=== PATIENT | female | born 1990 | race Caucasian/White ===

== ENCOUNTER 2017-10-06 19:55 | Outpatient (CLI) | payer MEDICAID, SELFPAY ==
[2017-10-06 21:01] VITALS: BMI 40.1
--- NOTE | 2017-10-06 23:31 | OB.TRI.NOTE ---
History of Present Illness Date of Service: 10/06/17 Was patient seen by the physician?: Yes Reason For Visit: R/O LABOR Date of Service: 10/06/17 Gestational age: 34 weeks History of Present Illness: Patient presents coming from work. She reports worsening cramping/contractions over the last few hours. Yesterday she reported 1 ctx/hour and now she is having 2 contractions/hr. Patient reports that contractions sometimes were lasting 10 minutes long. Patient denies vaginal bleeding or vaginal discharge. Patient reports +FM. Home Medications Medication Instructions Recorded Sertraline HCl [Zoloft] 1 tab PO DAILY 03/10/17 Pnv No.122/Iron/Folic Acid 1 each PO DAILY 03/22/17 [ Multi Tablet] Ondansetron [Zofran Odt] 4 mg PO Q8H PRN PRN #10 tablet 06/17/17 Allergies LIDOCAINE PATCHES Allergy (Uncoded 06/17/17 16:24) Other Physical Exam Vitals: See nursing note for vital signs - VSS, afebrile NST - FHR Rate Baby A Baseline: 120 Variability:: Moderate Accelerations:: 15 x 15 Decelerations:: None NST Reactive:: Yes, Appropriate for gestational age FHR Category:: Category I Uterine Activity:: Uterine irritability noted on tocometer
== END 2017-10-06 23:25 | disposition home or self-care (01) ==
LOC: WPOUT 20:33 → WP 20:34
PROVIDERS: Family Provider Family Medicine; PCP Family Medicine; Visit Provider Obstetrics & Gynecology
DX: O60.03 Preterm labor without delivery, third trimester (principal); Z3A.34 34 weeks gestation of pregnancy
CPT/HCPCS: 59025; 59050; 99218; G0378

== ENCOUNTER 2017-10-29 13:10 | Outpatient (CLI) | payer MEDICAID, SELFPAY ==
[2017-10-29 13:32] VITALS: BMI 39.7
[2017-10-29 14:13] LABS: ROM Internal Control Test YES-OK TO RESULT pt. (Internal QC); ROM Patient Test Negative (Negative)
--- NOTE | 2017-10-29 19:10 | OB.TRI.NOTE ---
History of Present Illness Date of Service: 10/29/17 Was patient seen by the physician?: Yes Reason For Visit: R/O LABOR Date of Service: 10/29/17 Final POP: 11/17/17 Final POP Source: US <20 weeks Gestational age: 37 Weeks and 2 Days History of Present Illness: 27 YOF G1 presents c/o some vaginal fluid leaking. No regular ctxs/VB. Good FM. Home Medications Medication Instructions Recorded Prenatabs FA 1 tab PO DAILY 10/07/17 Allergies LIDOCAINE PATCHES Allergy (Uncoded 10/07/17 01:59) Other Physical Exam General: Alert, Cooperative, No apparent distress Abdomen: Soft, Non-Distended, Gravid, Tender, Appropriate for Gestational Age Extremities:: Other - edema 1+ Estimated gestational size: Appropriate for gestational size Presentation: Cephalic NST - FHR Rate Baby A Baseline: 125 bpm Variability:: Moderate Accelerations:: 15 x 15 Decelerations:: None NST Reactive:: Yes FHR Category:: Category I Uterine Activity:: irregular ctxs
== END 2017-10-29 15:00 | disposition home or self-care (01) ==
LOC: WP 13:31 → WPOUT 13:31
PROVIDERS: Family Provider Family Medicine; PCP Family Medicine; Visit Provider Advanced Practice Midwife
DX: O42.92 Full-term premature rupture of membranes, unspecified as to length of time between rupture and onset of labor (principal); Z3A.37 37 weeks gestation of pregnancy
CPT/HCPCS: 59025; 59050; 76815; 84112; 99218; G0378

== ENCOUNTER 2017-11-12 03:24 | Inpatient (IN) | payer MEDICAID, SELFPAY ==
[2017-11-12] VITALS (26 sets, daily range): BP systolic 92–132; BP diastolic 47–87; PULSE 67–113; RESP 16–18; TEMP 36.2–36.8; O2SAT 96–100; BMI 39.6
[2017-11-12] MEDS: Lactated Ringers 1,000 ML 999 ML IV (03:30)
[2017-11-12] MEDS: Cefazolin 2 GM in 0.9% Normal Saline 100 ML IV (04:00)
[2017-11-12 04:05] LABS: Hematocrit 39.4 % (37-47); Hemoglobin 13.2 g/dl (12.0-15.0); Mean Corp Hgb Conc 33.5 g/gl (32-36); Mean Corpuscular Hgb 27.3 pg (27.0-32.0); Mean Corpuscular Volume 81.6 fL (81-99); Mean Platelet Vol. 11.3 fl (6.2-12.0); Platelet Count 229 K/mm3 (150-450); RBC Distribution Width CV 14.1 % (11.6-14.6); RBC Distribution Width SD 41.5 fl (35.1-43.9); Red Blood Count 4.83 M/mm3 (4.2-5.4); White Blood Count 13.5 K/mm3 (4.4-11.0)
[2017-11-12 04:06] LABS: Scan Indicated on CBC? Y/N NO
[2017-11-12 04:12] LABS: International Normalized Ratio 0.9; Partial Thromboplast Time 26.9 Seconds (24.1-36.2); Prothrombin Time (Protime)PT. 12.1 SECONDS (11.7-14.9)
[2017-11-12 04:21] LABS: Fibrinogen 584 mg/dl (203-444)
[2017-11-12] MEDS: Oxytocin 30 units/NS 500 ml 30 UNITS/500 ML IV.SOLN 167 UNITS IV (04:30)
--- NOTE | 2017-11-12 05:02 | OP.PCM_ITS ---
Delivery Classification: CABRERA Final POP: 11/17/17 Final POP Source: US <20 weeks Gestational age: 39 Weeks and 2 Days Indications for : Suspected Abruptio Placenta, - - prolonged deceleration Description of Procedure: I was called when the patient arrived to labor and delivery due to her having a large amount of vaginal bleeding. I was called again when I was in transit to be notified that the heart tones were approximately 70 bpm and they were transporting the patient to the operating room. Arrived the patient was in the operating room in knee-chest position and there was a large amount of bright red blood on her legs and pooling on the pad underneath her. Her shaker from anesthesia was present. IV was and and labs have been sent. Place the patient on her side and I checked her and she was found to be 2 cm 80% effaced -2 station. I felt a bag of chavez and the vertex. A moderate amount of bloody fluid returned when I examined her. I was uncertain of her membranes were ruptured. The scalp electrode and at that point the heart tones were 130s-140s range. Discussed with the patient and the team that we would attempt to wait a few more minutes as long as her bleeding did not increase, she was stable and the heart tracing allowed. We are attempting to allow time for [place] if regional anesthetic would be reasonable versus general anesthetic. I discussed with the patient and her partner that I would recommend a section as soon as clinically minimal and possible. Very quickly after my initial assessment, the platelets and CBC returned and the decision was made to proceed with spinal instead of general anesthetic. Her spinal anesthetic was placed. She was prepped and draped in the dorsal supine position with a leftward tilt. A Pfannenstiel skin incision was made approximately 2 cm above the symphysis pubis and carried through to underlying layer fascia with the scalpel. The fascia was incised incised in the midline and extended laterally with the Quezada scissors. The fascia was dissected off the rectus muscles with blunt and sharp dissection. The rectus muscles were in the midline and the peritoneum was entered bluntly. The peritoneal incision was stretched and the bladder blade was placed. The uterine incision was made in a low transverse fashion with the scalpel and extended superiorly and inferiorly with blunt dissection. The amniotic membranes were ruptured bluntly and a moderate amount of fluid that was port wine stain meconium returned.. The infant's head was brought to the incision in the flexed position and delivered without difficulty. The remainder of the infant was delivered with gentle traction and fundal pressure in the standard fashion. The mouth and nares were bulb suctioned. The cord was clamped and cut as the infant was stimulated. The cord clamping was not delayed as the infant was not immediately vigorous. I did milk the cord towards the infant before clamping the cord.. The infant was handed off to the waiting nursing staff. The placenta was delivered with fundal massage and gentle traction in the standard fashion. The uterus was exteriorized and cleared of all clots and debris. . The uterine incision was closed with #1 Vicryl in a running locked fashion. A second layer of the same suture was used in an imbricating fashion and the incision was examined for hemostasis. The uterus was placed back into the peritoneal cavity and hemostasis was assured. The rectus muscles were examined and any bleeding was Bovie cauterized. The parietal peritoneum and rectus muscles were closed en bloc with an 0 Vicryl suture in a running standard fashion.. The rectus fascia was examined and the bleeding was Bovie cauterized and the rectus fascia was closed with 1 PDS suture in a running standard fashion. The subcutaneous tissue was examining and any bleeding was Bovie cauterized. The subcutaneous tissue was reapproximated with 3-0 Vicryl suture in 2 layers. The skin was closed in a subcuticular fashion by the BRAND ANALYST with me present in the labor and delivery suite. All sponge, lap, and needle counts were correct. The patient was taken to her room for recovery in a stable condition. Amniotic Membrane Rupture Type: Artificial Amniotic Fluid Description: Bloody Placenta Disposition: Sent to Pathology Drain: Padilla to straight drain Fluids Replaced: 1000ccLR Cord Entanglement: Around neck x 1, loose Nuchal Cord Compression: Without compression Cord Vessel Description: 3 Vessels Esitmated Blood Loss (ml): 800cc (1 minute): 8 (5 minute): 9 Delayed cord clamping: No Pre-op Antibiotic Given: Ancef 2 grams IV x1 Complications: None - Admit VTE Documentation VTE Present on Admission: No VTE Mechan Device Prophylaxis: SCD's VTE Pharm Prophylaxis ordered?: Yes
--- NOTE | 2017-11-12 05:02 | PCM.HP.OB ---
History Date of Admission: 11/12/17 Final POP: 11/17/17 Final POP Source: US <20 weeks Gestational age: 39 Weeks and 2 Days History of this : 27-year-old 1 para 0 female with EDC of 11/17/2017 by first trimester ultrasound alone presents complaining of bright red vaginal bleeding. She states she was sleeping and when she woke up approximately 45 minutes before she arrived to labor and delivery she noted she had some vaginal bleeding. Denies any trauma vaginal exams. She has not had any vaginal bleeding earlier in the . She had no regular contractions. She had no obvious leaking of fluid prior to this. Good movement yesterday. She states her has been uncomplicated to date. She denies history of drug use other than marijuana. Pertinent Past Medical History: Past medical history: [place] with BMI of 39. History of depression and PTSD. Family medical history: She had a brother that at 1 day of age due to a heart abnormality otherwise noncontributory Past surgical history: None Allergies LIDOCAINE PATCHES Allergy (Uncoded 10/07/17 01:59) Other Current Medications Acetaminophen (Tylenol) 325 - 650 mg PO Q4H PRN PRN PRN Reason: PAIN OR FEVER >100.4F Al Hydroxide/Mg Hydroxide (Mylanta Ii) 15 - 30 ml PO Q4H PRN PRN PRN Reason: INDIGESTION Citric Acid/Sodium Citrate (Bicitra) 30 ml PO UD PRN Citric Acid/Sodium Citrate (Bicitra) 30 ml PO UD MYRNA Lactated Ringer's () 1,000 mls @ 150 mls/hr IV .Q6H40M MYRNA Lactated Ringer's () 1,000 mls @ 999 mls/hr IV .Q1H1M MYRNA PRN Reason: Wide Open Stop: 11/12/17 05:05 Nalbuphine HCl (Nubain) 5 - 10 mg IV Q3H PRN PRN PRN Reason: PAIN (4-10/10) Ondansetron HCl (Zofran) 4 mg IV Q8H PRN PRN PRN Reason: NAUSEA Promethazine HCl (Phenergan) 6.25 - 12.5 mg IV Q4H PRN PRN; Protocol PRN Reason: IF NAUSEA PERSISTS Sodium Chloride () 0 ml IV UD [facility] Smoking Status: Current every day smoker Alcohol: None Drug Use: marijuana Number of Fetus(es): 1 Review of Systems Constitutional: Denies: Chills Eyes: Denies: Blurred vision Cardiovascular: Reports: Edema. Denies: Chest Pain Respiratory: Denies: Cough Gastrointestinal: Denies: Abdominal Pain Physical Exam General: Alert, Cooperative, No apparent distress Cardiovascular: Regular Rhythm Lungs: Normal air movement Abdomen: Soft, Non Tender, Non-Distended, Gravid, Appropriate for Gestational Age Extremities:: Other - edema- trace Estimated gestational size: Appropriate for gestational size Presentation: Cephalic Cervix Dilation (cm): 2 Station: -2 Effacement (%): 80 Assessment/Plan 27-year-old 1 para 0 at 39-2/7 weeks gestation with placental abruption, both from delivery and prolonged deceleration. When I arrived I quickly discussed with the patient and her partner that I suspected placental abruption and recommended proceeding with urgent section. Patient and partner agreed. Shortly after I arrived to assess the patient in the operating room her platelets and hemoglobin returned decision was made to proceed with regional anesthetic. We did was section in an urgent fashion. Area Attendant called for delivery. Pressure is stable. Will send tox screen.
[2017-11-12] MEDS: Lactated Ringers 1,000 ML 100 ML IV ×3 (05:03→17:55)
--- NOTE | 2017-11-12 05:10 | HP.PCM_ITS ---
History Date of Admission: 11/12/17 Final POP: 11/17/17 Final POP Source: US <20 weeks Gestational age: 39 Weeks and 2 Days History of this : 27-year-old 1 para 0 female with EDC of 11/17/2017 by first trimester ultrasound alone presents complaining of bright red vaginal bleeding. She states she was sleeping and when she woke up approximately 45 minutes before she arrived to labor and delivery she noted she had some vaginal bleeding. Denies any trauma vaginal exams. She has not had any vaginal bleeding earlier in the . She had no regular contractions. She had no obvious leaking of fluid prior to this. Good movement yesterday. She states her has been uncomplicated to date. She denies history of drug use other than marijuana. Pertinent Past Medical History: Past medical history: [place] with BMI of 39. History of depression and PTSD. Family medical history: She had a brother that at 1 day of age due to a heart abnormality otherwise noncontributory Past surgical history: None Allergies LIDOCAINE PATCHES Allergy (Uncoded 10/07/17 01:59) Other Current Medications Acetaminophen (Tylenol) 325 - 650 mg PO Q4H PRN PRN PRN Reason: PAIN OR FEVER >100.4F Al Hydroxide/Mg Hydroxide (Mylanta Ii) 15 - 30 ml PO Q4H PRN PRN PRN Reason: INDIGESTION Citric Acid/Sodium Citrate (Bicitra) 30 ml PO UD PRN Citric Acid/Sodium Citrate (Bicitra) 30 ml PO UD MYRNA Lactated Ringer's () 1,000 mls @ 150 mls/hr IV .Q6H40M MYRNA Lactated Ringer's () 1,000 mls @ 999 mls/hr IV .Q1H1M MYRNA PRN Reason: Wide Open Stop: 11/12/17 05:05 Nalbuphine HCl (Nubain) 5 - 10 mg IV Q3H PRN PRN PRN Reason: PAIN (4-10/10) Ondansetron HCl (Zofran) 4 mg IV Q8H PRN PRN PRN Reason: NAUSEA Promethazine HCl (Phenergan) 6.25 - 12.5 mg IV Q4H PRN PRN; Protocol PRN Reason: IF NAUSEA PERSISTS Sodium Chloride () 0 ml IV UD [facility] Smoking Status: Current every day smoker Alcohol: None Drug Use: marijuana Number of Fetus(es): 1 Review of Systems Constitutional: Denies: Chills Eyes: Denies: Blurred vision Cardiovascular: Reports: Edema. Denies: Chest Pain Respiratory: Denies: Cough Gastrointestinal: Denies: Abdominal Pain Physical Exam General: Alert, Cooperative, No apparent distress Cardiovascular: Regular Rhythm Lungs: Normal air movement Abdomen: Soft, Non Tender, Non-Distended, Gravid, Appropriate for Gestational Age Extremities:: Other - edema- trace Estimated gestational size: Appropriate for gestational size Presentation: Cephalic Cervix Dilation (cm): 2 Station: -2 Effacement (%): 80 Assessment/Plan 27-year-old 1 para 0 at 39-2/7 weeks gestation with placental abruption , both from delivery and prolonged deceleration. When I arrived I quickly discussed with the patient and her partner that I suspected placental abruption and recommended proceeding with urgent section. Patient and partner agreed. Shortly after I arrived to assess the patient in the operating room her platelets and hemoglobin returned decision was made to proceed with regional anesthetic. We did was section in an urgent fashion. Library Services Dean called for delivery. Pressure is stable. Will send tox screen.
--- NOTE | 2017-11-12 05:27 | PLAC_PTH ---
PATIENT: STARR KHAN LOC: WP U#:[id number] AGE/SX: 27/F ROOM: WP002 RE11/12/[address]: Dr. Nabila Whitt MD : 1990 BED: 1 DIS: 11/15/2017 SPEC #: [id number] RECD: 11/12/17 05:58 STATUS: FELICIA THOMAS #: [id number] ROMEO: 11/12/17 05:[address]: Nabila Whitt DEPT: SURGICAL PATHOLOGY RECD BY: Adelina Marquez ENTERED: 11/12/17 09:30 SP TYPE: PLACENTA OTHR DR: Dr. Alexx Khan MD Tissues: Placenta, NOS Procedures: Surgery Specimen Level V HEADER OPERATION: Primary section PRE-OP DIAGNOSIS: Bleeding, suspected abruption TISSUE SUBMITTED: Placenta MICROSCOPIC DIAGNOSIS Duenas placenta (616 gm): Umbilical cord ? four vessels with no inflammation. Placental membranes ? no pathologic change. Placental disc ? intervillous congestion, Brant-Christofer change and mildly increased intraparenchymal microcalcifications and mild chronic deciduitis. AM:marianne 11/14/17 MICROSCOPIC DESCRIPTION Slides are reviewed. GROSS DESCRIPTION SPECIMEN: PLACENTA / CLINICAL INFORMATION: A. Weight: 3.01 gm B. Gestational Age: 39 weeks C. Sex: Female PLACENTAL WEIGHT (POST FIXATION): 616 gm PLACENTAL DIMENSIONS: 17 x 17 x 3 cm PLACENTAL SHAPE: Usual ovoid PLACENTAL WEIGHT FOR GESTATIONAL AGE: Over 99th percentile MEMBRANES - Present A. Insertion: Marginal B. Site of rupture from edge: At edge of placental disc C. Color of membrane: Dupont-copeland D. Abnormalities: None UMBILICAL CORD - Present A. Color: Dupont-copeland B. Insertion: Eccentric C. Length: 19 cm D. Diameter: 1.5 cm E. Number of vessels: Four F. Abnormalities: None PLACENTAL DISC - Present A. Color of surface: Dupont-copeland B. surface abnormalities: None C. Maternal cotyledons: Intact with minimal tears D. Attached retro placental clot: No clot E. Cut surface: Dark red and spongy F. Lesions: None G. Separate clot: Separate blood clot in container measures 13 x 5 x 3 cm. SECTIONS SUBMITTED: 1. Membrane roll and umbilical cord ( end notched) 2. Placental disc, and maternal surfaces 3. Placental disc, and maternal surfaces 4. Placental disc, and maternal surfaces AM:marianne 11/13/17 TC:3 CPT: 09649
[2017-11-12 06:12] LABS: Amphetamine Urine VISTA NEGATIVE (<1000 ng/mL); Barbiturate Urine VISTA NEGATIVE (< 200 ng/mL); Benzodiazepine Urine VISTA NEGATIVE (< 200 ng/mL); Cocaine Urine VISTA NEGATIVE (< 300 ng/mL); Ecstacy Urine VISTA NEGATIVE (< 500 ng/mL); Methadone Urine VISTA NEGATIVE (< 300 ng/mL); PCP Urine VISTA NEGATIVE (< 25 ng/mL); THC Urine VISTA POSITIVE (< 50 ng/mL); Vista UDS pH Range 6
[2017-11-12] MEDS: Ketorolac 30 MG/ML Syringe IV ×3 (09:52→21:59)
[2017-11-12] MEDS: Ondansetron 4 MG/2 ML Vial IV (09:52)
[2017-11-12] MEDS: 0.9% Saline Lock 10 ML Syringe IV ×3 (09:52→21:59)
[2017-11-12] MEDS: Acetaminophen 500 MG Tablet 1000 MG PO (19:13)
[2017-11-12] MEDS: Senna/Docusate Sodium 1 Tablet PO (21:59)
[2017-11-13 00:01] VITALS: BP 115/58; PULSE 69; RESP 16; TEMP 36.6; O2SAT 97
[2017-11-13 02:22] VITALS: RESP 18; O2SAT 97
[2017-11-13] MEDS: Ketorolac 30 MG/ML Syringe IV (04:10)
[2017-11-13] MEDS: 0.9% Saline Lock 10 ML Syringe IV ×2 (04:10→10:17)
[2017-11-13 04:14] VITALS: BP 110/69; PULSE 100; RESP 18; TEMP 36.4; O2SAT 99
[2017-11-13 05:33] LABS: Hematocrit 31.2 % (37-47); Hemoglobin 10.3 g/dl (12.0-15.0); Mean Corpuscular Hgb 27.5 pg (27.0-32.0); Mean Corpuscular Volume 83.2 fL (81-99); Mean Platelet Vol. 11.5 fl (6.2-12.0); Platelet Count 176 K/mm3 (150-450); RBC Distribution Width CV 14.3 % (11.6-14.6); RBC Distribution Width SD 41.9 fl (35.1-43.9); Red Blood Count 3.75 M/mm3 (4.2-5.4); White Blood Count 10.9 K/mm3 (4.4-11.0)
[2017-11-13 05:53] LABS: Scan Indicated on CBC? Y/N NO
[2017-11-13] MEDS: oxyCODONE 5 MG Tablet PO ×5 (07:26→23:57)
[2017-11-13 09:00] VITALS: BP 104/69; PULSE 82; RESP 20; TEMP 36.4; O2SAT 97
[2017-11-13] MEDS: Prenatal Vits Tablet 1 TABLET PO (10:16)
[2017-11-13] MEDS: Senna/Docusate Sodium 1 Tablet PO ×2 (10:16→22:21)
--- NOTE | 2017-11-13 10:33 | CASEMGMT ---
See assessment for further details. SW spoke w/MOB in room, FOB asleep on the couch. MOB agreeable to speak w/SW w/FOB present. MOB reports to have all needed supplies for baby, including crib and bassinet. Baby has her own room. MOB states not enrolled in WIC, may be over income. MOB is , does have bottles. MOB reports supportive family on both MOB and FOB's side, and supportive siblings as well. 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 SW spoke w/ED about history of anxiety, depression and PTSD. MOB states is not in counseling at present. MOB also not on any medication at present. MOB states had counseling at [facility] two and a half years ago and did not find it helpful. SW explained that there are other places that offer counseling in [place] should she need it. MOB denies symptoms at present, denies being suicidal. MOB denies and issues of DV at present. SW asked MOB about substance abuse. MOB denies use of any other drugs or alcohol, admits to marijuana use. MOB admits smoked during to help w/nausea and anxiety. MOB also did admit she smoked the day prior to delivery. SW explained that both she and baby did have a positive tox screen for marijuana and this means that [facility] will be [facility]. MOB immediately became tearful and asked if the baby will be taken away. SW reassured MOB that most likely no, they will not take the baby away but will offer support to MOB, explained the goal will be to keep the family together. SW explained will call and let her know what [facility] says. SW did also give MOB and reviewed w/MOB resources for shaken baby, safe sleeping, support groups for Moms and Dads, counseling resources in [place] including [facility], [facility], other resources in [facility] including 24 hour hotline for [facility], and information on Post depression. SW called [facility], spoke w/Yuliet, she states they will open a case but she is not certain they will see mom here or may see her at home, BRAD asked Yuliet to have the worker call this SW to let this SW know. The worker assigned to the case will call MOB directly. Yuliet also confirmed the goal will be to keep the family together and the baby will not be removed. SW spoke w/MOB again, checked her phone number which was wrong in the system, and explained that someone from [facility] will call her directly. SW explained again that the goal is to keep her family together and they will not be removing the baby. SW explained the worker may see her here or wait until she gets home. SW again explained they will be offering her support and speaking w/her about alternatives to smoking pot--will likely encourage her to get back into counseling. MOB states understanding. SW explained to MOB if she has any questions or wants to speak w/SW to let the RN know, SW can come back. MOB states understanding. SW did call Yuliet back at [facility] with the corrected phone number. BRAD updated MOB's RN. SW will check back w/MOB tomorrow. THIEN Yung, RUBBER TUBING SPLICER
[2017-11-13 14:00] VITALS: BP 114/69; PULSE 89; TEMP 36.6; O2SAT 94
--- NOTE | 2017-11-13 14:57 | CASEMGMT ---
Soheila from [facility] called this SW, she states she does not need to see MOB and baby here in the hospital, will call her to set up a time to meet her at her home. She is going to call MOB shortly. THIEN Yugn, CLOUD ENGAGEMENT PARTNER
[2017-11-13] MEDS: Naproxen 250 MG Tablet PO (17:53)
[2017-11-13 19:50] VITALS: BP 117/79; PULSE 88; RESP 16; TEMP 36.7
[2017-11-14 02:20] VITALS: BP 110/72; PULSE 90; RESP 18; TEMP 36.7
[2017-11-14] MEDS: Naproxen 250 MG Tablet PO ×2 (02:34→19:45)
--- NOTE | 2017-11-14 08:38 | PCM.PN.OB ---
Subjective: pain well controlled, average lochia, + flatus, no BM - Physical Exam General: Alert, Cooperative, No apparent distress Abdomen: Soft, Non-Distended, Tender - appropriately Extremities: Edema - trace Skin: Incision - bandage clean, dry and intact Vital Signs Temp Pulse Resp BP Pulse Ox 98.0 F 90 18 110/72 94 11/14/17 02:20 11/14/17 02:20 11/14/17 02:20 11/14/17 02:20 11/13/17 14:00 Oxygen Delivery Method Room Air Weight: 108.012 kg Body Mass Index (BMI) 39.6 Intake and Output for Last 24 Hours 11/12/17 11/13/17 11/14/17 23:59 23:59 23:59 Intake Total 5907 / 5907 500 / 500 Output Total 2550 / 2550 2600 / 2600 Balance 3357 / 3357 -2100 / -2100 Medical Necessity - Tobacco Use Smoking Status: Never smoker Assessment/Plan POD#2 doing well infant b reastfeeding probably home tomorrow
--- NOTE | 2017-11-14 08:43 | CASEMGMT ---
SW spoke w/pt this morning in room, pt's on couch with eyes closed, but awake. BRAD inquired if she received a call from Soheila at [facility]. MOB states she missed the call and when she called back, nobody knew what she was talking about. SW explained will call Soehila today to let her know, and ask her to call MOB again to set up a time to see her. MOB asked if they would just show up at her home. BRAD explained to MOB that Soheila will set up a time to see MOB and family at home, and she can be discharged from the hospital when she is ready. MOB became tearful, SW again reassured her that the goal is to keep the family together and offer her and the family support. SW explained that they will likely speak w/her about getting back into counseling and not smoking marijuana. MOB states understanding. MOB and FOB have no further questions at this time. BRAD called [facility], message left for Soheila to call MOB back to set up time to meet at home, and if she cannot reach MOB to call this BRAD and this BRAD can put Soheila on phone w/her to set up a time. BRAD just learned from HEALTH CARE SANITARY TECHNICIAN MOB has been getting a script filled fo Ambien, 30/month, and Tramadol, 90/month during . MOB had not mentioned this to the HEALTH CARE SANITARY TECHNICIAN or any staff here. BRAD did call Soheila back from [facility], let her know about MOB getting the Ambien and Tramadol prescribed throughout her but had not let the HEALTH CARE SANITARY TECHNICIAN or staff here know this. Soheila did speak w/MOB and scheduled a home visit for next week. No further needs are anticipated. MOB home at discharge with baby. THIEN Yung, ELECTRICIAN SHOP
--- NOTE | 2017-11-14 08:49 | DCINST_ITS ---
Discharge Diet: No Restrictions Discharge Activity: Return to Normal Activity, May Not Drive - for 2 weeks, May not drive while taking narcotic pain medications., May Shower, May Take a Tub Bath - in 7 days. May resume sexual activity in: 4-6 weeks Lifting Restrictions: 20 pounds Additional Activity Instructions:: Nothing in the vagina for 4-6 weeks. You may return to work/school in 6 weeks. Call your doctor if your incision/area has: Continuous Slow Oozing, Sudden Increased Bleeding, Increased Pain/ Swelling, Increased Redness, Foul Smelling Discharge Call your doctor if you observe: Fever of 101 or Higher, Using more than one pad per hour - for 2 hours Suture Line Care: Avoid Pulling/Pushing, Avoid Pinching/Bending Cleanse incision/area with: Keep Dressing Clean & Dry Additional Instructions: If you experience any of the following, contact your healthcare provider. * Bleeding that soaks a pad every hour for 2 hours * Fever 100.4 or higher * Unrelieved incision or abdominal pain * Swelling, redness, discharge or bleeding from your incision or episiotomy site * Your incision begins to separate * Problems urinating (including inability to urinate or burning while urinating) . * Visual changes * Severe headache * Flu-like symptoms * Pain or redness in one of both of your breasts * Pain, warmth, tenderness or swelling in your legs, especially the calf area * Frequent nausea and vomiting * Symptoms of depression or anxiety If you experience any of the following, call 911 or go to the nearest Emergency Room. * Chest pain * Problems breathing * Seizure activity * Partial or complete paralysis of a body part, slurred speech, weakness or drooping of the face, or a sudden inability to walk or hold your balance Allergies/Adverse Reactions: Allergies LIDOCAINE PATCHES Allergy (Uncoded 10/07/17 01:59) Other Medications to take at Discharge Prenatabs FA 1 tab PO DAILY 10/07/17 Ibuprofen [Motrin] 800 mg PO TID PRN PRN #60 tab 11/14/17 Oxycodone HCl/Acetaminophen [Percocet 5/325] 1 - 2 tablet PO Q8 PRN 7 Days #28 tablet 11/14/17 The following prescriptions were given: Ibuprofen [Motrin] 800 mg PO TID PRN PRN #60 tab PRN Reason: Pain Oxycodone HCl/Acetaminophen [Percocet 5/325] 1 - 2 tablet PO Q8 PRN 7 Days #28 tablet PRN Reason: Pain Orders to be completed after discharge: Electric breast pump Location: None Selected Follow-Up: Call to make an appointment with your doctor for an incision check in 1-2 weeks. You will also need a 6 week post- follow up appointment. Please Follow Up With: Nabila Whitt MD - Call to make an appointment for an incision check in 1-2 [phone] When: You will need a post check in 6 weeks. Primary Care Physician: Alexx Khan MD [Primary Care Provider] -
[2017-11-14] MEDS: oxyCODONE 5 MG Tablet PO ×3 (09:05→21:20)
[2017-11-14 09:08] VITALS: BP 113/71; PULSE 72; RESP 18; TEMP 36.6; O2SAT 97
[2017-11-14] MEDS: Prenatal Vits Tablet 1 TABLET PO (12:39)
[2017-11-14] MEDS: Senna/Docusate Sodium 1 Tablet PO ×2 (12:39→23:51)
[2017-11-14 13:00] VITALS: BP 114/80; PULSE 77; RESP 18; TEMP 36.5; O2SAT 98
[2017-11-14 20:00] VITALS: BP 128/80; PULSE 77; RESP 18; TEMP 36.6
[2017-11-15 02:35] VITALS: BP 114/70; PULSE 78; RESP 16; TEMP 36.3
[2017-11-15] MEDS: oxyCODONE 5 MG Tablet PO ×2 (05:48→10:47)
[2017-11-15 07:32] VITALS: BP 102/63; PULSE 78; RESP 16; TEMP 36.2; O2SAT 99
--- NOTE | 2017-11-15 08:59 | PCM.PN.OB ---
Subjective: Pain well controlled. Positive flatus. No bowel movement yet. Tolerating regular diet. Ambulating and urinating without difficulty. - Physical Exam General: Alert, Cooperative, No apparent distress Abdomen: Soft, Non-Distended, Tender - Appropriately Extremities: Edema - 1+ Skin: Incision - Bandages clean dry and intact. Under the bandage the incision is intact without erythema or drainage. Vital Signs Temp Pulse Resp BP Pulse Ox 97.2 F L 78 16 102/63 99 11/15/17 07:32 11/15/17 07:32 11/15/17 07:32 11/15/17 07:32 11/15/17 07:32 Oxygen Delivery Method Room Air Weight: 108.012 kg Body Mass Index (BMI) 39.6 Intake and Output for Last 24 Hours 11/13/17 11/14/17 11/15/17 23:59 23:59 23:59 Intake Total 500 / 500 Output Total 2600 / 2600 Balance -2100 / -2100 Medical Necessity - Tobacco Use Smoking Status: Never smoker Assessment/Plan Postoperative day #3 status post urgent section for placental abruption. Patient and are doing well. She is working on breast-feeding. She will be discharged home today.
--- NOTE | 2017-11-15 09:01 | PCM.DC.SUM ---
Discharge Date and Diagnosis Date of Admission: 11/12/17 Date of Discharge: 11/15/17 Hospital Course and Treatment Consultations 11/12/17 05:39 Consult: Mental Health/Crisis Routine Reason for consult?: Hx THC use in and prior. Traumatic delivery Date Notified:: 11/12/17 Time notified:: 05:39 Operations: - - Primary low transverse section Via Pfannenstiel skin incision with double layer closure of the uterus. Procedures: None Summary of Care Provided: 27-year-old primigravida female was admitted for vaginal bleeding in early labor. She had prolonged decelerations. She was consented for urgent section. Spinal was placed in the section was performed without difficulty. She had a partial placental abruption. She had a low transverse section Via Pfannenstiel skin incision with a double layer closure of the uterus. By postoperative day #3 she was ambulating, urinating, and tolerating regular diet without difficulty. She was discharged home with routine instructions and prescriptions and she is to follow-up in my office in 1 in 6 weeks or as needed. [] Discharge Diet: No Restrictions Discharge Activity: Return to Normal Activity, May Not Drive - for 2 weeks, May not drive while taking narcotic pain medications., May Shower, May Take a Tub Bath - in 7 days. May resume sexual activity in: 4-6 weeks Additional Activity Instructions:: Nothing in the vagina for 4-6 weeks. You may return to work/school in 6 weeks. Call your doctor if your incision/area has: Continuous Slow Oozing, Sudden Increased Bleeding, Increased Pain/ Swelling, Increased Redness, Foul Smelling Discharge Call your doctor if you observe: Fever of 101 or Higher, Using more than one pad per hour - for 2 hours Suture Line Care: Avoid Pulling/Pushing, Avoid Pinching/Bending Cleanse incision/area with: Keep Dressing Clean & Dry Home Medications: Medications to take at Discharge Prenatabs FA 1 tab PO DAILY 10/07/17 Ibuprofen [Motrin] 800 mg PO TID PRN PRN #60 tab 11/14/17 Oxycodone HCl/Acetaminophen [Percocet 5/325] 1 - 2 tablet PO Q8 PRN 7 Days #28 tablet 11/14/17 Following Prescrptions Were Given to Patient: Ibuprofen [Motrin] 800 mg PO TID PRN PRN #60 tab PRN Reason: Pain Oxycodone HCl/Acetaminophen [Percocet 5/325] 1 - 2 tablet PO Q8 PRN 7 Days #28 tablet PRN Reason: Pain Other Amb Orders: Electric breast pump Location: None Selected Primary Care Physician: Alexx Khan MD [Primary Care Provider] - Please Follow Up With: Nabila Whitt MD - Call to make an appointment for an incision check in 1-2 [phone] When: You will need a post check in 6 weeks. Medical Necessity - Tobacco Use Smoking Status: Never smoker Meaningful Use Info Meaningful Use Diagnoses (Choose all that apply): None applicable
[2017-11-15] MEDS: Senna/Docusate Sodium 1 Tablet PO (10:47)
[2017-11-15] MEDS: Prenatal Vits Tablet 1 TABLET PO (10:47)
[2017-11-15] MEDS: Acetaminophen 500 MG Tablet 1000 MG PO (12:38)
[2017-11-15 13:34] VITALS: BP 110/65; PULSE 84; RESP 16; TEMP 36.6; O2SAT 99
--- NOTE | 2017-11-15 14:04 | NURSING ---
RIGHT PT GETTING IN WHEEL CHAIR FOR DISCHARGE PT STARTED C/O SEVERE HEADACHE THAT IS ONLY GONE WHEN LAYING DOWN. THIS RN INFORMED PT IT IS PROBABLY SPINAL HEADACHE AND THIS RN WILL CALL ANESTHESIA. CALLED GREGORY AND SHE INFORMED THIS RN TO TELL PT THAT SHE NEEDS TO GO HOME AND TRY DRINKING LOTS OF FLUIDS AND CAFFEINE AND IF NOT IMPROVED CAN CALL OB OR GO TO ER FOR EVALUATION. PT INFORMED OF THIS INFORMATION AND OK WITH PLAN OF NOW.
[2017-11-17 05:29] LABS: Pathology Specimen OB SEE PATHOLOGY REPORT
== END 2017-11-15 13:58 | disposition home or self-care (01) | DRG 370 ==
PROVIDERS: Admitting Provider Obstetrics & Gynecology; Family Provider Family Medicine; PCP Family Medicine; Visit Provider Obstetrics & Gynecology
DX: O45.93 Premature separation of placenta, unspecified, third trimester (principal); O99.324 Drug use complicating childbirth; O76 Abnormality in fetal heart rate and rhythm complicating labor and delivery; O69.82X0 Labor and delivery complicated by other cord entanglement, without compression, not applicable or unspecified; F17.200 Nicotine dependence, unspecified, uncomplicated; O99.334 Smoking (tobacco) complicating childbirth; F12.90 Cannabis use, unspecified, uncomplicated; Z3A.39 39 weeks gestation of pregnancy; Z37.0 Single live birth
CPT/HCPCS: 59025; 59050; 80307; 85027; 85384; 85610; 85730; 86850; 86900; 88307; 94762; 99218; J7120; A4216; G0378; J2405

== ENCOUNTER 2017-11-19 14:34 | Outpatient (CLI) | payer MEDICAID, SELFPAY | END 2017-11-19 15:35 | disposition home or self-care (01) | LOC: WPOUT 14:35 → WP 14:36 | PROVIDERS: Family Provider Family Medicine; PCP Family Medicine; Visit Provider Obstetrics & Gynecology | DX: Z39.1 Encounter for care and examination of lactating mother (principal) | CPT/HCPCS: 96152 ==

== ENCOUNTER 2019-11-24 00:14 | Emergency (ER) | payer BC, OTHER, SELFPAY ==
[2019-11-24 00:16] VITALS: BP 113/70; PULSE 57; RESP 16; TEMP 36.3; O2SAT 99; BMI 45.0
--- NOTE | 2019-11-24 00:30 | EKG12_ITS ---
Test Reason : DIZZNESS Blood Pressure : / mmHG Vent. Rate : 056 BPM Atrial Rate : 056 BPM P-R Int : 126 ms QRS Dur : 100 ms QT Int : 408 ms P-R-T Axes : 033 060 044 degrees QTc Int : 393 ms Sinus bradycardia with marked sinus arrhythmia Otherwise normal ECG Confirmed by REMI BLANCO ([id number]), managing editor CUCA EL ([id number]) on 11/25/2019 3:01:36 PM Referred By: JAZMÍN Confirmed By:REMI BLANCO
[2019-11-24 01:07] LABS: Absolute Lymphocyte Count 2.85 X10^3/uL (0.83-4.51); Absolute Neutrophil Count 4.4 X10^3/uL (2.0-7.7); Basophil# 0.07 X10^3/uL; Basophil% 0.8 % (0-1); Eosinophil# 0.71 X10^3/uL; Eosinophils% 8.1 % (0-5); Hematocrit 46.6 % (37-47); Hemoglobin 15.9 g/dL (12.0-15.0); Lymphocyte # 2.85 X10^3/ul (4.0); Lymphocyte % 32.6 % (19-41); Mean Corp Hgb Conc 34.1 g/dL (32-36); Mean Corpuscular Hgb 29.2 pg (27.0-32.0); Mean Corpuscular Volume 85.5 fL (81-99); Monocyte# 0.68 X10^3/uL; Monocyte% 7.8 % (0-10); NRBC Flagged by Analyzer 0 % (0-5); Neutrophil % 50.4 % (47-70); Platelet Count 251 K/mm3 (150-450); RBC Distribution Width CV 13.2 % (11.6-14.6); RBC Distribution Width SD 40.1 fl (35.1-43.9); Red Blood Count 5.45 M/mm3 (4.2-5.4); White Blood Count 8.7 K/mm3 (4.4-11.0)
--- NOTE | 2019-11-24 01:19 | ED.VIS.GEN ---
History of Present Illness Chief Complaint: Dizziness Informant: Patient Onset: Today Current Severity: Mild Maximum Severity: Moderate Narrative: Patient presents secondary to dizziness. She states that she works third shift and lay down to take a nap around 5 PM. She felt fine at that time. Upon waking she felt lightheaded and dizzy. She describes both lightheaded and spinning sensation. She denies palpitations. She states she felt she was in a pass out and could hardly walk 5 feet. She denies any recent medication changes. She states she has never experienced this previously. Past Medical History - Allergies and Home Meds Allergies/Adverse Reactions: Allergies LIDOCAINE PATCHES Allergy (Uncoded 10/07/17 01:59) Other Primary Care Physician: Care Physician,No Primary [Primary Care Provider] - Prior records reviewed: Yes Surgical History: no surgical history Lives: With Family Smoking Status: Never smoker - Family History Maternal Family History: Reports: No pertinent history Paternal Family History: Reports: No pertinent history Review of Systems General: Denies: Chills, Fever Eyes: Denies: Visual changes - bilaterally ENT: Denies: Bilateral ear pain Cardiovascular: Denies: Chest pain Respiratory: Denies: Dyspnea, Cough Gastrointestinal: Denies: Abdominal pain, Nausea, Vomiting, Diarrhea Genitourinary: Denies: Dysuria Musculoskeletal: Denies: Swelling, Extremity Pain Skin: Denies: Rash Neurological: Denies: Headache Hematologic: Denies: Easy bruising, Easy bleeding Allergy: Denies: Uticaria Physical Exam Vital Signs/Narrative: Vital Signs Temp Pulse Resp BP Pulse Ox 11/24/19 00:16 97.4 F L 57 L 16 113/70 99 Inital Vital Signs reviewed: Yes General: Well nourished, Well developed Head: Normocephalic ENT: Moist mucous membranes Neck: Supple Cardiovascular: Bradycardia Respiratory: No distress, CTA bilaterally Abdomen: Soft, Nontender Extremities: Nontender Skin: Normal color, No rash Neurological: Alert, Oriented x3 Psychological: Normal affect Diagnostic/Tx/Re-eval Laboratory Results 11/24/19 11/24/19 11/24/19 00:30 00:30 01:30 WBC 8.7 RBC 5.45 H Hgb 15.9 H Hct 46.6 MCV 85.5 MCH 29.2 MCHC 34.1 RDW Std Deviation 40.1 RDW Coeff of [place] 13.2 Plt Count 251 MPV 11.0 Immature Gran % (Auto) 0.300 Neut % (Auto) 50.4 Lymph % (Auto) 32.6 [place] % (Auto) 7.8 Eos % (Auto) 8.1 H Baso % (Auto) 0.8 Absolute Neuts (auto) 4.4 Absolute Lymphs (auto) 2.85 Nucleated RBC % 0 Sodium 139 Potassium 3.7 Chloride 110 H Carbon Dioxide 26.0 Anion Gap 3 L BUN 4 L Creatinine 0.63 Estim Creat Clear Calc 120.70 Est GFR (MDRD) Af Amer 144 Est GFR (MDRD) Non-Af 119 BUN/Creatinine Ratio 6.3 L Glucose 102 Calcium 9.1 TSH 0.55 Urine Color Yellow Urine Clarity Sl. Cloudy Urine pH 7.0 Ur Specific [place] 1.010 Urine Protein Negative Urine Glucose (UA) Normal Urine Ketones Negative Urine Occult Blood Negative Urine Nitrite Negative Urine Bilirubin Negative Urine Urobilinogen Normal Ur Leukocyte Esterase 25 H Urine RBC 0 SEEN Urine WBC 0-5 SEEN Ur Squamous Epith Cells 0-5 SEEN Urine Bacteria 0 SEEN Urine Mucus 0 SEEN - EKG Initial EKG Interpretation: Sinus Bradycardia - Sinus bradycardia 56 bpm with sinus arrhythmia. No acute ischemia. - Medical Decision Making Patient was given IV fluid bolus here. On repeat evaluation she is resting comfortably. She is able to ambulate to the restroom and back with only mild symptoms. She was then given a dose of p.o. Antivert. Patient has been somewhat bradycardic, however her blood pressure has been normal. She felt perfectly normal when she laid down and then woke up feeling as if something was wrong before she even tried to stand. My suspicion is that she has a component of vertigo. She be given a prescription for p.o. Antivert to use as needed. If symptoms worsen or she has any other concerns she is to return. ED Disposition - Plan for ED Patient: Disposition: Home or Assisted Living Diagnosis: Vertigo Instructions: ED Vertigo Unspecified Prescriptions: Meclizine HCl [Antivert] 25 mg PO 4X/DAY PRN PRN #20 tablet PRN Reason: Dizziness Referrals: Jadiel Alvarenga, [NON CLINICAL AFFILIATE] - As Needed
[2019-11-24 01:27] LABS: Anion Gap 3 (5-15); BUN 4 mg/dL (7-18); BUN/Creat Ratio 6.3 RATIO (10-20); Calcium,Total 9.1 mg/dL (8.5-10.1); Chloride 110 mmol/L (98-107); Creatinine, Serum 0.63 mg/dL (0.55-1.02); EST Glomerular Filtration Rate 119 mL/min (>60); Est Glom Filt Rate - Afr Amer 144 mL/min (>60); Glucose 102 mg/dL (74-106); Potassium 3.7 mmol/L (3.5-5.1); Sodium Level 139 mmol/L (136-145); Thyroid Stim Hormone (TSH) 0.55 uIU/mL (0.358-3.74)
[2019-11-24 01:30] VITALS: BP 104/67; PULSE 62; RESP 17; O2SAT 100
[2019-11-24 01:38] LABS: Bacteria 0 SEEN /hpf (None Seen); Mucous, Urine 0 SEEN /hpf (<or=2+); Red Blood Cells-Urine 0 SEEN /hpf (0-5)
[2019-11-24 01:40] LABS: Color, Urine Yellow (Yellow); Glucose, Dipstick Normal (Normal); Ketone-Dipstick Negative (Negative); Leukocyte Esterase-Dipstick 25 /ul (Negative); Nitrite-Dipstick Negative (Negative); Occult Blood-Urine Negative /ul (Negative); Protein-Dipstick Negative (Negative); Urine Bilirubin Dipstick Negative (Negative); Urine Clarity Sl. Cloudy (Clear); Urine Urobilinogen Normal (Normal)
[2019-11-24] MEDS: Meclizine HCl 25 MG Tablet PO (02:03)
[2019-11-24 02:14] LABS: Squamous Epithelial Cells - UA 0-5 SEEN /hpf (5-10); White Blood Cells 0-5 SEEN /hpf (0-5)
[2019-11-24 02:25] VITALS: BP 115/67; PULSE 64; RESP 22; O2SAT 99
[2019-11-24 03:11] VITALS: BP 108/86; PULSE 74; RESP 14; O2SAT 100
== END 2019-11-24 03:12 | disposition home or self-care (01) ==
PROVIDERS: Emergency Provider Emergency Medicine
DX: R42 Dizziness and giddiness (principal); R00.1 Bradycardia, unspecified
CPT/HCPCS: 80048; 81001; 84443; 85025; 93005; 96360; 99284; J7030; A4216

== ENCOUNTER 2020-03-19 18:54 | Emergency (ER) | payer SELFPAY ==
[2020-03-19 18:55] VITALS: BP 138/99; PULSE 98; RESP 16; TEMP 36.6; O2SAT 97; BMI 34.3
--- NOTE | 2020-03-19 19:57 | RAD_ITS ---
STUDY: X-RAY - RIGHT FOOT CLINICAL: Female, 30 years old. Lateral foot pain started today. No known injury. TECHNIQUE: 3 view(s) of the foot. COMPARISON: 01/06/2015. FINDINGS: Normal talus, calcaneus, and tarsal bones. Normal visualized subtalar, talonavicular, calcaneocuboid, tarsal and tarsometatarsal articulations. Normal metatarsi. Normal metatarsophalangeal joint of the great toe. Normal tibial and fibular sesamoid bones. Normal interphalangeal joint of the great toe. Normal phalanges of the great toe. Normal second through fifth metatarsophalangeal joints. Normal interphalangeal joints and phalanges of the lesser toes. The soft tissue structures are unremarkable. There is no demonstrated fracture. RAD/Foot min 3 Views IMPRESSION: Normal x-ray examination of the foot. Electronically Signed: Toño Acuna MD at 20:29 EDT , Service support ,
--- NOTE | 2020-03-19 20:12 | ED.DCSUM_ITS ---
History of Present Illness Chief Complaint: Lower Extremity Injury Informant: Patient Narrative: Patient states that she woke today with pain over the lateral right foot. She denies any trauma or repetitive motions that are out of the ordinary for her. She denies any swelling redness or increased warmth. No breaks in the skin or recent bites. No history of gout or pseudogout. Patient points to the fifth and fourth metatarsal as the area that hurts and then reports that the pain seems to travel posterior to the lateral malleolus and up to the distal leg. Past Medical History - Allergies and Home Meds Allergies/Adverse Reactions: Allergies LIDOCAINE PATCHES Allergy (Uncoded 03/19/20 18:55) Other Primary Care Physician: Soham Chiu MD [Primary Care Provider] - Surgical History: no surgical history Smoking Status: Never smoker - Family History Maternal Family History: Reports: No pertinent history Paternal Family History: Reports: No pertinent history Review of Systems General: Denies: Chills, Fever, Sweats Eyes: Denies: Visual changes - bilaterally, Diplopia ENT: Denies: Rhinorrhea, Sore throat Cardiovascular: Denies: Chest pain, Palpitations Respiratory: Denies: Dyspnea, Cough, Dyspnea on exertion Gastrointestinal: Denies: Abdominal pain, Nausea, Vomiting, Diarrhea, Melena, Hematochezia Genitourinary: Denies: Dysuria, Hematuria, Frequency Musculoskeletal: Reports: Extremity Pain. Denies: Back pain Skin: Denies: Rash, Wounds Neurological: Denies: Headache, Weakness, Numbness Physical Exam Vital Signs/Narrative: Vital Signs Temp Pulse Resp BP Pulse Ox 03/19/20 18:55 98 F 98 16 138/99 H 97 General: Well nourished, Well developed, No Acute Distress Head: Normocephalic, Atraumatic Eyes: Perrl, EOMI ENT: Moist mucous membranes, No rhinorrhea Neck: Supple, Nontender Cardiovascular: Regular rate, Regular rhythm, No murmurs Respiratory: No distress, CTA bilaterally, Chest nontender Abdomen: Soft, Nontender, Nondistended, Normal bowel sounds Back: Nontender, Normal Inspection Extremities: No edema, - - There is no swelling or erythema or increased warmth. There is no evidence of infection. Patient has tenderness at the base of the fifth metatarsal and tenderness along the soft tissue extending posterior to the lateral malleolus. Skin: Normal color, No rash Neurological: Alert, Oriented x3, Cranial nerves II-XII grossly intact, Normal Strength, Normal Sensation Psychological: Normal affect, Normal Mood Diagnostic/Tx/Re-eval - Medical Decision Making Foot films do not show anything obvious to me. I wonder if this is a tendinitis. We are going to wrap the ankle and place her on scheduled anti- inflammatories. If she is not improving I would recommend podiatry follow-up ED Disposition - Plan for ED Patient: Disposition: Home or Assisted Living Diagnosis: Tendinitis of right foot Instructions: Treating Tendonitis of the Foot Prescriptions: Naproxen [Naprosyn] 500 mg PO BID #20 tab Prescription Printed Referrals: Soham Harden DPM [STAFF PHYSICIAN] - 1 Week if not improving
[2020-03-19 20:38] VITALS: RESP 14
[2020-03-19] MEDS: Naproxen 500 MG Tablet PO (20:38)
== END 2020-03-19 20:39 | disposition home or self-care (01) ==
PROVIDERS: Emergency Provider Emergency Medicine; PCP Family Medicine
DX: M77.51 Other enthesopathy of right foot and ankle (principal)
CPT/HCPCS: 73630; 99283

== ENCOUNTER 2020-06-08 15:42 | Emergency (ER) | payer OTHER, SELFPAY ==
[2020-06-08 15:43] VITALS: BP 127/86; PULSE 92; RESP 16; TEMP 36.4; O2SAT 99; BMI 42.8
[2020-06-08 15:46] VITALS: BP 127/86; PULSE 103; RESP 16; TEMP 36.4; O2SAT 97
[2020-06-08 16:03] VITALS: BP 107/66; PULSE 88; RESP 16; TEMP 36.4; O2SAT 99
--- NOTE | 2020-06-08 16:03 | EKG12_ITS ---
Test Reason : CP Blood Pressure : / mmHG Vent. Rate : 084 BPM Atrial Rate : 084 BPM P-R Int : 122 ms QRS Dur : 086 ms QT Int : 354 ms P-R-T Axes : 040 056 021 degrees QTc Int : 418 ms Normal sinus rhythm Normal ECG Confirmed by AKILAH ZEPEDA, LESLYE ([id number]), magazine editor MARIA ELENA SCOTT ([id number]) on 06/12/2020 9:42:58 AM Referred By: Confirmed By:LESLYE ISBELL MD
--- NOTE | 2020-06-08 16:04 | ED.VIS.GEN ---
History of Present Illness Chief Complaint: Chest Pain Detail of Chief Complaint: Chest pain, neck pain and sore throat Informant: Patient Onset: Days - Onset Friday Context: Sudden Onset Timing: Intermittent Quality: Sharp Location: Anterior central chest Current Severity: - - None Maximum Severity: Moderate Worsened by: When patient gets out of the van Relieved by: Nothing Associated Symptoms: Nothing Narrative: Patient is a 30-year-old woman who drives [employer]. 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 She has not been in contact with anyone at the facility that he has tested positive for Covid. She has been had no contact with any family members or friends that has tested positive for Covid. Her last Covid test was 9 days ago and negative. She is tested every 2 weeks. She does report subjective fever. She is had no documented fever. Today she complained of neck pain. She denies photophobia. She denies myalgias or arthralgias. She denies headache. She denies double vision, blurred vision or loss of vision. She denies ringing or ears, decreased hearing or drainage from her ears. She denies rhinorrhea or congestion. She states she has a mild sore throat. She denies cough or shortness of breath. She denies history of VTE. She denies leg pain, swelling or discoloration. The duration of the chest pain is less than 30 seconds. She does report nausea without vomiting or diarrhea. She denies dysuria, frequency, urgency or hematuria. She has not noted a rash. Prior similar symptoms: No Recent Illness/Hospitalization: No - Past Medical History (1) Pyelonephritis Status: Resolved Past Medical History - Allergies and Home Meds Allergies/Adverse Reactions: Allergies LIDOCAINE PATCHES Allergy (Uncoded 03/19/20 18:55) Other Primary Care Physician: Soham Chiu MD [Primary Care Provider] - Prior records reviewed: Yes Surgical History: no surgical history Lives: With Family Smoking Status: Never smoker Alcohol: None Drugs: None - Family History Maternal Family History: Reports: No pertinent history Paternal Family History: Reports: No pertinent history Review of Systems General: Reports: Fever, Subjective. Denies: Chills, Malaise, Sweats Eyes: Denies: Visual changes - bilaterally, Blurred Vision - bilaterally ENT: Reports: Sore throat. Denies: Bilateral ear pain, Rhinorrhea Cardiovascular: Reports: Chest pain. Denies: Palpitations, Heart racing Respiratory: Reports: - - Triage notes document shortness of breath. Patient denies shortness of breath.. Denies: Dyspnea, Cough, Sputum, Dyspnea on exertion, Orthopnea Gastrointestinal: Reports: Nausea. Denies: Abdominal pain, Vomiting, Diarrhea, Constipation, Melena, Hematochezia Genitourinary: Denies: Dysuria, Hematuria, Frequency Musculoskeletal: Reports: Neck pain - States it hurts to turn her neck to the right or left.. Denies: Myalgias, Arthralgias, Back pain, Swelling, Extremity Pain, -, - Skin: Denies: Rash, Wounds Neurological: Denies: Headache, Weakness, Parasthesia, Numbness Hematologic: Denies: Easy bruising, Easy bleeding Allergy: Denies: Uticaria Physical Exam Vital Signs/Narrative: Vital Signs Temp Pulse Resp BP Pulse Ox 06/08/20 15:46 97.6 F L 103 H 16 127/86 H 97 06/08/20 15:43 97.6 F L 92 16 127/86 H 99 Inital Vital Signs reviewed: Yes General: Well nourished, Well developed, Obese, No Acute Distress Head: Normocephalic, Atraumatic Eyes: Perrl, EOMI. Negative for: Pale conjunctiva, Scleral icterus ENT: Moist mucous membranes, No rhinorrhea Neck: Supple, Nontender, No lymphadenopathy, No JVD Cardiovascular: Regular rate, Regular rhythm, No murmurs, Normal S1, Normal S2 Respiratory: No distress, CTA bilaterally, Chest nontender Abdomen: Soft, Nontender, Nondistended, Normal bowel sounds Back: Nontender, Normal Inspection Extremities: Nontender, No edema, - - There is no asymmetry, swelling, discoloration, leg vein distention, palpable cords or tenderness along the distribution of the deep venous system. Skin: Normal color, No rash Neurological: Alert, Oriented x3, Cranial nerves II-XII grossly intact, Normal Strength, Normal Sensation Psychological: Normal affect, Normal Mood Diagnostic/Tx/Re-eval Chest X-Ray - ED: 1 View, Read by ED Physician, Normal, Heart, Lungs, Mediastinum, Bony Structures, No Acute Disease - EKG Initial EKG Interpretation: Sinus Rhythm - Normal sinus rhythm with a ventricular rate 84. MO interval 222 ms. QRS duration 86 ms. QT duration 3 and 54 ms. [place] is normal. The EKG is normal. - Medical Decision Making With very atypical symptoms. This may represent a viral infection and specifically COVID-19. The cause of her intermittent chest pain is uncertain at this time. EKG was ordered per nursing staff. Will obtain chest x-ray to determine if there is any abnormality of the heart, mediastinum or lung parenchyma. A Covid test was obtained and the event this is an atypical or early presentation for the novel coronavirus infection. I was informed that 162 the patient is requesting something for headache. 600 mg of Tylenol was ordered. EKG was normal. Chest x-ray was normal. Covid test is pending. ED Disposition - Plan for ED Patient: Disposition: Home or Assisted Living Diagnosis: Intermittent chest pain, Neck pain, Sore throat Instructions: ED Chest Pain Atypical Unkn Cause, ED Chest Pain NonCardiac, ED Neck Pain Referrals: Soham Chiu MD [Primary Care Provider] - As Needed Additional Instructions: Ms. Khan was tested for Covid. Her symptoms are very atypical. Results should be available within 24 to 72 hours.
--- NOTE | 2020-06-08 16:10 | RAD_ITS ---
STUDY: X-RAY CHEST REASON FOR EXAM: Female, 30 years old. C/O CHEST PAIN, TROUBLE BREATHING, NAUSEA, HEAD AND NECK PAIN SINCE FRIDAY TECHNIQUE: Single AP portable view of the chest. COMPARISON: 05/23/2015 FINDINGS: The lungs are clear and expanded. There is no demonstrated pleural abnormality. Normal size heart. Normal mediastinum and sarabjit. Normal visualized pulmonary arteries. Normal visualized aortic arch and descending thoracic aorta. Normal visualized thoracic spine. Normal visualized ribs, clavicles, and shoulders. There is no demonstrated abnormality of the visualized soft tissue structures of the upper abdomen. RAD/Chest 1 View (Portable) IMPRESSION: Normal x-ray examination of the chest. Electronically Signed: Polo Katz MD at 16:27 EST Tel , Service support ,
[2020-06-08] MEDS: Acetaminophen 325 MG Tablet 650 MG PO (16:52)
[2020-06-08 17:51] VITALS: BP 111/68; PULSE 76; RESP 15; TEMP 36.4; O2SAT 99
[2020-06-08 18:17] VITALS: BP 111/69; RESP 16; RESP 17
== END 2020-06-08 18:17 | disposition home or self-care (01) ==
PROVIDERS: Emergency Provider Emergency Medicine; PCP Family Medicine
DX: R07.89 Other chest pain (principal); M54.2 Cervicalgia; J02.9 Acute pharyngitis, unspecified; R51.9 Headache, unspecified; R11.0 Nausea; E66.9 Obesity, unspecified
CPT/HCPCS: 71045; 87635; 93005; 99283; U0003

== ENCOUNTER 2020-12-19 16:27 | Emergency (ER) | payer OTHER, SELFPAY ==
[2020-12-19 16:28] VITALS: BP 158/87; PULSE 92; RESP 16; TEMP 36.3; O2SAT 97; BMI 47.0
[2020-12-19 16:30] VITALS: BP 158/87; PULSE 98; RESP 16; TEMP 36.3; O2SAT 97
--- NOTE | 2020-12-19 16:50 | EX.ED.DYSGE1 ---
HPI History of Present Illness Chief Complaint: Abd Pain Informant: patient Onset/Context/Timing Onset: Days Context: Gradual Onset Current Severity: Moderate Maximum Severity: Moderate Narrative Narrative: Patient presents with right lower quadrant pain for the past couple of days. She states she has subjective fever that comes and goes. She denies urinary symptoms. She denies vaginal bleeding or discharge. No diarrhea. She states she had ovarian cysts at age 16. She had a recent miscarriage in August. She states she did have a normal menstrual cycle following that, but is now late for her next menstrual cycle. She did take a home test a couple weeks ago that was negative but has not repeated it. [facility] Medical History (Updated 12/19/20 @ 21:[address] Elke Lrason MD) delivery delivered Home Medications NK 06/08/20 [History Last Taken Unknown] hydrocodone-acetaminophen 1 tab PO Q6H PRN 3 Days #10 tab 12/19/20 [Rx Last Taken Unknown] Allergy/AdvReac Type Severity Reaction Status Date / Time lidocaine Allergy Other Verified 12/19/20 18:09 [From Salonpas (lidocaine)] Social History Smoking Status: Never smoker ROS ROS ED Constitutional Constitutional ED: Reports chills, fever(s) and subjective ENT ENT ED: Denies rhinorrhea or sore throat Cardiovascular Cardiovascular: Denies chest pain or palpitations Respiratory/Chest Respiratory/Chest: Denies cough or dyspnea Gastrointestinal Gastrointestinal: Reports abdominal pain; Denies diarrhea, nausea or vomiting Genitourinary Genitourinary ED: Denies dysuria or hematuria Musculoskeletal Musculoskeletal: Denies myalgias Integumentary Denies abscess or rash Neurologic Neurologic: Denies headache(s) Endocrine Endocrinology: Denies polydipsia or polyuria Allergic/Immunologic Allergic/Immunologic ED: Denies urticaria EXAM Physical Exam Const Vital Signs: 12/19/20 16:28 12/19/20 16:30 12/19/20 18:32 Temperature 97.3 F L 97.3 F L Temperature Source Temporal Temporal Pulse Rate 92 98 79 Respiratory Rate 16 16 14 Blood Pressure 158/87 H 158/87 H 117/88 H Blood Pressure Mean 110 110 97 Pulse Ox 97 97 100 Oxygen Delivery Method Room Air Room Air Room Air 12/19/20 19:11 12/19/20 21:06 Temperature Temperature Source Pulse Rate 70 79 Respiratory Rate 20 H 19 H Blood Pressure 126/76 H 137/86 H Blood Pressure Mean 92 103 Pulse Ox 100 97 Oxygen Delivery Method Room Air Room Air Positive well nourished and well developed General Appearance ED: well developed HEENT Reports moist mucous membranes Eyes PERRL and EOMs intact bilaterally Neck supple Chest Wall inspection of chest normal and palpation of chest normal Resp normal respiratory effort and clear to auscultation bilaterally Cardio regular rate and regular rhythm GI Palpation: tender RLQ; Negative for guarding or rebound tenderness present Extremity normal to inspection Neuro oriented x3 Sensorium / Orientation: alert Psych mental status grossly normal Skin no rashes or lesions noted MDM MDM MDM Narrative Medical decision making narrative: Patient was given morphine and Zofran for pain. Lab work including test are obtained. Lab Data Attestation: I reviewed the patient's lab results. Labs: Laboratory Results - last 24 hr 12/19/20 12/19/20 12/19/20 16:57 17:00 17:00 WBC 12.7 H RBC 5.70 H Hgb 16.7 H Hct 48.2 H MCV 84.6 MCH 29.3 MCHC 34.6 RDW Std Deviation 38.5 RDW Coeff of Mary Grace 12.8 Plt Count 327 MPV 10.4 Immature Gran % (Auto) 0.200 Neut % (Auto) 59.5 Lymph % (Auto) 29.4 Schleicher % (Auto) 6.2 Eos % (Auto) 4.1 Baso % (Auto) 0.6 Absolute Neuts (auto) 7.6 Absolute Lymphs (auto) 3.73 Nucleated RBC % 0 Sodium 138 Potassium 3.4 L Chloride 103 Carbon Dioxide 30.0 Anion Gap 5 BUN 9 Creatinine 0.65 Estim Creat Clear Calc 115.95 Est GFR (MDRD) Af Amer 140 Est GFR (MDRD) Non-Af 116 BUN/Creatinine Ratio 13.9 Glucose 79 Calcium 9.0 Total Bilirubin 0.30 Direct Bilirubin 0.11 AST 10 L ALT 23 Alkaline Phosphatase 131 H Total Protein 8.0 Albumin 3.8 Globulin 4.2 Serum , Qual Urine Color Yellow Urine Clarity Sl. Cloudy Urine pH 6.0 Ur Specific [place] 1.020 Urine Protein 15 H Urine Glucose (UA) Normal Urine Ketones Negative Urine Occult Blood Negative Urine Nitrite Negative Urine Bilirubin Negative Urine Urobilinogen Normal Ur Leukocyte Esterase 25 H Urine RBC 0 SEEN Urine WBC 0-5 SEEN Ur Squamous Epith Cells 0-5 SEEN Urine Bacteria 0 SEEN Urine Mucus 0 SEEN 12/19/20 17:00 WBC RBC Hgb Hct MCV MCH MCHC RDW Std Deviation RDW Coeff of Mary Grace Plt Count MPV Immature Gran % (Auto) Neut % (Auto) Lymph % (Auto) Schleicher % (Auto) Eos % (Auto) Baso % (Auto) Absolute Neuts (auto) Absolute Lymphs (auto) Nucleated RBC % Sodium Potassium Chloride Carbon Dioxide Anion Gap BUN Creatinine Estim Creat Clear Calc Est GFR (MDRD) Af Amer Est GFR (MDRD) Non-Af BUN/Creatinine Ratio Glucose Calcium Total Bilirubin Direct Bilirubin AST ALT Alkaline Phosphatase Total Protein Albumin Globulin Serum , Qual NEGATIVE Urine Color Urine Clarity Urine pH Ur Specific [place] Urine Protein Urine Glucose (UA) Urine Ketones Urine Occult Blood Urine Nitrite Urine Bilirubin Urine Urobilinogen Ur Leukocyte Esterase Urine RBC Urine WBC Ur Squamous Epith Cells Urine Bacteria Urine Mucus Radiography Diagnostic Testing: Radiology Impression Abdomen/Pelvis CT 12/19/20 17:55 IMPRESSION: 1. No acute findings. 2. Right adnexal 7.3 cm cystic structure. Recommend pelvic ultrasonography after 2 menstrual cycles for evaluation to allow for possible involution of a follicular cyst. Electronically Signed: Katiuska Huang MD at 18:44 EDT Tel , Service support , Transvaginal US 12/19/20 19:38 IMPRESSION: Large complex right ovarian cyst with mild free fluid in the cul-de-sac. Recommend clinical correlation and follow-up studies to exclude possibility of ovarian neoplasm MRI with contrast may be helpful for more definitive evaluation Electronically Signed: Soham Ernandez MD at 20:48 EDT , Service support , Treatment and Re-Evaluation Comments:: Patient's white count was slightly elevated. test negative. She underwent a CT abdomen and pelvis with IV contrast. This revealed evidence of a large adnexal cystic structure. Pelvic ultrasound was obtained that reveals a large complex right ovarian cyst with mild free fluid. I spoke with Dr. Mitchell. She would like to see the patient in the office this week and advised patient will likely need surgery for the cyst. Test results were explained to the patient and warning symptoms of torsion were provided to her. She was encouraged to return immediately for worsened pain or concerns. Discharge Plan Triage Chief Complaint: Abd Pain ED Provider: Elke Larson Dx/Rx/DC Orders Clinical Impression: Ovarian cyst Instructions: ED Ovarian Cyst Prescriptions: New hydrocodone-acetaminophen 5-325 mg tablet 1 tab PO Q6H PRN (Reason: pain) 3 Days Qty: 10 RF: 0 No Action NK RF: 0 Primary Care Provider: Soham Chiu Referrals: Cheyenne Mejia MD [STAFF PHYSICIAN] - 2 Days Soham Chiu MD [Primary Care Provider] - Disposition Disposition: Home, self care
[2020-12-19] MEDS: Morphine 4 MG/ML Syringe IV (17:02)
[2020-12-19] MEDS: Ondansetron 4 MG/2 ML Vial IV (17:02)
[2020-12-19 17:08] LABS: Bacteria 0 SEEN /hpf (None Seen); Mucous, Urine 0 SEEN /hpf (<or=2+); Red Blood Cells-Urine 0 SEEN /hpf (0-5)
[2020-12-19 17:09] LABS: Color, Urine Yellow (Yellow); Glucose, Dipstick Normal (Normal); Ketone-Dipstick Negative (Negative); Leukocyte Esterase-Dipstick 25 /ul (Negative); Nitrite-Dipstick Negative (Negative); Occult Blood-Urine Negative /ul (Negative); Protein-Dipstick 15 mg/dl (Negative); Urine Bilirubin Dipstick Negative (Negative); Urine Clarity Sl. Cloudy (Clear); Urine Urobilinogen Normal (Normal)
[2020-12-19 17:18] LABS: Squamous Epithelial Cells - UA 0-5 SEEN /hpf (5-10); White Blood Cells 0-5 SEEN /hpf (0-5)
[2020-12-19 17:19] LABS: Absolute Lymphocyte Count 3.73 X10^3/uL (0.83-4.51); Absolute Neutrophil Count 7.6 X10^3/uL (2.0-7.7); Basophil# 0.07 X10^3/uL; Basophil% 0.6 % (0-1); Eosinophil# 0.52 X10^3/uL; Eosinophils% 4.1 % (0-5); Hematocrit 48.2 % (37-47); Hemoglobin 16.7 g/dL (12.0-15.0); Lymphocyte # 3.73 X10^3/ul (0.83-4.51); Lymphocyte % 29.4 % (19-41); Mean Corp Hgb Conc 34.6 g/dL (32-36); Mean Corpuscular Hgb 29.3 pg (27.0-32.0); Mean Corpuscular Volume 84.6 fL (81-99); Mean Platelet Vol. 10.4 fl (6.2-12.0); Monocyte# 0.78 X10^3/uL; Monocyte% 6.2 % (0-10); NRBC Flagged by Analyzer 0 % (0-5); Neutrophil # 7.55 X10^3/uL (2.7-7.7); Neutrophil % 59.5 % (47-70); Platelet Count 327 K/mm3 (150-450); RBC Distribution Width CV 12.8 % (11.6-14.6); RBC Distribution Width SD 38.5 fl (35.1-43.9); White Blood Count 12.7 K/mm3 (4.4-11.0)
[2020-12-19 17:37] LABS: AST(SGOT) 10 U/L (15-37); Alanine Aminotransfer ALT/SGPT 23 U/L (13-56); Albumin, Serum 3.8 g/dL (3.2-5.0); Alkaline Phosphatase 131 U/L (45-117); Anion Gap 5 (5-15); BUN 9 mg/dL (7-18); BUN/Creat Ratio 13.9 RATIO (10-20); Bilirubin, Direct 0.11 mg/dL (0.00-0.30); Chloride 103 mmol/L (98-107); Creatinine, Serum 0.65 mg/dL (0.55-1.02); EST Glomerular Filtration Rate 116 mL/min (>60); Est Glom Filt Rate - Afr Amer 140 mL/min (>60); Estimated Creatinine Clearance 115.95 ml/min; Globulin 4.2 g/dL (2.2-4.2); Glucose 79 mg/dL (74-106); Internal QC Validated? YES +Cl - CLEAR BKGD; Potassium 3.4 mmol/L (3.5-5.1); Pregnancy, Serum, hCG Quali. NEGATIVE Negative; Sodium Level 138 mmol/L (136-145)
--- NOTE | 2020-12-19 17:55 | CT_ITS ---
STUDY: CT ABDOMEN AND PELVIS WITH CONTRAST REASON FOR EXAM: Female, 30 years old. Right lower quadrant pain RADIATION DOSAGE (If Supplied By Facility): CTDIvol = ( 16.89 ) mGy, DLP = ( 1341.26 ) mGycm TECHNIQUE: CT images were obtained from the dome of the diaphragm to the symphysis pubis without oral contrast. IV 100mL Isovue-370 was administered. Sagittal and coronal images were reconstructed. Individualized dose optimization techniques were used for this CT. COMPARISON: None. FINDINGS: The visualized lung bases are unremarkable. The visualized portions of the heart are within normal limits. Normal liver. Normal gallbladder and extrahepatic biliary system. Normal spleen. Normal pancreas. Normal bilateral adrenal glands. Normal right kidney. Normal left kidney. Normal visualized stomach. Normal small intestine. Normal colon. The appendix is visualized and appears normal. Normal abdominal aorta. Normal inferior vena cava. Normal retroperitoneum. Normal urinary bladder. Right adnexa contains a 7.3 cm cystic structure. Left ovary is normal. Normal abdominal wall. Normal osseous structures. CT/Abdomen/Pelvis W IV Cont ONLY IMPRESSION: 1. No acute findings. 2. Right adnexal 7.3 cm cystic structure. Recommend pelvic ultrasonography after 2 menstrual cycles for evaluation to allow for possible involution of a follicular cyst. Electronically Signed: Katiuska Huang MD at 18:44 EDT Tel , Service support ,
[2020-12-19 18:32] VITALS: BP 117/88; PULSE 79; RESP 14; O2SAT 100
[2020-12-19 19:11] VITALS: BP 126/76; PULSE 70; RESP 20; O2SAT 100
--- NOTE | 2020-12-19 19:38 | US_ITS ---
STUDY: ULTRASOUND TRANSVAGINAL CLINICAL: Female, 30 years old. RLQ pain, cyst on CT TECHNIQUE: Transvaginal COMPARISON: CT of the abdomen and pelvis from 08/09/2020 FINDINGS: Normal uterine size measuring 8.6 x 4.3 x 3.9 cm in maximal craniocaudal dimension. There are no myometrial masses. Normal endometrial thickness measuring 9 mm. There are no endometrial masses, and there is no fluid in the endometrial cavity. Normal uterine cervix. Large right ovary, measuring 8 x 8 x 6.9 cm. Complex septated cyst measuring 7.1 x 7.3 x 6.1 cm Normal left ovary, measuring 3.5 x 2 x 2.3 cm. There are multiple follicles with a small cyst measuring 1.1 x 0.9 x 0.8 cm. There is mild free fluid in the pelvis. US/Transvaginal Non- IMPRESSION: Large complex right ovarian cyst with mild free fluid in the cul-de-sac. Recommend clinical correlation and follow-up studies to exclude possibility of ovarian neoplasm MRI with contrast may be helpful for more definitive evaluation Electronically Signed: Soham Ernandez MD at 20:48 EDT , Service support ,
[2020-12-19 21:06] VITALS: BP 137/86; PULSE 79; RESP 19; O2SAT 97
[2020-12-19 21:49] VITALS: BP 126/93; PULSE 91; RESP 24; O2SAT 100
== END 2020-12-19 21:50 | disposition home or self-care (01) ==
PROVIDERS: Emergency Provider Emergency Medicine; PCP Family Medicine
DX: N83.209 Unspecified ovarian cyst, unspecified side (principal)
CPT/HCPCS: 74177; 76830; 80048; 80076; 81001; 84703; 85025; 93976; 96374; 96375; 99284; Q9967; A4216; J2405

== ENCOUNTER 2021-01-02 17:25 | Emergency (ER) | payer OTHER, SELFPAY ==
[2021-01-02 17:26] VITALS: BP 119/77; PULSE 75; RESP 16; TEMP 36.6; O2SAT 98; BMI 47.7
--- NOTE | 2021-01-02 17:55 | US_ITS ---
STUDY: ULTRASOUND TRANSVAGINAL CLINICAL: Female, 30 years old. pelvic pain-RLQ TECHNIQUE: Transvaginal COMPARISON: 12/19/2020 FINDINGS: Normal uterine size measuring 6.1 x 4.6 x 3.2 cm in maximal craniocaudal dimension. There are no myometrial masses. Normal endometrial thickness measuring 7 mm. There are no endometrial masses, and there is no fluid in the endometrial cavity. Normal uterine cervix. Normal right ovary, measuring 7.6 x 7 x 4.8 cm. Large cyst noted measuring 6.5 x 6 x 3.3 cm Normal left ovary, measuring 3.3 x 3.5 x 2.3 cm cm. There are multiple follicles with a small cyst measuring 1 x 1 x 0.9 cm There is mild free fluid in the pelvis. US/Transvaginal Non- IMPRESSION: Persistent large cyst in the right ovary which has decreased slightly in size since previous study Persistent small cyst in left ovary unchanged.. Mild fluid in the cul-de-sac possibly due to recent ovulation Electronically Signed: Soham Ernandez MD at 19:31 EDT , Service support ,
--- NOTE | 2021-01-02 17:56 | EDS_ITS ---
HPI History of Present Illness Chief Complaint: Abd Pain Narrative Narrative: 30-year-old female presenting for right lower quadrant pain. She states that she was seen 2 weeks ago in the ER and was diagnosed with ovarian cyst. She states that the pain has been persistent since then and is now getting worse. She states that she did follow-up with her [employer] [employer] [facility] who plan to do another ultrasound however since she is having acute pain I recommended her coming to the ER. Patient does not believe she is . She has not had fever or chills. No change in bowel or urinary habits. Patient expresses concern for ovarian torsion. [facility] Medical History delivery delivered Home Medications NK 06/08/20 [History Last Taken Unknown] hydrocodone-acetaminophen 1 tab PO Q6H PRN 3 Days #10 tab 12/19/20 [Rx Last Taken Unknown] Allergy/AdvReac Type Severity Reaction Status Date / Time lidocaine Allergy Other Verified 01/02/21 17:26 [From Salonpas (lidocaine)] Social History Smoking Status: Never smoker ROS ROS ED Constitutional Constitutional ED: Denies chills, fever(s) or sweats Eyes Eyes: Denies blurry vision or change in vision ENT ENT ED: Denies ear pain, rhinorrhea or sore throat Cardiovascular Cardiovascular: Denies chest pain, palpitations or racing heartbeat Respiratory/Chest Respiratory/Chest: Denies cough, dyspnea or sputum Gastrointestinal Gastrointestinal: Reports abdominal pain and nausea; Denies constipation, diarrhea or vomiting Genitourinary Genitourinary ED: Denies dysuria, hematuria or urinary frequency Musculoskeletal Musculoskeletal: Denies arthralgias, myalgias or neck pain Integumentary Denies abscess, Abrasions or rash Neurologic Neurologic: Denies headache(s), paresthesias or weakness Psychiatric Psychiatric: Denies anxiety, depression, suicidal ideation or suicidal thoughts Endocrine Endocrinology: Denies polydipsia or polyuria EXAM Physical Exam Const Vital Signs: 01/02/21 17:26 Temperature 97.9 F Temperature Source Temporal Pulse Rate 75 Respiratory Rate 16 Blood Pressure 119/77 Blood Pressure Mean 91 Pulse Ox 98 Oxygen Delivery Method Room Air Positive well nourished General Appearance ED: NAD HEENT Reports moist mucous membranes Negative for trauma Eyes PERRL and EOMs intact bilaterally Resp normal respiratory effort and clear to auscultation bilaterally Cardio regular rate and regular rhythm GI GI Narrative: Tenderness to palpation in the right lower quadrant. Abdomen is nonperitoneal. Back/Spine no CVA tenderness Extremity normal to inspection General Extremety ED: Negative for edema General Extremity: Negative for edema Neuro oriented x3 and CN's II-XII intact bilaterally Sensorium / Orientation: alert Psych mental status grossly normal Skin no rashes or lesions noted and no wounds MDM MDM MDM Narrative Medical decision making narrative: Patient presenting with right pelvic pain secondary to history of cyst. She has specific concern for ovarian torsion. Blood work drawn today shows her white blood cell count is similar to what it was before. Her electrolytes and renal function are normal. Urinalysis is negative. Ultrasound shows persistent ovarian cyst however it is smaller now. There is a new ovarian cyst on the left which is smaller still. Patient does not have any evidence of ovarian torsion. I do not believe the patient needs a CT of the abdomen and pelvis. Patient counseled on NSAIDs and heating pad. She will follow-up with her [employer]. Impression: 1. Ovarian cyst Lab Data Labs: Laboratory Results - last 24 hr 01/02/21 01/02/21 01/02/21 18:21 18:21 19:25 WBC 13.2 H RBC 5.22 Hgb 15.2 H Hct 44.7 MCV 85.6 MCH 29.1 MCHC 34.0 RDW Std Deviation 39.0 RDW Coeff of Mary Grace 12.5 Plt Count 296 MPV 10.2 Immature Gran % (Auto) 0.400 Neut % (Auto) 55.2 Lymph % (Auto) 32.8 [place] % (Auto) 7.2 Eos % (Auto) 3.7 Baso % (Auto) 0.7 Absolute Neuts (auto) 7.3 Absolute Lymphs (auto) 4.34 Nucleated RBC % 0 Sodium Cancelled Potassium Cancelled Chloride Cancelled Carbon Dioxide Cancelled Anion Gap Cancelled BUN Cancelled Creatinine Cancelled Estim Creat Clear Calc Cancelled Est GFR (MDRD) Af Amer Cancelled Est GFR (MDRD) Non-Af Cancelled BUN/Creatinine Ratio Cancelled Glucose Cancelled Calcium Cancelled Total Bilirubin Cancelled AST Cancelled ALT Cancelled Alkaline Phosphatase Cancelled Total Protein Cancelled Albumin Cancelled Globulin Cancelled Albumin/Globulin Ratio Cancelled Urine Color Yellow Urine Clarity Clear Urine pH 6.5 Ur Specific [place] 1.015 Urine Protein Negative Urine Glucose (UA) Normal Urine Ketones Negative Urine Occult Blood Negative Urine Nitrite Negative Urine Bilirubin Negative Urine Urobilinogen Normal Ur Leukocyte Esterase 25 H Urine RBC 0 SEEN Urine WBC 0-5 SEEN Ur Squamous Epith Cells 0-5 SEEN Urine Bacteria 0 SEEN Urine Mucus 0 SEEN Urine Test Negative 01/02/21 19:50 WBC RBC Hgb Hct MCV MCH MCHC RDW Std Deviation RDW Coeff of Mary Grace Plt Count MPV Immature Gran % (Auto) Neut % (Auto) Lymph % (Auto) Sullivan % (Auto) Eos % (Auto) Baso % (Auto) Absolute Neuts (auto) Absolute Lymphs (auto) Nucleated RBC % Sodium 140 Potassium 4.0 Chloride 104 Carbon Dioxide 28.0 Anion Gap 8 BUN 6 L Creatinine 0.63 Estim Creat Clear Calc 114.80 Est GFR (MDRD) Af Amer 143 Est GFR (MDRD) Non-Af 118 BUN/Creatinine Ratio 9.5 L Glucose 85 Calcium 8.8 Total Bilirubin 0.50 AST 21 ALT 22 Alkaline Phosphatase 101 Total Protein 7.3 Albumin 3.5 Globulin 3.8 Albumin/Globulin Ratio 0.9 Urine Color Urine Clarity Urine pH Ur Specific [place] Urine Protein Urine Glucose (UA) Urine Ketones Urine Occult Blood Urine Nitrite Urine Bilirubin Urine Urobilinogen Ur Leukocyte Esterase Urine RBC Urine WBC Ur Squamous Epith Cells Urine Bacteria Urine Mucus Urine Test Radiography Diagnostic Testing: Radiology Impression Transvaginal US 01/02/21 17:55 IMPRESSION: Persistent large cyst in the right ovary which has decreased slightly in size since previous study Persistent small cyst in left ovary unchanged.. Mild fluid in the cul-de-sac possibly due to recent ovulation Electronically Signed: Soham Ernandez MD at 19:31 EDT , Service support , Discharge Plan Triage Chief Complaint: Abd Pain ED Provider: Karthikeyan Clarke Dx/Rx/DC Orders Instructions: ED Ovarian Cyst Prescriptions: No Action NK RF: 0 hydrocodone-acetaminophen 5-325 mg tablet 1 tab PO Q6H PRN (Reason: pain) 3 Days Qty: 10 RF: 0 Stand Alone Forms: ED Work / School Excuse Primary Care Provider: Soham Chiu Referrals: Soham Chiu MD [Primary Care Provider] - Disposition Disposition: Home, self care Discharge Date/Time: 01/02/21 20:51
[2021-01-02] MEDS: Ondansetron 4 MG/2 ML Vial IV (18:18)
[2021-01-02] MEDS: Morphine 4 MG/ML Syringe IV (18:19)
[2021-01-02 18:31] LABS: Absolute Lymphocyte Count 4.34 X10^3/uL (0.83-4.51); Absolute Neutrophil Count 7.3 X10^3/uL (2.0-7.7); Basophil# 0.09 X10^3/uL; Basophil% 0.7 % (0-1); Eosinophil# 0.49 X10^3/uL; Eosinophils% 3.7 % (0-5); Hematocrit 44.7 % (37-47); Hemoglobin 15.2 g/dL (12.0-15.0); Lymphocyte # 4.34 X10^3/ul (0.83-4.51); Lymphocyte % 32.8 % (19-41); Mean Corpuscular Hgb 29.1 pg (27.0-32.0); Mean Corpuscular Volume 85.6 fL (81-99); Mean Platelet Vol. 10.2 fl (6.2-12.0); Monocyte# 0.95 X10^3/uL; Monocyte% 7.2 % (0-10); NRBC Flagged by Analyzer 0 % (0-5); Neutrophil % 55.2 % (47-70); Platelet Count 296 K/mm3 (150-450); RBC Distribution Width CV 12.5 % (11.6-14.6); Red Blood Count 5.22 M/mm3 (4.2-5.4); White Blood Count 13.2 K/mm3 (4.4-11.0)
[2021-01-02 19:32] LABS: Bacteria 0 SEEN /hpf (None Seen); Mucous, Urine 0 SEEN /hpf (<or=2+); Red Blood Cells-Urine 0 SEEN /hpf (0-5)
[2021-01-02 19:38] LABS: Color, Urine Yellow (Yellow); Glucose, Dipstick Normal (Normal); Ketone-Dipstick Negative (Negative); Leukocyte Esterase-Dipstick 25 /ul (Negative); Nitrite-Dipstick Negative (Negative); Occult Blood-Urine Negative /ul (Negative); Protein-Dipstick Negative (Negative); Specific Gravity, Urine 1.015 (1.002-1.030); Urine Bilirubin Dipstick Negative (Negative); Urine Urobilinogen Normal (Normal); Urine pH 6.5 (5.0 - 8.0)
[2021-01-02 19:40] LABS: Urine Clarity Clear (Clear)
[2021-01-02 19:44] LABS: Internal QC Validated? YES +Cl - CLEAR BKGD; Pregnancy, Urine Negative Negative; Squamous Epithelial Cells - UA 0-5 SEEN /hpf (5-10); White Blood Cells 0-5 SEEN /hpf (0-5)
[2021-01-02 20:24] LABS: ALB/GLOB Ratio 0.9 RATIO (0.9-2.4); AST(SGOT) 21 U/L (15-37); Alanine Aminotransfer ALT/SGPT 22 U/L (13-56); Albumin, Serum 3.5 g/dL (3.2-5.0); Alkaline Phosphatase 101 U/L (45-117); Anion Gap 8 (5-15); BUN 6 mg/dL (7-18); BUN/Creat Ratio 9.5 RATIO (10-20); Calcium,Total 8.8 mg/dL (8.5-10.1); Chloride 104 mmol/L (98-107); Creatinine, Serum 0.63 mg/dL (0.55-1.02); EST Glomerular Filtration Rate 118 mL/min (>60); Est Glom Filt Rate - Afr Amer 143 mL/min (>60); Globulin 3.8 g/dL (2.2-4.2); Glucose 85 mg/dL (74-106); Protein, Total 7.3 g/dL (6.4-8.2); Sodium Level 140 mmol/L (136-145)
== END 2021-01-02 20:51 | disposition home or self-care (01) ==
PROVIDERS: Emergency Provider Student in an Organized Health Care Education/Training Program; PCP Family Medicine
DX: R10.31 Right lower quadrant pain (principal); R10.2 Pelvic and perineal pain; N83.202 Unspecified ovarian cyst, left side
CPT/HCPCS: 76830; 80053; 81001; 81025; 85025; 93976; 96374; 96375; 99285; A4216; J2405

== ENCOUNTER 2021-06-04 16:40 | Emergency (ER) | payer BC, SELFPAY ==
[2021-06-04 16:41] VITALS: BP 139/102; PULSE 102; RESP 18; TEMP 36.2; O2SAT 97; BMI 47.2
--- NOTE | 2021-06-04 17:35 | EDS_ITS ---
HPI History of Present Illness Chief Complaint: General Illness Narrative Narrative: Patient presenting with nausea. She is currently day 12 COVID-19 symptoms. She does not have any respiratory symptoms except for a mild cough. She is experiencing intermittent fevers. She denies chest pain and she is not dyspneic. Patient does not wish to be referred for monoclonal antibodies and she was not vaccinated. She states she feels like she might be a little bit dehydrated because she is not eating or very much and not drinking plenty of fluids. She does not have any abdominal pain. She is not vomiting. [facility] Medical History delivery delivered Home Medications hydrocodone-acetaminophen 1 tab PO Q6H PRN 3 Days #10 tab 12/19/20 [Rx Last Taken Unknown] ondansetron HCl [Zofran] 4 mg PO Q8H PRN #20 tab 06/04/21 [Rx Last Taken Unknown] Allergy/AdvReac Type Severity Reaction Status Date / Time lidocaine Allergy Other Verified 06/04/21 16:43 [From Salonpas (lidocaine)] Social History Smoking Status: Never smoker ROS [facility] ED Constitutional Constitutional ED: Reports chills and fever(s) Eyes Eyes: Denies blurry vision or change in vision ENT ENT ED: Denies rhinorrhea or sore throat Cardiovascular Cardiovascular: Denies chest pain or palpitations Respiratory/Chest Respiratory/Chest: Reports cough; Denies dyspnea, dyspnea on exertion or sputum Gastrointestinal Gastrointestinal: Reports nausea; Denies abdominal pain, diarrhea or vomiting Genitourinary Genitourinary ED: Denies dysuria or hematuria Musculoskeletal Musculoskeletal: Reports myalgias; Denies arthralgias Integumentary Denies Abrasions or rash Neurologic Neurologic: Denies headache(s) or paresthesias EXAM Physical Exam Const Vital Signs: 06/04/21 16:41 06/04/21 16:59 Temperature 97.2 F L Temperature Source Temporal Pulse Rate 102 H Respiratory Rate 18 Respiratory Effort Normal Respiratory Pattern Normal Blood Pressure 139/102 H Blood Pressure Mean 114 Pulse Ox 97 Oxygen Delivery Method Room Air Positive well nourished General Appearance ED: NAD HEENT Reports moist mucous membranes Negative for trauma Eyes PERRL and EOMs intact bilaterally Resp normal respiratory effort and clear to auscultation bilaterally Cardio regular rate and regular rhythm GI normal to inspection, nondistended, normoactive bowel sounds Neuro oriented x3 and CN's II-XII intact bilaterally Sensorium / Orientation: alert Psych mental status grossly normal Skin no rashes or lesions noted MDM MDM MDM Narrative Medical decision making narrative: Patient is on day 12 of COVID-19 symptoms. She does not have any respiratory complaints except for a mild cough. Her O2 sat is 97% on room air and her respiratory rate is 18. Heart rate is slightly tachycardic at 102. She does have the sensation that she might be mildly dehydrated. I think from a respiratory standpoint the patient does not need any work-up. If she is mildly dehydrated she could take Zofran and drink water slowly throughout the day. She is amenable to this plan and requests a work note so she does not have to go back to work in 2 days. This was provided. Patient will be given return precautions. Impression: 1 COVID-19 2. Nausea Discharge Plan Triage Chief Complaint: General Illness ED Provider: Karthikeyan Clarke Dx/Rx/DC Orders Instructions: Coronavirus Disease 2019 (COVID-19): Caring for Yourself or Others Prescriptions: New ondansetron HCl [Zofran] 4 mg tablet 4 mg PO Q8H PRN (Reason: nausea and vomiting) Qty: 20 RF: 0 No Action hydrocodone-acetaminophen 5-325 mg tablet 1 tab PO Q6H PRN (Reason: pain) 3 Days Qty: 10 RF: 0 Primary Care Provider: Ankit Holliday Referrals: Soham Chiu MD [NON-STAFF] - Disposition Disposition: Home, Self Care
[2021-06-04] MEDS: Ondansetron ODT 4 MG Tablet PO (17:50)
== END 2021-06-04 17:51 | disposition home or self-care (01) ==
LOC: ED 17:26
PROVIDERS: Emergency Provider Student in an Organized Health Care Education/Training Program; PCP Family Medicine
DX: U07.1 COVID-19 (principal); R11.0 Nausea; Z79.899 Other long term (current) drug therapy
CPT/HCPCS: 99283

== ENCOUNTER 2023-09-04 09:44 | Inpatient (IN) | payer BC, SELFPAY ==
[2023-09-04] VITALS (12 sets, daily range): BP systolic 109–137; BP diastolic 61–93; PULSE 75–118; RESP 16–26; TEMP 36.6–37.7; O2SAT 88–100; BMI 46.8; BMI 46.7
[2023-09-04] MEDS: Albuterol 2.5 MG/3 ML VIAL.NEB. INHALATION ×3 (10:07→10:11)
[2023-09-04] MEDS: Ipratropium/Albuterol Sulfate 3 ML AMPUL.NEB INHALATION ×3 (10:07→22:53)
--- NOTE | 2023-09-04 10:38 | EX.ED.VIS.UR ---
HPI HPI - URI History of Present Illness Chief Complaint: Shortness of Breath Detail of Chief Complaint: Shortness of breath with URI symptoms Informant: patient and spouse/S.O. Onset/Context/Timing Onset: Days Context: Sudden Onset Timing: Continuous Quality: Rhinorrhea, congestion, sore throat, cough and shortness of breath Location: Respiratory Current Severity: Moderate Maximum Severity: Severe Worsened by: Not Worsened By Swallowing, Eating Solids or Drinking Liquids Relieved by: Not Relieved By Tylenol or NSAIDs Associated Symptoms Associated Symptoms: Positive for Nasal Congestion, Headache, Myalgias, Nausea, Shortness of Breath and Nonproductive cough; Negative for Sinus Pressure, Vomiting, Diarrhea, Chest Pain or Hemoptysis Narrative Narrative: Patient is a 33-year-old woman who smokes 1 pack approximately per week who presents from urgent care because of upper respiratory symptoms with cough and congestion. This started several days ago. She has no history of ill contacts. She does report chills. She was unaware that her temperature was elevated. She complains of global headache. She denies ringing or ears or decreased hearing. She has endorsed rhinorrhea, congestion postnasal drainage sore throat. She denies chest discomfort. She does have cough which is nonproductive. She denies arthralgias but does endorse myalgias. She has not noted a rash. She has had decreased p.o. intake and decreased urine output. She does report dry mouth and thirst. Prior similar symptoms: No Recent Illness/Hospitalization: No ROS ROS ED Constitutional Constitutional ED: Reports chills; Denies fever(s), subjective or sweats Eyes Eyes: Denies blurry vision, change in vision or diplopia ENT ENT ED: Reports ear pain, rhinorrhea and sore throat Cardiovascular Cardiovascular: Denies chest pain, orthopnea, palpitations, paroxysmal nocturnal dyspnea or racing heartbeat Respiratory/Chest Respiratory/Chest: Reports cough, dyspnea and dyspnea on exertion; Denies orthopnea or paroxysmal nocturnal dyspnea Gastrointestinal Gastrointestinal: Reports abdominal pain and nausea; Denies melena or vomiting Genitourinary Genitourinary ED: Denies dysuria, hematuria or urinary frequency Musculoskeletal Musculoskeletal: Reports myalgias; Denies arthralgias or back pain Integumentary Denies rash Neurologic Neurologic: Reports weakness; Denies paresthesias Psychiatric Psychiatric: Denies anxiety Endocrine Endocrinology: Denies cold intolerance or heat intolerance Hematologic/Lymphatic Hematologic/Lymphatic: Denies easy bleeding, easy bruising or lymphadenopathy PFSH [facility] Medical History delivery delivered Home Medications sertraline 100 mg tablet 150 mg PO Q24H 09/04/23 [History Last Taken 09/02/23] Allergy/AdvReac Type Severity Reaction Status Date / Time lidocaine Allergy Other Verified 09/04/23 09:45 [From Salonpas (lidocaine)] Social History (Updated 09/04/23 @ 10:[address] uMrali Sears MD) household members: spouse Smoking Status: Current some day smoker substance use type: does not use EXAM Physical Exam Const Vital Signs: 09/04/23 09:45 09/04/23 09:51 09/04/23 10:09 Temperature 100 F H Temperature Source Temporal Pulse Rate 118 H Respiratory Rate 26 H Respiratory Effort Short of Breath Labored Respiratory Pattern Tachypnea Blood Pressure 137/93 H Blood Pressure Mean 107 Pulse Ox 92 92 Oxygen Delivery Method Room Air Room Air Room Air 09/04/23 10:09 09/04/23 12:12 09/04/23 13:42 Temperature Temperature Source Pulse Rate 108 H 92 Respiratory Rate 22 H 24 H Respiratory Effort Respiratory Pattern Tachypnea Blood Pressure 116/77 Blood Pressure Mean 90 Pulse Ox 100 88 Oxygen Delivery Method Room Air Room Air Positive well nourished, well developed and obese Constitutional Narrative: Patient appears ill and is tachypneic. There may be slight use of accessory muscles. Patient does have audible wheezing. General Appearance ED: well developed; Negative for NAD or pallor Nutritional Appearance: obese HEENT Reports dry mucous membranes normocephalic Face and Sinus: Negative for sinus tenderness Mouth ED: Yes dry mucous membranes Mouth: dry mucous membranes Throat: posterior oropharynx normal Eyes PERRL and EOMs intact bilaterally General Eye ED: Negative for pale conjunctiva or scleral icterus Neck no lymphadenopathy, supple, no meningeal signs and no JVD Neck Narrative: Trachea is midline. There is no inspiratory expiratory stridor. Resp No normal respiratory effort and No clear to auscultation bilaterally Auscultation: rhonchi throughout and wheezes expiratory wheezes, scattered wheezes and throughout Cardio S1 normal heart sound, S2 normal heart sound and no murmurs Rate: tachycardic Rhythm: regular rhythm GI non-tender, non-distended and no masses Auscultation: normoactive bowel sounds Palpation: soft Back/Spine no CVA tenderness Extremity normal to inspection and full ROM General Extremety ED: Negative for cyanosis General Extremity: Negative for cyanosis Neuro oriented x3, CN's II-XII intact bilaterally and no sensory deficits noted Sensorium / Orientation: alert Sensory Exam: sensory level loss detected Psych mental status grossly normal Skin General Skin Exam: Negative for jaundice or pallor Lesions: no lesions Rashes: no rashes MDM MDM MDM Narrative Medical decision making narrative: Differential diagnosis is acute bronchitis with bronchospasm, pneumonia causing bronchospasm, influenza or COVID. Will treat with Solu-Medrol, albuterol and Atrovent. Chest x-ray to evaluate for pneumonia and rule out pneumothorax. CBC to assess white count differential as well as rule out anemia. Electrolyte panel to assess for endorgan dysfunction. History & Record Review Additional record(s) reviewed:: Prior outpatient record (2018 for of child), Prior ED visit (For minimal symptoms and chest pain. She did not require admission) and Prior labs Lab Data Attestation: I reviewed the patient's lab results. Lab results narrative: White count is elevated 17.2 thousand with shift. H&H is elevated at 17.6 and 52.8. Basic metabolic panel is unremarkable. Labs: Laboratory Results - last 24 hr 09/04/23 10:35 WBC 17.2 H RBC 6.09 H Hgb 17.6 H Hct 52.8 H MCV 86.7 MCH 28.9 MCHC 33.3 RDW Std Deviation 39.6 RDW Coeff of Mary Grace 12.7 Plt Count 215 MPV 10.9 Immature Gran % (Auto) 0.500 Neut % (Auto) 79.2 H Lymph % (Auto) 10.8 L Cochran % (Auto) 6.2 Eos % (Auto) 2.8 Baso % (Auto) 0.5 Absolute Neuts (auto) 13.6 H Absolute Lymphs (auto) 1.86 Nucleated RBC % 0 Sodium 137 Potassium 3.7 Chloride 108 H Carbon Dioxide 25.0 Anion Gap 4 L BUN 6 L Creatinine 0.56 Estim Creat Clear Calc 196.05 Est GFR (MDRD) Af Amer 161 Est GFR (MDRD) Non-Af 133 BUN/Creatinine Ratio 10.6 Glucose 102 Calcium 9.2 Radiography Chest X-Ray - ED: 2 View and Read by ED Physician (Independent reviewed and interpreted by me as negative for any acute process. Cardiac silhouette size normal. Lung parenchyma is normal. There is no effusion or infiltrate. There is no evidence of pneumothorax. Perihilar region is normal. Osseous structures are unremarkable.) Diagnostic Testing: Clinical Impression(s) from Imaging Studies Chest X-Ray 09/04/23 10:41 IMPRESSION: Elevation of the right hemidiaphragm. No infiltrate is seen. Electronically Signed: Dwayne Farmer MD at 11:08 EST , Treatment and Re-Evaluation Narrative: Repeat pulse ox is 100% on room air. Patient was reassessed at 1340. Patient has a pulse ox 88% on room air at rest. There is a good waveform with double notch. In light of her being hypoxic will call hospitalist for admission. Discharge Plan Dx/Rx/DC Orders Clinical Impression: Acute bronchospasm due to viral infection, Upper respiratory infection with cough and congestion, Leukocytosis, Hypoxia Disposition Disposition: Acute Care Hospital [facility]
--- NOTE | 2023-09-04 10:41 | RAD_ITS ---
STUDY: X-RAY CHEST REASON FOR EXAM: Female, 33 years old. Cough, dyspnea and wheezing TECHNIQUE: PA and lateral views of the chest. COMPARISON: None. FINDINGS: There is elevation of the right hemidiaphragm. No focal infiltrate is seen. There is no demonstrated pleural abnormality. Normal size heart. Normal mediastinum and sarabjit. Normal visualized pulmonary arteries. Normal visualized aortic arch and descending thoracic aorta. Normal visualized thoracic spine. Normal visualized ribs, clavicles, and shoulders. There is no demonstrated abnormality of the visualized soft tissue structures of the upper abdomen. RAD/Chest PA and Lateral IMPRESSION: Elevation of the right hemidiaphragm. No infiltrate is seen. Electronically Signed: Dwayne Farmer MD at 11:08 EST ,
[2023-09-04 10:44] LABS: Absolute Lymphocyte Count 1.86 X10^3/uL (0.83-4.51); Absolute Neutrophil Count 13.6 X10^3/uL (2.0-7.7); Basophil# 0.09 X10^3/uL; Basophil% 0.5 % (0-1); Eosinophil# 0.48 X10^3/uL; Eosinophils% 2.8 % (0-5); Hematocrit 52.8 % (37-47); Hemoglobin 17.6 g/dL (12.0-15.0); Lymphocyte # 1.86 X10^3/ul (0.83-4.51); Lymphocyte % 10.8 % (19-41); Mean Corp Hgb Conc 33.3 g/dL (32-36); Mean Corpuscular Hgb 28.9 pg (27.0-32.0); Mean Corpuscular Volume 86.7 fL (81-99); Mean Platelet Vol. 10.9 fl (6.2-12.0); Monocyte# 1.07 X10^3/uL; Monocyte% 6.2 % (0-10); NRBC Flagged by Analyzer 0 % (0-5); Neutrophil % 79.2 % (47-70); Platelet Count 215 K/mm3 (150-450); RBC Distribution Width CV 12.7 % (11.6-14.6); RBC Distribution Width SD 39.6 fl (35.1-43.9); Red Blood Count 6.09 M/mm3 (4.2-5.4); White Blood Count 17.2 K/mm3 (4.4-11.0)
[2023-09-04] MEDS: MethylPREDNISolone 125 MG/2 ML Vial IV (10:55)
[2023-09-04 10:56] LABS: Anion Gap 4 (5-15); BUN 6 mg/dL (7-18); BUN/Creat Ratio 10.6 RATIO (10-20); Calcium,Total 9.2 mg/dL (8.5-10.1); Chloride 108 mmol/L (98-107); Creatinine, Serum 0.56 mg/dL (0.55-1.02); EST Glomerular Filtration Rate 133 mL/min (>60); Est Glom Filt Rate - Afr Amer 161 mL/min (>60); Estimated Creatinine Clearance 196.05 ml/min; Glucose 102 mg/dL (74-106); Potassium 3.7 mmol/L (3.5-5.1); Sodium Level 137 mmol/L (136-145)
[2023-09-04] MEDS: 0.9% Normal Saline (1000mL) 1,000 ML 999 ML IV (11:06)
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
--- NOTE | 2023-09-04 13:56 | HP.PCM.HOS_ITS ---
HPI - General General Date of Admission: 09/04/23 Date of Service: 09/04/23 Chief Complaint: Shortness of Breath HPI Narrative STARR SHIRLEY, is a 33 F who presented to the emergency department hospital on 09/04/2023 complaining of shortness of breath. Patient reported that her symptoms started several days ago. She went to urgent care today because of her upper respiratory symptoms including cough and congestion and was sent to the emergency department. She has had chills but denies any known fever. She has also had mild global headache, rhinorrhea, congestion with postnasal drip and pharyngitis, nonproductive cough and myalgias. She has not had any nausea vomiting or diarrhea, sinus pressure, chest pain or hemoptysis associated with her cough. She has been able to eat without difficulty but her symptoms have not been relieved by taking Tylenol or anti-inflammatories. She states that her kids have been ill and this is where she feels she is contacted this. We did discuss the fact that she has chronic erythrocytosis and the patient was unaware. She denies any history of asthma and states she is smoking about 1 pack of cigarettes a week. Vital signs on presentation show a temperature of 100, initial heart rate was 118 with repeat at 92, blood pressure is 137/93, respiratory rate has been between 22 and 26 and oxygen saturations were 92% on room air however she desatted to 88% on room air with exertion. Her CBC shows a leukocytosis with a white count of 17.2 and an erythrocytosis with a hemoglobin of 17.6. She does have a left shift with a 79.2% neutrophilia. She has had chronic hemoglobin elevations since 2019 based on our labs and had no knowledge of this or any follow-up. Her chemistry panel was unremarkable. Chest x-ray showed mild elevation of the right hemidiaphragm with no infiltrate or other abnormalities noted. She was treated with Solu-Medrol and aerosols the emergency department with h opes to be able to discharge her however on ambulation she desatted to 88% on room air. She will be admitted to the observation as I do anticipate that we will be able to transition her to room air with rest and exertion and be able to discharge her home in the next 24 hours. [facility] Medical History (Updated 09/04/23 @ 14:[address] Sandra Simon DO) delivery delivered Depression Morbid obesity Tobacco abuse Home Medications sertraline 100 mg tablet 150 mg PO Q24H 09/04/23 [History Last Taken 09/02/23] Allergy/AdvReac Type Severity Reaction Status Date / Time lidocaine Allergy Other Verified 09/04/23 09:45 [From Salonpas (lidocaine)] no significant family history Surgical History Previous section Social History (Updated 09/04/23 @ 14:[address] Sandra Simon DO) household members: spouse housing: house Smoking Status: Current some day smoker how long ago did patient quit smoking: Currently smoking about 1 pack of cigarettes weekly alcohol intake: current alcohol intake frequency: holidays/special occasions only substance use type: does not use ROS Constitutional Constitutional: Reports chills, fatigue, malaise and weakness; Denies anorexia, change in weight, fever(s), night sweats or other Eyes Eyes: Denies blurry vision, change in eye color, change in vision, discharge from eye(s), double vision, erythema, eye pain, loss of vision or other ENT HEENT: Reports headache(s), nasal congestion, nasal discharge, post nasal drip and sore throat Cardiovascular Cardiovascular: Reports dyspnea on exertion; Denies chest pain, claudication, edema, lightheadedness, orthopnea, palpitations, paroxysmal nocturnal dyspnea, rapid heart rate, syncope or other Respiratory/Chest Respiratory/Chest: Reports cough, dyspnea, shortness of breath at rest, shortness of breath with exertion and wheezing; Denies excessive phlegm production, hemoptysis, productive cough or other Gastrointestinal Gastrointestinal: Denies abdominal pain, coffee ground emesis, constipation, diarrhea, dyspepsia, hematemesis, hematochezia, loose stools, melena, nausea, vomiting or other Genitourinary Genitourinary: Denies burning urination, difficulty urinating, dysuria, hematuria, nocturia, urinary frequency, urinary hesitancy, urinary incontinence, urinary urgency or other Musculoskeletal Musculoskeletal: Reports myalgias; Denies arthralgias, back pain, joint pain, joint stiffness, joint swelling, neck pain or other Neurologic Neurologic: Denies abnormal gait, abnormal speech, confusion, disequilibrium, dizziness, focal weakness, headache(s), numbness, paresthesias, seizure-like activity, seizures, syncope, tingling, tremor(s) or other Psychiatric Psychiatric: Reports depression; Denies anxiety, homicidal ideation, suicidal ideation or other Endocrine Endocrinology: Denies change in body appearance, cold intolerance, excessive sweating, heat intolerance, polydipsia, polyuria or other Hematologic/Lymphatic Hematologic/Lymphatic: Denies anemia, easy bleeding, easy bruising, ly mphadenopathy or other Allergic/Immunologic Allergic/Immunologic: Denies rhinitis, hives, eczemia, asthma or other Vital Signs Vital Signs Vital Signs: 09/04/23 09:45 09/04/23 09:51 09/04/23 10:09 Temperature 100 F H Temperature Source Temporal Pulse Rate 118 H Respiratory Rate 26 H Respiratory Effort Short of Breath Labored Respiratory Pattern Tachypnea Blood Pressure 137/93 H Blood Pressure Mean 107 Pulse Ox 92 92 Oxygen Delivery Method Room Air Room Air Room Air 09/04/23 10:09 09/04/23 12:12 09/04/23 13:42 Temperature Temperature Source Pulse Rate 108 H 92 Respiratory Rate 22 H 24 H Respiratory Effort Respiratory Pattern Tachypnea Blood Pressure 116/77 Blood Pressure Mean 90 Pulse Ox 100 88 Oxygen Delivery Method Room Air Room Air Weight Weight: 127.8 kg Body Mass Index (BMI) 46.8 Physical Exam Const alert, oriented x3, no apparent distress and well nourished; Negative for average body habitus or healthy appearing Constitutional Narrative: Young middle-aged, white female, lying in bed, appears ill but nontoxic, at bedside General Appearance: cooperative HEENT normocephalic, head/scalp atraumatic, hearing grossly normal bilaterally and moist oral mucous membranes HEENT Narrative: Mallampati 3, no thrush Resp normal respiratory effort, no retractions, no use of accessory muscles and No clear to auscultation bilaterally Resp Narrative: Coarse breath sounds bilaterally with few scattered end expiratory wheezes, no signs of respiratory extremis on 2 L nasal cannula Auscultation: wheezes Cardio regular rate, regular rhythm, S1 normal heart sound, S2 normal heart sound, no murmurs, no rub, no gallops and no clicks GI normal to inspection, nondistended, normoactive bowel sounds, soft to palpation and non-tender GI Narrative: Large protuberant abdomen Extremity no clubbing, cyanosis or edema Extremity Narrative: Pedal pulses are 2+ Neuro oriented x3, moves all extremities and no focal motor deficits Speech: speech normal Psych affect normal Psych Narrative: Eye contact is good, patient interacts appropriately Results Lab / Micro Data 09/04/23 10:35 09/04/23 10:35 Labs: Laboratory Results - last 24 hr 09/04/23 10:35: WBC 17.2 H, RBC 6.09 H, Hgb 17.6 H, Hct 52.8 H, MCV 86.7, MCH 28.9, MCHC 33.3, RDW Std Deviation 39.6, RDW Coeff of [place] 12.7, Plt Count 215, MPV 10.9, Immature Gran % (Auto) 0.500, Neut % (Auto) 79.2 H, Lymph % (Auto) 10.8 L, [place] % (Auto) 6.2, Eos % (Auto) 2.8, Baso % (Auto) 0.5, Absolute Neuts (auto) 13.6 H, Absolute Lymphs (auto) 1.86, Nucleated RBC % 0, Sodium 137, Potas sium 3.7, Chloride 108 H, Carbon Dioxide 25.0, Anion Gap 4 L, BUN 6 L, Creatinine 0.56, Estim Creat Clear Calc 196.05, Est GFR (MDRD) Af Amer 161, Est GFR (MDRD) Non-Af 133, BUN/Creatinine Ratio 10.6, Glucose 102, Calcium 9.2 Micro: Microbiology 09/04/23 10:10 Mucosa - Nasopharyngeal SARS-CoV-2, Influenza & RSV (PCR) - Final Imaging Radiology Impression Chest X-Ray 09/04/23 10:41 IMPRESSION: Elevation of the right hemidiaphragm. No infiltrate is seen. Electronically Signed: Dwayne Farmer MD at 11:08 EST , Assessment & Plan Assessment/Plan (1) Hypoxia: (2) Leukocytosis: (3) Erythrocytosis: (4) Upper respiratory infection with cough and congestion: PLAN: Plan Acute exertional hypoxia secondary to upper respiratory tract infection -Suspect viral infection -Chest x-ray is unremarkable -COVID/RSV/flu negative -Check respiratory viral panel -Solu-Medrol 40 every 8 -Aggressive pulmonary toilet with scheduled and as needed nebulizers -Mucinex -Incentive spirometry -Pep therapy 10 times every 2 hours while awake with Acapella -Sats were greater than 88% on room air at rest however desatted to 88% with exertion -Would reassess with ambulatory pulse ox tomorrow after 24 hours of treatment -Possible discharge home in the next 24 hours if sats improved with exertion Leukocytosis -No sign of bacterial infection at this time -Highly suspect viral -Anticipate trend up due to steroid use -Repeat CBC in a.m. and monitor clinically Erythrocytosis -Her hemoglobin's been elevated since 2019 -Would recommend outpatient follow-up with hematology after discharge for fu rther workup as this is not an acute issue Depression -Continue home sertraline Morbid obesity -BMI 46.9 -Recommend weight loss -Complicates treatment, prognosis, outcomes Tobacco abuse -Smoking about 1 pack of cigarettes weekly -As needed nicotine patch available at 7 mcg -Recommend cessation DVT prophylaxis -Lovenox 40 mg twice daily due to BMI greater than 35 CODE STATUS -Full code as verified on admission Charges/Coding Visit Charges Inpatient E&M: 13971 Init Hosp L1
[2023-09-04 16:59] LABS: Internal QC Validated? YES +Cl - CLEAR BKGD; Pregnancy, Serum, hCG Quali. NEGATIVE Negative
[2023-09-04] MEDS: guaiFENesin 1,200 MG Tablet 1200 MG PO (17:27)
--- OUTSIDE RECORDS SUMMARY | 2023-09-04 20:36 | XMS RPT_ITS | CCD ---
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 Qualified 100% FAS 12/11/2022 03/11/2023 99 99 Reason Onset Date Comments Refill Request 05/29/2023 Reason Comments Flu Like Symptoms Cough, wheeze, SOB, chest heavy, sore throat, loss of taste smell x2 days Care Teams (unrecognized sec tion and content) 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 Experience 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 Relationship Specialty Start Date End Date Laurie Holliday MD [address] [place], [place] [id number] PCP - General Family Practice 04/20/21 Customer Experience 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 Relationship Specialty Start Date End Date Laurie Holliday MD [address] [place], [place] [phone] PCP - General Family Medicine 04/20/21 Customer Experience 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 Relationship Specialty Start Date End Date Laurie Holliday MD [address] [place], [place] [phone] PCP - General Family Medicine 04/20/21 Customer Experience 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 Relationship Specialty Start Date End Date Laurie Holliday MD [address] [place], [place] [id number] PCP - [facility] 04/20/21 Customer Experience 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 Relationship Specialty Start Date End Date Laurie Holliday MD [address] [place], [place] [id number] PCP - [facility] 04/20/21 Customer Experience 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 Relationship Specialty Start Date End Date Laurie Holliday MD [address] [place], [place] [id number] PCP - [facility] 04/20/21 FOR RECORDS PERTAINING TO PATIENTS WHO [...] BE BASED ON THE PRIMARY CLINICAL RECORDS. [facility] [employer] [facility]. provides no warranty or guarantee of the accuracy or completeness of information in this document.
[2023-09-04] MEDS: Enoxaparin 40 MG/0.4 ML Syringe SC (21:06)
[2023-09-04] MEDS: Acetaminophen 325 MG Tablet 650 MG PO (21:07)
[2023-09-05] VITALS (17 sets, daily range): BP systolic 118–131; BP diastolic 70–83; PULSE 69–106; RESP 16–22; TEMP 36.4–37.1; O2SAT 88–96; BMI 46.7
[2023-09-05] MEDS: Ipratropium/Albuterol Sulfate 3 ML AMPUL.NEB INHALATION ×6 (03:08→23:02)
--- NOTE | 2023-09-05 05:00 | EKG12_ITS ---
Test Reason : DYSRHYTHMIA Blood Pressure : / mmHG Vent. Rate : 100 BPM Atrial Rate : 100 BPM P-R Int : 124 ms QRS Dur : 092 ms QT Int : 352 ms P-R-T Axes : 069 068 038 degrees QTc Int : 454 ms Normal sinus rhythm Normal ECG When compared with ECG of 08-JUN-2020 15:52, No significant change was found Confirmed by Ty Ackerman ([id number]), loan expeditor MARIA ELENA SCOTT ([id number]) on 09/05/2023 9:53:04 AM Referred By: SHAHBAZ Confirmed By:Ty Ackerman
[2023-09-05] MEDS: 0.9% Saline Lock 10 ML Syringe IV ×2 (05:12→15:03)
[2023-09-05] MEDS: Acetaminophen 325 MG Tablet 650 MG PO (05:17)
[2023-09-05 07:21] LABS: Absolute Lymphocyte Count 0.95 X10^3/uL (0.83-4.51); Absolute Neutrophil Count 14.1 X10^3/uL (2.0-7.7); Basophil# 0.02 X10^3/uL; Basophil% 0.1 % (0-1); Hematocrit 48.4 % (37-47); Hemoglobin 16.5 g/dL (12.0-15.0); Lymphocyte # 0.95 X10^3/ul (0.83-4.51); Lymphocyte % 6.1 % (19-41); Mean Corp Hgb Conc 34.1 g/dL (32-36); Mean Corpuscular Volume 85.2 fL (81-99); Mean Platelet Vol. 10.8 fl (6.2-12.0); Monocyte# 0.53 X10^3/uL; Monocyte% 3.4 % (0-10); NRBC Flagged by Analyzer 0 % (0-5); Neutrophil # 14.08 X10^3/uL (2.7-7.7); Neutrophil % 89.7 % (47-70); Platelet Count 231 K/mm3 (150-450); RBC Distribution Width CV 12.6 % (11.6-14.6); Red Blood Count 5.68 M/mm3 (4.2-5.4); White Blood Count 15.7 K/mm3 (4.4-11.0)
[2023-09-05 07:49] LABS: ALB/GLOB Ratio 0.8 RATIO (0.9-2.4); AST(SGOT) 14 U/L (15-37); Alanine Aminotransfer ALT/SGPT 26 U/L (13-56); Albumin, Serum 3.7 g/dL (3.2-5.0); Alkaline Phosphatase 103 U/L (45-117); Anion Gap 5 (5-15); BUN 8 mg/dL (7-18); Calcium,Total 9.6 mg/dL (8.5-10.1); Chloride 112 mmol/L (98-107); Creatinine, Serum 0.57 mg/dL (0.55-1.02); EST Glomerular Filtration Rate 131 mL/min (>60); Est Glom Filt Rate - Afr Amer 159 mL/min (>60); Estimated Creatinine Clearance 192.25 ml/min; Globulin 4.4 g/dL (2.2-4.2); Glucose 149 mg/dL (74-106); Magnesium 2.3 mg/dL (1.6-2.6); Phosphorus 1.7 mg/dL (2.5-4.9); Potassium 3.8 mmol/L (3.5-5.1); Protein, Total 8.1 g/dL (6.4-8.2); Sodium Level 139 mmol/L (136-145); Thyroid Stim Hormone (TSH) 0.13 uIU/mL (0.358-3.74)
[2023-09-05] MEDS: guaiFENesin 1,200 MG Tablet 1200 MG PO ×2 (09:15→21:31)
[2023-09-05] MEDS: Enoxaparin 40 MG/0.4 ML Syringe SC ×2 (09:15→21:31)
[2023-09-05] MEDS: Influenza Virus Vac Quad 23-24 60 MCG/0.5 ML SYRINGE IM (15:26)
--- NOTE | 2023-09-05 18:19 | PN.HOSP_ITS ---
Reason for Visit Reason for Visit: Diagnoses Elevated white blood cell count, unspecified (09/05/23) Secondary polycythemia (09/05/23) Acute upper respiratory infection, unspecified (09/05/23) Hypoxemia (09/05/23) Subjective Subjective Patient was seen and examined today, she is currently on room air, he states she feels better than yesterday. Objective Data Objective Data Vital Signs: Vital Signs Temp Pulse Resp BP Pulse Ox O2 Del Method O2 Flow Rate 98.0 F 102 H 20 H 124/72 H 95 Room Air 2 09/05/23 15:05 09/05/23 15:05 09/05/23 15:05 09/05/23 15:05 09/05/23 15:05 09/05/23 15:05 09/05/23 11:19 Oxygen Flow Rate (L/min) 2 Oxygen Delivery Method Room Air Weight: 127.4 kg Body Mass Index (BMI) 46.7 Intake & Output: Intake and Output for Last 24 Hours 09/03/23 09/04/23 09/05/23 23:59 23:59 23:59 Intake Total 1360 / 1560 1310 / 1310 Output Total 200 / 200 Balance 1160 / 1360 1310 / 1310 Lab / Micro Data 09/05/23 06:45 09/05/23 06:45 Labs: Laboratory Results - last 24 hr 09/05/23 06:45: WBC 15.7 H, RBC 5.68 H, Hgb 16.5 H, Hct 48.4 H, MCV 85.2, MCH 29.0, MCHC 34.1, RDW Std Deviation 39.0, RDW Coeff of Mary Grace 12.6, Plt Count 231, MPV 10.8, Immature Gran % (Auto) 0.700, Neut % (Auto) 89.7 H, Lymph % (Auto) 6.1 L, [place] % (Auto) 3.4, Eos % (Auto) 0.0, Baso % (Auto) 0.1, Absolute Neuts (auto) 14.1 H, Absolute Lymphs (auto) 0.95, Nucleated RBC % 0, Sodium 139, Potassium 3.8, Chloride 112 H, Carbon Dioxide 22.0, Anion Gap 5, BUN 8, Creatinine 0.57, Estim Creat Clear Calc 192.25, Est GFR (MDRD) Af Amer 159, Est GFR (MDRD) Non-Af 131, BUN/Creatinine Ratio 14.0, Glucose 149 H, Calcium 9.6, Phosphorus 1.7 L, Magnesium 2.3, Total Bilirubin 0.50, AST 14 L, ALT 26, Alkaline Phosphatase 103, Total Protein 8.1, Albumin 3.7, Globulin 4.4 H, Albumin/Globulin Ratio 0.8 L, TSH 0.13 L Micro: Microbiology 09/04/23 15:22 Mucosa - Nasopharyngeal Respiratory Panel (PCR) - Final Rhinovirus 09/04/23 10:10 Mucosa - Nasopharyngeal SARS-CoV-2, Influenza & RSV (PCR) - Final Physical Exam Const alert, oriented x3, no apparent distress and healthy appearing General Appearance: cooperative, well kempt and well developed Orientation / Consciousness: awake, oriented to person, oriented to place and oriented to time HEENT normocephalic and moist oral mucous membranes Eyes PERRL, EOMs intact bilaterally and conjunctivae normal Neck supple, no JVD, thyroid normal and no carotid bruits General: trachea midline Resp normal respiratory effort Resp Narrative: Diffuse expiratory wheezes are noted bilaterally throughout all lung mason Auscultation: wheezes; Negative for rales or rhonchi Cardio regular rate, regular rhythm, S1 normal heart sound, S2 normal heart sound, no murmurs, no rub and no gallops GI normal to inspection, nondistended, normoactive bowel sounds, soft to palpation, non-tender and non-distended Extremity no clubbing, cyanosis or edema Skin no rashes or lesions noted General Skin Exam: no breakdown Neuro oriented x3, CN's II-XII intact bilaterally, no focal motor deficits and no sensory deficits noted Sensorium / Orientation: awake and alert Speech: speech normal Psych affect normal Assessment & Plan Assessment/Plan (1) Hypoxia: PLAN: Plan 1. Acute bronchospasm secondary to lower respiratory tract rhinovirus infection-patient will remain on IV corticosteroids and aerosol treatments #2 hypoxia-secondary to #1-patient is currently on room air, pulse ox will be monitored #3 chronic depression-patient is on Zoloft Total clinical time spent by myself addressing the patient's medical issues, reviewing all of her data, and collaborating with patient's care team: 25 minutes Charges/Coding Visit Charges Inpatient E&M: 82456 [facility] L1
[2023-09-06 03:19] VITALS: BP 108/56; PULSE 88; RESP 16; TEMP 36.9; O2SAT 94
[2023-09-06 04:29] VITALS: BMI 46.8
[2023-09-06 07:26] VITALS: PULSE 71; RESP 22; O2SAT 93
[2023-09-06] MEDS: Ipratropium/Albuterol Sulfate 3 ML AMPUL.NEB INHALATION ×2 (07:26→10:47)
[2023-09-06 09:28] VITALS: BP 127/77; PULSE 89; RESP 18; TEMP 36.4; O2SAT 94
[2023-09-06] MEDS: Sertraline 50 MG Tablet 150 MG PO (09:32)
[2023-09-06] MEDS: guaiFENesin 1,200 MG Tablet 1200 MG PO (09:34)
--- NOTE | 2023-09-06 09:37 | CASEMGMT ---
CLAUDIA PATEL Discharge Planning Assessment: Face to Face with patient for initial transition planning/care coordination assessment.?CLAUDIA PATEL introduced self and role at [facility], pt alert, oriented, voices understanding, and is agreeable to participating in assessment.? Care providers, pharmacy,?and demographics verified. ? Admitting dx: rhinovirus, hypoxia LACE strata: 1 PCP: Armando Barth Pharmacy: [facility] Insurance: [place] Prescription Benefit: yes? LNOK: spouse Subhash Living Arrangements: Pt lives with her spouse and states she is independent with all ADLs and IADLs. Pt is employed. Transportation: pt denies any concerns DME/HHC/SNF: none ? Plan: return home with support of spouse. Noted pt needed O2 while sleeping last pm. Reviewed possible need for home O2. Reviewed area DME providers and pt without preference and agreeable to [facility] to provide if needed. Green sheet placed on chart if home O2 needed. Carol See RN ACM
[2023-09-06 09:39] VITALS: O2SAT 93; O2SAT 95
--- NOTE | 2023-09-06 10:19 | PCM.DC ---
Discharge Instructions Diet Discharge Diet: No restrictions Activity Discharge Activity: Return to Normal Activity Weight Bearing Status: Full weight bearing Follow Up Care Test Results: Test results from this visit will be discussed in further detail at your follow-up appointment, if applicable. Discharge Plan Admission Admit Date/Time: 09/05/23 14:55 Primary Reason for Your Visit: Rhinovirus infection, hypoxia Attending Provider: Paul Grewal Primary Care Provider: Ankit Holliday Consulting Providers: Sandra Simon Discharge Orders/Prescriptions Prescriptions: New guaifenesin [Mucus Relief ER] 1,200 mg Tablet Extended Release 12hr 1,200 mg PO BID Qty: 0 0RF Rx Instructions: You may obtained Mucinex generically at [facility] prednisone 10 mg tablet 10 mg PO DAILY Qty: 20 0RF Rx Instructions: Two twice a day for 2 days, then 3/day for 2 days, then 2/day for 2 days, then 1/day for 2 days then stop Continued sertraline 100 mg tablet 150 mg PO Q24H Referrals / Follow Up: Ankit Holliday MD [Primary Care Provider] - See Referral Note (Within a month) Disposition Disposition (needs filled in before D/C Order can be placed): Home, Self Care
--- NOTE | 2023-09-06 10:29 | PCM.DC.SUM ---
Providers Date of Admission: 09/05/23 Date of Discharge: 09/06/23 Primary Care Physician: Dr. Ankit Holliday MD Reason For Visit: ACUTE HYPOXIA 2/2 VIRAL ILLNESS Diagnosis Discharge Diagnosis (1) Hypoxia: Status: Acute Code(s): R09.02 - Hypoxemia Plan 1. Acute bronchospasm secondary to lower respiratory tract rhinovirus infection-patient will remain on IV corticosteroids and aerosol treatments #2 hypoxia-secondary to #1-patient is currently on room air, pulse ox will be monitored #3 chronic depression-patient is on Zoloft Total clinical time spent by myself addressing the patient's medical issues, reviewing all of her data, and collaborating with patient's care team: 25 minutes Medications at Discharge Home Medications sertraline 100 mg tablet 150 mg PO Q24H 09/04/23 guaifenesin 1,200 mg tablet, extended release 12 hr (Mucus Relief ER) 1,200 mg PO BID #0 tabs 09/06/23 prednisone 10 mg tablet 10 mg PO DAILY #20 tabs 09/06/23 Hospital Course Operations None Procedures None Summary of Care Provided Minutes Spent on Discharge: 30 Hospital Course: This 33-year-old white female was seen in the emergency room at [facility] with complaints of cough and shortness of breath. Her symptoms started a few days prior, she had gone to urgent care and urgent care center to the ER for evaluation. Patient had rhinorrhea and sore throat also. Workup in the emergency room showed an elevated white blood cell count, hemoglobin was elevated at 17.6, and chest x-ray showed no effusion or infiltrate. Elevation of the right hemidiaphragm was noted. Patient required supplemental oxygen via nasal cannula to keep her pulse ox above 90%, patient was admitted to [facility], respiratory panel revealed that the patient had rhinovirus, this examiner thought it was a lower respiratory infection with rhinovirus, she was treated with IV corticosteroids and aerosol treatments and weaned off oxygen. On 09/06/2023, patient was seen and examined: On examination she appeared in good health and spirits, she does not appear to be in any distress. Vital signs as documented. Skin warm and dry and without overt rashes. Neck without JVD, thyroid appears normal, trachea is midline, neck is supple. Lungs scattered faint expiratory wheezes were noted bilaterally. Heart exam notable for regular rhythm, normal sounds and absence of murmurs, rubs or gallops. Abdomen unremarkable and without evidence of organomegaly, masses, or abdominal aortic enlargement, bowel sounds are present in all 4 quadrants, no abdominal tenderness was noted. Extremities nonedematous, no cyanosis was noted, no clubbing was noted. Neuro: Cranial nerves II through XII are grossly intact, no focal motor deficits were noted, sensation to light touch and pinprick is intact, motor exam 5/5 throughout. Psych: Patient is alert and oriented x3, she does not appear anxious or depressed, she does not appear agitated. Patient was felt to be stable for discharge on 09/06/2023. I talked her briefly about smoking cessation, she stated that she was not sure she wanted to stop smoking but if she did she would obtain an nicotine patch [id number]. Weight / BMI Weight Weight: 127.6 kg Body Mass Index (BMI) 46.8 ABG / Lab / Microbiology Data 09/05/23 06:45 09/05/23 06:45 Microbiology: Microbiology 09/05/23 15:15 Sputum, Expectorated/Coughed Respiratory Culture - Preliminary Appears to be normal respiratory ihsan. Further studies to follow. 09/04/23 15:22 Mucosa - Nasopharyngeal Respiratory Panel (PCR) - Final Rhinovirus 09/04/23 10:10 Mucosa - Nasopharyngeal SARS-CoV-2, Influenza & RSV (PCR) - Final D/C Instructions Discharge Diet: No restrictions Weight Bearing Status: Full weight bearing Meaningful Use Info Meaningful Use Diagnoses (Choose all that apply): None applicable Discharge Plan Admission Admit Date/Time: 09/05/23 14:55 Primary Reason for Your Visit: Rhinovirus infection, hypoxia Attending Provider: Paul Grewal Primary Care Provider: Ankit Holliday Consulting Providers: Sandra Simon Discharge Orders/Prescriptions Prescriptions: New guaifenesin [Mucus Relief ER] 1,200 mg Tablet Extended Release 12hr 1,200 mg PO BID Qty: 0 0RF Rx Instructions: You may obtained Mucinex generically at [facility] prednisone 10 mg tablet 10 mg PO DAILY Qty: 20 0RF Rx Instructions: Two twice a day for 2 days, then 3/day for 2 days, then 2/day for 2 days, then 1/day for 2 days then stop Continued sertraline 100 mg tablet 150 mg PO Q24H Referrals / Follow Up: Ankit Holliday MD [Primary Care Provider] - See Referral Note (Within a month) Disposition Disposition (needs filled in before D/C Order can be placed): Home, Self Care Charges/Coding Visit Charges Inpatient E&M: 59092 [facility]
[2023-09-06 10:47] VITALS: PULSE 70; RESP 21
[2023-09-06 11:24] VITALS: BP 123/68; PULSE 85; RESP 18; TEMP 36.5; O2SAT 95
== END 2023-09-06 11:20 | disposition home or self-care (01) | DRG 206 ==
LOC: ED 13:43 → MS3 14:48
PROVIDERS: Admitting Provider Internal Medicine; Emergency Provider Emergency Medicine; PCP Family Medicine; Visit Provider Internal Medicine
DX: J22 Unspecified acute lower respiratory infection (principal); Z68.42 Body mass index [BMI] 45.0-49.9, adult; B97.89 Other viral agents as the cause of diseases classified elsewhere; E66.01 Morbid (severe) obesity due to excess calories; F32.A Depression, unspecified; J98.01 Acute bronchospasm; F17.210 Nicotine dependence, cigarettes, uncomplicated; Z23 Encounter for immunization; R09.02 Hypoxemia; Z11.52 Encounter for screening for COVID-19
CPT/HCPCS: 36415; 71046; 80048; 80053; 83735; 84100; 84443; 84703; 85025; 87070; 87077; 87205; 87631; 87633; 93005; 94640; 94668; 94762; 99252; 99284; J7030; 90686; A4216; G0463

== ENCOUNTER 2023-10-15 09:28 | Emergency (ER) | payer BC, SELFPAY ==
[2023-10-15 09:28] VITALS: BP 147/105; PULSE 86; RESP 18; TEMP 36.4; O2SAT 96; BMI 46.7
[2023-10-15] MEDS: 0.9% Normal Saline (1000mL) 1,000 ML 1000 ML IV (10:20)
[2023-10-15 10:35] LABS: Internal QC Validated? YES +Cl - CLEAR BKGD; Pregnancy, Serum, hCG Quali. NEGATIVE Negative; Record Kit Lot#, Serum Preg. HCG0000718086
[2023-10-15 10:39] LABS: Anion Gap 8 (5-15); BUN 5 mg/dL (7-18); BUN/Creat Ratio 8.2 RATIO (10-20); Chloride 104 mmol/L (98-107); Creatinine, Serum 0.61 mg/dL (0.55-1.02); EST Glomerular Filtration Rate 121 mL/min (>60); Est Glom Filt Rate - Afr Amer 147 mL/min (>60); Estimated Creatinine Clearance 179.54 ml/min; Glucose 100 mg/dL (74-106); Potassium 3.5 mmol/L (3.5-5.1); Sodium Level 137 mmol/L (136-145)
[2023-10-15 10:48] VITALS: BP 128/79; BP 149/121; BP 152/106; PULSE 64; PULSE 91; PULSE 99
[2023-10-15 10:48] LABS: Absolute Lymphocyte Count 2.57 X10^3/uL (0.83-4.51); Absolute Neutrophil Count 5.2 X10^3/uL (2.0-7.7); Basophil# 0.05 X10^3/uL; Basophil% 0.6 % (0-1); Eosinophils% 2.3 % (0-5); Hematocrit 47.9 % (37-47); Hemoglobin 16.3 g/dL (12.0-15.0); Lymphocyte # 2.57 X10^3/ul (0.83-4.51); Mean Corpuscular Hgb 29.1 pg (27.0-32.0); Mean Corpuscular Volume 85.4 fL (81-99); Mean Platelet Vol. 10.8 fl (6.2-12.0); Monocyte# 0.82 X10^3/uL; Monocyte% 9.3 % (0-10); NRBC Flagged by Analyzer 0 % (0-5); Neutrophil # 5.18 X10^3/uL (2.7-7.7); Neutrophil % 58.5 % (47-70); Platelet Count 214 K/mm3 (150-450); RBC Distribution Width CV 12.8 % (11.6-14.6); RBC Distribution Width SD 39.7 fl (35.1-43.9); Red Blood Count 5.61 M/mm3 (4.2-5.4); White Blood Count 8.9 K/mm3 (4.4-11.0)
[2023-10-15 11:28] VITALS: BP 117/96; PULSE 64; RESP 14; O2SAT 98
--- NOTE | 2023-10-15 11:30 | EDS_ITS ---
HPI History of Present Illness Chief Complaint: Dizziness Detail of Chief Complaint: Dizziness Informant: patient Narrative Narrative: Patient presents with complaint of dizziness for last 2 days. She describes some vertiginous symptoms and some lightheaded like feeling. Patient states that at times she had some difficulty understanding people. Dizziness worse with walking and standing and moving. She had some mild nausea. Patient also tells me she has been sick for about a week with cold symptoms. Has history of depression. There have been sick contacts in the home. She denies any falls or head injuries. She denies headache. [facility] Medical History (Updated 10/15/23 @ 11:[address] Alexey Monsalve, DO) Acute bronchospasm due to viral infection delivery delivered Depression Erythrocytosis Morbid obesity Tobacco abuse Upper respiratory infection with cough and congestion Home Medications sertraline 100 mg tablet 150 mg PO Q24H 09/04/23 [History Last Taken 09/02/23] meclizine 25 mg tablet 25 mg PO TID PRN dizziness #20 tabs 10/15/23 [Rx Last Taken Unknown] Allergy/AdvReac Type Severity Reaction Status Date / Time lidocaine Allergy Other Verified 10/15/23 09:28 [From Salonpas (lidocaine)] Surgical History Previous section Social History (Updated 09/04/23 @ 14:[address] Sandra Simon, DO) household members: spouse housing: house Smoking Status: Current every day smoker tobacco type: cigarettes how long ago did patient quit smoking: Currently smoking about 1 pack of cigarettes weekly alcohol intake: current alcohol intake frequency: holidays/special occasions only substance use type: does not use ROS ROS ED Constitutional Constitutional ED: Reports systems reviewed and no addt'l complaints, except as documented; Denies body ache(s), change in weight or chills Eyes Eyes: Denies acute decrease in peripheral vision, change in vision, double vision or loss of vision ENT ENT ED: Reports none; Denies ear pain, lip swelling, loss taste/smell, neck pain, otalgia or sore throat Cardiovascular Cardiovascular: Reports none; Denies abdominal pain, chest pain with activity, leg edema, lightheadedness, palpitations, rapid heart rate or syncope Respiratory/Chest Respiratory/Chest: Reports none and cough; Denies change in mental status, dry cough, dyspnea, hemoptysis, shortness of breath at rest or shortness of breath with exertion Gastrointestinal Gastrointestinal: Reports none and nausea; Denies abdominal pain, change in stool character, diarrhea, hematemesis, hematochezia, melena, rectal bleeding or vomiting Genitourinary Genitourinary ED: Reports none; Denies abdominal discomfort, anuria, dysuria, genital pain or polyuria Musculoskeletal Musculoskeletal: Reports none; Denies arthralgias, back pain, difficulty walking, extremity pain, muscle weakness or myalgias Integumentary Reports none; Denies abscess or rash Neurologic Neurologic: Reports none, confusion and vertigo; Denies abnormal gait, focal weakness, frequent falls, headache(s), loss of vision, numbness, paresthesias, radicular pain or weakness Psychiatric Psychiatric: Reports systems reviewed and no addt'l complaints, except as documented and none; Denies behavioral changes, confusion, difficulty concentrating, hallucinations, suicidal ideation, tactile hallucinations or visual hallucinations Endocrine Endocrinology: Denies none, cold intolerance, excessive sweating, fatigue or heat intolerance Hematologic/Lymphatic Hematologic/Lymphatic: Reports none; Denies anemia, easy bleeding or easy bruising Allergic/Immunologic Allergic/Immunologic ED: Denies as per HPI, none, lip swelling, mouth swelling, throat swelling, tongue swelling or hives EXAM Physical Exam Const Vital Signs: 10/15/23 09:28 10/15/23 10:50 10/15/23 10:48 Temperature 97.6 F L Temperature Source Temporal Pulse Rate 86 Pulse Rate [Lying] 64 Pulse Rate [Sitting (for 1 minute prior to obtaining)] 91 Pulse Rate [Standing (for 1 minute prior to obtaining)] 99 Respiratory Rate 18 Respiratory Effort Normal Non-Labored Respiratory Pattern Normal Blood Pressure 147/105 H Blood Pressure [Lying] 128/79 H Blood Pressure [Sitting (for 1 minute prior to obtaining)] 152/106 H Blood Pressure [Standing (for 1 minute prior to obtaining)] 149/121 H Blood Pressure Mean 119 Blood Pressure Mean [Lying] 95 Blood Pressure Mean [Sitting (for 1 minute prior to obtaining)] 121 Blood Pressure Mean [Standing (for 1 minute prior to obtaining)] 130 Pulse Ox 96 Oxygen Delivery Method Room Air Oxygen Flow Rate (L/min) 99 Positive well nourished and well developed General Appearance ED: well developed and NAD HEENT Reports TM's clear and moist mucous membranes normocephalic and atraumatic; Negative for trauma or tenderness Tympanic Membrane ED: Yes TM's clear Eyes PERRL and EOMs intact bilaterally General Eye ED: Negative for pale conjunctiva or scleral icterus Neck no lymphadenopathy, supple and no JVD General: Negative for tenderness Chest Wall inspection of chest normal and palpation of chest normal Chest: Negative for tenderness Resp normal respiratory effort and clear to auscultation bilaterally Effort and Inspection: Negative for respiratory distress or pain with movement Auscultation: Negative for rhonchi, wheezes or diminished lung sounds Cardio regular rate, regular rhythm, S1 normal heart sound, S2 normal heart sound and no murmurs Peripheral Pulses: pulses 2+ throughout GI normal to inspection, nondistended, normoactive bowel sounds, soft to palpation, non-tender, non-distended and no masses Back/Spine no CVA tenderness and no thoracic nor lumbar tenderness Extremity normal to inspection General Extremety ED: Negative for edema General Extremity: Negative for edema Neuro oriented x3, CN's II-XII intact bilaterally, no sensory deficits noted and gait normal Neuro Narrative: Hallpike maneuver performed. Patient did have some mild nystagmus with head turn to the left that seem to reproduce her symptoms. Finger-nose and heel mehta testing within normal limits, negative Romberg, negative , Fundi benign Sensorium / Orientation: awake, alert, oriented to person, oriented to place and oriented to time Motor Exam: strength 5/5 throughout and strength abnormal Psych mental status grossly normal Skin no rashes or lesions noted and no wounds MDM MDM MDM Narrative Medical decision making narrative: Patient presents with dizziness and URI symptoms. On physical exam she does have some nystagmus with head position to the left. I suspect benign positional vertigo. She was given Antivert 25 mg p.o. I did start an IV and gave her a liter mostly fluid bolus. CBC with differential obtained for white count of 8.9 with hemoglobin 16 and platelet count of 214. Chemistries unremarkable. hCG was negative. COVID flu and and RSV testing was undertaken and patient was positive for influenza B. At this point I feel patient can be discharged to home. She has influenza B and suspect benign positional vertigo. I will write her prescription for Antivert. Advised to push fluids and follow-up with her primary care physician within next 3 to 5 days. Lab Data Attestation: I reviewed the patient's lab results. Labs: Laboratory Results - last 24 hr 10/15/23 10/15/23 10/15/23 10:10 10:10 10:40 WBC Cancelled 8.9 Corrected WBC Cancelled RBC Cancelled 5.61 H Hgb Cancelled 16.3 H Hct Cancelled 47.9 H MCV Cancelled 85.4 MCH Cancelled 29.1 MCHC Cancelled 34.0 RDW Std Deviation Cancelled 39.7 RDW Coeff of Mary Grace Cancelled 12.8 Plt Count Cancelled 214 MPV Cancelled 10.8 Immature Gran % (Auto) Cancelled 0.300 Neut % (Auto) Cancelled 58.5 Lymph % (Auto) Cancelled 29.0 [place] % (Auto) Cancelled 9.3 Eos % (Auto) Cancelled 2.3 Baso % (Auto) Cancelled 0.6 Absolute Neuts (auto) Cancelled 5.2 Absolute Lymphs (auto) Cancelled 2.57 Total Counted Cancelled Neutrophils % (Manual) Cancelled Band Neutrophils % Cancelled Lymphocytes % (Manual) Cancelled Monocytes % (Manual) Cancelled Eosinophils % (Manual) Cancelled Basophils % (Manual) Cancelled Metamyelocytes % Cancelled Myelocytes % Cancelled Promyelocytes % Cancelled Blast Cells % Cancelled Plasma Cell % (Manual) Cancelled Other Cells % Cancelled Nucleated RBC % Cancelled 0 Nucleated RBCs/100 WBC Cancelled Differential Comment Cancelled Diff Path Review Cancelled Hypersegmented Neuts Cancelled Atypical Lymphocytes Cancelled Reactive Lymphocytes Cancelled Smudge Cells Cancelled Toxic Granulation Cancelled Toxic Vacuolation Cancelled Dohle Bodies Cancelled Wesley Rods Cancelled Platelet Estimate Cancelled Plt Morphology Comment Cancelled RBC Morphology Cancelled Cancelled Polychromasia Cancelled Hypochromasia Cancelled Basophilic Stippling Cancelled Anisocytosis Cancelled Microcytosis Cancelled Macrocytosis Cancelled Spherocytes Cancelled Sickle Cells Cancelled Target Cells Cancelled Tear Drop Cells Cancelled Ovalocytes Cancelled Stomatocytes Cancelled Garg-Embarrass Bodies Cancelled Arline Cells Cancelled Bite Cells Cancelled Crenated Cell Cancelled Acanthocytes (Spur) Cancelled Rouleaux Cancelled Schistocytes Cancelled Sodium 137 Potassium 3.5 Chloride 104 Carbon Dioxide 25.0 Anion Gap 8 BUN 5 L Creatinine 0.61 Estim Creat Clear Calc 179.54 Est GFR (MDRD) Af Amer 147 Est GFR (MDRD) Non-Af 121 BUN/Creatinine Ratio 8.2 L Glucose 100 Calcium 9.0 Serum , Qual NEGATIVE Discharge Plan Triage Chief Complaint: Dizziness ED Provider: Alexey Monsalve Dx/Rx/DC Orders Clinical Impression: Benign positional vertigo, Influenza B Instructions: ED BPV Vertigo, ED Dizziness, Uncertain Cause, ED Influenza (Adult) Prescriptions: New meclizine 25 mg tablet 25 mg PO TID PRN (Reason: dizziness) Qty: 20 0RF No Action sertraline 100 mg tablet 150 mg PO Q24H Primary Care Provider: Ankit Holliday Referrals: Ankit Holliday MD [Primary Care Provider] - 3-5 Days Disposition Disposition: Home, Self Care
[2023-10-15] MEDS: Meclizine HCl 25 MG Tablet PO (11:46)
[2023-10-15 11:48] VITALS: BP 117/78; PULSE 64; RESP 16; TEMP 36.6; O2SAT 99
== END 2023-10-15 11:49 | disposition home or self-care (01) ==
PROVIDERS: Emergency Provider Emergency Medicine; PCP Family Medicine; Visit Provider Emergency Medicine
DX: J10.1 Influenza due to other identified influenza virus with other respiratory manifestations (principal); H81.10 Benign paroxysmal vertigo, unspecified ear; F17.210 Nicotine dependence, cigarettes, uncomplicated
CPT/HCPCS: 80048; 84703; 85025; 87631; 96360; 99283; J7030; A4216

== ENCOUNTER 2023-12-04 08:43 | Inpatient (IN) | payer BC, SELFPAY ==
[2023-12-04] VITALS (15 sets, daily range): BP systolic 117–159; BP diastolic 70–120; PULSE 92–116; RESP 18–29; TEMP 36.1–36.7; O2SAT 85–98; BMI 45.6
--- NOTE | 2023-12-04 09:16 | EKG12_ITS ---
Test Reason : SOB Blood Pressure : / mmHG Vent. Rate : 099 BPM Atrial Rate : 099 BPM P-R Int : 126 ms QRS Dur : 090 ms QT Int : 346 ms P-R-T Axes : 071 066 049 degrees QTc Int : 444 ms Normal sinus rhythm Normal ECG Confirmed by Ty Ackerman ([id number]), movie editor MARIA ELENA SCOTT ([id number]) on 12/08/2023 10:15:21 AM Referred By: Confirmed By:Ty Ackerman
--- NOTE | 2023-12-04 09:17 | ED.VIS.DYS ---
HPI History of Present Illness Chief Complaint: Shortness of Breath Detail of Chief Complaint: Shortness of breath Informant: patient Narrative Narrative: Patient presents with shortness of breath that started 2 days ago. She complains of a cough mostly nonproductive. Planes of a tightness in her chest and exertional dyspnea. She had an admission in August of this year for a cold with difficulty breathing and was admitted for 4 days. Patient has history of depression and obesity. Patient denies recent travel or surgery. No history of PE or DVT. She denies any fevers. Patient was seen by her primary care physician in the office today and was noted to be hypoxic with room air of 88% on room air. She was given albuterol aerosol and referred to the emergency department patient apparently refused transport by EMS so her brought her in. [facility] Medical History (Updated 12/04/23 @ 11:[address] Alexey Monsalve, ) Depression Tobacco abuse Morbid obesity Erythrocytosis Upper respiratory infection with cough and congestion Acute bronchospasm due to viral infection delivery delivered Home Medications ?Medication ?Instructions ?Recorded ?Last Taken ?Type loratadine 10 mg tablet 10 mg PO DAILY PRN allergy symptoms 12/04/23 12/03/23 History (Allerclear) sertraline 100 mg tablet 100 mg PO DAILY 12/04/23 Unknown History Allergy/AdvReac Type Severity Reaction Status Date / Time lidocaine (From Salonpas Allergy Other Verified 12/04/23 08:43 (lidocaine)) Surgical History Previous section Social History (Updated 09/04/23 @ 14:[address] Sandra Simon DO) household members: spouse housing: house Smoking Status: Current every day smoker tobacco type: cigarettes how long ago did patient quit smoking: Currently smoking about 1 pack of cigarettes weekly alcohol intake: current alcohol intake frequency: holidays/special occasions only substance use type: does not use ROS ROS ED Review of Systems ROS Unobtainable: other Constitutional Constitutional ED: Reports lethargy; Denies chills, fever(s), sweats or weight loss Eyes Eyes: Denies blurry vision, change in vision or diplopia ENT ENT ED: Denies rhinorrhea or sore throat Cardiovascular Cardiovascular: Denies chest pain, orthopnea or racing heartbeat Respiratory/Chest Respiratory/Chest: Reports cough, dyspnea and dyspnea on exertion; Denies orthopnea or sputum Gastrointestinal Gastrointestinal: Denies abdominal pain, diarrhea, nausea or vomiting Genitourinary Genitourinary ED: Denies dysuria, hematuria or urinary frequency Musculoskeletal Musculoskeletal: Denies arthralgias, back pain, myalgias or neck pain Integumentary Denies abscess, Abrasions or rash Neurologic Neurologic: Denies headache(s) or weakness Psychiatric Psychiatric: Denies anxiety, depression or suicidal thoughts Endocrine Endocrinology: Denies polydipsia, polyphagia or polyuria Hematologic/Lymphatic Hematologic/Lymphatic: Denies easy bleeding, easy bruising or lymphadenopathy Allergic/Immunologic Allergic/Immunologic ED: Denies mouth swelling, tongue swelling or urticaria EXAM Physical Exam Const Vital Signs: 12/04/23 08:43 12/04/23 08:44 12/04/23 09:10 Temperature 97.9 F Temperature Source Temporal Pulse Rate 114 H Respiratory Rate 26 H Respiratory Effort Short of Breath Respiratory Pattern Tachypnea Blood Pressure 151/81 H Blood Pressure Mean 104 Pulse Ox 92 Oxygen Delivery Method Room Air Room Air Nasal Cannula Oxygen Flow Rate (L/min) 2 12/04/23 09:10 12/04/23 09:16 12/04/23 09:37 Temperature 97.8 F Temperature Source Temporal Pulse Rate 109 H 114 H Respiratory Rate 29 H 29 H Respiratory Effort Respiratory Pattern Blood Pressure 125/87 H Blood Pressure Mean 99 Pulse Ox 93 Oxygen Delivery Method Room Air Nasal Cannula Oxygen Flow Rate (L/min) 85 2 12/04/23 10:37 12/04/23 10:43 12/04/23 11:08 Temperature 97.5 F L Temperature Source Temporal Pulse Rate 100 106 H Respiratory Rate 18 18 Respiratory Effort Respiratory Pattern Blood Pressure 159/120 H 126/71 H Blood Pressure Mean 133 89 Pulse Ox 98 98 93 Oxygen Delivery Method Room Air Nasal Cannula Oxygen Flow Rate (L/min) 3.5 12/04/23 11:08 12/04/23 11:34 Temperature 97 F L Temperature Source Pulse Rate 103 H 108 H Respiratory Rate 25 H 20 H Respiratory Effort Respiratory Pattern Blood Pressure 144/77 H Blood Pressure Mean 99 Pulse Ox 94 Oxygen Delivery Method Oxygen Flow Rate (L/min) Positive well nourished and well developed General Appearance ED: well developed and NAD HEENT Reports TM's clear and moist mucous membranes normocephalic and atraumatic; Negative for trauma or tenderness Tympanic Membrane ED: Yes TM's clear Eyes PERRL and EOMs intact bilaterally General Eye ED: Negative for pale conjunctiva or scleral icterus Neck no lymphadenopathy, supple and no JVD General: Negative for tenderness Chest Wall inspection of chest normal and palpation of chest normal Chest: Negative for tenderness Resp No normal respiratory effort and No clear to auscultation bilaterally Resp Narrative: Patient with mild tachypnea and mild conversational dyspnea. Diminished breath sounds bilaterally with expiratory wheezes bilaterally. Few rales in the bases. Effort and Inspection: Negative for respiratory distress or pain with movement Auscultation: Negative for rhonchi, wheezes or diminished lung sounds Cardio regular rate, regular rhythm, S1 normal heart sound, S2 normal heart sound and no murmurs Peripheral Pulses: pulses 2+ throughout GI normal to inspection, nondistended, normoactive bowel sounds, soft to palpation, non-tender, non-distended and no masses Back/Spine no CVA tenderness and no thoracic nor lumbar tenderness Extremity normal to inspection General Extremety ED: Negative for edema General Extremity: Negative for edema Neuro oriented x3, CN's II-XII intact bilaterally, no sensory deficits noted and gait normal Sensorium / Orientation: awake, alert, oriented to person, oriented to place and oriented to time Motor Exam: strength 5/5 throughout and strength abnormal Psych mental status grossly normal Skin no rashes or lesions noted and no wounds MDM MDM MDM Narrative Medical decision making narrative: Patient presents with hypoxemia and wheezing as well as tachypnea. IV line established. CBC with differential count of 14.4 with hemoglobin 16.8 and platelet count of 254. Chemistries unremarkable. D-dimer normal less than 0.27. Lactate normal at 1.5. EKG obtained arrival shows sinus rhythm with rate of 99 bpm with no acute ST segment changes. 1 view chest x-ray obtained was unremarkable. Patient was given DuoNeb aerosol as well as Solu-Medrol and albuterol treatments. She continues to feel dyspneic. She was placed on 3 L nasal cannula O2. Case discussed with hospitalist will evaluate patient for admission for reactive airway disease with hypoxemia. Appears patient's WBC count chronically elevated. Reason for reactive airway disease may be due to viral infection versus asthma versus COPD versus autoimmune disorder. Lab Data Attestation: I reviewed the patient's lab results. Labs: Laboratory Results - last 24 hr 12/04/23 09:40 WBC 14.4 H RBC 5.80 H Hgb 16.8 H Hct 50.5 H MCV 87.1 MCH 29.0 MCHC 33.3 RDW Std Deviation 40.6 RDW Coeff of Mary Grace 12.9 Plt Count 254 MPV 10.7 Immature Gran % (Auto) 0.400 Neut % (Auto) 65.6 Lymph % (Auto) 20.8 [place] % (Auto) 6.6 Eos % (Auto) 6.0 H Baso % (Auto) 0.6 Absolute Neuts (auto) 9.4 H Absolute Lymphs (auto) 2.99 Nucleated RBC % 0 D-Dimer Quant (PE/DVT) < 0.27 L Sodium 138 Potassium 3.4 L Chloride 106 Carbon Dioxide 28.0 Anion Gap 4 L BUN 5 L Creatinine 0.61 Estim Creat Clear Calc 176.98 Est GFR (MDRD) Af Amer 146 Est GFR (MDRD) Non-Af 120 BUN/Creatinine Ratio 8.2 L Glucose 100 Lactic Acid 1.5 Calcium 9.6 Radiography Diagnostic Testing: Clinical Impression(s) from Imaging Studies Chest X-Ray 12/04/23 10:52 IMPRESSION: Normal x-ray examination of the chest. Electronically Signed: Dwayne Farmer MD at 11:05 EDT , 1 view chest x-ray obtained interpreted by myself as no evidence of infiltrate or pneumothorax or acute disease process. Radiology in agreement. Discharge Plan Triage Chief Complaint: Shortness of Breath ED Provider: Alexey Monsalve Dx/Rx/DC Orders Clinical Impression: Reactive airway disease, Hypoxemia, Respiratory failure Prescriptions: No Action loratadine [Allerclear] 10 mg tablet 10 mg PO DAILY PRN (Reason: allergy symptoms) sertraline 100 mg tablet 100 mg PO DAILY Primary Care Provider: Ankit Holliday Referrals: Ankit Holliday MD [Primary Care Provider] - Print Language: [place] Disposition Disposition: [facility]
[2023-12-04] MEDS: Ipratropium/Albuterol Sulfate 3 ML AMPUL.NEB INHALATION ×2 (09:21→16:58)
[2023-12-04] MEDS: Albuterol 2.5 MG/3 ML VIAL.NEB. INHALATION ×3 (09:21→11:59)
[2023-12-04] MEDS: MethylPREDNISolone 125 MG/2 ML Vial IV (09:34)
[2023-12-04] MEDS: 0.9% Normal Saline (1000mL) 1,000 ML 150 ML IV ×3 (09:34→21:29)
[2023-12-04 09:55] LABS: Absolute Lymphocyte Count 2.99 X10^3/uL (0.83-4.51); Absolute Neutrophil Count 9.4 X10^3/uL (2.0-7.7); Basophil# 0.08 X10^3/uL; Basophil% 0.6 % (0-1); Eosinophil# 0.86 X10^3/uL; Hematocrit 50.5 % (37-47); Hemoglobin 16.8 g/dL (12.0-15.0); Lymphocyte # 2.99 X10^3/ul (0.83-4.51); Lymphocyte % 20.8 % (19-41); Mean Corp Hgb Conc 33.3 g/dL (32-36); Mean Corpuscular Volume 87.1 fL (81-99); Mean Platelet Vol. 10.7 fl (6.2-12.0); Monocyte# 0.95 X10^3/uL; Monocyte% 6.6 % (0-10); NRBC Flagged by Analyzer 0 % (0-5); Neutrophil # 9.44 X10^3/uL (2.7-7.7); Neutrophil % 65.6 % (47-70); Platelet Count 254 K/mm3 (150-450); RBC Distribution Width CV 12.9 % (11.6-14.6); RBC Distribution Width SD 40.6 fl (35.1-43.9); White Blood Count 14.4 K/mm3 (4.4-11.0)
[2023-12-04 10:21] LABS: Lactic Acid 1.5 mmol/L (0.4-1.9)
[2023-12-04 10:25] LABS: Anion Gap 4 (5-15); BUN 5 mg/dL (7-18); BUN/Creat Ratio 8.2 RATIO (10-20); Calcium,Total 9.6 mg/dL (8.5-10.1); Chloride 106 mmol/L (98-107); Creatinine, Serum 0.61 mg/dL (0.55-1.02); EST Glomerular Filtration Rate 120 mL/min (>60); Est Glom Filt Rate - Afr Amer 146 mL/min (>60); Estimated Creatinine Clearance 176.98 ml/min; Glucose 100 mg/dL (74-106); Potassium 3.4 mmol/L (3.5-5.1); Sodium Level 138 mmol/L (136-145)
[2023-12-04 10:27] LABS: D-Dimer Quantitative (DVT/PE) < 0.27 FEU/ug/m (0.27-0.49)
--- NOTE | 2023-12-04 10:52 | RAD_ITS ---
STUDY: X-RAY CHEST REASON FOR EXAM: Female, 33 years old. Dyspnea and shortness of breath. TECHNIQUE: Single AP portable view of the chest. COMPARISON: Comparison is made with prior study dated September 04, 2023. FINDINGS: EKG electrodes are seen. Mild elevation of the right hemidiaphragm. There is no demonstrated pleural abnormality. Normal size heart. Normal mediastinum and sarabjit. Normal visualized pulmonary arteries. Normal visualized aortic arch and descending thoracic aorta. Normal visualized thoracic spine. Normal visualized ribs, clavicles, and shoulders. There is no demonstrated abnormality of the visualized soft tissue structures of the upper abdomen. RAD/Chest 1 View (Portable) IMPRESSION: Normal x-ray examination of the chest. Electronically Signed: Dwayne Farmer MD at 11:05 EDT ,
--- NOTE | 2023-12-04 11:35 | HP.PCM.HOS_ITS ---
HPI - General General Date of Admission: 12/04/23 Date of Service: 12/04/23 Chief Complaint: shortness HPI Narrative STARR SHIRLEY, is a 33 F with no significant PMH apart from super morbid obesity who presents via the ED on 12/04/2023 with a complaint of shortness of breath. She had been feeling short of breath for 2 days prior to admission, but denied any chest pain and cough was not productive. She denied any fever or chills, lower extremity edema or any other symptoms. She did admit to wheezing. She denies any history of smoking and denies being around any sick people. She is also not around anybody who smokes and says it has been uses vaping device. 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 She denies any history of long distance travel. Review of systems was otherwise negative. Vitals in the ED were blood pressure 144/77, pulse rate of 108, respiratory rate of 20 and symptoms of 97 Fahrenheit. She was saturating at 94% on 2 L of oxygen. CBC showed hemoglobin of 16.8 with WBC of 14.4. D-dimer was less than 0.27. Chemistry was significant for potassium of 3.4 but was otherwise within normal limits. Lactic acid was 1.5. COVID, influenza and RSV screen was negative and chest x-ray was normal. She is being admitted to be managed for hypoxia of unclear etiology. [facility]LY [facility] Medical History (Updated 12/04/23 @ 11:[address] Alexey Monsalve, ) Depression Tobacco abuse Morbid obesity Erythrocytosis Upper respiratory infection with cough and congestion Acute bronchospasm due to viral infection delivery delivered Home Medications ?Medication ?Instructions ?Recorded ?Last Taken ?Type loratadine 10 mg tablet 10 mg PO DAILY PRN allergy symptoms 12/04/23 12/03/23 History (Allerclear) sertraline 100 mg tablet 100 mg PO DAILY 12/04/23 Unknown History Allergy/AdvReac Type Severity Reaction Status Date / Time lidocaine (From Salonpas Allergy Other Verified 12/04/23 08:43 (lidocaine)) Surgical History Previous section Social History (Updated 09/04/23 @ 14:[address] Sandra Simon, DO) household members: spouse housing: house Smoking Status: Former smoker how long ago did patient quit smoking: Currently smoking about 1 pack of cigarettes weekly alcohol intake: current alcohol intake frequency: holidays/special occasions only substance use type: does not use ROS Constitutional Constitutional: Reports fatigue and malaise; Denies anorexia, chills, fever(s) or weakness Eyes Eyes: Denies change in vision ENT HEENT: Denies dysphagia or headache(s) Cardiovascular Cardiovascular: Reports dyspnea on exertion; Denies chest pain, edema, lightheadedness, orthopnea, palpitations, paroxysmal nocturnal dyspnea, rapid heart rate or syncope Respiratory/Chest Respiratory/Chest: Reports cough, dyspnea, shortness of breath at rest, shortness of breath with exertion and wheezing; Denies excessive phlegm production, hemoptysis or productive cough Gastrointestinal Gastrointestinal: Denies abdominal pain, nausea or vomiting Neurologic Neurologic: Denies confusion, dizziness, focal weakness, headache(s) or numbness Psychiatric Psychiatric: Denies anxiety or depression Vital Signs Vital Signs Vital Signs: 12/04/23 08:43 12/04/23 08:44 12/04/23 09:10 Temperature 97.9 F Temperature Source Temporal Pulse Rate 114 H Respiratory Rate 26 H Respiratory Effort Short of Breath Respiratory Pattern Tachypnea Blood Pressure 151/81 H Blood Pressure Mean 104 Pulse Ox 92 Oxygen Delivery Method Room Air Room Air Nasal Cannula Oxygen Flow Rate (L/min) 2 12/04/23 09:10 12/04/23 09:16 12/04/23 09:37 Temperature 97.8 F Temperature Source Temporal Pulse Rate 109 H 114 H Respiratory Rate 29 H 29 H Respiratory Effort Respiratory Pattern Blood Pressure 125/87 H Blood Pressure Mean 99 Pulse Ox 93 Oxygen Delivery Method Room Air Nasal Cannula Oxygen Flow Rate (L/min) 85 2 12/04/23 10:37 12/04/23 10:43 12/04/23 11:08 Temperature 97.5 F L Temperature Source Temporal Pulse Rate 100 106 H Respiratory Rate 18 18 Respiratory Effort Respiratory Pattern Blood Pressure 159/120 H 126/71 H Blood Pressure Mean 133 89 Pulse Ox 98 98 93 Oxygen Delivery Method Room Air Nasal Cannula Oxygen Flow Rate (L/min) 3.5 12/04/23 11:08 12/04/23 11:34 Temperature 97 F L Temperature Source Pulse Rate 103 H 108 H Respiratory Rate 25 H 20 H Respiratory Effort Respiratory Pattern Blood Pressure 144/77 H Blood Pressure Mean 99 Pulse Ox 94 Oxygen Delivery Method Oxygen Flow Rate (L/min) Weight Weight: 273 lb 14.4 oz Body Mass Index (BMI) 45.6 Physical Exam Const alert, oriented x3 and no apparent distress Constitutional Narrative: super morbid obesity General Appearance: cooperative HEENT normocephalic, head/scalp atraumatic, hearing grossly normal bilaterally, moist oral mucous membranes and oropharynx normal Mouth: oral and palatal mucosa normal Eyes PERRL, EOMs intact bilaterally and conjunctivae normal Neck no lymphadenopathy and supple Resp Resp Narrative: Moderately diminished breath sounds bibasilarly. Mild wheezing, no or crackles. On 5 L of oxygen via nasal cannula. Cardio regular rate, regular rhythm, S1 normal heart sound, S2 normal heart sound and no murmurs Extremity normal to inspection, full ROM and no clubbing, cyanosis or edema Neuro oriented x3, CN's II-XII intact bilaterally and moves all extremities Sensorium / Orientation: awake and alert Motor Exam: strength 5/5 throughout Results Lab / Micro Data 12/04/23 09:40 12/04/23 09:40 Labs: Laboratory Results - last 24 hr 12/04/23 09:40: WBC 14.4 H, RBC 5.80 H, Hgb 16.8 H, Hct 50.5 H, MCV 87.1, MCH 29.0, MCHC 33.3, RDW Std Deviation 40.6, RDW Coeff of Mary Grace 12.9, Plt Count 254, MPV 10.7, Immature Gran % (Auto) 0.400, Neut % (Auto) 65.6, Lymph % (Auto) 20.8, [place] % (Auto) 6.6, Eos % (Auto) 6.0 H, Baso % (Auto) 0.6, Absolute Neuts (auto) 9.4 H, Absolute Lymphs (auto) 2.99, Nucleated RBC % 0, D-Dimer Quant (PE/DVT) < 0.27 L, Sodium 138, Potassium 3.4 L, Chloride 106, Carbon Dioxide 28.0, Anion Gap 4 L, BUN 5 L, Creatinine 0.61, Estim Creat Clear Calc 176.98, Est GFR (MDRD) Af Amer 146, Est GFR (MDRD) Non-Af 120, BUN/Creatinine Ratio 8.2 L, Glucose 100, Lactic Acid 1.5, Calcium 9.6 Micro: Microbiology 12/04/23 09:35 Mucosa - Nose SARS-CoV-2, Influenza & RSV (PCR) - Final Imaging Radiology Impression Chest X-Ray 12/04/23 10:52 IMPRESSION: Normal x-ray examination of the chest. Electronically Signed: Dwayne Farmer MD at 11:05 EDT , Assessment & Plan Assessment/Plan (1) Respiratory failure: (2) Hypoxemia: (3) Reactive airway disease: PLAN: Plan #Hypoxia of unclear etiology * Patient started feeling short of breath 2 days ago and says it had worsened. She is also wheezing. She is not really coughing. * Has not been around anybody who is sick and denies any recent upper respiratory tract illness. She also does not smoke. WBC elevated at 14.4. * Chest x-ray showed no acute cardiac pulmonary process. She denies any long distance travel history of PE or DVT. * D-dimer is less than 0.27. * She is requiring 5 L of oxygen. * COVID, influenza and RSV panel negative. Will get a full respiratory panel. * 2D echo ordered. Breathing treatments and bronchodilators. IV Solu-Medrol 40 mg every 8 * If her hypoxia does not improve, will get pulmonology consult. * #Super morbid obesity * BMI is 45.6. Complicates acute care, expected recovery and prognosis. Sleep apnea may also be a consideration in this situation. She will benefit from follow-up with pulmonology for sleep study on outpatient basis. * #Depression: Patient was previously on sertraline but has not been taking it for quite a while. Will need to follow-up with PCP for resumption as deemed appropriate. DVT prophylaxis: Lovenox Charges/Coding Visit Charges Inpatient E&M: 08300 Init Hosp L2 Procedures Hospitalists Procedures: 17684 Advncd Care Plan 30 Min
--- NOTE | 2023-12-04 11:39 | NURSING ---
DR REJI JIMENEZ
--- NOTE | 2023-12-04 11:39 | NURSING ---
MED SURG KORAM HYPOXEMIA, REACTIVE AIRWAY DISEASE
--- NOTE | 2023-12-04 14:26 | ECHOCS_ITS ---
Reason For Study: Dyspnea/SOB Procedure This was a 2D Doppler, Color Flow transthoracic echocardiogram. The study was technically difficult. Contrast injection was performed. Exam performed portable in patient room. Left Ventricle Normal LV size. The estimated ejection fraction is 65 %. No evidence for diastolic dysfunction. No regional wall motion abnormalities noted. Right Ventricle Normal RV size. Normal systolic function. Atria Normal left atrium. Normal right atrium. No doppler evidence for ASD. Mitral Valve There is no mitral valve stenosis. No mitral valve insufficiency. Tricuspid Valve There is no tricuspid stenosis. No tricuspid valve insufficiency. Unable to estimate RV systolic pressure due to inadequate jet, pulmonary artery pressure probably normal. Aortic Valve Trisinus/trileaflet aortic valve. There is no aortic stenosis. No aortic valve insufficiency. Pulmonic Valve There is no pulmonic valvular stenosis. No pulmonic valve insufficiency. Great Vessels Normal aortic root. Pericardium/Pleural No pericardial effusion. Medication Diluted definity 2.5ml given slow IV push to enhance endocardial definition. MMode/2D Measurements & Calculations LVIDd: 4.2 cm IVSd: 1.0 cm LA dimension: 3.6 cm LVIDs: 3.0 cm LVPWd: 0.87 cm RVDd: 3.4 cm FS: 28.9 % LAV(MOD-bp): 34.6 ml LVAd ap4: 28.4 cm2 SV(MOD-sp4): 60.6 ml LAV(MOD-bp) Indexed: 15.3 ml/m2 LVLd ap4: 7.4 cm LAV(MOD-sp2): 34.2 ml EDV(MOD-sp4): 89.6 ml LAV(MOD-sp4): 33.2 ml EDV(sp4-el): 92.9 ml LVAs ap4: 14.0 cm2 LVLs ap4: 5.6 cm ESV(MOD-sp4): 29.0 ml ESV(sp4-el): 29.9 ml EF(MOD-sp4): 67.6 % EF(sp4-el): 67.8 % SV(sp4-el): 63.0 ml LA A4 area: 14.3 cm2 RA A4 area: 13.3 cm2 Time Measurements MV dec time: 0.18 sec Doppler Measurements & Calculations MV E max timmy: 102.0 cm/sec Lat Peak E' Timmy: 18.8 cm/sec Med Peak E' Timmy: 10.6 cm/sec MV A max timmy: 87.0 cm/sec E/E' lat: 5.4 E/E' med: 9.7 MV E/A: 1.2 MV V2 max: 100.2 cm/sec MV P1/2t max timmy: 101.4 cm/sec Ao V2 max: 159.8 cm/sec MV max P.0 mmHg MV P1/2t: 49.3 msec Ao max P.2 mmHg MV V2 mean: 70.8 cm/sec Ao V2 mean: 111.2 cm/sec MV mean P.2 mmHg MV dec slope: 602.6 cm/sec2 Ao mean P.6 mmHg MV V2 VTI: 20.4 cm MVA(P1/2t): 4.5 cm2 Ao V2 VTI: 28.3 cm AV (velocity ratio): 0.97 LV V1 max: 148.5 cm/sec PA V2 max: 101.9 cm/sec LV V1 max P.8 mmHg LV V1 mean P.7 mmHg LV V1 mean: 114.5 cm/sec LV V1 VTI: 27.5 cm ECHO/Echo Complete W/ Contrast Interpretation Summary The estimated ejection fraction is 65 %. No evidence for diastolic dysfunction. Ordering Physician: Pascale Salamanca Performed By: Jacobo Marinelli RCS
[2023-12-04] MEDS: Acetaminophen 325 MG Tablet 650 MG PO (18:23)
[2023-12-05] VITALS (8 sets, daily range): BP systolic 120–137; BP diastolic 73–81; PULSE 80–103; RESP 16–18; TEMP 36.6–36.7; O2SAT 94–97
[2023-12-05] MEDS: Ipratropium/Albuterol Sulfate 3 ML AMPUL.NEB INHALATION ×4 (01:09→19:13)
[2023-12-05] MEDS: 0.9% Normal Saline (1000mL) 1,000 ML 150 ML IV (03:40)
[2023-12-05 04:58] LABS: Absolute Lymphocyte Count 1.09 X10^3/uL (0.83-4.51); Absolute Neutrophil Count 14.2 X10^3/uL (2.0-7.7); Basophil# 0.01 X10^3/uL; Basophil% 0.1 % (0-1); Eosinophil# 0.01 X10^3/uL; Eosinophils% 0.1 % (0-5); Hematocrit 47.2 % (37-47); Hemoglobin 15.9 g/dL (12.0-15.0); Lymphocyte # 1.09 X10^3/ul (0.83-4.51); Mean Corp Hgb Conc 33.7 g/dL (32-36); Mean Corpuscular Hgb 29.6 pg (27.0-32.0); Mean Corpuscular Volume 87.9 fL (81-99); Mean Platelet Vol. 11.7 fl (6.2-12.0); Monocyte# 0.27 X10^3/uL; Monocyte% 1.7 % (0-10); NRBC Flagged by Analyzer 0 % (0-5); Neutrophil # 14.15 X10^3/uL (2.7-7.7); Neutrophil % 90.8 % (47-70); Platelet Count 219 K/mm3 (150-450); RBC Distribution Width CV 12.9 % (11.6-14.6); RBC Distribution Width SD 41.3 fl (35.1-43.9); Red Blood Count 5.37 M/mm3 (4.2-5.4); White Blood Count 15.6 K/mm3 (4.4-11.0)
[2023-12-05 05:31] LABS: Anion Gap 6 (5-15); BUN 4 mg/dL (7-18); BUN/Creat Ratio 10.2 RATIO (10-20); Calcium,Total 8.8 mg/dL (8.5-10.1); Chloride 110 mmol/L (98-107); Creatinine, Serum 0.39 mg/dL (0.55-1.02); EST Glomerular Filtration Rate 201 mL/min (>60); Est Glom Filt Rate - Afr Amer 243 mL/min (>60); Glucose 125 mg/dL (74-106); Potassium 3.7 mmol/L (3.5-5.1); Sodium Level 138 mmol/L (136-145)
--- NOTE | 2023-12-05 07:12 | CT_ITS ---
STUDY: CTA CHEST REASON FOR EXAM: Female, 33 years old. Hypoxia RADIATION DOSAGE (If Supplied By Facility): CTDIvol = ( 13.85 ) mGy, DLP = ( 556.48 ) mGycm TECHNIQUE: The examination was performed with the intravenous administration of IV 100mL Isovue-370. Post-processing of the angiographic images was performed, with multiplanar reformation and 3D reconstruction. Individualized dose optimization techniques were used for this CT. COMPARISON: Comparison is made with prior chest radiograph dated December 04, 2023. FINDINGS: Normal enhancement of the main pulmonary artery and right and left pulmonary arteries. Normal enhancement of the bilateral peripheral pulmonary arteries. There is no demonstrated pulmonary embolism. Normal thoracic aorta and visualized great vessels. There is no demonstrated aortic dissection. Normal heart and pericardium. Normal mediastinum. Normal hilar regions. Normal visualized trachea and bronchi. The lungs are well expanded. Patchy bilateral areas of the groundglass appearance in the upper lobes. Focal infiltrate is seen in the lateral aspect of the right upper lobe. Patchy infiltrates also seen in the right middle lobe and left lower lobe. Normal pleura. Normal chest wall structures. Normal osseous structures. Normal visualized upper abdomen. CT/CTA Chest W/WO Contrast IMPRESSION: No evidence of pulmonary embolism. Patchy infiltrates in the right upper and right middle lobes as well as in the left lower lobe. Electronically Signed: Dwayne Farmer MD at 9:01 EDT ,
[2023-12-05] MEDS: Furosemide 40 MG/4 ML Vial IV ×2 (09:17→17:43)
[2023-12-05] MEDS: Enoxaparin 40 MG/0.4 ML Syringe SC (09:40)
[2023-12-05 10:01] LABS: BNP,B-Type NATRIURETIC PEPTIDE 81.6 pg/mL (0-100)
--- NOTE | 2023-12-05 10:26 | PCM.PROGNOTE ---
Subjective Subjective Patient seen and examined. She still feels short of breath and with normal up to 6 L of oxygen. She is not really coughing no wheezing. She denies any chest pain or palpitations, dizziness, nausea vomiting or any other symptoms. Review of symptoms otherwise negative. Objective Data Objective Data Vital Signs: Vital Signs Temp Pulse Resp BP Pulse Ox O2 Del Method O2 Flow Rate 97.8 F 80 17 125/73 H 94 High Flow 7 12/05/23 09:25 12/05/23 10:00 12/05/23 10:00 12/05/23 09:25 12/05/23 09:25 12/05/23 09:31 12/05/23 09:31 Oxygen Flow Rate (L/min) 7 Oxygen Delivery Method High Flow Weight: 273 lb 14.084 oz Body Mass Index (BMI) 45.6 Intake & Output: Intake and Output for Last 24 Hours 12/03/23 12/04/23 12/05/23 23:59 23:59 23:59 Intake Total 1765.0 / 1765.0 Balance 1765.0 / 1765.0 Lab / Micro Data 12/05/23 04:20 12/05/23 04:20 Labs: Laboratory Results - last 24 hr 12/04/23 09:40: D-Dimer Quant (PE/DVT) < 0.27 L 12/05/23 04:20: WBC 15.6 H, RBC 5.37, Hgb 15.9 H, Hct 47.2 H, MCV 87.9, MCH 29.6, MCHC 33.7, RDW Std Deviation 41.3, RDW Coeff of Mary Grace 12.9, Plt Count 219, MPV 11.7, Immature Gran % (Auto) 0.300, Neut % (Auto) 90.8 H, Lymph % (Auto) 7.0 L, [place] % (Auto) 1.7, Eos % (Auto) 0.1, Baso % (Auto) 0.1, Absolute Neuts (auto) 14.2 H, Absolute Lymphs (auto) 1.09, Nucleated RBC % 0, Sodium 138, Potassium 3.7, Chloride 110 H, Carbon Dioxide 22.0, Anion Gap 6, BUN 4 L, Creatinine 0.39 L, Estim Creat Clear Calc 276.80, Est GFR (MDRD) Af Amer 243, Est GFR (MDRD) Non-Af 201, BUN/Creatinine Ratio 10.2, Glucose 125 H, Calcium 8.8, B-Natriuretic Peptide 81.6 Micro: Microbiology 12/04/23 14:50 Mucosa - Nasopharyngeal Respiratory Panel (PCR) - Final 12/04/23 09:35 Mucosa - Nose SARS-CoV-2, Influenza & RSV (PCR) - Final Radiography Diagnostic Testing: Radiology Impression Chest X-Ray 12/04/23 10:52 IMPRESSION: Normal x-ray examination of the chest. Electronically Signed: Dwayne Farmer MD at 11:05 EDT , Chest CTA 12/05/23 07:12 IMPRESSION: No evidence of pulmonary embolism. Patchy infiltrates in the right upper and right middle lobes as well as in the left lower lobe. Electronically Signed: Dwayne Farmer MD at 9:01 EDT , Physical Exam Const alert, oriented x3 and no apparent distress Constitutional Narrative: super morbid obesity General Appearance: cooperative HEENT normocephalic, head/scalp atraumatic, hearing grossly normal bilaterally, moist oral mucous membranes and oropharynx normal Eyes PERRL, EOMs intact bilaterally and conjunctivae normal Neck no lymphadenopathy and supple Lymph Lymphatic: no lymphadenopathy noted Resp Resp Narrative: Moderately diminished breath sounds bibasilarly. Mild wheezing, no or crackles. On 6 L of oxygen via nasal cannula. Cardio regular rate, regular rhythm, S1 normal heart sound, S2 normal heart sound and no murmurs GI normal to inspection, nondistended, normoactive bowel sounds and soft to palpation GI Narrative: obese Extremity normal to inspection, full ROM and no clubbing, cyanosis or edema General Extremity: no tenderness to palpation of joints or extremities Skin General Skin Exam: no breakdown Neuro oriented x3, CN's II-XII intact bilaterally and moves all extremities Sensorium / Orientation: awake and alert Motor Exam: strength 5/5 throughout Psych thought process normal Appearance: appropriate Assessment & Plan Assessment/Plan (1) Respiratory failure: (2) Hypoxemia: (3) Reactive airway disease: PLAN: Plan #Hypoxia of unclear etiology Patient started feeling short of breath 2 days prior to admission and says it had worsened. She is also wheezing. She is not really coughing. Has not been around anybody who is sick and denies any recent upper respiratory tract illness. She also does not smoke. WBC elevated at 14.4. Chest x-ray showed no acute cardiac pulmonary process. She denies any long distance travel history of PE or DVT. D-dimer is less than 0.27. She is requiring 6 L of oxygen today COVID, influenza and RSV panel negative. Full respiratory panel also negative. I did get a CTA of the chest today on account of her worsening hypoxia. CTA chest showed no evidence of PE but showed patchy infiltrates in the right upper and right middle lobes as well as in the left lower lobe. 2D echo ordered. Breathing treatments and bronchodilators. IV Solu-Medrol 40 mg every 8 Will diurese also with IV Lasix. Get BNP. Pulmonology consulted. #Super morbid obesity BMI is 45.6. Complicates acute care, expected recovery and prognosis. Sleep apnea may also be a consideration in this situation. She will benefit from follow-up with pulmonology for sleep study on outpatient basis. #Depression: Patient was previously on sertraline but has not been taking it for quite a while. Will need to follow-up with PCP for resumption as deemed appropriate. DVT prophylaxis: Lovenox Charges/Coding Visit Charges Inpatient E&M: 19260 [facility] [[email or web address]] Hosp L3
[2023-12-05] MEDS: Azithromycin 500 MG in Dextrose 5%-Water (250mL Bag) 250 ML 250 MG IV (12:25)
[2023-12-05] MEDS: 0.9% Saline Lock 10 ML Syringe IV ×2 (17:42→21:24)
--- NOTE | 2023-12-05 21:29 | NURSING ---
Dr. Ware on camera for pulmonary consult with pt at this time at bedside
--- NOTE | 2023-12-05 22:41 | PCMCONS.TICU ---
HPI Consult Data Date of Consult: 12/05/23 HPI Narrative HPI Narrative: STARR SHIRLEY, is a 33 F who presents [facility] Medical History (Updated 12/04/23 @ 11:[address] Alexey Monsalve, DO) Depression Tobacco abuse Morbid obesity Erythrocytosis Upper respiratory infection with cough and congestion Acute bronchospasm due to viral infection delivery delivered Home Medications ?Medication ?Instructions ?Recorded ?Last Taken ?Type loratadine 10 mg tablet 10 mg PO DAILY PRN allergy symptoms 12/04/23 12/03/23 History (Allerclear) sertraline 100 mg tablet 100 mg PO DAILY 12/04/23 Unknown History Allergy/AdvReac Type Severity Reaction Status Date / Time lidocaine (From Salonpas Allergy Other Verified 12/04/23 08:43 (lidocaine)) Surgical History Previous section Social History (Updated 09/04/23 @ 14:[address] Sandra Simon DO) household members: spouse housing: house Smoking Status: Former smoker how long ago did patient quit smoking: Currently smoking about 1 pack of cigarettes weekly alcohol intake: current alcohol intake frequency: holidays/special occasions only substance use type: does not use Objective Data Objective Data Vital Signs: Vital Signs Last response Temperature 36.6 C 12/05/23 20:07 Temperature Source Oral 12/05/23 20:07 Pulse Rate 103 H 12/05/23 20:07 Respiratory Rate 18 12/05/23 20:07 Respiratory Effort Normal 12/05/23 20:05 Respiratory Depth Normal 12/05/23 20:05 Respiratory Pattern Normal 12/05/23 20:05 Blood Pressure 130/76 H 12/05/23 20:07 Blood Pressure Mean 94 12/05/23 20:07 Blood Pressure Source Monitor 12/05/23 20:07 Blood Pressure Position Semi-Fowlers 12/05/23 20:07 Blood Pressure Location Left Arm 12/05/23 20:07 Pulse Ox 94 12/05/23 20:07 Oxygen Delivery Method Nasal Cannula 12/05/23 20:07 Oxygen Flow Rate (L/min) 2 12/05/23 20:07 I&O: I&O Last 24 Hours 12/04/23 12/05/23 12/05/23 23:59 11:59 23:59 Intake Total 1765.0 / 2020.0 255 / 2020.0 Output Total 1999 Balance 1765.0 / 20.0 -1745 / 20.0 I&O: Total Stay 12/04/23 08:43 thru 12/05/23 15:40 Intake Total 4031.5 Output Total 1999 Balance 2031.5 Current Meds Ordered / Administered: Current meds ordered / Administered Generic Name Dose Route Start Last Admin Trade Name Freq PRN Reason Stop Dose Admin Acetaminophen 650 mg 12/04/23 14:26 12/04/23 18:23 Acetaminophen 325 Mg Tablet PO 650 mg Q6H PRN PRN Administration Pain 1-10 Or Fever >100.7 Albuterol/Ipratropium 3 ml 12/04/23 14:26 12/05/23 19:13 Ipratropium/Albuterol Sulfate 3 Ml Ampul.Neb INHALATION 3 ml Q6H.RT MYRNA Administration Enoxaparin Sodium 40 mg 12/05/23 10:00 12/05/23 09:40 Enoxaparin 40 Mg/0.4 Ml Syringe SC 40 mg DAILY MYRNA Administration Furosemide 40 mg 12/05/23 10:00 12/05/23 17:43 Furosemide 40 Mg/4 Ml Vial IV 40 mg [id number] MYRNA Administration Protocol Sodium Chloride 250 mls @ 15 mls/hr 12/04/23 14:55 IV .[id number] PRN Additional IVPB Infusion Sodium Chloride 250 mls @ 15 mls/hr 12/04/23 14:55 IV .[id number] PRN Saline Flush Azithromycin 500 mg/ Dextrose 255 mls @ 250 mls/hr 12/05/23 12:30 12/05/23 13:30 IV Infused Q24 MYRNA Infusion Loratadine 10 mg 12/04/23 14:26 Loratadine 10 Mg Tablet PO DAILY PRN allergy symptoms Methylprednisolone 40 mg 12/04/23 22:00 12/05/23 21:24 Methylprednisolone 40 Mg/Ml Vial IV 40 mg Q8 MYRNA Administration Nitroglycerin 0.4 mg 12/04/23 14:26 Nitroglycerin (Inpatient Use) 0.4 Mg Tab.Subl SL Q5M PRN CARDIAC/CHEST PAIN Ondansetron HCl 4 mg 12/04/23 14:26 Ondansetron 4 Mg/2 Ml Vial IV Q8H PRN PRN NAUSEA/VOMITING Oxycodone HCl 2.5 - 5 mg 12/04/23 14:26 Oxycodone 5 Mg Tablet PO Q4H PRN PRN Pain Score 4-10 Sodium Chloride 10 - 40 ml 12/04/23 14:55 12/05/23 21:24 0.9% Saline Lock 10 Ml Syringe IV 10 ml UD PRN Administration SALINE FLUSH Lab / Micro Data 12/05/23 04:20 12/05/23 04:20 Labs: Laboratory Results - last 24 hr 12/05/23 04:20: WBC 15.6 H, RBC 5.37, Hgb 15.9 H, Hct 47.2 H, MCV 87.9, MCH 29.6, MCHC 33.7, RDW Std Deviation 41.3, RDW Coeff of Mary Grace 12.9, Plt Count 219, MPV 11.7, Immature Gran % (Auto) 0.300, Neut % (Auto) 90.8 H, Lymph % (Auto) 7.0 L, [place] % (Auto) 1.7, Eos % (Auto) 0.1, Baso % (Auto) 0.1, Absolute Neuts (auto) 14.2 H, Absolute Lymphs (auto) 1.09, Nucleated RBC % 0, Sodium 138, Potassium 3.7, Chloride 110 H, Carbon Dioxide 22.0, Anion Gap 6, BUN 4 L, Creatinine 0.39 L, Estim Creat Clear Calc 276.80, Est GFR (MDRD) Af Amer 243, Est GFR (MDRD) Non-Af 201, BUN/Creatinine Ratio 10.2, Glucose 125 H, Calcium 8.8, B-Natriuretic Peptide 81.6 Micro: Microbiology 12/04/23 14:50 Mucosa - Nasopharyngeal Respiratory Panel (PCR) - Final Imaging Radiology Impression Echocardiogram 12/04/23 14:26 Interpretation Summary The estimated ejection fraction is 65 %. No evidence for diastolic dysfunction. Ordering Physician: Pascale Salamanca Performed By: Jacobo Marinelli, [facility] Chest CTA 12/05/23 07:12 IMPRESSION: No evidence of pulmonary embolism. Patchy infiltrates in the right upper and right middle lobes as well as in the left lower lobe. Electronically Signed: Dwayne Farmer MD at 9:01 EDT , Assessment and Plan . Assessment and plan: 33 yo obese female former smoker admitted 12/04/23 w/ subacute dyspnea and wheezing, noted hypoxemia in the ED. She was hospitalized 3 months ago w/ rhinovirus infection and associated dyspnea, wheezing, hypoxemia, similar to current symptom complex. She states that she has had significant DRAPER w/ intermittent wheezing since that illness. CT chest has been obtained, w/o e/o VTED. There are multi-lobar geographic areas of GGO c/w possible small airways disease. She has received inhaled BD and IV methyl-prednisolone and is feeling better. O2 requirement has improved - currently breathing 2 LPM O2 at rest. Wheezing has resolved, but she still c/o chest tightness as well as dyspnea w/ significant activity. PHYSICAL EXAM GEN NAD VS as above HEENT o/p clear NECK obese COR RRR CHEST coarse - faint exp wheezing ABD soft EXT no edema HAN NF ASSESSMENT 1. Subacute dyspnea/hypoxemia w/ CT findings c/w bronchiolitis and airflow obstruction - possible post-viral bronchiolitis/pneumonitis 2. Morbid obesity 3. Former tobacco use TREATMENT PLAN -supplemental O2 as needed -continue inhaled BD and IV steroids -added macrolide ABX -VTE ppx -tobacco cessation -weight loss The entirety of this encounter was done via Telemedicine
[2023-12-06] VITALS (13 sets, daily range): BP systolic 103–122; BP diastolic 66–80; PULSE 61–104; RESP 16–20; TEMP 36.2–36.4; O2SAT 87–97
[2023-12-06] MEDS: Ipratropium/Albuterol Sulfate 3 ML AMPUL.NEB INHALATION ×3 (01:09→20:20)
[2023-12-06] MEDS: 0.9% Saline Lock 10 ML Syringe IV ×4 (06:09→22:58)
[2023-12-06 06:27] LABS: Absolute Lymphocyte Count 1.57 X10^3/uL (0.83-4.51); Absolute Neutrophil Count 14.7 X10^3/uL (2.0-7.7); Basophil# 0.01 X10^3/uL; Basophil% 0.1 % (0-1); Hematocrit 48.7 % (37-47); Hemoglobin 16.5 g/dL (12.0-15.0); Lymphocyte # 1.57 X10^3/ul (0.83-4.51); Lymphocyte % 9.3 % (19-41); Mean Corp Hgb Conc 33.9 g/dL (32-36); Mean Corpuscular Hgb 29.4 pg (27.0-32.0); Mean Corpuscular Volume 86.7 fL (81-99); Mean Platelet Vol. 10.6 fl (6.2-12.0); Monocyte# 0.62 X10^3/uL; Monocyte% 3.7 % (0-10); NRBC Flagged by Analyzer 0 % (0-5); Neutrophil # 14.66 X10^3/uL (2.7-7.7); Neutrophil % 86.4 % (47-70); Platelet Count 304 K/mm3 (150-450); RBC Distribution Width CV 12.9 % (11.6-14.6); RBC Distribution Width SD 40.9 fl (35.1-43.9); Red Blood Count 5.62 M/mm3 (4.2-5.4); White Blood Count 16.9 K/mm3 (4.4-11.0)
[2023-12-06 06:54] LABS: Anion Gap 6 (5-15); BUN 10 mg/dL (7-18); Calcium,Total 9.6 mg/dL (8.5-10.1); Chloride 104 mmol/L (98-107); Creatinine, Serum 0.53 mg/dL (0.55-1.02); EST Glomerular Filtration Rate 143 mL/min (>60); Est Glom Filt Rate - Afr Amer 173 mL/min (>60); Estimated Creatinine Clearance 203.68 ml/min; Glucose 133 mg/dL (74-106); Potassium 3.8 mmol/L (3.5-5.1); Sodium Level 137 mmol/L (136-145)
[2023-12-06] MEDS: Enoxaparin 40 MG/0.4 ML Syringe SC (09:31)
[2023-12-06] MEDS: Azithromycin 500 MG in Dextrose 5%-Water (250mL Bag) 250 ML 250 MG IV (09:31)
[2023-12-06] MEDS: Furosemide 40 MG/4 ML Vial IV ×2 (09:31→17:16)
--- NOTE | 2023-12-06 11:43 | PN_ITS ---
Subjective Subjective Patient seen and examined. She is down to 2 L today. She says she feels much better. He denies any coughing, chest pain, palpitations, wheezing, nausea vomiting or any other symptoms. Review of symptoms otherwise negative. She was seen by pulmonology yesterday and IV azithromycin was added on. Patient however states she is not happy with seeing the doctor through the computer and wants to stay in the hospital till Friday to see Dr. White in person. Review of systems otherwise negative. Objective Data Objective Data Vital Signs: Vital Signs Temp Pulse Resp BP Pulse Ox O2 Del Method O2 Flow Rate 97.5 F L 104 H 18 113/74 97 Nasal Cannula 2 12/06/23 09:21 12/06/23 09:21 12/06/23 09:21 12/06/23 09:21 12/06/23 09:21 12/06/23 09:23 12/06/23 09:23 Oxygen Flow Rate (L/min) [At 2 REST with Oxygen] Oxygen Flow Rate (L/min) [ 0 AMBULATING on Room Air] Oxygen Flow Rate (L/min) [At 0 REST on Room Air] Oxygen Flow Rate (L/min) 2 Oxygen Delivery Method Nasal Cannula Weight: 273 lb 14.084 oz Body Mass Index (BMI) 45.6 Intake & Output: Intake and Output for Last 24 Hours 12/04/23 12/05/23 12/06/23 23:59 23:59 23:59 Intake Total 2020.0 / 2720.0 1255 / 1255 Output Total 1999 2600 / 2600 Balance 20.0 / -1230.0 -1345 / -1345 Lab / Micro Data 12/06/23 06:00 12/06/23 06:00 Labs: Laboratory Results - last 24 hr 12/06/23 06:00: WBC 16.9 H, RBC 5.62 H, Hgb 16.5 H, Hct 48.7 H, MCV 86.7, MCH 29.4, MCHC 33.9, RDW Std Deviation 40.9, RDW Coeff of Mary Grace 12.9, Plt Count 304, MPV 10.6, Immature Gran % (Auto) 0.500, Neut % (Auto) 86.4 H, Lymph % (Auto) 9.3 L, [place] % (Auto) 3.7, Eos % (Auto) 0.0, Baso % (Auto) 0.1, Absolute Neuts (auto) 14.7 H, Absolute Lymphs (auto) 1.57, Nucleated RBC % 0, Sodium 137, Potassium 3.8, Chloride 104, Carbon Dioxide 27.0, Anion Gap 6, BUN 10, Creatinine 0.53 L, Estim Creat Clear Calc 203.68, Est GFR (MDRD) Af Amer 173, Est GFR (MDRD) Non-Af 143, BUN/Creatinine Ratio 19.0, Glucose 133 H, Calcium 9.6 Micro: Microbiology 12/04/23 09:40 Blood Culture (Wb) - Right Hand Blood Culture - Preliminary No growth in 48 hours. 12/04/23 14:50 Mucosa - Nasopharyngeal Respiratory Panel (PCR) - Final 12/04/23 09:35 Mucosa - Nose SARS-CoV-2, Influenza & RSV (PCR) - Final Physical Exam Const alert, oriented x3 and no apparent distress Constitutional Narrative: super morbid obesity General Appearance: cooperative HEENT normocephalic, head/scalp atraumatic, hearing grossly normal bilaterally, moist oral mucous membranes and oropharynx normal Eyes PERRL, EOMs intact bilaterally and conjunctivae normal Neck no lymphadenopathy and supple Lymph Lymphatic: no lymphadenopathy noted Resp Resp Narrative: Moderately diminished breath sounds bibasilarly. Mild wheezing, no or crackles. now on 2L of oxygen by nasal canula Cardio regular rate, regular rhythm, S1 normal heart sound, S2 normal heart sound and no murmurs GI normal to inspection, nondistended, normoactive bowel sounds and soft to palpation GI Narrative: obese Extremity normal to inspection, full ROM and no clubbing, cyanosis or edema General Extremity: no tenderness to palpation of joints or extremities Skin General Skin Exam: no breakdown Neuro oriented x3, CN's II-XII intact bilaterally and moves all extremities Sensorium / Orientation: awake and alert Motor Exam: strength 5/5 throughout Psych thought process normal Appearance: appropriate Assessment & Plan Assessment/Plan (1) Respiratory failure: (2) Hypoxemia: (3) Reactive airway disease: PLAN: Plan #Hypoxia of unclear etiology * Patient started feeling short of breath 2 days prior to admission. Wheezing has improved * Has not been around anybody who is sick and denies any recent upper respiratory tract illness. She also does not smoke. WBC elevated at 14.4. * Chest x-ray showed no acute cardiac pulmonary process. She denies any long distance travel history of PE or DVT. * D-dimer is less than 0.27. * CTA chest was negative for PE but showed patchy infiltrates in the right upper nandd right middle lobes was well as left lower lobes. * COVID, influenza and RSV panel negative. Full respiratory panel also negative. * 2D echo showed EF of 65% with no evidence of diastolic dysfunction. * Continue IV Lasix with today as patient said it helped significantly. Patient also started on IV Solu-Medrol. Per pulmonology, IV azithromycin added on. * Of note, BNP was not elevated. * pulmonology on board * Patient states she wishes to stay in the hospital till Friday to see pulmonology in person. * #Super morbid obesity * BMI is 45.6. Complicates acute care, expected recovery and prognosis. Sleep apnea may also be a consideration in this situation. She will benefit from follow-up with pulmonology for sleep study on outpatient basis. * #Depression: Patient was previously on sertraline but has not been taking it for quite a while. Will need to follow-up with PCP for resumption as deemed appropriate. DVT prophylaxis: Lovenox Charges/Coding Visit Charges Inpatient E&M: 92109 Subs Hosp L2
--- NOTE | 2023-12-06 12:46 | PN.CC_ITS ---
Objective Data Objective Data Vital Signs: Vital Signs Last response 3 Temperature 36.4 C L 12/06/23 09:21 Temperature Source Temporal 12/06/23 09:21 Pulse Rate 104 H 12/06/23 09:21 Pulse Strength Normal (2+) 12/06/23 09:20 Respiratory Rate 18 12/06/23 09:21 Respiratory Effort Normal 12/06/23 09:23 Respiratory Depth Normal 12/06/23 09:23 Respiratory Pattern Tachypnea 12/06/23 09:23 Blood Pressure 113/74 12/06/23 09:21 Blood Pressure Mean 87 12/06/23 09:21 Blood Pressure Source Manual 12/06/23 09:21 Blood Pressure Position Semi-Fowlers 12/06/23 09:21 Blood Pressure Location Left Arm 12/06/23 09:21 Pulse Ox 97 12/06/23 09:21 Oxygen Delivery Method Nasal Cannula 12/06/23 09:23 Oxygen Flow Rate (L/min) 2 12/06/23 09:23 I&O: I&O Last 24 Hours 3 12/05/23 12/06/23 12/06/23 23:59 11:59 23:59 Intake Total 255 / 2720.0 1255 / 1555 300 / 1555 Output Total 2000 / 3950 2600 / 2600 Balance -1745 / -1230.0 -1345 / -1045 300 / -1045 I&O: Total Stay 3 12/04/23 08:43 thru 12/06/23 12:00 Intake Total 5586.5 Output Total 4600 Balance 986.5 Current Meds Ordered / Administered: Current meds ordered / Administered 3 Generic Name Dose Route Start Last Admin Trade Name Freq PRN Reason Stop Dose Admin Acetaminophen 650 mg 12/04/23 14:26 12/04/23 18:23 Acetaminophen 325 Mg Tablet PO 650 mg Q6H PRN PRN Administration Pain 1-10 Or Fever >100.7 Albuterol/Ipratropium 3 ml 12/04/23 14:26 12/06/23 07:36 Ipratropium/Albuterol Sulfate 3 Ml Ampul.Neb INHALATION 3 ml Q6H.RT MYRNA Administration Enoxaparin Sodium 40 mg 12/05/23 10:00 12/06/23 09:31 Enoxaparin 40 Mg/0.4 Ml Syringe SC 40 mg DAILY MYRNA Administration Furosemide 40 mg 12/05/23 10:00 12/06/23 09:31 Furosemide 40 Mg/4 Ml Vial IV 40 mg [id number] MYRNA Administration Protocol Sodium Chloride 250 mls @ 15 mls/hr 12/04/23 14:55 IV .[id number] PRN Additional IVPB Infusion Sodium Chloride 250 mls @ 15 mls/hr 12/04/23 14:55 IV .[id number] PRN Saline Flush Azithromycin 500 mg/ Dextrose 255 mls @ 250 mls/hr 12/05/23 12:30 12/06/23 10:33 IV Infused Q24 MYRNA Infusion Loratadine 10 mg 12/04/23 14:26 Loratadine 10 Mg Tablet PO DAILY PRN allergy symptoms Methylprednisolone 40 mg 12/04/23 22:00 12/06/23 06:09 Methylprednisolone 40 Mg/Ml Vial IV 40 mg Q8 MYRNA Administration Nitroglycerin 0.4 mg 12/04/23 14:26 Nitroglycerin (Inpatient Use) 0.4 Mg Tab.Subl SL Q5M PRN CARDIAC/CHEST PAIN Ondansetron HCl 4 mg 12/04/23 14:26 Ondansetron 4 Mg/2 Ml Vial IV Q8H PRN PRN NAUSEA/VOMITING Oxycodone HCl 2.5 - 5 mg 12/04/23 14:26 Oxycodone 5 Mg Tablet PO Q4H PRN PRN Pain Score 4-10 Sodium Chloride 10 - 40 ml 12/04/23 14:55 12/06/23 06:09 0.9% Saline Lock 10 Ml Syringe IV 10 ml UD PRN Administration SALINE FLUSH Lab / Micro Data 12/06/23 06:00 12/06/23 06:00 Labs: Laboratory Results - last 24 hr 12/06/23 06:00: WBC 16.9 H, RBC 5.62 H, Hgb 16.5 H, Hct 48.7 H, MCV 86.7, MCH 29.4, MCHC 33.9, RDW Std Deviation 40.9, RDW Coeff of Mary Grace 12.9, Plt Count 304, MPV 10.6, Immature Gran % (Auto) 0.500, Neut % (Auto) 86.4 H, Lymph % (Auto) 9.3 L, [place] % (Auto) 3.7, Eos % (Auto) 0.0, Baso % (Auto) 0.1, Absolute Neuts (auto) 14.7 H, Absolute Lymphs (auto) 1.57, Nucleated RBC % 0, Sodium 137, Potassium 3.8, Chloride 104, Carbon Dioxide 27.0, Anion Gap 6, BUN 10, Creatinine 0.53 L, Estim Creat Clear Calc 203.68, Est GFR (MDRD) Af Amer 173, Est GFR (MDRD) Non-Af 143, BUN/Creatinine Ratio 19.0, Glucose 133 H, Calcium 9.6 Micro: Microbiology 12/04/23 09:40 Blood Culture (Wb) - Right Hand Blood Culture - Preliminary No growth in 48 hours. Assessment and Plan . Assessment and plan: 1. Subacute dyspnea/hypoxemia w/ CT findings c/w bronchiolitis and airflow obstruction - possible post-viral bronchiolitis/pneumonitis 2. Morbid obesity 3. Former tobacco use 4. therapeutic response to diuresis is intriguing- echo did not suggest the substrate for DHF... TREATMENT PLAN -continue diuresis as it is associated with improvement -continue inhaled BD and IV steroids -macrolide ABX -VTE ppx -tobacco cessation -weight loss Critical Care Time: 50 minutes The entirety of this encounter was done via Telemedicine Physical Exam Const alert and oriented x3 General Appearance: cooperative and well developed HEENT normocephalic Mouth: oral and palatal mucosa normal Eyes PERRL Neck full ROM and no lymphadenopathy Resp normal respiratory effort Effort and Inspection: able to speak in complete sentences Cardio regular rate and regular rhythm GI normal to inspection, nondistended, normoactive bowel sounds Subjective Subjective She is improved today which she attributes to the starting of furosemide. Weaned O2 from 8-> 2 L/min overnight.
--- NOTE | 2023-12-06 13:15 | CASEMGMT ---
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 Pt voices understanding and consents to?assessment?at this time.? Pt resting in bed in no distress at this time.? Pt is A/O at this time and answers all questions appropriately.?? Care providers, pharmacy, and demographics verified/updated at this time. PCP: Dr Holliday Specialists:none Preferred [facility]acy: [facility] Insurance: [place] Prescription Benefit:?yes LNOK: , Subhash Living Arrangements: Lives w/ and 6-yr-old daughter in one-story home w/2 steps to enter. Independent. Transportation:?Pt states drives self and states no transportation concerns at this time.? also drives. DME: ? Denies using any DME. Pt does not have a pulse ox and states she can afford to buy one. No home O2. Discussed home O2 set up process, should she qualify for O2 @ discharge. Questions answered. Verbal review of DME co's that do weekend new O2 set-up's and she chose [employer]. HHC/SNF: No hx. No needs identified. Pt wishes to return home and states has no concerns with going home at time of discharge.? Follow for home oxygen needs and any further discharge planning/needs.? Pt voices no further concerns/needs at this time. PLAN:??Home. Follow for possible Home O2 @ dc. Green sheet on chart w/instructions for home O2 set-up if pt qualifies. Jhonatan BSN?RN?CM
--- NOTE | 2023-12-06 21:09 | NURSING ---
po drop to 88% on 02 at 1lnc. Increased 02 back to 2lnc
[2023-12-07] VITALS (11 sets, daily range): BP systolic 112–118; BP diastolic 68–79; PULSE 59–97; RESP 16–22; TEMP 36.4–36.5; O2SAT 93–97
[2023-12-07] MEDS: 0.9% Saline Lock 10 ML Syringe IV ×5 (05:31→21:23)
[2023-12-07] MEDS: Ipratropium/Albuterol Sulfate 3 ML AMPUL.NEB INHALATION ×2 (07:23→13:40)
[2023-12-07 09:23] LABS: Absolute Lymphocyte Count 1.17 X10^3/uL (0.83-4.51); Absolute Neutrophil Count 10.5 X10^3/uL (2.0-7.7); Basophil# 0.01 X10^3/uL; Basophil% 0.1 % (0-1); Eosinophil# 0.01 X10^3/uL; Eosinophils% 0.1 % (0-5); Hematocrit 51.6 % (37-47); Hemoglobin 17.7 g/dL (12.0-15.0); Lymphocyte # 1.17 X10^3/ul (0.83-4.51); Lymphocyte % 9.7 % (19-41); Mean Corp Hgb Conc 34.3 g/dL (32-36); Mean Corpuscular Hgb 29.7 pg (27.0-32.0); Mean Corpuscular Volume 86.7 fL (81-99); Mean Platelet Vol. 10.4 fl (6.2-12.0); Monocyte# 0.33 X10^3/uL; Monocyte% 2.7 % (0-10); NRBC Flagged by Analyzer 0 % (0-5); Neutrophil # 10.52 X10^3/uL (2.7-7.7); Platelet Count 270 K/mm3 (150-450); RBC Distribution Width CV 12.7 % (11.6-14.6); RBC Distribution Width SD 40.3 fl (35.1-43.9); Red Blood Count 5.95 M/mm3 (4.2-5.4); White Blood Count 12.1 K/mm3 (4.4-11.0)
--- NOTE | 2023-12-07 09:35 | PN_ITS ---
Subjective Subjective Patient seen and examined. She remains short of breath and is wheezing. She is down to 2 L of oxygen this morning. She denies any chest pain, palpitations, dizziness, nausea or vomiting. On room air saturation went down to 88%. Patient still does not feel comfortable going home and wants to wait to be seen in person by the crm coordinator tomorrow. Objective Data Objective Data Vital Signs: Vital Signs Temp Pulse Resp BP Pulse Ox O2 Del Method O2 Flow Rate 97.5 F L 70 22 H 114/77 96 Nasal Cannula 1.5 12/07/23 05:34 12/07/23 07:23 12/07/23 07:23 12/07/23 05:34 12/07/23 07:23 12/07/23 07:23 12/07/23 07:23 Oxygen Flow Rate (L/min) [At 2 REST with Oxygen] Oxygen Flow Rate (L/min) [ 0 AMBULATING on Room Air] Oxygen Flow Rate (L/min) [At 0 REST on Room Air] Oxygen Flow Rate (L/min) 1.5 Oxygen Delivery Method Nasal Cannula Weight: 273 lb 14.084 oz Body Mass Index (BMI) 45.6 Intake & Output: Intake and Output for Last 24 Hours 12/05/23 12/06/23 12/07/23 23:59 23:59 23:59 Intake Total 2020.0 / 2720.0 2155 / 2155 400 / 400 Output Total 2000 / 3950 4000 / 4000 Balance 20.0 / -1230.0 -1845 / -1845 400 / 400 Lab / Micro Data 12/07/23 09:15 12/06/23 06:00 Labs: Laboratory Results - last 24 hr 12/07/23 09:15: WBC 12.1 H, RBC 5.95 H, Hgb 17.7 H, Hct 51.6 H, MCV 86.7, MCH 29.7, MCHC 34.3, RDW Std Deviation 40.3, RDW Coeff of Mary Grace 12.7, Plt Count 270, MPV 10.4, Immature Gran % (Auto) 0.400, Neut % (Auto) 87.0 H, Lymph % (Auto) 9.7 L, [place] % (Auto) 2.7, Eos % (Auto) 0.1, Baso % (Auto) 0.1, Absolute Neuts (auto) 10.5 H, Absolute Lymphs (auto) 1.17, Nucleated RBC % 0 Micro: Microbiology 12/04/23 09:40 Blood Culture (Wb) - Right Hand Blood Culture - Preliminary No growth in 48 hours. 12/04/23 14:50 Mucosa - Nasopharyngeal Respiratory Panel (PCR) - Final 12/04/23 09:35 Mucosa - Nose SARS-CoV-2, Influenza & RSV (PCR) - Final Physical Exam Const alert, oriented x3 and no apparent distress Constitutional Narrative: super morbid obesity General Appearance: cooperative HEENT normocephalic, head/scalp atraumatic, hearing grossly normal bilaterally, moist oral mucous membranes and oropharynx normal Eyes PERRL, EOMs intact bilaterally and conjunctivae normal Neck no lymphadenopathy and supple Lymph Lymphatic: no lymphadenopathy noted Resp Resp Narrative: Moderately diminished breath sounds bibasilarly. Mild wheezing, no or crackles. remains on 2L of oxygen by nasal canula Cardio regular rate, regular rhythm, S1 normal heart sound, S2 normal heart sound and no murmurs GI normal to inspection, nondistended, normoactive bowel sounds and soft to palpation GI Narrative: obese Extremity normal to inspection, full ROM, normal capillary refill and no clubbing, cyanosis or edema General Extremity: no tenderness to palpation of joints or extremities Skin General Skin Exam: no breakdown Neuro oriented x3, CN's II-XII intact bilaterally and moves all extremities Sensorium / Orientation: awake and alert Motor Exam: strength 5/5 throughout Psych thought process normal Appearance: appropriate Assessment & Plan Assessment/Plan (1) Respiratory failure: (2) Hypoxemia: (3) Reactive airway disease: PLAN: Plan #Hypoxia of unclear etiology * Patient started feeling short of breath 2 days prior to admission. Wheezing has improved * Has not been around anybody who is sick and denies any recent upper respiratory tract illness. She also does not smoke. WBC elevated at 14.4. * Chest x-ray showed no acute cardiac pulmonary process. She denies any long distance travel history of PE or DVT. * D-dimer is less than 0.27. * CTA chest was negative for PE but showed patchy infiltrates in the right upper nandd right middle lobes was well as left lower lobes. * COVID, influenza and RSV panel negative. Full respiratory panel also negative. * 2D echo showed EF of 65% with no evidence of diastolic dysfunction. * BNP was not elevated at 81.6 * dc iv lasix today. continue IV solumedrol and IV azithromycin * pulmonology on board * Patient states she wishes to stay in the hospital till Friday to see crm coordinator in person. * #Super morbid obesity * BMI is 45.6. Complicates acute care, expected recovery and prognosis. Sleep apnea may also be a consideration in this situation. She will benefit from follow-up with pulmonology for sleep study on outpatient basis. * #Depression: * Patient was previously on sertraline but has not been taking it for quite a while. Will need to follow-up with PCP for resumption as deemed appropriate. DVT prophylaxis: Lovenox Charges/Coding Visit Charges Inpatient E&M: 30271 Subs Hosp L2
[2023-12-07 09:46] LABS: Anion Gap 6 (5-15); BUN 12 mg/dL (7-18); BUN/Creat Ratio 19.2 RATIO (10-20); Calcium,Total 9.3 mg/dL (8.5-10.1); Chloride 102 mmol/L (98-107); Creatinine, Serum 0.62 mg/dL (0.55-1.02); EST Glomerular Filtration Rate 118 mL/min (>60); Est Glom Filt Rate - Afr Amer 142 mL/min (>60); Estimated Creatinine Clearance 174.12 ml/min; Glucose 215 mg/dL (74-106); Potassium 3.2 mmol/L (3.5-5.1); Sodium Level 135 mmol/L (136-145)
[2023-12-07] MEDS: Enoxaparin 40 MG/0.4 ML Syringe SC (10:32)
[2023-12-07] MEDS: Furosemide 40 MG/4 ML Vial IV ×2 (10:32→17:21)
[2023-12-07] MEDS: Azithromycin 500 MG in Dextrose 5%-Water (250mL Bag) 250 ML 250 MG IV (10:40)
[2023-12-08 01:57] VITALS: PULSE 66; RESP 16; O2SAT 93
[2023-12-08] MEDS: Ipratropium/Albuterol Sulfate 3 ML AMPUL.NEB INHALATION ×2 (01:57→06:47)
[2023-12-08 04:09] VITALS: PULSE 52
[2023-12-08] MEDS: 0.9% Saline Lock 10 ML Syringe IV (05:45)
[2023-12-08 05:55] LABS: Absolute Lymphocyte Count 1.89 X10^3/uL (0.83-4.51); Absolute Neutrophil Count 11.7 X10^3/uL (2.0-7.7); Basophil# 0.03 X10^3/uL; Basophil% 0.2 % (0-1); Hematocrit 52.1 % (37-47); Hemoglobin 17.5 g/dL (12.0-15.0); Lymphocyte # 1.89 X10^3/ul (0.83-4.51); Lymphocyte % 13.1 % (19-41); Mean Corp Hgb Conc 33.6 g/dL (32-36); Mean Corpuscular Hgb 29.1 pg (27.0-32.0); Mean Corpuscular Volume 86.7 fL (81-99); Mean Platelet Vol. 10.9 fl (6.2-12.0); Monocyte# 0.71 X10^3/uL; Monocyte% 4.9 % (0-10); NRBC Flagged by Analyzer 0 % (0-5); Neutrophil # 11.74 X10^3/uL (2.7-7.7); Neutrophil % 81.1 % (47-70); Platelet Count 287 K/mm3 (150-450); RBC Distribution Width CV 12.5 % (11.6-14.6); RBC Distribution Width SD 39.6 fl (35.1-43.9); Red Blood Count 6.01 M/mm3 (4.2-5.4); White Blood Count 14.5 K/mm3 (4.4-11.0)
[2023-12-08 06:00] VITALS: O2SAT 98
[2023-12-08 06:46] VITALS: PULSE 88; RESP 16; O2SAT 99
[2023-12-08 06:51] LABS: Anion Gap 8 (5-15); BUN 14 mg/dL (7-18); Calcium,Total 9.4 mg/dL (8.5-10.1); Chloride 97 mmol/L (98-107); Creatinine, Serum 0.56 mg/dL (0.55-1.02); EST Glomerular Filtration Rate 133 mL/min (>60); Est Glom Filt Rate - Afr Amer 161 mL/min (>60); Estimated Creatinine Clearance 192.77 ml/min; Glucose 137 mg/dL (74-106); Potassium 3.5 mmol/L (3.5-5.1); Sodium Level 134 mmol/L (136-145)
--- NOTE | 2023-12-08 07:29 | CPS ---
Placed pt on RA at this time
[2023-12-08 09:35] VITALS: BP 127/87; PULSE 96; RESP 16; TEMP 36.9; O2SAT 95
[2023-12-08 09:41] VITALS: O2SAT 94; O2SAT 95
[2023-12-08] MEDS: Azithromycin 500 MG in Dextrose 5%-Water (250mL Bag) 250 ML 250 MG IV (09:54)
--- NOTE | 2023-12-08 10:02 | PN.CC_ITS ---
Assessment & Plan Assessment/Plan (1) Hypoxemia: PLAN: Plan RECOMMENDATIONS: 1. Perform walking oximetry study prior to consideration for discharge home. 2. Okay to stop antibiotics and steroids. 3. Continue diuresis as tolerated by hemodynamics and renal function. 4. Encourage incentive spirometer use and mobilize patient as tolerated. 5. Consider outpatient sleep study. 6. Will sign off at this time. Please call with any additional questions. IMPRESSIONS: 1. Shortness of breath with hypoxemia Initially felt to be possible postviral bronchiolitis, for which the patient was maintained on bronchodilators and steroids. However, she appears to have improved significantly from a respiratory perspective with diuresis, raising the possibility of a hypervolemic etiology. The patient is currently maintaining appropriate oxygen saturations on room air. I agree with obtaining a walking oximetry study prior to consideration for discharge home. At this particular time, I do not see an indication to continue antibiotics or corticosteroids. She may need to be discharged home on a small amount of Lasix. In addition, the patient would likely benefit from an outpatient sleep study. The patient can likely be safely discharged home from my perspective. 2. Super morbid obesity/depression Complicates care, management, recovery and prognosis. Continue supportive measures noted above. This note was generated with [employer] dictation software. It may contain incorrect words, spelling, and punctuation that were not noted in checking the note before signing. Subjective Subjective The patient was seen and examined at the bedside this morning. Events from the last 24 hours have been reviewed. The patient is currently afebrile, hemodynamically stable and maintaining appropriate oxygen saturations on room air. The patient is preparing to undergo a walking oximetry study to assess exertional oxygen needs. Morning labs are stable. Objective Data Objective Data The patient's most recent lab work, culture data and imaging studies have all been personally reviewed. Surface echocardiogram demonstrated normal LV size and function with an ejection fraction of 65%. Infectious workup has been unrevealing to date. Vital Signs: Vital Signs Temp Pulse Resp BP Pulse Ox O2 Del Method O2 Flow Rate 98.5 F 96 16 127/87 H 94 Room Air 1 12/08/23 09:35 12/08/23 09:35 12/08/23 09:35 12/08/23 09:35 12/08/23 09:41 12/08/23 09:35 12/08/23 06:46 Oxygen Flow Rate (L/min) [At 2 REST with Oxygen] Oxygen Flow Rate (L/min) [ 0 AMBULATING on Room Air] Oxygen Flow Rate (L/min) [At 0 REST on Room Air] Oxygen Flow Rate (L/min) 1 Oxygen Delivery Method Room Air Weight: 273 lb 14.084 oz Body Mass Index (BMI) 45.6 Intake & Output: Intake and Output for Last 24 Hours 12/06/23 12/07/23 12/08/23 23:59 23:59 23:59 Intake Total 2155 / 2155 1295 / 1295 Output Total 4000 / 4000 1700 / 1700 800 / 800 Balance -1845 / -1845 -405 / -405 -800 / -800 Lab / Micro Data Attestation: I reviewed the patient's lab results. 12/08/23 05:18 12/08/23 05:18 Labs: Laboratory Results - last 24 hr 12/08/23 05:18: WBC 14.5 H, RBC 6.01 H, Hgb 17.5 H, Hct 52.1 H, MCV 86.7, MCH 29.1, MCHC 33.6, RDW Std Deviation 39.6, RDW Coeff of Mary Grace 12.5, Plt Count 287, MPV 10.9, Immature Gran % (Auto) 0.700, Neut % (Auto) 81.1 H, Lymph % (Auto) 13.1 L, [place] % (Auto) 4.9, Eos % (Auto) 0.0, Baso % (Auto) 0.2, Absolute Neuts (auto) 11.7 H, Absolute Lymphs (auto) 1.89, Nucleated RBC % 0, Sodium 134 L, Potassium 3.5, Chloride 97 L, Carbon Dioxide 29.0, Anion Gap 8, BUN 14, Creatinine 0.56, Estim Creat Clear Calc 192.77, Est GFR (MDRD) Af Amer 161, Est GFR (MDRD) Non-Af 133, BUN/Creatinine Ratio 25.0 H, Glucose 137 H, Calcium 9.4 Micro: Microbiology 12/04/23 09:40 Blood Culture (Wb) - Right Hand Blood Culture - Preliminary No growth in 48 hours. 12/04/23 14:50 Mucosa - Nasopharyngeal Respiratory Panel (PCR) - Final 12/04/23 09:35 Mucosa - Nose SARS-CoV-2, Influenza & RSV (PCR) - Final Physical Exam Const alert and no apparent distress Constitutional Narrative: Morbidly obese. General Appearance: cooperative HEENT normocephalic and head/scalp atraumatic Eyes PERRL, EOMs intact bilaterally and conjunctivae normal Neck supple General: trachea midline Chest inspection of chest normal Resp normal respiratory effort Auscultation: Negative for rales, rhonchi or wheezes Cardio regular rate and regular rhythm GI normal to inspection, nondistended, normoactive bowel sounds Extremity no clubbing, cyanosis or edema Skin no rashes or lesions noted Neuro CN's II-XII intact bilaterally, moves all extremities and no focal motor deficits Psych cooperative and affect normal Charges/Coding Visit Charges Inpatient E&M: 27778 Subs Hosp L2
--- NOTE | 2023-12-08 10:09 | DS.PCM_ITS ---
Providers Date of Admission: 12/05/23 Date of Discharge: 12/08/23 Primary Care Physician: Dr. Ankit Holliday MD Consultations 12/05/23 08:59 Consult: Poising Inspector / Pulmonary Medicine Routine Consulting Provider: Intensivists/Pulmonary Med Reason for Consult: HYPOXIA EMERGENT Consult: No MD Notified: Yes Date Notified: 12/05/23 Time Notified: 08:59 Method of Notification: Answering Service Comments:: connect ID: [id number] Reason For Visit: HYPOXIA Diagnosis Discharge Diagnosis (1) Respiratory failure: Status: Acute Code(s): J96.90 - Respiratory failure, unspecified, unspecified whether with hypoxia or hypercapnia (2) Hypoxemia: Status: Acute Code(s): R09.02 - Hypoxemia (3) Reactive airway disease: Status: Acute Code(s): J45.909 - Unspecified asthma, uncomplicated Medications at Discharge Home Medications loratadine 10 mg tablet (Allerclear) 10 mg PO DAILY PRN allergy symptoms 12/04/23 furosemide 40 mg tablet (Lasix) 40 mg PO DAILY #30 tabs 12/08/23 sertraline 100 mg tablet 100 mg PO DAILY #30 tabs 12/08/23 Hospital Course Procedures 2-D Echocardiogram, EKG and - (Chest x-ray/CTA chest) Summary of Care Provided Minutes Spent on Discharge: 36 Hospital Course: Ms. Khan is a 33-year-old morbidly obese white female who presented to the emergency department [facility] on 12/04/2023 for shortness of breath. Patient reported that she had been feeling short of breath for about 2 days prior to presentation but denied chest pain. She did have some mild cough but that was not productive. She denied fever, chills, lower extremity edema but did report some intermittent wheezing. She denied any history of tobacco abuse and denied having any sick contacts. She did report that she works at a [employer] but has no significant known contact with any dangerous chemicals that she could potentially inhale. Vital signs on presentation showed a temperature of 97.9, heart rate 114, respiratory was 26, blood pressure was 151/81 and oxygen saturation was 92% on room air. She was ambulated and oxygen decreased to 85% on room air. CBC was done and she had a mild leukocytosis on admission with a white count of 14.4 but no left shift was present however she did have some eosinophilia. D-dimer was unremarkable. Chemistry panel showed mild hypokalemia with a potassium of 3.4 but was otherwise unremarkable. Lactic acid was 1.5. BNP was 81.6. A BNP of 81.6 in a patient who is morbidly obese is suggestive of volume overload and the patient did have patchy bilateral opacities in the right upper and right middle lobes as well as in the left lower lobe on the CTA of her chest that was done prior to admission. Her chest x-ray, however, was unremarkable. She was admitted to the medical floor and placed on antibiotics to cover possible community-acquired organism, steroids, and IV diuretics. An echocardiogram was obtained and she was found to have an EF of 65%. There was not any evidence of diastolic dysfunction however pulmonary pressures were not measured. She was evaluated by pulmonary critical care medicine and they feel that predominantly this is related to possibly some reactive airway disease but predominantly volume overload likely related to some right-sided dysfunction with possible post viral bronchiolitis. An ambulatory pulse ox was performed and no oxygen was required. We did discharge her on Lasix 40 mg p.o. daily and I have asked that she follow-up with her primary care physician and obtain a basic metabolic profile to be done within the next 1 to 2 weeks to reassess her renal function and electrolytes. Pulmonary medicine also felt that she would benefit from an outpatient sleep study and possibly PFTs. We have made an outpatient appointment for her on 01/14/[address] White in the outpatient setting. Prescription for her Lasix and a refill on her Zoloft, which she has run out of, were sent to the local pharmacy for a 1 month supply. I have also asked that she follow-up with her primary care physician within the next 2 weeks. Discharge diagnoses: Shortness of breath-resolved Hypoxemia-resolved Super morbid obesity Depression Seasonal allergies Physical Exam Narrative Patient states she is overall feeling much better. Would like to have pulmonary input prior to discharge and I did discuss with her that they would be seeing her later this morning. Const alert, oriented x3, no apparent distress, no limitations and well nourished; Negative for average body habitus or healthy appearing Constitutional Narrative: Morbidly obese, lower middle-aged, white female, sitting up in bed, appears comfortable and nontoxic, watching television and awaiting for dietary to complete her meal as they brought her the wrong food this morning General Appearance: cooperative, comfortable, well kempt and well developed Orientation / Consciousness: awake, oriented to person, oriented to place and oriented to time Exam Limitations: no limitations Nutritional Appearance: morbidly obese HEENT normocephalic, head/scalp atraumatic, hearing grossly normal bilaterally and moist oral mucous membranes HEENT Narrative: Mallampati 3-4, dentition is good, no thrush Eyes PERRL, EOMs intact bilaterally and conjunctivae normal Eyes Narrative: No scleral icterus Neck no lymphadenopathy and supple Neck Narrative: Trachea midline, no thyroid enlargement noted Resp normal respiratory effort, no retractions, no use of accessory muscles and clear to auscultation bilaterally Auscultation: Negative for rales, rhonchi or wheezes Cardio regular rate, regular rhythm, S1 normal heart sound, S2 normal heart sound, no murmurs, no rub, no gallops and no clicks GI normal to inspection, nondistended, normoactive bowel sounds, soft to palpation and non-tender Extremity no clubbing, cyanosis or edema Extremity Narrative: Pedal pulses and radial pulses are 2+ Skin no rashes or lesions noted, no wounds, skin turgor normal and no jaundice Neuro oriented x3, moves all extremities and no focal motor deficits Speech: speech normal Psych affect normal Psych Narrative: Eye contact is good, patient is pleasant and interacts appropriately Weight / BMI Weight Weight: 124.23 kg Body Mass Index (BMI) 45.6 ABG / Lab / Microbiology Data 12/08/23 05:18 12/08/23 05:18 Laboratory: Laboratory Results - last 24 hr 12/08/23 05:18: WBC 14.5 H, RBC 6.01 H, Hgb 17.5 H, Hct 52.1 H, MCV 86.7, MCH 29.1, MCHC 33.6, RDW Std Deviation 39.6, RDW Coeff of Mary Grace 12.5, Plt Count 287, MPV 10.9, Immature Gran % (Auto) 0.700, Neut % (Auto) 81.1 H, Lymph % (Auto) 13.1 L, [place] % (Auto) 4.9, Eos % (Auto) 0.0, Baso % (Auto) 0.2, Absolute Neuts (auto) 11.7 H, Absolute Lymphs (auto) 1.89, Nucleated RBC % 0, Sodium 134 L, Potassium 3.5, Chloride 97 L, Carbon Dioxide 29.0, Anion Gap 8, BUN 14, Creatinine 0.56, Estim Creat Clear Calc 192.77, Est GFR (MDRD) Af Amer 161, Est GFR (MDRD) Non-Af 133, BUN/Creatinine Ratio 25.0 H, Glucose 137 H, Calcium 9.4 Microbiology: Microbiology 12/04/23 09:40 Blood Culture (Wb) - Right Hand Blood Culture - Preliminary No growth in 48 hours. 12/04/23 14:50 Mucosa - Nasopharyngeal Respiratory Panel (PCR) - Final 12/04/23 09:35 Mucosa - Nose SARS-CoV-2, Influenza & RSV (PCR) - Final D/C Instructions Discharge Diet: Low fat / Low cholesterol (Restrict fluid intake to no more than 2 L daily if possible, limit salt intake to no more than 4 g daily if possible) Discharge Activity: Return to Normal Activity Return to work on: 12/09/23 May resume sexual activity in: No Restrictions Meaningful Use Info Meaningful Use Meaningful Use Diagnoses (Choose all that apply): None applicable Ischemic Stroke Statin Dosing Therapy Reference: STATIN DOSE THERAPY REFERENCE: * Patients > 75 years receive moderate or high dose statin therapy. * Patients 75 years or YOUNGER should receive HIGH intensity statin dose unless contraindicated. You will be required to document reason for non-treatment if statin daily dose does not meet guidelines. HIGH DOSE STATIN THERAPY DAILY Atorvastatin > than or = to 40 mg Rosuvastatin > than or = to 20 mg Amlodipine + Atorvastatin > than or = to 2.5/40 mg Ezetimibe + Simvastatin 10/80 mg Simvastatin 80mg Discharge Plan Admission Admit Date/Time: 12/05/23 11:43 Primary Reason for Your Visit: Shortness of breath Attending Provider: Sandra Simon Primary Care Provider: Ankit Holliday Consulting Providers: Alan Obando; Dick Leal; Eb White; Jun Nicole; Dmitry Keys; Audra West; Manfred Flores; Misti Serrato; Brittaney Jhaveri; Mati Olivera; Myke Orourke; Nicolás Samuels; Cruzito Burton; Cristo Ware; Pascale Salamanca Instructions Additional Instructions / Restrictions: 1. Please take the Lasix as ordered. I would recommend taking it earlier in the day at least 6 hours before you go to bed to avoid waking up in the middle of the night to urinate. 2. Please call your primary care physician and asked that a basic metabolic profile be done in 1 to 2 weeks to recheck your electrolytes and kidney function with the use of the Lasix. 3. Please follow-up with pulmonary medicine as noted below. 4. I did note that you are out of sertraline and needed a refill so I gave you 1 month supply. Please follow-up with your primary care physician for further prescriptions. Discharge Orders/Prescriptions Prescriptions: New furosemide [Lasix] 40 mg tablet 40 mg PO DAILY Qty: 30 0RF Continued loratadine [Allerclear] 10 mg tablet 10 mg PO DAILY PRN (Reason: allergy symptoms) sertraline 100 mg tablet 100 mg PO DAILY Qty: 30 0RF Referrals / Follow Up: Ankit Holliday MD [Primary Care Provider] - Within 2 Weeks Eb White DO [Med Staff - Active Staff] - 01/14/24 10:45 am Disposition Disposition (needs filled in before D/C Order can be placed): Home, Self Care Charges/Coding Visit Charges Inpatient E&M: 58519 Disch Hosp >30min
--- NOTE | 2023-12-08 10:24 | CASEMGMT ---
Pt does not qualify for home oxygen. Pt to be dc'd this date.
--- NOTE | 2023-12-08 10:33 | PHA.DC.MC.R ---
Pharmacy [facility] Pharmacy Service has performed discharge medication reconciliation and counseling for this patient. 1. FUROSEMIDE 40MG PO DAILY The patient's discharge medication list was reviewed for discrepancies and discrepancies were resolved. The patient was counseled on the following discharge medications and changes in medications for homegoing were reviewed. The Reason for Use, instructions for use, and potential side effects were reviewed for all new medications. The patient's questions regarding all of their medications were answered. The patient was able to verbally demonstrate an understanding of their discharge medications. Medications at Discharge Home Medications loratadine 10 mg tablet (Allerclear) 10 mg PO DAILY PRN allergy symptoms 12/04/23 furosemide 40 mg tablet (Lasix) 40 mg PO DAILY #30 tabs 12/08/23 sertraline 100 mg tablet 100 mg PO DAILY #30 tabs 12/08/23
== END 2023-12-08 11:41 | disposition home or self-care (01) | DRG 640 ==
LOC: ED 11:41 → MS3 14:28
PROVIDERS: Admitting Provider Student in an Organized Health Care Education/Training Program; Emergency Provider Emergency Medicine; PCP Family Medicine; Visit Provider Internal Medicine
DX: E87.70 Fluid overload, unspecified (principal); J96.01 Acute respiratory failure with hypoxia; Z68.42 Body mass index [BMI] 45.0-49.9, adult; J21.9 Acute bronchiolitis, unspecified; D72.10 Eosinophilia, unspecified; E66.01 Morbid (severe) obesity due to excess calories; J45.909 Unspecified asthma, uncomplicated; F32.A Depression, unspecified; E87.6 Hypokalemia; G47.30 Sleep apnea, unspecified; Z11.52 Encounter for screening for COVID-19; Z79.51 Long term (current) use of inhaled steroids; Z87.891 Personal history of nicotine dependence
CPT/HCPCS: 36415; 71045; 71275; 80048; 83605; 83880; 85025; 85379; 87040; 87631; 87633; 93005; 93306; 94640; 99252; 99285; J7030; Q9957; Q9967; A4216; C8929; G0463; J1940

== ENCOUNTER 2024-02-01 17:38 | Emergency (ER) | payer BC, SELFPAY ==
[2024-02-01 17:38] VITALS: O2SAT 94
[2024-02-01 17:39] VITALS: PULSE 97; RESP 22; TEMP 35.8; O2SAT 94; BMI 46.3
--- NOTE | 2024-02-01 17:57 | EKG12_ITS ---
Test Reason : SOB Blood Pressure : / mmHG Vent. Rate : 078 BPM Atrial Rate : 078 BPM P-R Int : 108 ms QRS Dur : 086 ms QT Int : 356 ms P-R-T Axes : 023 088 050 degrees QTc Int : 405 ms Sinus rhythm with short PA Otherwise normal ECG Confirmed by BENJAMIN ZEPEDA, JANINE ([id number]), manager editorial CHARLENE CARPENTER ([id number]) on 02/04/2024 9:49:03 AM Referred By: JONATHAN Confirmed By:KRISTI ALEXANDER MD
--- NOTE | 2024-02-01 17:58 | ED.VIS.DYS ---
HPI History of Present Illness Chief Complaint: Shortness of Breath Informant: patient Onset/Context/Timing Onset: Today Context: sudden Timing: Continuous Quality: Positive for Wheezing Associated Symptoms cough; Negative for rhinorrhea, post nasal drip, ear pain, fever, sore throat, chills, sweats, clear sputum, white sputum, yellow sputum or green sputum Chest Pain: Positive for - (Heaviness) Narrative Narrative: Patient presents with shortness of breath that began this morning. Patient states it came on rather suddenly. Patient states it has been constant throughout the day. Patient states nothing makes it better and nothing makes it worse. Patient admits to some heaviness in her chest but denies any pain. Patient denies any fevers or chills. Patient admits to a cough but denies any sputum production. Patient denies any nausea or vomiting. Patient states she feels like she is having some wheezing. Patient denies any recent travel or recent surgery. Patient denies any history of DVT, PE, or cancer. [facility] Medical History Depression Tobacco abuse Morbid obesity Erythrocytosis Upper respiratory infection with cough and congestion Acute bronchospasm due to viral infection delivery delivered Home Medications ?Medication ?Instructions ?Recorded ?Last Taken ?Type loratadine 10 mg tablet 10 mg PO DAILY PRN allergy symptoms 12/04/23 12/03/23 History (Allerclear) furosemide 40 mg tablet (Lasix) 40 mg PO DAILY #30 tabs 12/08/23 Unknown Rx sertraline 100 mg tablet 100 mg PO DAILY #30 tabs 12/08/23 Unknown Rx albuterol sulfate 90 mcg/actuation 1 - 2 puff inhalation Q4H PRN PRN 02/01/24 Unknown Rx aerosol inhaler (Ventolin HFA) Wheezing ##1 Allergy/AdvReac Type Severity Reaction Status Date / Time lidocaine (From [facility] Allergy Other Verified 02/01/24 17:39 (lidocaine)) Surgical History Previous section Social History household members: spouse housing: house Smoking Status: Current every day smoker tobacco type: cigarettes how long ago did patient quit smoking: Currently smoking about 1 pack of cigarettes weekly alcohol intake: current alcohol intake frequency: holidays/special occasions only substance use type: does not use ROS ROS ED Constitutional Constitutional ED: Denies chills or fever(s) Eyes Eyes: Denies blurry vision or change in vision ENT ENT ED: Denies rhinorrhea or sore throat Cardiovascular Cardiovascular: Reports chest pain; Denies palpitations Respiratory/Chest Respiratory/Chest: Reports cough and dyspnea Gastrointestinal Gastrointestinal: Denies nausea or vomiting Genitourinary Genitourinary ED: Denies dysuria or hematuria Musculoskeletal Musculoskeletal: Reports back pain; Denies neck pain Integumentary Denies abscess or rash Neurologic Neurologic: Denies headache(s) or weakness Allergic/Immunologic Allergic/Immunologic ED: Denies mouth swelling or urticaria EXAM Physical Exam Const Vital Signs: 02/01/24 17:38 02/01/24 17:39 02/01/24 18:08 Temperature 96.4 F L Temperature Source Temporal Pulse Rate 97 65 Respiratory Rate 22 H 18 Respiratory Effort Short of Breath Labored Respiratory Depth Shallow Respiratory Pattern Tachypnea Normal Blood Pressure Blood Pressure Mean Pulse Ox 94 Oxygen Delivery Method Room Air Room Air 02/01/24 19:23 02/01/24 19:38 Temperature Temperature Source Pulse Rate 93 83 Respiratory Rate 20 H 16 Respiratory Effort Respiratory Depth Respiratory Pattern Normal Blood Pressure 120/85 H Blood Pressure Mean 96 Pulse Ox 98 Oxygen Delivery Method Room Air Positive well nourished and well developed General Appearance ED: well developed and NAD HEENT Reports moist mucous membranes atraumatic Neck supple and no JVD Resp normal respiratory effort Auscultation: wheezes expiratory wheezes, inspiratory wheezes and throughout Cardio regular rate and regular rhythm GI non-tender and non-distended Palpation: soft Extremity normal to inspection Neuro oriented x3, CN's II-XII intact bilaterally and no sensory deficits noted [place] Coma Scale: document GCS findings Spontaneous Obeys Commands Oriented 15 Sensorium / Orientation: alert Speech: speech normal Motor Exam: strength 5/5 throughout Psych mental status grossly normal MDM MDM MDM Narrative Medical decision making narrative: Differential diagnosis includes asthma, reactive airway disease, pneumonia, pneumothorax, cardiac dysrhythmia, cardiac ischemia, and congestive heart failure. EKG will be obtained to assess for cardiac dysrhythmia and cardiac ischemia. Chest x-ray will be obtained to assess for pneumonia, pneumothorax, and congestive heart failure. CBC will be obtained to assess for leukocytosis and anemia. Basic metabolic profile will be obtained to assess for electrolyte abnormality and renal function. Serum hCG will be obtained to assess for . High-sensitivity troponin will be obtained to assess for cardiac ischemia. Lab Data Attestation: I reviewed the patient's lab results. Lab results narrative: CBC was reviewed. There is a slight leukocytosis of 12.6. Hemoglobin was slightly elevated at 16.9 and hematocrit was 48.0. Patient metabolic profile was reviewed and was within normal limits. High-sensitivity troponin was reviewed and was less than 3. Serum hCG was reviewed and was negative. Labs: Laboratory Results - last 24 hr 02/01/24 18:07 WBC 12.6 H RBC 5.69 H Hgb 16.9 H Hct 48.0 H MCV 84.4 MCH 29.7 MCHC 35.2 RDW Std Deviation 39.3 RDW Coeff of Mary Grace 12.7 Plt Count 296 MPV 10.5 Immature Gran % (Auto) 0.300 Neut % (Auto) 48.8 Lymph % (Auto) 35.7 [place] % (Auto) 6.5 Eos % (Auto) 8.0 H Baso % (Auto) 0.7 Absolute Neuts (auto) 6.1 Absolute Lymphs (auto) 4.48 Nucleated RBC % 0 Sodium 135 L Potassium 4.1 Chloride 105 Carbon Dioxide 25.0 Anion Gap 5 BUN 12 Creatinine 0.58 Estim Creat Clear Calc 188.11 Est GFR (MDRD) Af Amer 156 Est GFR (MDRD) Non-Af 129 BUN/Creatinine Ratio 20.8 H Glucose 100 Calcium 9.2 Troponin I High Sens < 3 L Serum , Qual NEGATIVE Radiography Chest X-Ray - ED: 2 View, Read by ED Physician, Read by Radiologist and No Acute Disease Diagnostic Testing: Clinical Impression(s) from Imaging Studies Chest X-Ray 02/01/24 18:15 IMPRESSION: No radiographic evidence of acute cardiopulmonary disease. Electronically Signed: Hardik Reynolds MD at 19:15 EDT , PA and lateral chest x-ray was obtained. There are 2 views. On my independent interpretation, lung mason are clear. There is normal cardiac silhouette. Bony thorax is normal. There is no acute process noted. Radiologist also interpreted the x-ray and agrees. EKG Initial EKG: Attestation: I personally reviewed and interpreted this EKG as follows: Interpretation: Sinus Rhythm (78) and No Acute Injury Pattern Comments: EKG was obtained. On my independent interpretation, it showed a normal sinus rhythm with a rate of 78. IN interval was slightly shortened at 108 ms. QRS interval and QTc intervals were normal. [place] was normal. There are no acute ST or T wave changes. Prior EKG tracings: available for review Prior: Unchanged (12/05/2023) Treatment and Re-Evaluation :: Patient was given a DuoNeb aerosol here. Patient was still having some wheezing on reevaluation. Patient was given an albuterol aerosol. Patient felt better after this. Patient was advised of her findings. Patient was given a prescription for an albuterol inhaler. Patient was instructed to follow-up with her primary care physician in 5 to 7 days. Patient understood and was agreeable with the plan. All questions were answered. Discharge Plan Triage Chief Complaint: Shortness of Breath ED Provider: Alexx Coles Dx/Rx/DC Orders Clinical Impression: Reactive airway disease, Wheezing Instructions: ED Asthma, Acute (Adult) Prescriptions: New albuterol sulfate [Ventolin HFA] 90 mcg/actuation HFA aerosol inhaler 1 - 2 puff inhalation Q4H PRN PRN (Reason: Wheezing) Qty: 1 0RF No Action loratadine [Allerclear] 10 mg tablet 10 mg PO DAILY PRN (Reason: allergy symptoms) furosemide [Lasix] 40 mg tablet 40 mg PO DAILY Qty: 30 0RF sertraline 100 mg tablet 100 mg PO DAILY Qty: 30 0RF Primary Care Provider: Ankit Holliday Referrals: Ankit Holliday MD [Primary Care Provider] - 5-7 Days Print Language: Estonian Disposition Disposition: Home, Self Care
[2024-02-01 18:08] VITALS: PULSE 65; RESP 18
[2024-02-01] MEDS: Ipratropium/Albuterol Sulfate 3 ML AMPUL.NEB INHALATION (18:10)
--- NOTE | 2024-02-01 18:15 | RAD_ITS ---
EXAM: XR CHEST, 2 VIEWS CLINICAL INDICATION: Dyspnea TECHNIQUE: Frontal and lateral views of the chest. COMPARISON: 12.04.23 FINDINGS: LUNGS AND PLEURAL SPACES: Unremarkable. No consolidation or edema. No pneumothorax. No effusion. HEART: Unremarkable. Cardiac silhouette not enlarged. MEDIASTINUM: Central airways and mediastinal contour are unremarkable. BONES/JOINTS: Unremarkable. No acute fracture. SOFT TISSUES: Unremarkable. RAD/Chest PA and Lateral IMPRESSION: No radiographic evidence of acute cardiopulmonary disease. Electronically Signed: Hardik Reynolds MD at 19:15 EDT ,
[2024-02-01 18:20] LABS: Absolute Lymphocyte Count 4.48 X10^3/uL (0.83-4.51); Absolute Neutrophil Count 6.1 X10^3/uL (2.0-7.7); Basophil# 0.09 X10^3/uL; Basophil% 0.7 % (0-1); Hemoglobin 16.9 g/dL (12.0-15.0); Lymphocyte # 4.48 X10^3/ul (0.83-4.51); Lymphocyte % 35.7 % (19-41); Mean Corp Hgb Conc 35.2 g/dL (32-36); Mean Corpuscular Hgb 29.7 pg (27.0-32.0); Mean Corpuscular Volume 84.4 fL (81-99); Mean Platelet Vol. 10.5 fl (6.2-12.0); Monocyte# 0.81 X10^3/uL; Monocyte% 6.5 % (0-10); NRBC Flagged by Analyzer 0 % (0-5); Neutrophil # 6.13 X10^3/uL (2.7-7.7); Neutrophil % 48.8 % (47-70); Platelet Count 296 K/mm3 (150-450); RBC Distribution Width CV 12.7 % (11.6-14.6); RBC Distribution Width SD 39.3 fl (35.1-43.9); Red Blood Count 5.69 M/mm3 (4.2-5.4); White Blood Count 12.6 K/mm3 (4.4-11.0)
[2024-02-01 18:24] LABS: Internal QC Validated? YES +Cl - CLEAR BKGD; Pregnancy, Serum, hCG Quali. NEGATIVE Negative
[2024-02-01 18:30] LABS: Anion Gap 5 (5-15); BUN 12 mg/dL (7-18); BUN/Creat Ratio 20.8 RATIO (10-20); Calcium,Total 9.2 mg/dL (8.5-10.1); Chloride 105 mmol/L (98-107); Creatinine, Serum 0.58 mg/dL (0.55-1.02); EST Glomerular Filtration Rate 129 mL/min (>60); Est Glom Filt Rate - Afr Amer 156 mL/min (>60); Estimated Creatinine Clearance 188.11 ml/min; Glucose 100 mg/dL (74-106); Potassium 4.1 mmol/L (3.5-5.1); Sodium Level 135 mmol/L (136-145)
[2024-02-01 19:09] LABS: Troponin-I HS < 3 pg/mL (3.0-54.0)
[2024-02-01] MEDS: Albuterol 2.5 MG/3 ML VIAL.NEB. INHALATION (19:22)
[2024-02-01 19:23] VITALS: PULSE 93; RESP 20
[2024-02-01 19:38] VITALS: BP 120/85; PULSE 83; RESP 16; O2SAT 98
[2024-02-01 20:59] VITALS: BP 113/58; PULSE 112; RESP 28; TEMP 36.7; O2SAT 97
== END 2024-02-01 21:00 | disposition home or self-care (01) ==
PROVIDERS: Emergency Provider Emergency Medicine; PCP Family Medicine; Visit Provider Emergency Medicine
DX: J45.909 Unspecified asthma, uncomplicated (principal); F32.A Depression, unspecified; F17.210 Nicotine dependence, cigarettes, uncomplicated; Z79.899 Other long term (current) drug therapy
CPT/HCPCS: 71046; 80048; 84484; 84703; 85025; 93005; 94640; 99283

== ENCOUNTER 2024-05-11 16:38 | Inpatient (IN) | payer BC, SELFPAY ==
[2024-05-11] VITALS (12 sets, daily range): BP systolic 106–155; BP diastolic 73–110; PULSE 81–115; RESP 18–30; TEMP 36.6–36.7; O2SAT 87–97; BMI 46.1; BMI 46.2
--- NOTE | 2024-05-11 17:23 | EKG12_ITS ---
Test Reason : SOB Blood Pressure : / mmHG Vent. Rate : 109 BPM Atrial Rate : 109 BPM P-R Int : 124 ms QRS Dur : 088 ms QT Int : 330 ms P-R-T Axes : 063 073 049 degrees QTc Int : 444 ms Sinus tachycardia Otherwise normal ECG Confirmed by AKILAH ZEPEDA, LESLYE ([id number]), content editor MARIA ELENA SCOTT ([id number]) on 05/13/2024 9:05:26 AM Referred By: Confirmed By:LESLYE ISBELL MD
--- NOTE | 2024-05-11 17:24 | EDS_ITS ---
HPI History of Present Illness Chief Complaint: Shortness of Breath Narrative Narrative: 34-year-old female past medical history of asthma, does not wear oxygen at home, presents with increasing shortness of breath since yesterday evening. She has been using her inhaler without relief of her symptoms. She denies any fevers or chills and has an occasional nonproductive cough. She is using her new inhaler, but it does not seem to be working for her. She denies any leg swelling. She has dyspnea on exertion as well. She states she is never been intubated for her asthma, but she was admitted back in November, few months ago for 4 to 5 days for breathing difficulty. She is a smoker, but states she has not smoked cigarettes in the last few days. [facility] Medical History Depression Tobacco abuse Morbid obesity Erythrocytosis Upper respiratory infection with cough and congestion Acute bronchospasm due to viral infection delivery delivered Home Medications ?Medication ?Instructions ?Recorded ?Last Taken ?Type loratadine 10 mg tablet 10 mg PO DAILY PRN allergy symptoms 12/04/23 12/03/23 History (Allerclear) furosemide 40 mg tablet (Lasix) 40 mg PO DAILY #30 tabs 12/08/23 Unknown Rx albuterol sulfate 90 mcg/actuation 1 - 2 puff inhalation Q4H PRN PRN 02/01/24 Unknown Rx aerosol inhaler (Ventolin HFA) Wheezing ##1 sertraline 100 mg tablet 100 mg PO QHS 05/11/24 Unknown History Allergy/AdvReac Type Severity Reaction Status Date / Time lidocaine (From [facility] Allergy Other Verified 02/01/24 17:39 (lidocaine)) Surgical History Previous section Social History household members: spouse housing: house Smoking Status: Current every day smoker tobacco type: cigarettes how long ago did patient quit smoking: Currently smoking about 1 pack of cigarettes weekly alcohol intake: current alcohol intake frequency: holidays/special occasions only substance use type: does not use ROS ROS ED ROS Narrative Constitutional: No fever, no chills. HEENT: No sore throat. No neck pain. No loss of vision. No rhinorrhea. Cardiovascular: No chest pain. No palpitations. No pedal edema. Respiratory: Occasional cough, dyspnea on exertion and increasing shortness of breath at rest. Positive wheezing. Abdominal: No abdominal pain. No nausea. No vomiting. Genitourinary: No dysuria. No hematuria. Musculoskeletal: No myalgias. No arthralgias. Neurologic: No headaches. No dizziness. No lightheadedness. Skin: No rash. No change in color. Psychiatric: No depression. No anxiety. EXAM Physical Exam Narrative Exam Narrative: Afebrile. Vital signs noted. Cardiovascular examination reveals a regular tachycardia. Positive expiratory wheezing. Mild tachypnea. Occasional extra/accessory muscle use. Abdomen soft nontender with normoactive bowel sounds. Neurological examination nonfocal and nonlateralizing. No pedal edema bilaterally. Const Vital Signs: 05/11/24 16:38 05/11/24 16:41 05/11/24 17:05 Temperature 97.8 F Temperature Source Oral Pulse Rate 99 115 H Respiratory Rate 18 26 H Respiratory Effort Short of Breath Labored Pursed Lip Respiratory Depth Shallow Respiratory Pattern Tachypnea Blood Pressure 155/110 H Blood Pressure Mean 125 Pulse Ox 87 90 Oxygen Delivery Method Room Air Nasal Cannula Nasal Cannula Oxygen Flow Rate (L/min) 2 3 05/11/24 17:25 05/11/24 17:32 05/11/24 17:34 Temperature Temperature Source Pulse Rate 113 H 107 H Respiratory Rate 30 H 18 Respiratory Effort Respiratory Depth Respiratory Pattern Normal Blood Pressure 134/83 H Blood Pressure Mean 100 Pulse Ox 91 Oxygen Delivery Method Nasal Cannula Nasal Cannula Oxygen Flow Rate (L/min) 3 3 05/11/24 17:34 05/11/24 18:00 05/11/24 18:53 Temperature Temperature Source Pulse Rate 110 H 100 Respiratory Rate 30 H 26 H Respiratory Effort Respiratory Depth Respiratory Pattern Blood Pressure 112/89 H 112/87 H Blood Pressure Mean 96 95 Pulse Ox 92 92 88 Oxygen Delivery Method Nasal Cannula Nasal Cannula Nasal Cannula Oxygen Flow Rate (L/min) 3 3 3 05/11/24 18:55 05/11/24 19:32 Temperature Temperature Source Pulse Rate 93 Respiratory Rate 18 Respiratory Effort Respiratory Depth Respiratory Pattern Blood Pressure 124/73 H Blood Pressure Mean 90 Pulse Ox 90 89 Oxygen Delivery Method Nasal Cannula Nasal Cannula Oxygen Flow Rate (L/min) 4 4 MDM MDM MDM Narrative Medical decision making narrative: Differential diagnosis includes but not limited to pneumothorax versus asthma ex acerbation versus pneumonia. Pulmonary embolism is also in the differential diagnosis as well, but she does not have any risk factors. She will be given another DuoNeb aerosolized treatment. I will also start her on steroids as well. EKG was obtained and interpreted by myself independently as sinus tachycardia at 109 bpm without ectopy or acute ST changes, no STEMI. No significant change from February 01, 2024 except for she had a normal heart rate of 78 at that time. I reviewed her laboratory work and she has a leukocytosis of 16.0 but it appears she has a chronic leukocytosis, hemoglobin slightly hemoconcentrated at 16.9, platelet count normal at 299. D-dimer is normal at 0.28 so I doubt pulmonary embolism. Sodium slightly low at 135, BUN of 11 and creatinine 0.58, glucose appropriately elevated at 111 with a normal anion gap of 6. High-sensitivity troponin is less than 3. I do not feel she needs serial enzymes because she has had shortness of breath for greater than 6 hours. Chest x-ray 1 view interpreted by myself independently shows no consolidation, no pneumothorax. I reviewed the radiology report which confirms my independent interpretation. At this point in time, after DuoNeb aerosolized treatment and Solu-Medrol 125 mg, she was only satting 88% on 3 L. She was turned up to 4 L. Given her hypoxia, I discussed patient with Dr. Minor for admission to the general medical floor. History & Record Review Discussion w/independent historian: Patient Additional record(s) reviewed:: Prior ED visit and Prior labs (Chronic leukocytosis) Lab Data Attestation: I reviewed the patient's lab results. Labs: Laboratory Results - last 24 hr 05/11/24 17:20 WBC 16.0 H RBC 5.75 H Hgb 16.9 H Hct 48.9 H MCV 85.0 MCH 29.4 MCHC 34.6 RDW Std Deviation 40.7 RDW Coeff of Mary Grace 13.2 Plt Count 299 MPV 10.1 Immature Gran % (Auto) 0.400 Neut % (Auto) 62.5 Lymph % (Auto) 21.6 [place] % (Auto) 6.9 Eos % (Auto) 8.0 H Baso % (Auto) 0.6 Absolute Neuts (auto) 10.0 H Absolute Lymphs (auto) 3.45 Nucleated RBC % 0 D-Dimer Quant (PE/DVT) 0.28 Sodium 135 L Potassium 3.6 Chloride 106 Carbon Dioxide 24.0 Anion Gap 6 BUN 11 Creatinine 0.58 Estim Creat Clear Calc 185.74 Est GFR (MDRD) Af Amer 154 Est GFR (MDRD) Non-Af 127 BUN/Creatinine Ratio 18.8 Glucose 111 H Calcium 9.2 Troponin I High Sens < 3 L Radiography Diagnostic Testing: Clinical Impression(s) from Imaging Studies Chest X-Ray 05/11/24 17:51 IMPRESSION: No radiographic evidence of acute cardiopulmonary disease. Electronically Signed: Damian Lo DO at 18:20 EDT Reading Location ID and State: [facility] / [place] Tel [phone], Service support , Discharge Plan Dx/Rx/DC Orders Clinical Impression: Asthma exacerbation, Wheezing, Hypoxia Disposition Disposition: Acute Care Hospital [facility]
[2024-05-11] MEDS: MethylPREDNISolone 125 MG/2 ML Vial IV (17:29)
[2024-05-11] MEDS: Ipratropium/Albuterol Sulfate 3 ML AMPUL.NEB INHALATION (17:33)
[2024-05-11 17:39] LABS: Absolute Lymphocyte Count 3.45 X10^3/uL (0.83-4.51); Basophil# 0.09 X10^3/uL; Basophil% 0.6 % (0-1); Eosinophil# 1.28 X10^3/uL; Hematocrit 48.9 % (37-47); Hemoglobin 16.9 g/dL (12.0-15.0); Lymphocyte # 3.45 X10^3/ul (0.83-4.51); Lymphocyte % 21.6 % (19-41); Mean Corp Hgb Conc 34.6 g/dL (32-36); Mean Corpuscular Hgb 29.4 pg (27.0-32.0); Mean Platelet Vol. 10.1 fl (6.2-12.0); Monocyte% 6.9 % (0-10); NRBC Flagged by Analyzer 0 % (0-5); Neutrophil # 9.99 X10^3/uL (2.7-7.7); Neutrophil % 62.5 % (47-70); Platelet Count 299 K/mm3 (150-450); RBC Distribution Width CV 13.2 % (11.6-14.6); RBC Distribution Width SD 40.7 fl (35.1-43.9); Red Blood Count 5.75 M/mm3 (4.2-5.4)
[2024-05-11 17:49] LABS: D-Dimer Quantitative (DVT/PE) 0.28 FEU/ug/m (0.27-0.49)
--- NOTE | 2024-05-11 17:51 | RAD_ITS ---
INDICATION: Shortness of breath EXAMINATION/TECHNIQUE: X-RAY - XR Chest 1 View COMPARISON: February 01 2024 FINDINGS: LINES/DEVICES: None. LUNGS: No consolidation, edema or effusion. No pneumothorax. MEDIASTINUM AND CARDIOVASCULAR STRUCTURES: Cardiac silhouette not enlarged. Central airways and mediastinal contour are unremarkable. BONES AND SOFT TISSUES: Unremarkable. RAD/Chest 1 View (Portable) IMPRESSION: No radiographic evidence of acute cardiopulmonary disease. Electronically Signed: Damian Lo DO at 18:20 EDT ,
--- OUTSIDE RECORDS SUMMARY | 2024-05-11 17:51 | XMS RPT_ITS | CCD ---
Author Organization [facility] Care Team Providers Care Grades 1 6 Tutor Name Role Phone Laurie Holliday MD Primary Care Provider LAURIE HOLLIDAY Primary Care UnavailSARAH BETH Santacruz Referring Unavailable LAURIE HOLLIDAY Primary Care UnavailLAURIE Martins Primary Care UnavailLAURIE Martins Attending LAURIE Singer Primary Care Unavailab le PODLOGARKAREN Attending Unavailable PODLOGKAREN MARTÍNEZ Referring Unavailable LAURIE HOLLIDAY Primary Care Unavailab le PODLOGANTHONY, KAREN Referring Unavailable LAURIE HOLLIDAY Primary Care UnavailLAURIE Martins Primary Care Unavailab le PODLOGAR, KAREN Referring Unavailable LAURIE HOLLIDAY Primary Care Unavailab SALMA Bird Attending Unavailable LAURIE HOLLIDAY Primary Care Unavail le PODLOGKAREN MARTÍNEZ Attending Laurie Wade MD Primary Care Provider Allergies Allergy Classification Reported Allergen(s) Allergy Type Date of Onset Reaction(s) Facility Lidocaine (2 sources) Lidocaine Drug Allergy 03-20-2017 Intolerance [facility] (17 sources) Lidocaine; Translations: [LIDOCAINE] Drug Allergy 03-20-2017 Intolerance [facility] Work Phone: Medications Current Medications Medication Drug Class(es) Dates Sig (Normalized) Sig (Original) [id number] 200 actuat albuterol 0.09 mg/actuat metered dose inhaler (20 sources) beta2-Adrenergic Agonist Start: 04-02-2024 take 2 puff(s) by inhalation every six hours as needed albuterol HFA (PROAIR HFA) 90 mcg/actuation inhaler Indications: SOB (shortness of breath) Inhale 2 Puffs as instructed every 6 hours as needed. 1 Each 1 04/02/2024 Active Start: 12-04-2023 End: 12-04-2023 albuterol 2.5 mg /3 mL (0.08 3 %) 2.5 mg (PROVENTIL) Start: 12-04-2023 End: 12-04-2023 albuterol 2.5 mg /3 mL (0.08 3 %) 2.5 mg (PROVENTIL) Start: 03-29-2022 End: 04-02-2024 take 2 puff(s) by inhalation every six hours as needed albuterol HFA (PROAIR HFA) 90 mcg/actuation inhaler Indications: SOB (shortness of breath) Inhale 2 Puffs as instructed every 6 hours as needed. 1 Each 03/08/2024 04/02/2024 Discontinued Start: 03-29-2022 End: 03-29-2022 albuterol 2.5 mg /3 mL (0.08 3 %) 2.5 mg (PROVENTIL) Comment on above: Inhale 2 Puffs as in structed every 6 hours as needed. furosemide 40 mg oral tablet (8 sources) Loop Diuretic Start: 01-09-2024 End: 01-09-2024 take 1 tablet by mouth once daily furosemide (LASIX) 40 mg tablet Take 1 tablet by mouth once daily. [facility] 12/08/2023 90 tablet 01/09/2024 Active predniSONE 20 mg oral tablet (2 sources) Start: 03-29-2022 End: 04-03-2022 take 2 tablets by mouth once daily predniSONE (DELTASONE) 20 mg tablet Take 2 tablets by mouth once daily for 5 days. 10 tablet 0 03/29/2022 04/03/2022 Active Comment on above: Take 2 tablets by mo [facility] once daily for 5 days. sertraline 100 mg oral tablet (20 sources) Serotonin Reuptake Inhibitor Start: 06-14-2023 End: 01-09-2024 sertraline (ZOLOFT) 100 mg tablet Indications: Anxiety and depression Take one tablet daily along with th 50 mg tablet to equal 150 mg daily 90 tablet 1 01/09/2024 Active Start: 06-14-2023 sertraline (ZO LOFT) 50 mg tablet Indications: Anxiety and depression Take one tablet daily along with the 100 mg tablet to equal 150 mg a day 90 tablet 1 06/14/2023 Active Start: 12-19-2022 End: 05-29-2023 sertraline (ZOLOFT) 50 mg ta blet Indications: Anxiety and depression Take one tablet daily along with the 100 mg tablet to equal 150 mg a day 90 tablet 1 05/29/2023 Active Start: 12-19-2022 End: 05-29-2023 sertraline (ZOLOFT) 100 mg t ablet Indications: Anxiety and depression Take one tablet daily along with th 50 mg tablet to equal 150 mg daily 30 tablet 1 05/29/2023 Active Start: 10-18-2022 End: 12-19-2022 sertraline (ZOLOFT) 100 mg t ablet Indications: Anxiety and depression Take 1/2 tablet daily for two weeks, if tolerating increase to one tablet daily 30 tablet 1 10/18/2022 12/19/2022 Discontinued Start: 04-20-2021 End: 10-18-2022 take 2 tablets by mouth once daily sertraline (ZOLOFT) 100 mg tablet Indications: Severe episode of recurrent major depressive disorder, without psychotic features (HCC) , PTSD (post-traumatic stress disorder) Take 2 tablets by mouth once daily. 60 tablet 3 04/20/2021 10/18/2022 Discontinued (Course of therapy completed) Comment on above: Take 2 tablets by mo uth once daily. Take 1/2 tablet yonatan y for two weeks, if tolerating increase to one tablet daily Take one tablet yonatan y along with the 100 mg tablet to equal 150 mg a day Take one tablet yonatan y along with th 50 mg tablet to equal 150 mg daily Completed/Discontinued Medications Medication Drug Class(es) Dates Sig (Normalized) Sig (Original) benzonatate 100 mg oral capsule (2 sources) Non-narcotic Antitussive Start: 03-29-2022 take 2 capsules by mouth every eight hours as needed benzonatate (TESSALON PERLES) 100 mg capsule Take 2 capsules by mouth three times daily as needed. 30 capsule 0 03/29/2022 Active Comment on above: Take 2 capsules by m outh three times daily as needed. levonorgestrel 0.837498 mg/hr intrauterine system (4 sources) Progestin, Progestin-containi ng Intrauterine Device Start: 11-21-2017 End: 12-19-2022 levonorgestrel 20 mcg/24 hr (5 years) 1 Each intrauterine device (MIRENA) meclizine hydrochloride 25 mg oral tablet (3 sources) Antiemetic Start: 12-07-2019 End: 10-18-2022 take 1 tablet by mouth three times daily as needed for dizziness meclizine (ANTIVERT) 25 mg tab Indications: Vertigo Take 1 tablet by mouth three times daily as needed (dizziness). 30 tablet 1 12/07/2019 10/18/2022 Discontinued (Course of therapy completed) Comment on above: Take 1 tablet by renetta th three times daily as needed (dizziness). ondansetron 4 mg disintegrating oral tablet (3 sources) Serotonin-3 Receptor Antagonist Start: 12-07-2019 End: 10-18-2022 take 1 tablet by mouth every eight hours as needed for nausea ondansetron orally disintegrating (ZOFRAN ODT) 4 mg disintegrating tablet Indications: Vertigo Take 1 tablet by mouth every 8 hours as needed for Nausea/Vomiting. 30 tablet 12/07/2019 10/18/2022 Discontinued (Course of therapy completed) Comment on above: Take 1 tablet by renetta th every 8 hours as needed for Nausea/Vomiting. vit 61-mzey-flaso-dha (PRENATE MINI, FERR ASP GLYCIN,) 18-1-350 mg cap (3 sources) Start: 07-05-2020 End: 10-18-2022 take 1 capsule by mouth once daily vit 67-nknk-msidp-dha (PRENATE MINI, FERR ASP GLYCIN,) 18-1-350 mg cap Take 1 Dose by mouth once daily. 30 capsule 12 07/05/2020 10/18/2022 Discontinued (Course of therapy completed) Start: 07-05-2020 take 1 capsule by mo uth once daily vit 29-jcwy-psoxz-dha (PRENATE MINI, FERR ASP GLYCIN,) 18-1-350 mg cap Take 1 Dose by mouth once daily. 30 capsule 12 07/05/2020 Active Comment on above: Take 1 Dose by mouth once daily. Problems Active Problems Problem Classification Problem Date Documented Date Episodic/Chronic Anxiety disorders (20 sources) Posttraumatic stress disorder; Translations: [Post-traumatic stress disorder, unspecified] 04-20-2021 Chronic Asthma (1 source) Reactive airway disease; Translations: [Unspecified asthma with (acute) exacerbation] 12-04-2023 Chronic Coma; stupor; and brain damage (1 source) Daytime somnolence; Translations: [Somnolence] 12-10-2023 Episodic Deficiency and other anemia (1 source) Increased hemoglobin; Translations: [Other hemoglobinopathies] 12-10-2023 Chronic Deficiency and other anemia (1 source) Other hemoglobinopathies; Translations: [Elevated hemoglobin (HCC)] Onset: 12-10-2023 Chronic Immunizations and screening for infectious disease (1 source) Suspected disease caused by 2019-nCoV; Translations: [Suspected COVID-19 virus infection] Episodic Other aftercare (2 sources) Post-discharge follow-up; Translations: [Encounter for follow-up examination after completed treatment for conditions other than malignant neoplasm] 09-10-2023 Episodic Other aftercare (1 source) Encounter for follow-up examination after completed treatment for conditions other than malignant neoplasm; Translations: [Hospital discharge follow-up] Onset: 12-10-2023 Episodic Other aftercare (1 source) Long-term current use of diuretic; Translations: [Other skilled nursing (current) drug therapy] 01-09-2024 Episodic Other hematologic conditions (1 source) Secondary polycythemia; Translations: [Secondary polycythemia] 09-10-2023 Episodic Other hematologic conditions (1 source) Erythrocytosis; Translations: [Secondary polycythemia] 12-16-2023 Episodic Other lower respiratory disease (5 sources) Dyspnea; Translations: [Shortness of breath] 09-04-2023 Episodic Other lower respiratory disease (1 source) Cough; Translations: [Acute cough] 10-15-2023 Episodic Other lower respiratory disease (1 source) Hypoxia; Translations: [Hypoxemia] 12-04-2023 Episodic Other lower respiratory disease (2 sources) Hypoxemia; Translations: [Hypoxemia] 12-10-2023 Episodic Other lower respiratory disease (1 source) Snoring; Translations: [Snoring] 12-10-2023 Episodic Other lower respiratory disease (1 source) Shortness of breath; Translations: [SOB (shortness of breath)] Onset: 12-12-2023 Episodic Other lower respiratory disease (1 source) Hypoxemia; Translations: [Hypoxemia] Onset: 12-12-2023 Episodic Other lower respiratory disease (1 source) Shortness of breath Onset: 12-04-2023 Episodic Other lower respiratory disease (1 source) Wheezing; Translations: [Wheezing] 03-29-2022 Episodic Other nutritional; endocrine; and metabolic disorders [...] conditions (not mental disorders or infectious disease) (4 sources) Patient encounter status; Translations: [Encounter for screening for lipoid disorders] Onset: 01-04-2023 Episodic Substance-related disorders (20 sources) History of methamphetamine abuse; Translations: [Other stimulant abuse, in remission] 04-20-2021 Chronic Unclassified (1 source) Acute cough; Translations: [Acute cough] Onset: 10-15-2023 Past or Other Problems Problem Classification Problem Date Documented Da te Episodic/Chronic Other complications of (9 sources) Maternal obesity complicating , childbirth and the puerperium, antepartum; Translations: [Obesity complicating , first trimester] Onset: 04-01-2017 Resolved: 11-21-2017 11-21-2017 Chronic Other complications of (9 sources) Depressive disorder; Translations: [Other mental disorders complicating , first trimester] Onset: 04-01-2017 Resolved: 11-21-2017 11-21-2017 Episodic Other hematologic conditions (1 source) Secondary polycythemia; Translations: [Secondary polycythemia] Onset: 09-10-2023 Episodic Other upper respiratory infections (2 sources) Acute upper respiratory infection; Translations: [Acute upper respiratory infection, unspecified] Onset: 09-04-2023 09-04-2023 Episodic Residual codes; unclassified (9 sources) FH: Congenital heart disease; Translations: [Family history of other congenital malformations, deformations and chromosomal abnormalities] Onset: 03-20-2017 Resolved: 11-21-2017 11-21-2017 Episodic Screening and history of mental health and substance abuse codes (18 sources) H/O: depression; Translations: [Personal history of other mental and behavioral disorders] Onset: 03-20-2017 03-20-2017 Episodic Viral infection (2 sources) Disease due to Rhinovirus; Translations: [Other viral infections of unspecified site] Onset: 09-10-2023 09-10-2023 Episodic Results Test Name Value Interpretation Reference Range Facility [facility] 12-16-2023 BETH Telephone (ALEXANDER) STARR KHAN ([id number]) 1990 F Date Time Provider Department 12/16/23 KAREN JARVIS During your visit today, we recorded the following information about you: Lázaro Messina LPN 12/16/2023 11:00 AM Signed Type of form: Short-term Disability Form received via fax When form is completed, Fax form to [phone] Attn: Ihsan Morley Form has been forwarded to Nurse Practitioner: RONAL Glover Julie, APRN.CNP 12/16/2023 11:06 AM Signed Has patient returned to work? RUPERT Ko Jazzmin, MA 12/16/2023 11:55 AM Signed Pt reports she returned to work yesterday. JANNET Bernal Julie, APRN.CNP 12/16/2023 3:03 PM Signed I spoke with Dr. Holliday regarding her elevated hemoglobin and he recommends we recheck this in 2-3 weeks as her low oxygen level may be the culprit. Prior to rechecking needs to hydrate good as being under hydrated can falsely elevate level. Karen Jarvis APRN.Lázaro Cohn LPN 12/16/2023 4:37 PM Signed Patient notified of providers update. Voices understanding. Concerned with being on the lasix, patient asking if this could increase the test results too? Please advise. RONAL Carrion Julie, APRN.CNP 12/17/2023 7:17 AM Signed If she isn't drinking enough then possibly it could. She ca discuss taking lasix with pulmonology and see what they say. RUPERT Ko Amanda, RN 12/17/2023 9:30 AM Signed Called and left a voicemail for the Patient to call back and ask for a nurse to receive the providers message. CLAUDIA Jolley Krista, LPN 12/22/2023 2:09 PM Signed Short term disability office calls to report they need the OV notes from 12/09. What was faxed from 12/15 was from August per student services representative. RONAL Li Michelle, LPN 12/22/2023 4:19 PM Signed Office note from 12/09 faxed to [employer] [facility] for disability filing. RONAL Carrion Michelle, LPN 12/24/2023 3:44 PM Signed Type of form: Restrictions Form Form received via fax When form is completed, Fax form to [employer] [facility] at [phone] Form has been forwarded to Nurse Practitioner: Karen Jarvsi inbox RONAL Carrion Julie, APRN.CNP 12/24/2023 6:17 PM Signed Forms completed and in my out box. Please fax. RUPERT Ko Gillian, OCCA 12/25/2023 7:36 AM Signed From faxed to [facility] as instructed below. Copy also made and sent to scanning for our records. JERRY Starks Allergies As of Date: 12/16/2023 Noted Allergy Reaction LIDOCAINE 03/20/2017 5 - Intolerance Comments: Lidocaine patches-dizziness Date Reviewed: 12/10/2023 Reviewed by: Lázaro Messina LPN - Fully Assessed Reason for Visit: Results [95] Primary Visit Diagnosis:Erythrocytos is [D75.1] Order(s):PATHOLOGIST INTERPRETATION WITH CBC AND DIFF [SQSTREV] Order #: [id number] FUTURE Prescriptions as of 12/25/2023 - furosemide (LASIX) 40 mg tablet Take 40 mg by mouth once daily. Ordered by hospital doc Dominique Simon [facility] 12/08/2023 - albuterol HFA (PROAIR HFA) 90 mcg/actuation inhaler Inhale 2 Puffs as instructed every 6 hours as needed. - sertraline (ZOLOFT) 100 mg tablet Take one tablet daily along with th 50 mg tablet to equal 150 mg daily - sertraline (ZOLOFT) 50 mg tablet Take one tablet daily along with the 100 mg tablet to equal 150 mg a day Problem List As Of Date 12/16/2023 Noted Resolved History of depression [Z86.59] 03/20/2017 Family history of congenital heart defect [Z82.*03/20/2017 11/21/2017 Patient requested diagnostic testing [Z01.89] 03/20/2017 05/30/2017 Obesity complicating , first trimester*04/01/2017 11/21/2017 Depression affecting in first trimest*04/01/2017 11/21/2017 History of methamphetamine abuse (HCC) [F15.11] History of cocaine abuse (HCC) [F14.11] PTSD (post-traumatic stress disorder) [F43.10] Encounter Status:Closed by MILLY DIAZ on [facility]/23 [facility][id number][facility] 1990 F Date Time Provider Department 12/16/23 KAREN JARVIS During your visit today, we recorded the following information about you: Milly Diaz OCCA 12/16/2023 8:35 AM Signed ----- Message from Karen Jarvis APRN.MARK sent at 12/16/2023 7:11 AM EDT ----- Normal spirometry. I need to know when patient stopped smoking or vaping or is she still doing this- her hemoglobin is elevated so if she smokes this can cause this otherwise if she is not smoking I will need to discuss this with hematology. Thyroid testing is normal. Potassium just below normal. Increase diet in potassium rich foods- this would be leafy greens and fruits RUPERT Ko Gillian, OCCA 12/16/2023 8:39 AM Signed TC to patient who verbalized understanding of providers message below. Patient states she quit smoking in August of this year. Please advise, thank you. JERRY Starks Julie, APRN.CNP 12/16/2023 2:41 PM Signed I have completed patient's disability paperwork. Please take to medical records along with attached hospital discharge summary and recent pulmonary function testing. Karen Jarvis APRN.Lázaro Cohn LPN 12/17/2023 7:29 PM Signed Patient telephoned to notify of paperwork completion. Requested all paperwork be faxed to number on paper. All paperwork faxed to . Lázaro Messina LPN Allergies As of Date: 12/16/2023 Noted Allergy Reaction LIDOCAINE 03/20/2017 5 - Intolerance Comments: Lidocaine patches-dizziness Date Reviewed: 12/10/2023 Reviewed by: Lázaro Messina LPN - Fully Assessed Reason for Visit: Results [95] Prescriptions as of 12/17/2023 - furosemide (LASIX) 40 mg tablet Take 40 mg by mouth once daily. Ordered by hospital jenni Simon [facility] 12/08/2023 - albuterol HFA (PROAIR HFA) 90 mcg/actuation inhaler Inhale 2 Puffs as instructed every 6 hours as needed. - sertraline (ZOLOFT) 100 mg tablet Take one tablet daily along with th 50 mg tablet to equal 150 mg daily - sertraline (ZOLOFT) 50 mg tablet Take one tablet daily along with the 100 mg tablet to equal 150 mg a day Problem List As Of Date 12/16/2023 Noted Resolved History of depression [Z86.59] 03/20/2017 Family history of congenital heart defect [Z82.*03/20/2017 11/21/2017 Patient requested diagnostic testing [Z01.89] 03/20/2017 05/30/2017 Obesity complicating , first trimester*04/01/2017 11/21/2017 Depression affecting in first trimest*04/01/2017 11/21/2017 History of methamphetamine abuse (HCC) [F15.11] History of cocaine abuse (HCC) [F14.11] PTSD (post-traumatic stress disorder) [F43.10] Encounter Status:Closed by LÁZARO MESSINA on 12/17/23 Normal [facility] Basic metabolic 2000 panelon 12-10-2023 Anion gap [Moles/Vol] 12 mmol/L Normal 9-18 [facility] Comment on above: Order Comment: Speci men Type: BLOOD SPECIMENOrdering Facility: [facility] Address: [address] [place] [address] Performed By: #### 3 053-6, 3016-3, 05159-7, 3024-7 ####[facility] LABIA [id number] [place] [address] [place] Calcium [Mass/Vol] 9.4 mg/dL Normal 8.5-10.2 [facility] Comment on above: Order Comment: Speci men Type: BLOOD SPECIMENOrdering Facility: [facility] Address: [address] [place] [address] Performed By: #### 3 053-6, 3016-3, 76434-3, 3024-7 ####[facility] LABCLIA [id number] [place] [address] [place] Chloride [Moles/Vol] 102 mmol/L Normal 97-105 [facility] Comment on above: Order Comment: Speci men Type: BLOOD SPECIMENOrdering Facility: [facility] Address: [address] [place], [place] [address] Performed By: #### 3 053-6, 3016-3, 00272-5, 3024-7 ####[facility] LABCLIA [id number] [address] [address] [place] CO2 [Moles/Vol] 25 mmol/L Normal 22-30 [facility] Comment on above: Order Comment: Speci men Type: BLOOD SPECIMENOrdering Facility: [facility] Address: [address] [place], [place] [address] Performed By: #### 3 053-6, 3016-3, 32442-9, 3023-7 ####[facility] LABIA [id number] [place] [id number] [place] Creatinine [Mass/Vol] 0.62 mg/dL Normal 0.58-0.96 [facility] Comment on above: Order Comment: Speci men Type: BLOOD SPECIMENOrdering Facility: [facility] Address: [address] [place] [address] Performed By: #### 3 053-6, 3016-3, 33664-7, 3023-7 ####[facility] LABIA [id number] [address] [address] [place] Creatinine and Glomerular filtration rate.predicted panel (S/P/Bld) 122 mL/min/1.73m??? Normal >=60 [facility] Comment on above: Order Comment: Speci men Type: BLOOD SPECIMENOrdering Facility: [facility] Address: [address] [place] [address] Result Comment: Emelyn mated Glomerular Filtration Rate (eGFR) is calculated using the 2020 CKD-EPI creatinine equation. This equation utilizes serum creatinine, sex, and age as parameters. The creatinine assay has traceable calibration to isotope dilution-mass spectrometry. Refer to KDIGO guidelines for clinical interpretation. In patients with unstable renal function, e.g. those with acute kidney injury, the eGFR may not accurately reflect actual GFR. Performed By: #### 3 053-6, 3016-3, 21854-2, 3023-7 ####[facility] LABCLIA [id number] [place] [id number] [place] Glucose [Mass/Vol] 67 mg/dL Low 74-99 [facility] Comment on above: Order Comment: Speci men Type: BLOOD SPECIMENOrdering Facility: [facility] Address: [address] [place] [address] Result Comment: The [place] Diabetes Association (ADA) provides guidance for cutoff values for fasting glucose and random glucose. The ADA defines fasting as no caloric intake for at least 8 hours. Fasting plasma glucose results between 100 to 125 mg/dL indicate increased risk for diabetes (prediabetes). Fasting plasma glucose results greater than or equal to 126 mg/dL meet the criteria for diagnosis of diabetes. In the absence of unequivocal hyperglycemia, results should be confirmed by repeat testing. In a patient with classic symptoms of hyperglycemia or hyperglycemic crisis, random plasma glucose results greater than or equal to 200 mg/dL meet the criteria for diagnosis of diabetes. Reference: Standards of Medical Care in Diabetes 2016, [place] [employer]. Diabetes Care. 2016.39(Suppl 1). Performed By: #### 3 053-6, 3016-3, 48418-4, 7 ####[facility] LABCLIA [id number] [place] [address] [place] Potassium [Moles/Vol] 3.6 mmol/L Low 3.7-5.1 [facility] Comment on above: Order Comment: Speci men Type: BLOOD SPECIMENOrdering Facility: [facility] Address: [address] [place] [address] Performed By: #### 3 053-6, 3016-3, 68665-1, 7 ####[facility] LABCLIA [id number] [place] [address] [place] Sodium [Moles/Vol] 139 mmol/L Normal 136-144 [facility] Comment on above: Order Comment: Speci men Type: BLOOD SPECIMENOrdering Facility: [facility] Address: [address] [place] [address] Performed By: #### 3 053-6, 3016-3, 93578-8, 3024-7 ####[facility] LABCLIA [id number] [place] [address] [place] Urea nitrogen [Mass/Vol] 18 mg/dL Normal 7-21 [facility] Comment on above: Order Comment: Speci men Type: BLOOD SPECIMENOrdering Facility: [facility] Address: [address] [place] [address] Performed By: #### 3 053-6, 3016-3, 39413-5, 3024-7 ####[facility] LABCLIA [id number] [place] [address] [place] CBC W Auto Differential pane l (Bld)on 12-10-2023 Basophils (Bld) [#/Vol] 0.00 10*3/uL Normal <0.11 [facility] Comment on above: Order Comment: Speci men Type: BLOOD SPECIMENOrdering Facility: [facility] Address: [address] [place] [address] Performed By: #### 5 7021-8 ####[facility] LABCLIA [id number] [place] [address] [place] Basophils/100 WBC (Bld) 0.0 % Normal [facility] Comment on above: Order Comment: Speci men Type: BLOOD SPECIMENOrdering Facility: [facility] Address: [address] [place] [address] Performed By: #### 5 7021-8 ####[facility] LABCLIA [id number] [place] [address] [place] Differential cell count method Nom (Bld) Manual Normal [facility] Comment on above: Order Comment: Speci men Type: BLOOD SPECIMENOrdering Facility: [facility] Address: [address] [place] [address] Performed By: #### 5 7021-8 ####[facility] LABCLIA [id number] [place] [address] [place] Eosinophils (Bld) [#/Vol] 1.08 10*3/uL High <0.46 [facility] Comment on above: Order Comment: Speci men Type: BLOOD SPECIMENOrdering Facility: [facility] Address: [address] [place] [address] Performed By: #### 5 7021-8 ####[facility] LABCLIA [id number] [place] [address] [place] Eosinophils/100 WBC (Bld) 6.0 % Normal [facility] Comment on above: Order Comment: Speci men Type: BLOOD SPECIMENOrdering Facility: [facility] Address: [address] [place] [address] Performed By: #### 5 7021-8 ####[facility] LABCLIA [id number] [place] [address] [place] Erythrocyte distribution width (RBC) [Ratio] 13.0 % Normal 11.5-15.0 [facility] Comment on above: Order Comment: Speci men Type: BLOOD SPECIMENOrdering Facility: [facility] Address: [address] [place] [address] Performed By: #### 5 7021-8 ####[facility] LABCLIA [id number] [place] [address] [place] Hematocrit (Bld) [Volume fraction] 53.4 % High 36.0-46.0 [facility] Comment on above: Order Comment: Speci men Type: BLOOD SPECIMENOrdering Facility: [facility] Address: [address] [place] [address] Performed By: #### 5 7021-8 ####[facility] LABCLIA [id number] [place] [address] [place] Hemoglobin (Bld) [Mass/Vol] 18.4 g/dL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 Inhale 2 Puffs as instructed every 6 hours as needed. Problem List As Of Date 09/04/2023 Noted Resolved History of depression [Z86.59] 03/20/2017 Family history of congenital heart defect [Z82.*03/20/2017 11/21/2017 Patient requested diagnostic testing [Z01.89] 03/20/2017 05/30/2017 Obesity complicating , first trimester*04/01/2017 11/21/2017 Depression affecting in first trimest*04/01/2017 11/21/2017 History of methamphetamine abuse (HCC) [F15.11] History of cocaine abuse (HCC) [F14.11] PTSD (post-traumatic stress disorder) [F43.10] (more content not included)... Normal [facility] COVID AND INFLUENZA A/B AND RSV NAAT, ROUTINEon 09-04-2023 SARS-CoV-2 (COVID-19) RNA ALMA DELIA+probe Ql (Unsp spec) COVID 19 RESULT: Not detected The method used is RT-PCR or an equivalent NAAT method. Reference Range (the expected result in uninfected individuals): Not detected INFLUENZA A PCR: Not detected INFLUENZA B PCR: Not detected RSV PCR: Not detected Normal [facility] Comment on above: Performed By: #### C VFS ####[facility] LABCLIA [id number] [address] [place] CNPMontserrat 01-06-2023 CNPN Telephone (FAMPWS) STARR KHAN ([id number]) 1990 F Date Time Provider Department 01/06/23 KAREN JARVIS During your visit today, we recorded the following information about you: Lázaro Messina LPN 01/06/2023 8:29 AM Signed ----- Message from Karen Jarvis APRN.LIBRARY ASSISTANT sent at 01/06/2023 7:44 AM EDT ----- LDL ( bad cholesterol) just above normal range. Eat low saturate fat diet and exercise at least 150 minutes per week if not already doing so. The rest of labs are in acceptable ranges. RUPERT Ko LPN 01/06/2023 8:29 AM Signed Message left for patient to call office back for update. RONAL Carrion RN 01/06/2023 8:35 AM Signed Pt called and is notified of providers results and instructions. Pt voices understanding. Soheila Catherine RN Allergies As of Date: 01/06/2023 Noted Allergy Reaction LIDOCAINE 03/20/2017 5 - Intolerance Comments: Lidocaine patches-dizziness Date Reviewed: 12/19/2022 Reviewed by: JERRY Starks - Fully Assessed Reason for Visit: Results [95] Prescriptions as of 01/06/2023 - sertraline (ZOLOFT) 50 mg tablet Take one tablet daily along with the 100 mg tablet to equal 150 mg a day - sertraline (ZOLOFT) 100 mg tablet Take one tablet daily along with th 50 mg tablet to equal 150 mg daily - albuterol HFA (PROAIR HFA) 90 mcg/actuation inhaler Inhale 2 Puffs as instructed every 6 hours as needed. Problem List As Of Date 01/06/2023 Noted Resolved History of depression [Z86.59] 03/20/2017 Family history of congenital heart defect [Z82.*03/20/2017 11/21/2017 Patient requested diagnostic testing [Z01.89] 03/20/2017 05/30/2017 Obesity complicating , first trimester*04/01/2017 11/21/2017 Depression affecting in first trimest*04/01/2017 11/21/2017 History of methamphetamine abuse (HCC) [F15.11] History of cocaine abuse (HCC) [F14.11] PTSD (post-traumatic stress disorder) [F43.10] Encounter Status:Closed by SOHEILA CATHERINE on 01/06/23 Normal [facility] Comprehensive metabolic 2000 panelon 01-04-2023 Albumin [Mass/Vol] 4.3 g/dL Normal 3.9-4.9 [facility] Comment on above: Order Comment: Speci men Type: BLOOD SPECIMENOrdering Facility: [facility] Address: [address] [place] [address] Performed By: #### 2 4323-8, 00934-3, 6-3 ####[facility] LABCLIA [id number] [place] [address] [place] ALP [Catalytic activity/Vol] 107 U/L Normal 34-123 [facility] Comment on above: Order Comment: Speci men Type: BLOOD SPECIMENOrdering Facility: [facility] Address: [address] [place] [address] Performed By: #### 2 4323-8, 85585-5, 6-3 ####[facility] LABCLIA [id number] [place] [address] [place] ALT [Catalytic activity/Vol] 19 U/L Normal 7-38 [facility] Comment on above: Order Comment: Speci men Type: BLOOD SPECIMENOrdering Facility: [facility] Address: [address] [place], [place] [address] Performed By: #### 2 4323-8, 77951-6, 6-3 ####[facility] LABCLIA [id number] [place] [address] [place] Anion gap [Moles/Vol] 15 mmol/L Normal 9-18 [facility] Comment on above: Order Comment: Speci men Type: BLOOD SPECIMENOrdering Facility: [facility] Address: [address] [place] [address] Performed By: #### 2 4323-8, 31697-5, 3016-3 ####[facility] LABCLIA [id number] [place] [address] [place] AST [Catalytic activity/Vol] 23 U/L Normal 13-35 [facility] Comment on above: Order Comment: Speci men Type: BLOOD SPECIMENOrdering Facility: [facility] Address: [address] [place] [address] Performed By: #### 2 4323-8, 48867-8, 3015-3 ####[facility] LABCLIA [id number] [place] [address] [place] Bilirubin [Mass/Vol] 0.5 mg/dL Normal 0.2-1.3 [facility] Comment on above: Order Comment: Speci men Type: BLOOD SPECIMENOrdering Facility: [facility] Address: [address] [place] [address] Performed By: #### 2 4323-8, 87499-3, 3015-3 ####[facility] LABIA [id number] [place] [address] [place] Calcium [Mass/Vol] 9.7 mg/dL Normal 8.5-10.2 [facility] Comment on above: Order Comment: Speci men Type: BLOOD SPECIMENOrdering Facility: [facility] Address: [address] [place], [place] [address] Performed By: #### 2 4323-8, 64214-7, 3 ####[facility] LABIA [id number] [place] [address] [place] Chloride [Moles/Vol] 103 mmol/L Normal 97-105 [facility] Comment on above: Order Comment: Speci men Type: BLOOD SPECIMENOrdering Facility: [facility] Address: [address] Performed By: #### 2 4323-8, 59146-1, 3015-3 ####[facility] LABCLIA [id number] [place] [address] [place] CO2 [Moles/Vol] 20 mmol/L Low 22-30 [facility] Comment on above: Order Comment: Speci men Type: BLOOD SPECIMENOrdering Facility: [facility] Address: [address] [place] [address] Performed By: #### 2 4323-8, 68456-6, 3015-3 ####[facility] LABCLIA [id number] [address] [place] Creatinine [Mass/Vol] 0.47 mg/dL Low 0.58-0.96 [facility] Comment on above: Order Comment: Speci men Type: BLOOD SPECIMENOrdering Facility: [facility] Address: [address] [place] [address] Performed By: #### 2 4323-8, 10243-7, 3015-3 ####[facility] [id number] [address] STATES OF [facility] ESTIMATED GLOMERULAR FILTRATION RATE 132 mL/min/1.73m??? Normal >=60 [facility] Comment on above: Order Comment: Speci men Type: BLOOD SPECIMENOrdering Facility: [facility] Address: [address] [place] [address] Result Comment: Emelyn mated Glomerular Filtration Rate (eGFR) is calculated using the 2020 CKD-EPI creatinine equation. This equation utilizes serum creatinine, sex, and age as parameters. The creatinine assay has traceable calibration to isotope dilution-mass spectrometry. Refer to KDIGO guidelines for clinical interpretation. In patients with unstable renal function, e.g. those with acute kidney injury, the eGFR may not accurately reflect actual GFR. Performed By: #### 2 4323-8, 73227-8, 3015-3 ####[facility] LABIA [id number] [place] [address] [place] Glucose [Mass/Vol] 77 mg/dL Normal 74-99 [facility] Comment on above: Order Comment: Speci men Type: BLOOD SPECIMENOrdering Facility: [facility] Address: [place] [address] Result Comment: The [place] Diabetes Association (ADA) provides guidance for cutoff values for fasting glucose and random glucose. The ADA defines fasting as no caloric intake for at least 8 hours. Fasting plasma glucose results between 100 to 125 mg/dL indicate increased risk for diabetes (prediabetes). Fasting plasma glucose results greater than or equal to 126 mg/dL meet the criteria for diagnosis of diabetes. In the absence of unequivocal hyperglycemia, results should be confirmed by repeat testing. In a patient with classic symptoms of hyperglycemia or hyperglycemic crisis, random plasma glucose results greater than or equal to 200 mg/dL meet the criteria for diagnosis of diabetes. Reference: Standards of Medical Care in Diabetes 2016, [place] Diabetes Association. Diabetes Care. 2016.39(Suppl 1). Performed By: #### 2 4323-8, 63671-0, 3016-3 ####[facility] LABCLIA [id number] [place] [address] [place] Potassium [Moles/Vol] 3.6 mmol/L Low 3.7-5.1 [facility] Comment on above: Order Comment: Radha goodwin Type: BLOOD SPECIMENOrdering Facility: [facility] Address: [place] [address] Performed By: #### 2 4323-8, 43391-9, 6-3 ####[facility] LABCLIA [id number] [place] [address] [place] Protein [Mass/Vol] 7.4 g/dL Normal 6.3-8.0 [facility] Comment on above: Order Comment: Radha goodwin Type: BLOOD SPECIMENOrdering Facility: [facility] Address: [place] [address] Performed By: #### 2 4323-8, 91239-0, 3016-3 ####[facility] LABCLIA [id number] [place] [id number] [place] Sodium [Moles/Vol] 138 mmol/L Normal 136-144 [facility] Comment on above: Order Comment: Radha men Type: BLOOD SPECIMENOrdering Facility: [facility] Address: [address] [place] [address] Performed By: #### 2 4323-8, 83461-0, 3016-3 ####[facility] LABCLIA [id number] [place] [address] [place] Urea nitrogen [Mass/Vol] 6 mg/dL Low 7-21 [facility] Comment on above: Order Comment: Yudelkai men Type: BLOOD SPECIMENOrdering Facility: [facility] Address: [address] [place] [address] Performed By: #### 2 4323-8, 85258-0, 3016-3 ####[facility] LABCLIA [id number] [place] [address] [place] HbA1c (Bld)on 01-04-2023 Average glucose Estimated from glycated hemoglobin (Bld) [Mass/Vol] 85 mg/dL Normal [facility] Comment on above: Order Comment: Radha goodwin Type: BLOOD SPECIMENOrdering Facility: [facility] Address: [address] [place] [address] Result Comment: eAG: (Estimated average glucose) is a calculated value from HgbA1c and is student services representative of the average blood glucose level in the last 2-3 month period. Performed By: #### 5 5454-3 ####[facility] LABIA [id number] [place] [address] [place] HbA1c (Bld) [Mass fraction] 4.6 % Normal 4.3-5.6 [facility] Comment on above: Order Comment: Radha christa Type: BLOOD SPECIMENOrdering Facility: [facility] Address: [address] [place] [address] Result Comment: [place] Diabetes Association guidelines indicate that patients with HgbA1c in the range 5.7-6.4% are at increased risk for development of diabetes, and intervention by lifestyle modification may be beneficial. HgbA1c greater or equal to 6.5% is considered diagnostic of diabetes. Performed By: #### 5 5454-3 ####[facility] LABCLIA [id number] [address] OF [facility] Lipid 1996 panelon 3 Cholesterol [Mass/Vol] 170 mg/dL Normal <200 [facility] Comment on above: Order Comment: Speci men Type: BLOOD SPECIMENOrdering Facility: [facility] Address: [address] [place] [address] Result Comment: <200 mg/dL, Desirable 200-239 mg/dL, Borderline high >239 mg/dL, High Performed By: #### 2 4323-8, 33236-4, 3016-3 ####[facility] LABCLIA [id number] [address] [place] Cholesterol in HDL [Mass/Vol] 42 mg/dL Normal >39 [facility] Comment on above: Order Comment: Yudelkai [facility] Type: BLOOD SPECIMENOrdering Facility: [facility] Address: [address] [place] [address] Result Comment: 40-5 9 mg/dL, Acceptable >59 mg/dL, High: Negative risk factor for coronary heart disease <40 mg/dL, Low: Positive risk factor for coronary heart disease Performed By: #### 2 4323-8, 59961-5, 3016-3 ####[facility] LABCLIA [id number] [address] STATES OF [facility] Cholesterol in LDL [Mass/Vol] 111 mg/dL High <100 [facility] Comment on above: Order Comment: Speci [facility] Type: BLOOD SPECIMENOrdering Facility: [facility] Address: [address] [place] [address] Result Comment: <100 mg/dL, Optimal 100-129 mg/dL, Near optimal/above optimal 130-159 mg/dL, Borderline high 160-189 mg/dL, High >189 mg/dL, Very high Secondary prevention optimal LDL Cholesterol levels are recommended to be < 70 mg/dL Performed By: #### 2 4323-8, 70502-8, 3016-3 ####[facility] LABCLIA [id number] [address] [place] Cholesterol in LDL/Cholesterol in HDL [Mass ratio] 2.64 {ratio} High <2.54 [facility] Comment on above: Order Comment: Speci men Type: BLOOD SPECIMENOrdering Facility: [facility] Address: [address] [place] [address] Result Comment: Refe rence: 1. National Cholesterol Education Program ATP III Guideline At-A-Glance Quick Desk Reference: National Heart, Lung, and Blood [place]. National Institutes of Health. 2001: NIH Publication No. 01-3305. 2. An International Atherosclerosis Society position paper: global recommendations for the management of dyslipidemia: executive summary, Atherosclerosis. 2014: 232(2):410-413. Performed By: #### 2 4323-8, 18026-4, 6-3 ####[facility] LABCLIA [id number] [place] [address] [place] Cholesterol in VLDL [Mass/Vol] 17 mg/dL Normal <30 [facility] Comment on above: Order Comment: Radha goodwin Type: BLOOD SPECIMENOrdering Facility: [facility] Address: [address] [place] [address] Performed By: #### 2 4323-8, 92962-3, 6-3 ####[facility] LABCLIA [id number] [address] [place] Cholesterol non HDL [Mass/Vol] 128 mg/dL Normal <130 [facility] Comment on above: Order Comment: Yudelkai men Type: BLOOD SPECIMENOrdering Facility: [facility] Address: [address] [place] [address] Result Comment: <130 mg/dL, Optimal 130-159 mg/dL, Near optimal/above optimal 160-189 mg/dL, Borderline high 190-219 mg/dL, High >219 mg/dL, Very high Secondary prevention optimal non HDL Cholesterol levels are recommended to be <100 mg/dL Performed By: #### 2 4323-8, 29188-2, 3016-3 ####[facility] LABCLIA [id number] [address] Cholesterol.total/C holesterol in HDL [Mass ratio] 4.05 {ratio} Normal <5.10 [facility] Comment on above: Order Comment: Speci men Type: BLOOD SPECIMENOrdering Facility: [facility] Address: [address] [place] [address] Performed By: #### 2 4323-8, 67131-2, 6-3 ####[facility] LABIA [id number] [address] FASTING TIME 10 hrs Normal [facility] Comment on above: Order Comment: Speci men Type: BLOOD SPECIMENOrdering Facility: [facility] Address: [address] [place] [address] Performed By: #### 2 4323-8, 80600-8, 6-3 ####[facility] LABIA [id number] [address] Triglyceride [Mass/Vol] 83 mg/dL Normal <150 [facility] Comment on above: Order Comment: Speci men Type: BLOOD SPECIMENOrdering Facility: [facility] Address: [address] [place] [address] Result Comment: <150 mg/dL, Normal 150-199 mg/dL, Borderline high 200-499 mg/dL, High >499 mg/dL, Very high Performed By: #### 2 4323-8, 58644-3, 6-3 ####[facility] LABIA [id number] [address] [place] TSH SerPl-aCncon 01-04-2023 TSH Qn 0.911 m[IU]/L Normal 0.270-4.200 [facility] Comment on above: Order Comment: Speci men Type: BLOOD SPECIMENOrdering Facility: [facility] Address: [address] [place] [address] Result Comment: If t he patient is , TSH reference range varies by gestational period: First Trimester (weeks 9-12): 0.180-2.990 mIU/L Second Trimester: 0.110-3.980 mIU/L Third Trimester: 0.480-4.710 mIU/L Uriel Dobbs et al. A Practical Approach for the Verifications and Determination of Site- and Trimester-Specific Reference Intervals for Thyroid Function tests in . Thyroid, 2019:29:3:412-420. Marcio E, et al. 2017 Guidelines of the [place] Thyroid Association for the Diagnosis and Management of Thyroid Disease during and the . Thyroid, 2017:27:3:315-389. Performed By: #### 2 4323-8, 58873-7, 3016-3 ####[facility] LABCLIA [id number] [facility] [id number] [address] [place] XR CHEST 2V FRONTAL/LATon [facility] XR Chest PA and Lateralon IMPRESSION: No evidence of active disease. Glass Washer: PSCB Transcribe Date/Time: Mar 29 2022 8:22A Dictated by : KAY HUGGINS MD This examination was interpreted and the report reviewed and electronically signed by: KAY HUGGINS MD on Mar 29 2022 8:23AM [facility] DIVISION OF RADIOLOGY * * *Final Report* * * DATE OF EXAM: Mar 29 2022 8:09AM WOX [id number] - XR CHEST 2V FRONTAL/LAT / PROCEDURE REASON: Wheeze * * * * Physician Interpretation * * * * EXAMINATION: CHEST RADIOGRAPH (2 VIEW FRONTAL & LATERAL) CLINICAL HISTORY: Wheeze MQ: XC2_6 EXAM DATE/TIME: 03/29/2022 8:09 AM COMPARISON: No relevant prior studies available. RESULT: Lines, tubes, and devices: None. Lungs and pleura: No consolidation. No lung mass. No pleural effusion. No pneumothorax. Cardiomediastinal silhouette: Normal cardiomediastinal silhouette. Bones and soft tissues: Unremarkable. DIVISION OF RADIOLOGY Provider, Amanda Joe g [place] - 03/29/2022 * * *Final Report* * * DATE OF EXAM: Mar 29 2022 8:09AM WOX [id number] - XR CHEST 2V FRONTAL/LAT / PROCEDURE REASON: Wheeze * * * * Physician Interpretation * * * * EXAMINATION: CHEST RADIOGRAPH (2 VIEW FRONTAL & LATERAL) CLINICAL HISTORY: Wheeze MQ: XC2_6 EXAM DATE/TIME: 03/29/2022 8:09 AM COMPARISON: No relevant prior studies available. RESULT: Lines, tubes, and devices: None. Lungs and pleura: No consolidation. No lung mass. No pleural effusion. No pneumothorax. Cardiomediastinal silhouette: Normal cardiomediastinal silhouette. Bones and soft tissues: Unremarkable. IMPRESSION IMPRESSION: No evidence of active disease. Glass Washer: PARAMJIT Transcribe Date/Time: Mar 29 2022 8:22A Dictated by : KAY HUGGINS MD This examination was interpreted and the report reviewed and electronically signed by: KAY HUGGINS MD on Mar 29 2022 8:23AM EST [facility] Radiology Study observation (narrative) [facility] XR Chest PA and LateralOrder ed By: [facility] Provider on 03-29-[address] [facility] [address] HEAD OR BRAIN W/O CONTRAS Ton 08-18-2018 CT HEAD OR BRAIN W/O CONTRAST ORIGINAL CT HEAD OR BRAIN W/O CONTRAST CLINICAL STATEMENT: INJURY. TECHNIQUE: Axial CT images from skull base to vertex without IV contrast. This exam was performed according to our departmental dose optimization program, and includes the following measures where applicable: automated exposure control, adjustment of the mAs and/or kVp according to patient size and/or exam, and an iterative reconstruction algorithm. COMPARISON: None. FINDINGS: There is trace hyperdensity along the anterior falx, image 16. There is no acute intracranial mass or mass effect. No evidence of an acute territorial infarct is identified. The ventricles are normal. The skull base and calvarium demonstrate no acute abnormality. Paranasal sinuses are clear. The included mastoid air cells are clear. There is soft tissue hematoma formation posteriorly at the vertex. IMPRESSION: 1. Trace parafalcine subdural hemorrhage. 2. Significant soft tissue hematoma formation near the vertex. Danielle Nielson called these results to TERESA RAMIREZ MD on 08/18/2018 3:34 PM. Interpreted By: Danielle Nielson MD Preliminary Report By: Danielle Nielson MD Electronically Signed By: Danielle Nielson MD Dictated Date: 08/18/2018 3:25:05 PM Prelim Date: 08/18/2018 3:25:05 PM Sign Date: 08/18/2018 3:37:46 PM Normal [facility] ([place]) Vital Signs Date Time Vital Sign Value Performing Clinician Facility 12-12-2023 09:28-0400 Body height 165.9 cm Pulm Wstr Work Phone: [facility] 12-12-2023 09:28-0400 Body mass index (BMI) [Ratio] 46.31 kg/m2 Pulm Wstr Work Phone: [facility] 12-12-2023 09:28-040 Body weight 127.46 kg Pulm Wstr Work Phone: [facility] 12-10-2023 08:18-0400 Body mass index (BMI) [Ratio] 46.88 kg/m2 Karen Podlogar C[employer]LESS GRINDER.LIBRARY ASSISTANT Work Phone: [facility] 12-10-2023 08:18-0400 Body weight 125.83 kg Karen Podlogar [employer]LESS GR[employer]ER.LIBRARY ASSISTANT Work Phone: [facility] 12-10-2023 08:18-0400 Diastolic blood pressure 76 mm[Hg] Karen Podlogar [employer]LESS GR[employer]ER.LIBRARY ASSISTANT Work Phone: [facility] 12-10-2023 08:18-0400 Heart rate 93 /min Karen Podlogar [employer]LESS GR[employer]ER.LIBRARY ASSISTANT Work Phone: [facility] 12-10-2023 08:18-0400 Respiratory rate 20 /min Karen Podlogar C[employer]LESS GR[employer]ER.LIBRARY ASSISTANT Work Phone: [facility] 12-10-2023 08:18-0400 SaO2% (BldA) [Mass fraction] 96 % Karen Podlogar C[employer]LESS GR[employer]ER.LIBRARY ASSISTANT Work Phone: [facility] 12-10-2023 08:18-0400 Systolic blood pressure 104 mm[Hg] Karen Podlogar C[employer]LESS GR[employer]ER.LIBRARY ASSISTANT Work Phone: [facility] 12-04-2023 08:25-0400 Heart rate 98 /min Laurie Holliday MD Work Phone: [facility] Comment on above: recheck following neb tx 12-04-2023 08:25-0400 SaO2% (BldA) [Mass fraction] 93 % Laurie Holliday MD Work Phone: [facility] Comment on above: recheck following neb tx 12-04-2023 08:22-0400 Body mass index (BMI) [Ratio] 46.24 kg/m2 Laurie Holliday MD Work Phone: [facility] 12-04-2023 08:22-0400 Body temperature 98.01 [degF] Laurie Holliday MD Work Phone: [facility] 12-04-2023 08:22-0400 Body weight 124.1 kg Laurie Holliday MD Work Phone: [facility] 12-04-2023 08:22-0400 Diastolic blood pressure 82 mm[Hg] Laurie Holliday MD Work Phone: [facility] 12-04-2023 08:22-0400 Respiratory rate 36 /min Laurie Holliday MD Work Phone: [facility] 12-04-2023 08:22-0400 Systolic blood pressure 130 mm[Hg] Laurie Holliday MD Work Phone: [facility] 10-15-2023 08:41-0400 Body temperature 98.29 [degF] Sarah Beth Diaz APRN.LIBRARY ASSISTANT Work Phone: [facility] 10-15-2023 08:41-0400 Body weight 127.4 kg Sarah Beth Diaz APRN.LIBRARY ASSISTANT Work Phone: [facility] 10-15-2023 08:41-0400 Diastolic blood pressure 64 mm[Hg] Sarah Beth Diaz APRN.LIBRARY ASSISTANT Work Phone: [facility] 10-15-2023 08:41-0400 Heart rate 102 /min Sarah Beth Adam C[employer]LESS GRINDER.LIBRARY ASSISTANT Work Phone: [facility] 10-15-2023 08:41-0400 Respiratory rate 18 /min Sarah Beth Diaz CENTERLESS GRINDER.LIBRARY ASSISTANT Work Phone: [facility] 10-15-2023 08:41-0400 SaO2% (BldA) [Mass fraction] 96 % Sarah Beth Diaz CENTERLESS GRINDER.LIBRARY ASSISTANT Work Phone: [facility] 10-15-2023 08:41-0400 Systolic blood pressure 108 mm[Hg] Sarah Beth Diaz CENTERLESS GRINDER.LIBRARY ASSISTANT Work Phone: [facility] 09-10-2023 14:29-0500 Body weight 127.75 kg Karen Podlogar CENTERLESS GR[employer]ER.LIBRARY ASSISTANT Work Phone: [facility] 09-10-2023 14:29-0500 Diastolic blood pressure 78 mm[Hg] Karen Podlogar CENTERLESS GRINDER.LIBRARY ASSISTANT Work Phone: [facility] 09-10-2023 14:29-0500 Heart rate 85 /min Karen Podlogar C[employer]LESS GR[employer]ER.LIBRARY ASSISTANT Work Phone: [facility] 09-10-2023 14:29-0500 Respiratory rate 18 /min Karen Podlogar C[employer]LESS GR[employer]ER.LIBRARY ASSISTANT Work Phone: [facility] 09-10-2023 14:29-0500 SaO2% (BldA) [Mass fraction] 96 % Karen Podlogar C[employer]LESS GR[employer]ER.LIBRARY ASSISTANT Work Phone: [facility] 09-10-2023 14:29-0500 Systolic blood pressure 112 mm[Hg] Karen Podlogar C[employer]LESS GRINDER.LIBRARY ASSISTANT Work Phone: [facility] 09-04-2023 09:05-0500 Body temperature 99.1 [degF] Salma Howard CENTERLESS GRINDER.LIBRARY ASSISTANT Work Phone: [facility] 09-04-2023 09:05-0500 Body weight 127.91 kg Salma Howard CENTERLESS GR[employer]ER.LIBRARY ASSISTANT Work Phone: [facility] 09-04-2023 09:05-0500 Diastolic blood pressure 83 mm[Hg] Salma Lee CENTERLESS GRINDER.LIBRARY ASSISTANT Work Phone: [facility] 09-04-2023 09:05-0500 Heart rate 116 /min Salma Lee CENTERLESS GRINDER.LIBRARY ASSISTANT Work Phone: [facility] 09-04-2023 09:05-0500 Respiratory rate 24 /min Salma Howard C[employer]LESS GR[employer]ER.LIBRARY ASSISTANT Work Phone: [facility] 09-04-2023 09:05-0500 SaO2% (BldA) [Mass fraction] 92 % Salma Howard CENTERLESS GRINDER.LIBRARY ASSISTANT Work Phone: [facility] 09-04-2023 09:05-0500 Systolic blood pressure 122 mm[Hg] Salma King C[employer]LESS GRINDER.LIBRARY ASSISTANT Work Phone: [facility] 12-19-2022 07:38-0400 Body weight 124.19 kg Karen Podlogar C[employer]LESS GR[employer]ER.LIBRARY ASSISTANT Work Phone: [facility] 12-19-2022 07:38-0400 Diastolic blood pressure 82 mm[Hg] Karen Podlogar C[employer]LESS GR[employer]ER.LIBRARY ASSISTANT Work Phone: [facility] 12-19-2022 07:38-0400 Heart rate 66 /min Karen Podlogar C[employer]LESS GR[employer]ER.LIBRARY ASSISTANT Work Phone: [facility] 12-19-2022 07:38-0400 Respiratory rate 16 /min Karen Podlogar C[employer]LESS GR[employer]ER.LIBRARY ASSISTANT Work Phone: [facility] 12-19-2022 07:38-0400 SaO2% (BldA) [Mass fraction] 100 % Karen Podlogar C[employer]LESS GR[employer]ER.LIBRARY ASSISTANT Work Phone: [facility] 12-19-2022 07:38-0400 Systolic blood pressure 126 mm[Hg] Karen Podlogar C[employer]LESS GR[employer]ER.LIBRARY ASSISTANT Work Phone: [facility] 03-29-2022 07:38-0400 Body temperature 98.4 [degF] Matthew Urbina PA-C Work Phone: [facility] 03-29-2022 07:38-0400 Body weight 118.93 kg Matthew Athy PA-C Work Phone: [facility] 03-29-2022 07:38-0400 Diastolic blood pressure 72 mm[Hg] Matthew Athy PA-C Work Phone: [facility] 03-29-2022 07:38-0400 Heart rate 115 /min Matthew Athy PA-C Work Phone: [facility] 03-29-2022 07:38-0400 Respiratory rate 16 /min Matthew Athy PA-C Work Phone: [facility] 03-29-2022 07:38-0400 SaO2% (BldA) [Mass fraction] 98 % Matthew Athy PA-C Work Phone: [facility] 03-29-2022 07:38-0400 Systolic blood pressure 118 mm[Hg] Matthew Athy PA-C Work Phone: [facility] Encounters Encounter Date Encounter Type Care Provider Facility Start: 04-02-2024 End: 04-02-2024 Refill Karen Podlogar [employer]ER.LIBRARY ASSISTANT Work Phone: [facility] [place] Comment on above: Refill Request Start: 03-07-2024 End: 03-08-2024 Refill Karen Podlogar [employer]ER.LIBRARY ASSISTANT Work Phone: [facility] [place] Comment on above: Refill Request Start: 01-09-2024 Refill Karen Podlogar [employer]ESS GR[employer]ER.LIBRARY ASSISTANT Work Phone: [facility] [place] Start: 12-16-2023 Telephone encounter Karen Umañal ogar [employer]ESS [employer]ER.LIBRARY ASSISTANT Work Phone: [facility] [place] Comment on above: Results Start: 12-12-2023 End: 12-12-2023 ambulatory Pulm Lab [facility] Work Phone: [facility] Comment on above: Spirometry Start: 12-12-2023 End: 12-12-2023 Patient encounter procedure [facility] Work Phone: [facility] Start: 12-10-2023 End: 12-10-2023 ambulatory KAREN UMAÑALOGANTHONY Facility:[facility] Start: 12-10-2023 End: 12-10-2023 Patient encounter procedure Karen Jarvis APRN.LIBRARY ASSISTANT Work Phone: [facility] [place] Comment on above: Hospital discharge f ollow-up (Primary Dx); SOB (shortness of breath); Hypoxemia; Daytime somnolence; Snoring; Decreased thyroid stimulating hormone (TSH) level; Elevated hemoglobin (HCC) Start: 12-04-2023 End: 12-04-2023 ambulatory LAURIE HOLLIDAY Facility:[facility] Start: 12-04-2023 End: 12-04-2023 Patient encounter procedure Laurie Holliday MD Work Phone: [facility] [place] Comment on above: Reactive airway dise ase with acute exacerbation, unspecified asthma severity, unspecified whether persistent (Primary Dx); Hypoxia Start: 10-15-2023 End: 10-15-2023 ambulatory LAURIE HOLLIDAY Facility:[facility] Start: 10-15-2023 End: 10-15-2023 Patient encounter procedure Sarah Beth Diaz APRN.LIBRARY ASSISTANT Work Phone: [facility] Comment on above: Acute cough (Primary Dx) Start: 09-10-2023 End: 09-10-2023 Patient encounter procedure Karen Jarvis APRN.LIBRARY ASSISTANT Work Phone: [facility] [place] Comment on above: Hospital discharge f ollow-up (Primary Dx); Secondary polycythemia; Rhinovirus infection Start: 09-10-2023 End: 09-10-2023 ambulatory LAURIE HOLLIDAY Facility:[facility] Start: 09-04-2023 End: 09-04-2023 ambulatory LAURIE HOLLIDAY Facility:[facility] Start: 09-04-2023 End: 09-04-2023 Patient encounter procedure Salma Howard APRN.LIBRARY ASSISTANT Work Phone: [facility] Comment on above: URI, acute (Primary Dx); SOB (shortness of breath) Start: 05-29-2023 Refill Karen Jarvis APRN.LIBRARY ASSISTANT Work Phone: [facility] [place] Comment on above: Refill Request Start: 01-06-2023 Telephone encounter Karen russell APRN.LIBRARY ASSISTANT Work Phone: [facility] [place] Comment on above: Results Start: 01-04-2023 End: 01-04-2023 ambulatory LAURIE HOLLIDAY Facility:[facility] Start: 12-19-2022 End: 12-19-2022 Patient encounter procedure Karen Jarvis [employer]LESS [employer]ER.LIBRARY ASSISTANT Work Phone: [facility] [place] Comment on above: Anxiety and depressi on (Primary Dx); Screening for hyperlipidemia; Class 3 severe obesity without serious comorbidity with body mass index (BMI) of 45.0 to 49.9 in adult, unspecified obesity type (HCC) Start: 03-30-2022 Telephone encounter Sarah Beth Diaz APRN.LIBRARY ASSISTANT Work Phone: [facility] Comment on above: Results Start: 03-29-2022 End: 03-29-2022 Subsequent hospital visit by physician Xr [facility] [place] Work Phone: Radiology Comment on above: Wheeze [R06.2] Start: 03-29-2022 End: 03-29-2022 Patient encounter procedure Matthew Urbina PA-C Work Phone: [facility] Comment on above: Suspected COVID-19 v irus infection (Primary Dx) Start: 03-20-2017 End: 05-30-2017 Patient requested procedure Laurie Holliday MD Work Phone: [facility] Procedures Date Procedure Procedure Detail Performing Clinician Start: 12-12-2023 Spmtry w/vc expirato ry mervin w/wo mxml vol vntj Karen Umañaloganthony SALGUERO.LIBRARY ASSISTANT Work Phone: Start: 03-29-2022 Radiologic exam ches t 2 views Matthew Urbina PA-C Work Phone: Start: 10-13-2018 Adult depression screening assessment Matthew Urbina PA-C Work Phone: Plan of Treatment Date Care Activity Detail Author Start: 10-04-2027 Urine microalbumin profile [facility] Start: 03-21-2024 Covid-19 Vaccine ( season) Covid-19 Vaccine () [facility] Start: 03-21-2024 Covid-19 Vaccine ( season) Covid-19 Vaccine () [facility] Start: 03-21-2024 Influenza vaccination Influenza Vacc ine (#1) [facility] Start: 02-02-2024 End: 02-02-2024 Patient encounter procedure 02/02/2024 7:20 AM EDT Office [facility] [address], [place] [id number] PodlogarKaren APRN.LIBRARY ASSISTANT [address] [place], [place] [id number] 2 month follow up/Physical [facility] Comment on above: 2 month follow up/Ph ysical Start: 01-09-2024 End: 04-09-2024 Basic metabolic 2000 panel - Serum or Plasma BASIC METABOLIC PANEL Lab Routine long term current use of diuretic Expected: 01/09/2024, Expires: 04/09/2024 [facility] Work Phone: Comment on above: Expected: 01/09/2024 , Expires: 04/09/2024 Start: 12-30-2023 End: 03-30-2024 CBC W Ordered Manual Differential panel - Blood PATHOLOGIST INTERPRETATION WITH CBC AND DIFF Lab Routine Erythrocytosis Expected: 12/30/2023, Expires: 03/30/2024 [facility] Work Phone: Comment on above: Expected: 12/30/2023 , Expires: 03/30/2024 Start: 12-16-2023 End: 03-16-2024 Basic metabolic 2000 panel - Serum or Plasma BASIC METABOLIC PANEL Lab Routine Hospital discharge follow-up Expected: 12/16/2023, Expires: 03/16/2024 [facility] Work Phone: Comment on above: Expected: 12/16/2023 , Expires: 03/16/2024 Start: 12-12-2023 End: 12-12-2023 ambulatory 12/12/2023 9:45 AM EDT Procedure PUL[facility] [address] [place] [id number] Wstr, Pulm [facility] [address] [place] [id number] SOB (shortness of breath) [R06.02] [facility] Comment on above: SOB (shortness of br eath) [R06.02] Start: 12-10-2023 End: 03-10-2024 Thyrotropin [Units/volume] in Serum or Plasma [facility] Comment on above: Expected: 12/10/2023 , Expires: 03/10/2024 Start: 12-10-2023 End: 03-10-2024 Thyroxine (T4) free [Mass/volume] in Serum or Plasma [facility] Comment on above: Expected: 12/10/2023 , Expires: 03/10/2024 Start: 12-10-2023 End: 03-10-2024 Triiodothyronine (T3) [Mass/volume] in Serum or Plasma [facility] Comment on above: Expected: 12/10/2023 , Expires: 03/10/2024 Start: 10-22-2023 End: 01-21-2024 CBC W Auto Differential panel - Blood CBC + DIFF Lab Routine Secondary polycythemia Expected: 10/22/2023, Expires: 01/21/2024 [facility] Work Phone: Comment on above: Expected: 10/22/2023 , Expires: 01/21/2024 Start: 07-21-2023 Behavioral Health Screening Behavioral Health Screening [facility] Start: 07-21-2023 Depression Assessment Depression Ass essment [facility] Start: 03-21-2023 Covid-19 Vaccine ( season) Covid-19 Vaccine () [facility] Start: 03-21-2023 Influenza vaccination C [facility] Start: 12-19-2022 End: 2023 Comprehensive metabolic 2000 panel - Serum or Plasma COMP METABOLIC PANEL Lab Routine Class 3 severe obesity without serious comorbidity with body mass index (BMI) of 45.0 to 49.9 in adult, unspecified obesity type (HCC) Expected: 12/19/2022, Expires: 2023 [facility] Work Phone: Comment on above: Expected: 12/19/2022 , Expires: 2023 Start: 12-19-2022 End: 2023 Hemoglobin A1c in Blood HGB A1C Lab Routine Class 3 severe obesity without serious comorbidity with body mass index (BMI) of 45.0 to 49.9 in adult, unspecified obesity type (HCC) Expected: 12/19/2022, Expires: 2023 [facility] Work Phone: Comment on above: Expected: 12/19/2022 , Expires: 2023 Start: 12-19-2022 End: 2023 Lipid 1996 panel - Serum or Plasma LIPID PANEL BASIC Lab Routine Screening for hyperlipidemia Class 3 severe obesity without serious comorbidity with body mass index (BMI) of 45.0 to 49.9 in adult, unspecified obesity type (HCC) Expected: 12/19/2022, Expires: 2023 [facility] Work Phone: Comment on above: Expected: 12/19/2022 , Expires: 2023 Start: 12-19-2022 End: 2023 Thyrotropin [Units/volume] in Serum or Plasma TSH BLD Lab Routine Class 3 severe obesity without serious comorbidity with body mass index (BMI) of 45.0 to 49.9 in adult, unspecified obesity type (HCC) Expected: 12/19/2022, Expires: 2023 [facility] Work Phone: Comment on above: Expected: 12/19/2022 , Expires: 2023 Start: 04-01-2022 PAP TESTING PAP TESTING [facility] Start: 04-01-2022 Screening for malign ant neoplasm of cervix Pap Testing [facility] Start: 03-29-2022 End: 04-12-2022 Influenza virus A and B RNA and SARS-CoV-2 (COVID-19) N gene panel - Respiratory specimen by ALMA DELIA with probe detection COVID WITH FLUA+B, ROUTINE Microbiology Routine Suspected COVID-19 virus infection Expected: 03/29/2022, Expires: 04/12/2022 [facility] Work Phone: Comment on above: Expected: 03/29/2022 , Expires: 04/12/2022 Start: 03-21-2022 Influenza vaccination INFLUENZA (#1) [facility] Start: 02-17-2022 HPV TESTING HPV TESTING [facility] Start: 02-17-2022 Screening for malign ant neoplasm of cervix HPV Testing [facility] Start: 04-01-2020 Screening for malign ant neoplasm of cervix Cervical Cancer Screening [facility] Start: 10-14-2019 Adult depression scr eening assessment DEPRESSION SCREENING [facility] Start: 02-17-2010 Depression Screening Depression Scre ening [facility] Start: 02-17-2010 HEPATITIS C SCREENING HEPATITIS C [facility] Start: 02-17-2010 Hepatitis C screening Hepatitis C [facility] Start: 02-17-1998 PNEUMOCOCCAL (1 - PCV) PNEUMOCOCCAL (1 - PCV) [facility] Start: 02-17-1998 Pneumococcal vaccination [facility] Start: 1992 COVID-19 VACCINE (#1) COVID-19 VACCI NE (#1) [facility] Basic metabolic 2000 panel - Serum or Plasma BASIC METABOLIC PANEL Lab Routine Hospital discharge follow-up 12/10/2023 9:07 AM EDT [facility] CBC W Auto Different ial panel - Blood COMPLETE BLOOD COUNT AND DIFFERENTIAL Lab Routine Elevated hemoglobin (HCC) 12/10/2023 9:07 AM EDT [facility] COVID & INFLUENZA A/ B & RSV NAAT, ROUTINE COVID & INFLUENZA A/B & RSV NAAT, ROUTINE Microbiology Routine URI, acute 09/04/2023 9:42 AM EST [facility] Work Phone: End: 12-09-2024 HOME SLEEP APNEA TEST (HSAT) HOME SLEEP APNEA TEST (HSAT) Procedures Routine Daytime somnolence Snoring 1 Occurrences starting 12/10/2023 until 12/09/2024 [facility] Comment on above: 1 Occurrences starti ng 12/10/2023 until 12/09/2024 End: 01-08-2025 SPIROMETRY BASELINE ONLY SPIROMETRY BASELINE ONLY PFT Routine SOB (shortness of breath) Hypoxemia 1 Occurrences starting 12/10/2023 until 01/08/2025 [facility] Comment on above: 1 Occurrences starti ng 12/10/2023 until 01/08/2025 SPIROMETRY BASELINE ONLY SPIROME TRY BASELINE ONLY PFT Routine SOB (shortness of breath) Hypoxemia 12/12/2023 9:30 AM EDT [facility] Work Phone: [facility] Immunizations Immunization Date Immunization Notes Care Provider Fa kaylynn 09-05-2023 influenza virus vaccine, unspecified formulation Karen Jarvis CENTERLESS GRINDER.LIBRARY ASSISTANT Work Phone: [facility] 04-20-2021 influenza, injectabl e, quadrivalent, contains preservative Matthew Athy PA-C Work Phone: [facility] 04-20-2021 influenza virus vaccine, unspecified formulation Karen Jarvis CENTERLESS GRINDER.LIBRARY ASSISTANT Work Phone: [facility] 10-13-2018 influenza, injectabl e, quadrivalent, contains preservative Matthew Athy PA-C Work Phone: [facility] 10-03-2017 tetanus toxoid, redu [place] diphtheria toxoid, and acellular pertussis vaccine, adsorbed Matthew Athy PA-C Work Phone: [facility] Work Phone: 02-05-2010 Meningococcal, MCV4, unspecified conjugate formulation(groups A, C, Y and W-135) Matthew Athy PA-C Work Phone: [facility] 02-05-2010 tetanus toxoid, redu [place] diphtheria toxoid, and acellular pertussis vaccine, adsorbed Matthew Athy PA-C Work Phone: [facility] 07-31-2005 hepatitis B vaccine, pediatric or pediatric/adolescent dosage Matthew Athy PA-C Work Phone: [facility] Work Phone: 02-27-2005 hepatitis B vaccine, pediatric or pediatric/adolescent dosage Matthew Athy PA-C Work Phone: [facility] Work Phone: 01-25-2005 hepatitis B vaccine, pediatric or pediatric/adolescent dosage Matthew Urbina PA-C Work Phone: [facility] Work Phone: 07-31-1994 diphtheria, tetanus toxoids and pertussis vaccine Matthew Mcleany PA-C Work Phone: [facility] Work Phone: 07-31-1994 poliovirus vaccine, inactivated Matthew Vinayy PA-C Work Phone: [facility] Work Phone: 05-24-1993 haemophilus influenz ae type b vaccine, HbOC conjugate Matthew Mcleany PA-C Work Phone: [facility] Work Phone: 05-24-1993 measles, mumps and rubella virus vaccine Matthew Mcleany PA-C Work Phone: [facility] Work Phone: 1992 diphtheria, tetanus toxoids and pertussis vaccine Matthew Athy PA-C Work Phone: [facility] Work Phone: 1992 haemophilus influenz ae type b vaccine, HbOC conjugate Matthew Athy PA-C Work Phone: [facility] Work Phone: 1992 diphtheria, tetanus toxoids and pertussis vaccine Matthew Athy PA-C Work Phone: [facility] Work Phone: 1992 haemophilus influenz ae type b vaccine, HbOC conjugate Matthew Athy PA-C Work Phone: [facility] Work Phone: 1992 poliovirus vaccine, inactivated Matthew Athy PA-C Work Phone: [facility] Work Phone: 1992 diphtheria, tetanus toxoids and pertussis vaccine Matthew Athy PA-C Work Phone: [facility] Work Phone: 1992 haemophilus influenz ae type b vaccine, HbOC conjugate Matthew Urbina CHUNGMaria Del Carmen Work Phone: [facility] Work Phone: 1992 poliovirus vaccine, inactivated Matthew Urbina CHUNGMaria [place]en Work Phone: [facility] Work Phone: Payers Date Payer Category Payer Unknown [id number] 2021 Unknown [id number] Social History Date Type Detail Facility Start: 03-29-2022 [facility] Start: 03-29-2022 End: 12-10-2023 Tobacco use and exposure Smokeless tobacco non-user [facility] Start: 03-29-2022 End: 12-12-2023 Alcohol intake Current non-drinker of alcohol (finding) [facility] Start: 11-26-2019 End: 12-06-2019 History SDOH Alcohol Frequency 1 [facility] Start: 12-06-2019 History SDOH Alcohol Std Drinks 98 [facility] Start: 11-26-2019 End: 12-06-2019 History SDOH Social Connections Phone 3 [facility] Start: 11-26-2019 End: 12-06-2019 History SDOH Social Connections Get Together 2 [facility] Start: 12-06-2019 History SDOH Physica l Activity DPW 4 [facility] Start: 11-26-2019 Education 14 [facility] Start: 1990 Sex Assigned At Not on file [facility] Start: 03-19-2022 End: 03-29-2022 Exposure to SARS-CoV-2 (event) Not sure [facility] Work Phone: Start: 07-21-2018 Tobacco smoking stat us [facility] Smokes tobacco daily [facility] Start: 07-21-2018 End: 09-03-2023 History of tobacco use Cigarette Smoker [facility] Start: 06-26-2020 End: 12-19-2022 Cigarettes smoked current (pack per day) - Reported 0.3 [facility] Start: 12-06-2019 End: 06-26-2020 Social connection and isolation panel [facility] Do you belong to any clubs or organizations such as yarsani groups, unions, fraternal or athletic groups, or school groups? No [facility] Are you now , , , , never or living with a partner? [facility] How often to you hav e a drink containing alcohol? Never [facility] How many standard dr inks containing alcohol do you have on a typical day? Patient refused [facility] How hard is it for y ou to pay for the very basics like food, housing, medical care, and heating Not very hard [facility] Work Phone: Do you feel stress - tense, restless, nervous, or anxious, or unable to sleep at night because your mind is troubled all the time - these days [OSQ] Only a little [facility] (I/We) worried [facility] (my/our) food would run out before (I/we) got money to buy more. Never true [facility] Work Phone: Start: 12-10-2023 Tobacco smoking stat us [facility] Ex-smoker [facility] Start: 07-21-2018 End: 09-03-2023 History of tobacco use Current smoker [facility] Clinical Notes 04-01-2017 to 04-02-2024 Telephone Encounter - Sandra Corona MA - 04/02/2024 8:22 AM EDTTelephone Encounter - Sandra Corona MA - 04/02/2024 8:22 AM EDTTelephone Encounter - Giorgio Blankenship LPN - 03/08/2024 12:00 PM EDT Note Date & Type Note Facility 04-02-2024 Telephone encounter Note Prescription Refill Information The patient has been identified by name and date of : Yes Caregiver verified no other encounters exist for this prescription request: Yes Caregiver confirmed with patient/requestor that no other refills are due, in the near future, with this provider at this time: No The last office visit in the department: 12/10/23 Does the patient have a future office visit with this provider/department: No Requested Prescriptions Pending Prescriptions Disp Refills albuterol HFA (PROAIR HFA) 90 mcg/actuation inhaler 1 Each 0 Sig: Inhale 2 Puffs as instructed every 6 hours as needed. Sandra Corona MA April 02, 2024 8:22 AM [facility] 04-02-2024 Miscellaneous Notes Prescription Refill Information The patient has been identified by name and date of : Yes Caregiver verified no other encounters exist for this prescription request: Yes Caregiver confirmed with patient/requestor that no other refills are due, in the near future, with this provider at this time: No The last office visit in the department: 12/10/23 Does the patient have a future office visit with this provider/department: No Requested Prescriptions Pending Prescriptions Disp Refills albuterol HFA (PROAIR HFA) 90 mcg/actuation inhaler 1 Each 0 Sig: Inhale 2 Puffs as instructed every 6 hours as needed. Sandra Corona MA April 02, 2024 8:22 AM documented in this encounter [facility] 03-08-2024 Telephone encounter Note Prescription Refill Information The patient has been identified by name and date of : Yes Caregiver verified no other encounters exist for this prescription request: Yes Caregiver confirmed with patient/requestor that no other refills are due, in the near future, with this provider at this time: Yes The last office visit in the department: 12/10/23 Does the patient have a future office visit with this provider/department: No Requested Prescriptions Pending Prescriptions Disp Refills albuterol HFA (PROAIR HFA) 90 mcg/actuation inhaler 1 Each 0 Sig: Inhale 2 Puffs as instructed every 6 hours as needed. Giorgio Blankenship LPN March 08, 2024 12:00 PM [facility] 03-08-2024 Miscellaneous Notes Prescription Refill Information The patient has been identified by name and date of : Yes Caregiver verified no other encounters exist for this prescription request: Yes Caregiver confirmed with patient/requestor that no other refills are due, in the near future, with this provider at this time: Yes The last office visit in the department: 12/10/23 Does the patient have a future office visit with this provider/department: No Requested Prescriptions Pending Prescriptions Disp Refills albuterol HFA (PROAIR HFA) 90 mcg/actuation inhaler 1 Each 0 Sig: Inhale 2 Puffs as instructed every 6 hours as needed. Giorgio Blankenship LPN March 08, 2024 12:00 PM documented in this encounter [facility] 12-25-2023 Telephone encounter Note From faxed to [employer] as instructed below. Copy also made and sent to scanning for our records. JERRY Starks [facility] 12-25-2023 Miscellaneous Notes From faxed to [employer] as instructed below. Copy also made and sent to scanning for our records. JERRY Starks Forms completed and in my out box. Please fax. Karen Jarvis APRN.CNP Type of form: Restrictions Form Form received via fax When form is completed, Fax form to [employer] at [phone] Form has been forwarded to Nurse Practitioner: Karen Jarvis inbox Lázaro Messina LPN Office note from 12/09 faxed to [facility] for disability filing. Lázaro Messina LPN Short term disability office calls to report they need the OV notes from 12/09. What was faxed from 12/15 was from August per student services representative. Nadia Murillo LPN Called and left a voicemail for the Patient to call back and ask for a nurse to receive the providers message. Soheila Catherine RN If she isn't drinking enough then possibly it could. She ca discuss taking lasix with pulmonology and see what they say. Karen Jarvis APRN.MARK Patient notified of providers update. Voices understanding. Concerned with being on the lasix, patient asking if this could increase the test results too? Please advise. Lázaro Messina LPN I spoke with Dr. Holliday regarding her elevated hemoglobin and he recommends we recheck this in 2-3 weeks as her low oxygen level may be the culprit. Prior to rechecking needs to hydrate good as being under hydrated can falsely elevate level. Karen Jarvis APRN.MARK Pt reports she returned to work yesterday. Rosenda Bravo MA Has patient returned to work? Karen Jarvis APRN.MARK Type of form: Short-term Disability Form received via fax When form is completed, Fax form to [phone] Attn: Ihsan Morley Form has been forwarded to Nurse Practitioner: Karen Messina LPN documented in this encounter [facility] 12-24-2023 Telephone encounter Note Forms completed and in my out box. Please fax. Karen Jarvis APRN.MARK [facility] 12-24-2023 Telephone encounter Note Type of form: Restrictions Form Form received via fax When form is completed, Fax form to [employer] [facility] at [phone] Form has been forwarded to Nurse Practitioner: Karen Jarvis inbox Lázaro Messina LPN [facility] 12-22-2023 Telephone encounter Note Office note from 12/09 faxed to [employer] [facility] for disability filing. Lázaro Messina LPN [facility] 12-22-2023 Telephone encounter Note Short term disability office calls to report they need the OV notes from 12/09. What was faxed from 12/15 was from August per student services representative. Nadia Murillo LPN [facility] 12-17-2023 Telephone encounter Note Patient telephoned to notify of paperwork completion. Requested all paperwork be faxed to number on paper. All paperwork faxed to . Lázaro Messina LPN [facility] 12-17-2023 Miscellaneous Notes Patient telephoned to notify of paperwork completion. Requested all paperwork be faxed to number on paper. All paperwork faxed to . Lázaro Messina LPN I have completed patient's disability paperwork. Please take to medical records along with attached hospital discharge summary and recent pulmonary function testing. Karen Jarvis APRN.MARK TC to patient who verbalized understanding of providers message below. Patient states she quit smoking in August of this year. Please advise, thank you. JERRY Starks ----- Message from Karen Jarvis APRN.LIBRARY ASSISTANT sent at 12/16/2023 7:11 AM EDT ----- Normal spirometry. I need to know when patient stopped smoking or vaping or is she still doing this- her hemoglobin is elevated so if she smokes this can cause this otherwise if she is not smoking I will need to discuss this with hematology. Thyroid testing is normal. Potassium just below normal. Increase diet in potassium rich foods- this would be leafy greens and fruits Karen Jarvis APRN.LIBRARY ASSISTANT documented in this encounter [facility] 12-17-2023 Telephone encounter Note Called and left a voicemail for the Patient to call back and ask for a nurse to receive the providers message. Soheila Catherine, RN [facility] 12-17-2023 Telephone encounter Note If she isn't drinking enough then possibly it could. She ca discuss taking lasix with pulmonology and see what they say. Karen Jarvis APRN.CNP [facility] 12-16-2023 Telephone encounter Note Patient notified of providers update. Voices understanding. Concerned with being on the lasix, patient asking if this could increase the test results too? Please advise. Lázaro Messina LPN [facility] 12-16-2023 Telephone encounter Note I spoke with Dr. Holliday regarding her elevated hemoglobin and he recommends we recheck this in 2-3 weeks as her low oxygen level may be the culprit. Prior to rechecking needs to hydrate good as being under hydrated can falsely elevate level. Karen Jarvis APRN.CNP [facility] 12-16-2023 Telephone encounter Note I have completed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 around 10/22/2023 to recheck CBC with diff documented in this encounter [facility] 09-10-2023 Note HNO ID: [id number] Author: KAREN JARVIS APRN.CNP Service: ? Author Type: Nurse Practitioner Type: Progress Notes Filed: 09/10/2023 15:13 Note Text: 09/10/2023 Patient presents with: Hospital F/U SUBJECTIVE: This is a 33 year old, accompanied by mother, that is here today for Above Complaints. HOSPITAL/ER FOLLOW UP: Reason for visit: SOB Which facility: [facility] Date of visit: 09/04/2023-09/06/2023 Diagnosis: rhinovirus infection, hypoxia Testing done: chest xray Treatment given: IV steroids and oxygen Since discharge has been taking the prednisone- think she has two days left. Still with non-productive cough, sore throat, mild SOB with exertion and wheezing. Using albuterol inhaler every four hours which helps with wheezing. Not taking any other OTC cough or cold preparations. Working on quitting smoking. Denies fevers, chills, headaches, nasal congestion, rhinorrhea, dyspnea, orthopnea, chest pain or palpitations Mother concerned of finding of secondary polycythemia on hospital blood work Hospital records reviewed PAST MEDICAL HISTORY Diagnosis Date Depression with [...] Sig sertraline (ZOLOFT) 100 mg tablet Take one [...] needed. (Patient not taking: Reported on 12/19/2022) No current facility-administered medications for this visit. Medications and allergies reviewed by this provider. SOCIAL HISTORY Social History Tobacco Use Smoking status: Every Day Packs/day: .25 Types: Cigarettes Start date: 07/21/2018 Smokeless tobacco: Never Vaping Use Vaping Use: Never used Substance Use Topics Alcohol use: No Drug use: No REVIEW OF SYSTEMS All other reviewed and negative other than HPI. OBJECTIVE: BP 112/78 Pulse 85 Resp 18 Wt 127.7 kg (281 lb 10.1 oz) LMP 08/02/2023 (Approximate) SpO2 96% BMI 47.60 kg/m? . Vital signs reviewed by this provider. APPEARANCE Well appearing, alert, in no acute distress, well-hydrated, well nourished. EYES conjunctiva and sclera normal. EARS External ears normal, canals clear THROAT normal, no erythema NECK Supple, no adenopathy; thyroid symmetric, normal size, no bruits HEART RRR with normal S1 and S2, no murmurs, no gallops, no JVD appreciated LUNG clear to auscultation. No wheezes, rhonchi or rales. Dry cough noted EXTREMITIES Extremities normal, No deformities, No skin discoloration, and No edema SKIN Skin color, texture, turgor normal, no suspicious rashes or lesions to exposed skin Covid-19 Vaccine(1) Never done Pneumococcal Vaccine(1 of 2 - PCV) Never done Hepatitis C Screening Never done HPV Testing Never done Pap Testing due on 04/01/2022 Influenza Vaccine(1) due on 03/21/2023 Depression Assessment due on 07/21/2023 DTaP,Tdap,Td Vaccine(9 - Td or Tdap) due on 10/04/2027 Hepatitis B Vaccine Completed HIV Screening Completed HPV Vaccine Aged Out ASSESSMENT/PLAN: 1. Hospital discharge follow-up - ICD9: V67.59, ICD10: Z09 (primary diagnosis) - plan as below - follow-up yearly for physical 2. 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 Rhinovirus infection - ICD9: 079.3, ICD10: B34.8 - recommend mucinex OTC to help with chest congestion - may use OTC cough syrup for cough - complete prednisone - no red flag symptoms or exam findings - red flag symptoms discussed, if develop return to ER - follow-up if symptoms fail to improve Karen Jarvis, [employer].LIBRARY ASSISTANT Prescription instructions reviewed with patient as applicable. Patient advised if symptoms do not improve or if symptoms worsen sooner, to contact their primary care physician. Potential red flag symptoms discussed with the patient. Reviewed appropriate action plan to take if red flag symptoms occur. Patient agreeable to treatment plan. Medical Decision Making: Problems: Moderate: New problem with uncertain prognosis Risk: Moderate: Moderate risk from testing/treatment Medical Decision Making Level: 4 - Moderate [facility] 09-10-2023 History of Presen t illness Narrative 09/10/2023 Patient presents with: Hospital F/U SUBJECTIVE: This is a 33 year old, accompanied by mother, that is here today for Above Complaints. HOSPITAL/ER FOLLOW UP: Reason for visit: SOB Which facility: [facility] Date of visit: 09/04/2023-09/06/2023 Diagnosis: rhinovirus infection, hypoxia Testing done: chest xray Treatment given: IV steroids and oxygen Since discharge has been taking the prednisone- think she has two days left. Still with non-productive cough, sore throat, mild SOB with exertion and wheezing. Using albuterol inhaler every four hours which helps with wheezing. Not taking any other OTC cough or cold preparations. Working on quitting smoking. Denies fevers, chills, headaches, nasal congestion, rhinorrhea, dyspnea, orthopnea, chest pain or palpitations Mother concerned of finding of secondary polycythemia on hospital blood work Hospital records reviewed PAST MEDICAL HISTORY Diagnosis Date Depression with [...] Sig sertraline (ZOLOFT) 100 mg tablet Take one [...] needed. (Patient not taking: Reported on 12/19/2022) No current facility-administered medications for this visit. Medications and allergies reviewed by this provider. SOCIAL HISTORY Social History Tobacco Use Smoking status: Every Day Packs/day: .25 Types: Cigarettes Start date: 07/21/2018 Smokeless tobacco: Never Vaping Use Vaping Use: Never used Substance Use Topics Alcohol use: No Drug use: No REVIEW OF SYSTEMS All other reviewed and negative other than HPI. OBJECTIVE: BP 112/78 Pulse 85 Resp 18 Wt 127.7 kg (281 lb 10.1 oz) LMP 08/02/2023 (Approximate) SpO2 96% BMI 47.60 kg/m . Vital signs reviewed by this provider. APPEARANCE Well appearing, alert, in no acute distress, well-hydrated, well nourished. EYES conjunctiva and sclera normal. EARS External ears normal, canals clear THROAT normal, no erythema NECK Supple, no adenopathy; thyroid symmetric, normal size, no bruits HEART RRR with normal S1 and S2, no murmurs, no gallops, no JVD appreciated LUNG clear to auscultation. No wheezes, rhonchi or rales. Dry cough noted EXTREMITIES Extremities normal, No deformities, No skin discoloration, and No edema SKIN Skin color, texture, turgor normal, no suspicious rashes or lesions to exposed skin Covid-19 Vaccine(1) Never done Pneumococcal Vaccine(1 of 2 - PCV) Never done Hepatitis C Screening Never done HPV Testing Never done Pap Testing due on 04/01/2022 Influenza Vaccine(1) due on 03/21/2023 Depression Assessment due on 07/21/2023 DTaP,Tdap,Td Vaccine(9 - Td or Tdap) due on 10/04/2027 Hepatitis B Vaccine Completed HIV Screening Completed HPV Vaccine Aged Out ASSESSMENT/PLAN: 1. Hospital discharge follow-up - ICD9: V67.59, ICD10: Z09 (primary diagnosis) - plan as below - follow-up yearly for physical 2. 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 Rhinovirus infection - ICD9: 079.3, ICD10: B34.8 - recommend mucinex OTC to help with chest congestion - may use OTC cough syrup for cough - complete prednisone - no red flag symptoms or exam findings - red flag symptoms discussed, if develop return to ER - follow-up if symptoms fail to improve Karen Jarvis APRN.LIBRARY ASSISTANT Prescription instructions reviewed with patient as applicable. Patient advised if symptoms do not improve or if symptoms worsen sooner, to contact their primary care physician. Potential red flag symptoms discussed with the patient. Reviewed appropriate action plan to take if red flag symptoms occur. Patient agreeable to treatment plan. Medical Decision Making: Problems: Moderate: New problem with uncertain prognosis Risk: Moderate: Moderate risk from testing/treatment Medical Decision Making Level: 4 - Moderate documented in this encounter [facility] 09-04-2023 Note HNO ID: [id number] Author: SALMA HOWARD APRN.MARK Service: ? Author Type: Nurse Practitioner Type: Progress Notes Filed: 09/04/2023 10:28 Note Text: Subjective HPI HPI Starr Khan is a 33 year old female [...] Blood pressure 122/83, pulse 116, temperature 37.3 ?C (99.1 ?F), resp. rate 24, weight 127.9 kg (282 [...] and rest -will order covid - COVID AND INFLUENZA A/B AND RSV NAAT, ROUTINE 2. SOB (shortness of breath) - ICD9: 786.05, ICD10: R06.02 Sending to ER Salma Howard APRN.LIBRARY ASSISTANT [facility] 09-04-2023 History of Presen t illness Narrative Subjective HPI HPI Starr Khan is a 33 year old female [...] - ICD9: 786.05, ICD10: R06.02 Sending to ER Salma Howard APRN.LIBRARY ASSISTANT documented in this encounter [facility] 05-29-2023 Miscellaneous Notes Patient has been [...] Magaly Malin LPN documented in this encounter [facility] 05-29-2023 Miscellaneous Notes Patient has been [...] Magaly Malin LPN documented in this encounter [facility] 01-06-2023 Miscellaneous Notes Pt called and is notified of providers results and instructions. Pt voices understanding. Soheila Catherine RN Message left for patient to call office back for update. Lázaro Messina LPN ----- Message from Karen Jarvis APRN.LIBRARY ASSISTANT sent at 01/06/2023 7:44 AM EDT ----- LDL ( bad cholesterol) just above normal range. Eat low saturate fat diet and exercise at least 150 minutes per week if not already doing so. The rest of labs are in acceptable ranges. Karen Jarvis APRN.LIBRARY ASSISTANT documented in this encounter [facility] 12-19-2022 History of Presen t illness [...] PANEL BASIC - follow-up pending blood work Karen Jarvis APRN.CNP Prescription instructions reviewed with patient [...] which included preparing to see the patient, [id number] patient care, completing clinical documentation, obtaining and/or reviewing separately obtained history, performing a medically appropriate examination, counseling and educating the patient/family/caregiver, and ordering medications, tests, or procedures. documented in this encounter [facility] 03-31-2022 Miscellaneous Notes Called patient and patient spouse, no answer and unable to leave VM. Called patients mother and instructed to have patient call for results. Patient has viewed results on [facility], encounter will be closed. Frida Neves MA Negative for covid and flu please notify thank you documented in this encounter [facility] 03-29-2022 Miscellaneous Notes Addended by: MATTHEW URBINA on: 03/29/2022 01:12 PM Modules accepted: Orders documented in this encounter [facility] 03-29-2022 History of Presen t illness Narrative This note was created using [employer]. Subjective Starr Khan is a 32 year old female. [...] Reported on 03/29/2022) 60 tablet 3 vit [id number] (PRENATE MINI, FERR ASP GLYCIN,) 18-1-350 mg [...] 98%, pulse 115. Albuterol treatment administered lot [id number], Exp 10/2022 after treatment oxygen level 98%, pulse 115, patient reported improved ability to inhale. Yoon Rubio LPN documented in this encounter [facility] 03-29-2022 History of Presen t illness Narrative Radiology Service Progress Note PATIENT NAME: Starr Khan DATE OF SERVICE: March 29, 2022 [...] RT Aly(R) March 29, 2022 8:02 AM documented in this encounter [facility] 04-01-2017 History of Past i llness Narrative Problem Noted Date Resolved Date Obesity complicating [...] of this encounter (statuses as of 03/29/2022) [facility] History of Past illness Narrative* Problem [...] of this encounter (statuses as of 03/31/2022) [facility] of [facility] illness Narrative* Problem [...] of this encounter (statuses as of 12/19/2022) [facility] Narrative* Problem [...] of this encounter (statuses as of 01/06/2023) [facility] Narrative* Problem [...] of this encounter (statuses as of 05/29/2023) [facility] Narrative* Problem [...] of this encounter (statuses as of 05/29/2023) [facility] Narrative* Problem [...] of this encounter (statuses as of 09/04/2023) [facility] Narrative* Problem [...] as of this encounter (statuses as of 09/10/2023) [facility] Narrative* Problem [...] as of this encounter (statuses as of 10/15/2023) [facility] Suspected COVID-19 virus infection- Primary [facility] Diagnosis Anxiety and depression- Primary Dysthymic disorder Screening for hyperlipidemia Screening for lipoid disorders Class 3 severe obesity without serious comorbidity with body mass index (BMI) of 45.0 to 49.9 in adult, unspecified obesity type (HCC) [facility] Diagnosis Anxiety and depression [facility]ysthymic [facility] Anxiety and depression Dysthymic disorder [facility] Diagnosis URI, acute- Primary Acute upper respiratory infections of unspecified site SOB (shortness of breath) Shortness of breath [facility] Hospital discharge follow-up- Primary Other follow-up examination Secondary polycythemia Polycythemia, secondary Rhinovirus infection Rhinovirus infection in conditions classified elsewhere and of unspecified site [facility] Acute cough- Primary [facility] Diagnosis Reactive airway disease with acute exacerbation, unspecified asthma severity, unspecified whether persistent- Primary Hypoxia Hypoxemia [facility] Hospital discharge follow-up- Primary Other follow-up examination SOB (shortness of breath) Shortness of breath Hypoxemia Daytime somnolence Hypersomnia, unspecified Snoring Other dyspnea and respiratory abnormality Decreased thyroid stimulating hormone (TSH) level Elevated hemoglobin (HCC) Other hemoglobinopathies [facility] Diagnosis SOB (shortness of breath) Shortness of breath Hypoxemia [facility] Diagnosis Erythrocytosis- Primary Polycythemia, secondary [facility] Diagnosis [facility] current use of diuretic- Primary Anxiety and depression Dysthymic disorder documented in this encounter [facility] note* Diagnosis SOB (shortness of breath) Shortness of breath [facility] Diagnosis Wheeze Wheezing documented in this encounter [facility] for referral (narrative)* Outpatient Procedure (Routine) - Authorized Specialty Diagnoses / Procedures Referred By Jenn paige Referred To Contact [facility] Diagnoses SOB (shortness of breath) Hypoxemia Procedures SPIROMETRY BASELINE ONLY SPMTRY W/VC EXPIRATORY MERVIN W/WO MXML VOL VNTJ Karen Jarvis APRN.CNP [address] [place] [address] [facility] [place] [address] [place] [id number] Referral ID Status Reason Start Date Expiration Date Visits Requested Visits Authorized [id number] Authorized Auto-Generat ed Referral 12/10/2023 07/20/2024 1 1 * Diagnostic Procedure Only (Routine) - Pending Review Specialty Diagnoses / Procedures Referred By Jenn paige Referred To Contact [facility] Diagnoses Daytime somnolence Snoring Procedures HOME SLEEP APNEA TEST (HSAT) SLEEP STD AIRFLOW HRT RATE&O2 SAT EFFORT UNATT Karen Jarvis APRN.LIBRARY ASSISTANT [address] [place] [address] Neurological [place] [phone] Referral ID Status Reason Start Date Expiration Date Visits Requested Visits Authorized [id number] Pending Review Auto-Generat ed Referral 12/10/2023 12/09/2024 1 1 [facility] Summary Purpose Family History No Family [...] ized section and content) DATE CREATED AUTHOR 05/18/2019 [facility] ([place]) DATE CREATED AUTHOR AUTHOR'S ORGANIZ ATION 12/26/2023 [facility] Source Comments (unrecognize d section and content) In the event this informatio n is protected by the Federal Confidentiality of Alcohol and Drug Abuse Patient Records regulations: The Federal rules restrict any use of the information to criminally investigate or prosecute any alcohol or drug abuse patient.[facility] the event this information is protected by the Federal Confidentiality of Alcohol and Drug Abuse Patient Records regulations: The Federal rules restrict any use of the information to criminally investigate or prosecute any alcohol or drug abuse patient.[facility] the event this information is protected by the Federal Confidentiality of Alcohol and Drug Abuse Patient Records regulations: The Federal rules restrict any use of the information to criminally investigate or prosecute any alcohol or drug abuse patient.[facility] the event this information is protected by the Federal Confidentiality of Alcohol and Drug Abuse Patient Records regulations: The Federal rules restrict any use of the information to criminally investigate or prosecute any alcohol or drug abuse patient.[facility] the event this information is protected by the Federal Confidentiality of Alcohol and Drug Abuse Patient Records regulations: The Federal rules restrict any use of the information to criminally investigate or prosecute any alcohol or drug abuse patient.[facility] the event this information is protected by the Federal Confidentiality of Alcohol and Drug Abuse Patient Records regulations: The Federal rules restrict any use of the information to criminally investigate or prosecute any alcohol or drug abuse patient.[facility] the event this information is protected by the Federal Confidentiality of Alcohol and Drug Abuse Patient Records regulations: The Federal rules restrict any use of the information to criminally investigate or prosecute any alcohol or drug abuse patient.[facility] the event this information is protected by the Federal Confidentiality of Alcohol and Drug Abuse Patient Records regulations: The Federal rules restrict any use of the information to criminally investigate or prosecute any alcohol or drug abuse patient.[facility] the event this information is protected by the Federal Confidentiality of Alcohol and Drug Abuse Patient Records regulations: The Federal rules restrict any use of the information to criminally investigate or prosecute any alcohol or drug abuse patient.[facility] the event this information is protected by the Federal Confidentiality of Alcohol and Drug Abuse Patient Records regulations: The Federal rules restrict any use of the information to criminally investigate or prosecute any alcohol or drug abuse patient.[facility] the event this information is protected by the Federal Confidentiality of Alcohol and Drug Abuse Patient Records regulations: The Federal rules restrict any use of the information to criminally investigate or prosecute any alcohol or drug abuse patient.[facility] the event this information is protected by the Federal Confidentiality of Alcohol and Drug Abuse Patient Records regulations: The Federal rules restrict any use of the information to criminally investigate or prosecute any alcohol or drug abuse patient.[facility] the event this information is protected by the Federal Confidentiality of Alcohol and Drug Abuse Patient Records regulations: The Federal rules restrict any use of the information to criminally investigate or prosecute any alcohol or drug abuse patient.[facility] the event this information is protected by the Federal Confidentiality of Alcohol and Drug Abuse Patient Records regulations: The Federal rules restrict any use of the information to criminally investigate or prosecute any alcohol or drug abuse patient.[facility] the event this information is protected by the Federal Confidentiality of Alcohol and Drug Abuse Patient Records regulations: The Federal rules restrict any use of the information to criminally investigate or prosecute any alcohol or drug abuse patient.[facility] the event this information is protected by the Federal Confidentiality of Alcohol and Drug Abuse Patient Records regulations: The Federal rules restrict any use of the information to criminally investigate or prosecute any alcohol or drug abuse patient.[facility] Hospital[facility] the event this information is protected by the Federal Confidentiality of Alcohol and Drug Abuse Patient Records regulations: The Federal rules restrict any use of the information to criminally investigate or prosecute any alcohol or drug abuse patient.[facility] the event this information is protected by the Federal Confidentiality of Alcohol and Drug Abuse Patient Records regulations: The Federal rules restrict any use of the information to criminally investigate or prosecute any alcohol or drug abuse patient.[facility] Reason for Visit (unrecogniz ed section and content) Reason Comments Cough Intermittent SOB, ch est congestion x3 days. Reason Comments Results Reason Comments Follow Up Anxiety and depressi on Specialty Diagnoses / Procedures Referred By Jenn t Referred To Contact Family Medicine / FAMILY MEDICINE Diagnoses Follow up Procedures MYC OFFICE VISIT Self Karen Jarvis, CENTERLESS GRINDER.LIBRARY ASSISTANT [address] [place] [address] Referral ID Status Reason Start Date Expiration Date Visits Requested Visits Authorized [id number] Authorized Patient Cleared - Qualified 100% FAS 12/11/2022 03/11/2023 99 99 Reason Onset Date Comments Refill Request 05/29/2023 Reason Comments Flu Like Symptoms Cough, wheeze, SOB, chest heavy, sore throat, loss of taste smell x2 days Reason Comments Hospital F/U Reason Comments Chest Congestion cough, sob and sore throat x 1 week Reason Comments Shortness of Breath Specialty Diagnoses / Procedures Referred By Contact Referred To Contact Family Medicine / FAMILY MEDICINE Diagnoses SOB Procedures 4C SAME DAY Laurie Holliday MD [address] [place] [address] Laurie Holliday MD [address] [place] [address] Referral ID Status Reason Start Date Expiration Date Visits Requested Visits Authorized [id number] Authorized Patient Cleared - Qualified 100% FAS 12/04/2023 03/03/2024 99 99 Reason Comments Hospital F/U [facility] ER SOB 12/08/2023 Reason Comments Spirometry Specialty Diagnoses / Procedures Referred By Jenn t Referred To Contact [facility] Diagnoses SOB (shortness of breath) Hypoxemia Procedures SPIROMETRY BASELINE ONLY SPMTRY W/VC EXPIRATORY MERVIN W/WO MXML VOL VNTJ PodlogKaren martínez, CENTERLESS GRINDER.LIBRARY ASSISTANT [address] [place] [address] [facility] [address] [place] [address] Referral ID Status Reason Start Date Expiration Date V isits Requested Visits Authorized [id number] Closed Auto-Generate d Referral 12/10/2023 07/20/2024 1 1 Reason Onset Date Comments Refill Request 03/07/2024 Reason Onset Date Comments Refill Request 04/02/2024 Care Teams (unrecognized sec tion and content) Grades 1 6 Tutor Relationship Specialty Start Date End Date Laurie Holliday MD [address] [place] [address] PCP - General Family Practice 04/20/21 Grades 1 6 Tutor Relationship Specialty Start Date End Date Laurie Holliday MD [address] [place] [address] PCP - General Family Practice 04/20/21 Grades 1 6 Tutor Relationship Specialty Start Date End Date Laurie Holliday MD [address] [place] [address] PCP - General Family Medicine 04/20/21 Grades 1 6 Tutor Relationship Specialty Start Date End Date Laurie Holliday MD [address] [place], [place] [id number] [phone] PCP - General Family Medicine 04/20/21 Grades 1 6 Tutor Relationship Specialty Start Date End Date Laurie Holliday MD [address] [place] [address] PCP - General Family Medicine 04/20/21 Grades 1 6 Tutor Relationship Specialty Start Date End Date Laurie Holliday MD [address] [place] [address] PCP - General Family Medicine 04/20/21 Grades 1 6 Tutor Relationship Specialty Start Date End Date Laurie Holliday MD [address] [place] [address] PCP - General Family Medicine 04/20/21 Grades 1 6 Tutor Relationship Specialty Start Date End Date Laurie Holliday MD [address] [facility] [place] [address] PCP - General Family Medicine 04/20/21 Grades 1 6 Tutor Relationship Specialty Start Date End Date Laurie Holliday MD [address] [facility] [place] [address] PCP - General Family Medicine 04/20/21 Grades 1 6 Tutor Relationship Specialty Start Date End Date Laurie Holilday MD [address] [facility] [place] [place] [address] PCP - General Family Medicine 04/20/21 Grades 1 6 Tutor Relationship Specialty Start Date End Date Laurie Holliday MD [address] [facility] [place] [place] [address] PCP - General Family Medicine 04/20/21 Grades 1 6 Tutor Relationship Specialty Start Date End Date Laurie Holliday MD [address] [facility] [place] [place] [address] PCP - General Family Medicine 04/20/21 Grades 1 6 Tutor Relationship Specialty Start Date End Date Laurie Holliday MD [address] [facility] [place] [address] PCP - General Family Medicine 04/20/21 Grades 1 6 Tutor Relationship Specialty Start Date End Date Laurie Holliday MD [address] [facility] [place] [address] PCP - General Family Medicine 04/20/21 Grades 1 6 Tutor Relationship Specialty Start Date End Date Laurie Holliday MD [address] [facility] [place] [address] PCP - General Family Medicine 04/20/21 FOR RECORDS PERTAINING TO PATIENTS [...] BE BASED ON THE PRIMARY CLINICAL RECORDS. [employer] provides no warranty or guarantee of the accuracy or completeness of information in this document.
[2024-05-11 17:58] LABS: Anion Gap 6 (5-15); BUN 11 mg/dL (7-18); BUN/Creat Ratio 18.8 RATIO (10-20); Calcium,Total 9.2 mg/dL (8.5-10.1); Chloride 106 mmol/L (98-107); Creatinine, Serum 0.58 mg/dL (0.55-1.02); EST Glomerular Filtration Rate 127 mL/min (>60); Est Glom Filt Rate - Afr Amer 154 mL/min (>60); Estimated Creatinine Clearance 185.74 ml/min; Glucose 111 mg/dL (74-106); Potassium 3.6 mmol/L (3.5-5.1); Sodium Level 135 mmol/L (136-145); Troponin-I HS < 3 pg/mL (3.0-54.0)
--- NOTE | 2024-05-11 19:46 | PCM.HP.STD ---
[facility] - General General Date of Admission: 05/11/24 Date of Service: 05/11/24 Chief Complaint: SOB and Wheezing. [facility] Narrative STARR KHAN, is a 34 F with a past medical history of morbid obesity; with BMI of 46.1 this admission, SHADIA, ongoing tobacco abuse; with suspected early COPD, history of erythrocytosis, history of ovarian cyst, history of , history of pyelonephritis and depression who presents to [facility] ER complaining of SOB and wheezing. Ms. Khan reports her symptoms began approximately one day prior to admission with DRAPER that progressed to SOB at rest with severe wheezing that was refractory to her normal treatment and her rescue inhaler. She states she was rcently started on a new inhaler but she states she does not think it is working for her. She affirms that she has never been intubated for her asthma - but she was admitted here in November 2023 for ~5 days for AE Asthma with suspected superimposed viral bronchitis complicated by acute hypoxic respiratory failure. She denies associated fever, chills, nausea, vomiting, diarrhea, constipation, chest pain or palpitations. In the ER she was noted to have an unremarkable CXR with clinical evidence of AE Asthma in the setting of ongoing Tobacco Abuse complicated by respiratory insufficiency and she was then admitted to the general medical floor for ongoing care for a stay that is expected to extend beyond 2 midnights. [facility] Medical History (Updated 05/11/24 @ 22:[address] Chito Peacock, ) Depression Tobacco abuse Morbid obesity Erythrocytosis Upper respiratory infection with cough and congestion Acute bronchospasm due to viral infection delivery delivered Home Medications ?Medication ?Instructions ?Recorded ?Last Taken ?Type loratadine 10 mg tablet 10 mg PO DAILY PRN allergy symptoms 12/04/23 12/03/23 History (Allerclear) furosemide 40 mg tablet (Lasix) 40 mg PO DAILY #30 tabs 12/08/23 Unknown Rx albuterol sulfate 90 mcg/actuation 1 - 2 puff inhalation Q4H PRN PRN 02/01/24 Unknown Rx aerosol inhaler (Ventolin HFA) Wheezing ##1 sertraline 100 mg tablet 100 mg PO QHS 05/11/24 Unknown History Allergy/AdvReac Type Severity Reaction Status Date / Time lidocaine (From [facility] Allergy Other Verified 02/01/24 17:39 (lidocaine)) Surgical History Previous section Social History household members: spouse housing: house Smoking Status: Current every day smoker tobacco type: cigarettes how long ago did patient quit smoking: Currently smoking about 1 pack of cigarettes weekly alcohol intake: current alcohol intake frequency: holidays/special occasions only substance use type: does not use ROS ROS Narrative Review of Systems: Constitutional: Patient denies fever or chills. Eyes: Patient denies changes in vision or discharge from eyes. ENT: Patient denies runny nose, sore throat or ear pain. Resp: Patient admits to SOB and wheezing as per HPI. CV: Patient denies chest pain, palpitations or heart racing. GI: Patient denies abdominal pain, nausea, vomiting, diarrhea or constipation. : Patient denies dysuria or hematuria. MSK: Patient denies arthralgias or myalgias. Skin: Patient denies rash, abscess or jaundice. Neuro: Patient denies headache, paresthesias or focal neurologic deficits. Psych: Patient denies symptoms of uncontrolled depression or anxiety. Allergy: Patient denies lip swelling, tongue swelling or urticaria. Hematology: Patient denies easy bleeding or easy bruisability. Endocrinology: Patient denies polyuria, polydipsia or polyphagia. 14 point ROS otherwise negative except for positives noted above on HPI. Vital Signs Vital Signs Vital Signs: 05/11/24 16:38 05/11/24 16:41 05/11/24 17:05 Temperature 97.8 F Temperature Source Oral Pulse Rate 99 115 H Respiratory Rate 18 26 H Respiratory Effort Short of Breath Labored Pursed Lip Respiratory Depth Shallow Respiratory Pattern Tachypnea Blood Pressure 155/110 H Blood Pressure Mean 125 Pulse Ox 87 90 Oxygen Delivery Method Room Air Nasal Cannula Nasal Cannula Oxygen Flow Rate (L/min) 2 3 05/11/24 17:25 05/11/24 17:32 05/11/24 17:34 Temperature Temperature Source Pulse Rate 113 H 107 H Respiratory Rate 30 H 18 Respiratory Effort Respiratory Depth Respiratory Pattern Normal Blood Pressure 134/83 H Blood Pressure Mean 100 Pulse Ox 91 Oxygen Delivery Method Nasal Cannula Nasal Cannula Oxygen Flow Rate (L/min) 3 3 05/11/24 17:34 05/11/24 18:00 05/11/24 18:53 Temperature Temperature Source Pulse Rate 110 H 100 Respiratory Rate 30 H 26 H Respiratory Effort Respiratory Depth Respiratory Pattern Blood Pressure 112/89 H 112/87 H Blood Pressure Mean 96 95 Pulse Ox 92 92 88 Oxygen Delivery Method Nasal Cannula Nasal Cannula Nasal Cannula Oxygen Flow Rate (L/min) 3 3 3 05/11/24 18:55 05/11/24 19:32 Temperature Temperature Source Pulse Rate 93 Respiratory Rate 18 Respiratory Effort Respiratory Depth Respiratory Pattern Blood Pressure 124/73 H Blood Pressure Mean 90 Pulse Ox 90 89 Oxygen Delivery Method Nasal Cannula Nasal Cannula Oxygen Flow Rate (L/min) 4 4 Weight Weight: 277 lb 3.2 oz Body Mass Index (BMI) 46.1 Physical Exam Const alert and oriented x3 Constitutional Narrative: Mild distress noted with Pickwickian phenotype. General Appearance: cooperative HEENT normocephalic, head/scalp atraumatic, hearing grossly normal bilaterally and moist oral mucous membranes Eyes PERRL and EOMs intact bilaterally Neck no lymphadenopathy and supple Resp Resp Narrative: Diminished breath sounds throughout with scattered expiratory wheezing. Auscultation: wheezes Cardio regular rate and regular rhythm GI normal to inspection, nondistended, normoactive bowel sounds, soft to palpation, non-tender and non-distended GI Narrative: Morbidly obese. Extremity normal to inspection, full ROM and no clubbing, cyanosis or edema Skin Skin Narrative: Patient has no evidence of jaundice, rash or abscess. Neuro oriented x3, CN's II-XII intact bilaterally, moves all extremities and no focal motor deficits Sensorium / Orientation: awake, alert, oriented to person, oriented to place and oriented to time Speech: speech normal Psych Mood & Affect: anxious Results Medical Records Data Attestation: I reviewed the patient's medical records Lab / Micro Data Attestation: I reviewed the patient's lab results. 05/11/24 17:20 05/11/24 17:20 Labs: Laboratory Results - last 24 hr 05/11/24 17:20: WBC 16.0 H, RBC 5.75 H, Hgb 16.9 H, Hct 48.9 H, MCV 85.0, MCH 29.4, MCHC 34.6, RDW Std Deviation 40.7, RDW Coeff of Mary Grace 13.2, Plt Count 299, MPV 10.1, Immature Gran % (Auto) 0.400, Neut % (Auto) 62.5, Lymph % (Auto) 21.6, [place] % (Auto) 6.9, Eos % (Auto) 8.0 H, Baso % (Auto) 0.6, Absolute Neuts (auto) 10.0 H, Absolute Lymphs (auto) 3.45, Nucleated RBC % 0, D-Dimer Quant (PE/DVT) 0.28, Sodium 135 L, Potassium 3.6, Chloride 106, Carbon Dioxide 24.0, Anion Gap 6, BUN 11, Creatinine 0.58, Estim Creat Clear Calc 185.74, Est GFR (MDRD) Af Amer 154, Est GFR (MDRD) Non-Af 127, BUN/Creatinine Ratio 18.8, Glucose 111 H, Calcium 9.2, Troponin I High Sens < 3 L Imaging Radiology Impression Chest X-Ray 05/11/24 17:51 IMPRESSION: No radiographic evidence of acute cardiopulmonary disease. Electronically Signed: Damian Lo DO at 18:20 EDT Reading Location ID and State: [facility] / [place] Tel [phone], Service support , Assessment & Plan Assessment/Plan (1) Asthma exacerbation: QUALIFIERS: Asthma persistence: persistent Asthma severity: severe Qualified Code(s): J45.51 - Severe persistent asthma with (acute) exacerbation (2) Respiratory insufficiency: (3) Morbid obesity with BMI of 45.0-49.9, adult: (4) Tobacco abuse: PLAN: Plan 1. AE Asthma in the setting of ongoing Tobacco Abuse with Leukocytosis of 16K present on admission - Admit to general medical floor. Continue IV Solumedrol and start Doxycycline IV BID with suspected early COPD. Tobacco Cessation was strongly encouraged with Nicotine patch offered to control cravings. 2. Respiratory Insufficiency arising from #1 - Wean supplemental oxygen as tolerated. 3. Morbid obesity; with BMI of 46.1 this admission plus SHADIA complicating #1 & #2 - Weight loss will be recommended. Check TSH. 4. History of erythrocytosis - Noted. 5. History of ovarian cyst - Noted. 6. History of - Noted. 7. History of pyelonephritis - Noted. 8. Depression - Resume Sertraline as previous. 9. DVT prophylaxis - Lovenox 40 mg sq BID. Total time: Approximately (but not less than) 55 minutes. Charges/Coding Visit Charges Inpatient E&M: 12233 Init Hosp L2
--- OUTSIDE RECORDS SUMMARY | 2024-05-11 20:08 | XMS RPT_ITS | CCD ---
Author Organization [facility] Care Team Providers Care Synthetic Filament Extruder Name Role Phone Laurie Holliday MD Primary [...] (2 sources) Lidocaine Drug Allergy 03-20-2017 Intolerance [facility] (17 sources) Lidocaine; Translations: [LIDOCAINE] Drug Allergy 03-20-2017 Intolerance [facility] Work Phone: Medications Current Medications Medication Drug Class(es) Dates Sig (Normalized) Sig (Original) [id number] 200 actuat albuterol 0.09 mg/actuat metered dose [...] tablet by mouth once daily. Ordered by [facility] jenni Simon [facility] 12/08/2023 90 tablet 01/09/2024 Active predniSONE 20 mg oral tablet (2 sources) Start: 03-29-2022 End: 04-03-2022 take 2 tablets by mouth once daily predniSONE (DELTASONE) 20 mg tablet Take 2 tablets by mouth once daily for 5 days. 10 tablet 0 03/29/2022 04/03/2022 Active Comment on above: Take 2 tablets by mo [facility] once daily for 5 days. sertraline 100 [...] outh three times daily as needed. levonorgestrel 0.554867 mg/hr intrauterine system (4 sources) Progestin, Progestin-containi [...] 8 hours as needed for Nausea/Vomiting. vit 32-wqod-dbsot-dha (PRENATE MINI, FERR ASP GLYCIN,) 18-1-350 mg cap (3 sources) Start: 07-05-2020 End: 10-18-2022 take 1 capsule by mouth once daily vit 18-jeoq-pwcwl-dha (PRENATE MINI, FERR ASP GLYCIN,) 18-1-350 mg cap Take 1 Dose by mouth once daily. 30 capsule 12 07/05/2020 10/18/2022 Discontinued (Course of therapy completed) Start: 07-05-2020 take 1 capsule by mo uth once daily vit 50-lakq-xsvrd-dha (PRENATE MINI, FERR ASP GLYCIN,) 18-1-350 mg [...] Long-term current use of diuretic; Translations: [Other group home (current) drug therapy] 01-09-2024 Episodic Other hematologic [...] Test Name Value Interpretation Reference Range Facility [facility] 12-16-2023 BETH Telephone (ALEXANDER) STARR KHAN ([id number]) 1990 F Date Time Provider Department 12/16/23 KAREN JARVIS During your visit today, we recorded the following information about you: Lázaro Messina LPN 12/16/2023 11:00 AM Signed Type of form: Short-term Disability Form received via fax When form is completed, Fax form to [phone] Attn: Ihsan Morley Form has been forwarded [...] faxed from 12/15 was from August per traffic representative. RONAL Li Michelle, LPN 12/22/2023 4:19 PM Signed Office note from 12/09 faxed to [facility] for disability filing. RONAL Carrion Michelle, LPN 12/24/2023 3:44 PM Signed Type of form: Restrictions Form Form received via fax When form is completed, Fax form to [facility] at [phone] Form has been forwarded to Nurse Practitioner: Karen Jarvis inbox RONAL Carrion Julie, APRN.CNP 12/24/2023 6:17 PM Signed Forms completed and in my out box. Please fax. RUPERT Ko Gillian, OCCA 12/25/2023 7:36 AM Signed From faxed to [facility] as instructed below. Copy also made and sent to scanning for our records. JERRY Starks Allergies As of Date: 12/16/2023 Noted Allergy Reaction LIDOCAINE 03/20/2017 5 - Intolerance Comments: Lidocaine patches-dizziness Date Reviewed: 12/10/2023 Reviewed by: Lázaro Messina LPN - Fully Assessed Reason for Visit: Results [95] Primary Visit Diagnosis:Erythrocytos is [D75.1] Order(s):PATHOLOGIST INTERPRETATION WITH CBC AND DIFF [SQSTREV] Order #: [id number] FUTURE Prescriptions as of 12/25/2023 - furosemide (LASIX) 40 mg tablet Take 40 mg by mouth once daily. Ordered by hospital doc Dominique Simon [facility] 12/08/2023 - albuterol HFA (PROAIR HFA) 90 [...] Status:Closed by MILLY DIAZ on 12/25/23 [facility] STARR KH[facility] ([id number]) 1990 F Date Time Provider Department 12/16/23 [...] once daily. Ordered by hospital jenni Simon [facility] 12/08/2023 - albuterol HFA (PROAIR HFA) 90 [...] Status:Closed by LÁZARO MESSINA on 12/17/23 Normal [place] Basic metabolic 2000 panelon 12-10-2023 Anion gap [Moles/Vol] 12 mmol/L Normal 9-18 [place] Comment on above: Order Comment: Speci men Type: BLOOD SPECIMENOrdering Facility: [facility] Address: [address] [place] [address] Performed By: #### 3 053-6, 3016-3, 26471-1, 3024-7 ####[facility] LABIA [id number] [place] [address] [place] Calcium [Mass/Vol] 9.4 mg/dL Normal 8.5-10.[address] [facility] Comment on above: Order Comment: Speci men Type: BLOOD SPECIMENOrdering Facility: [facility] Address: [address] [place] [address] Performed By: #### 3 053-6, 3016-3, 00800-6, 3024-7 ####[facility] LABCLIA [id number] [place] [address] [place] Chloride [Moles/Vol] 102 mmol/L Normal 97-105 [place] Comment on above: Order Comment: Speci men Type: BLOOD SPECIMENOrdering Facility: [facility] Address: [address] [place], [place] [address] Performed By: #### 3 053-6, 3016-3, 54241-4, 3024-7 ####[facility] LABCLIA [id number] [address] [address] [place] CO2 [Moles/Vol] 25 mmol/L Normal 22-30 [place] Comment on above: Order Comment: Speci men Type: BLOOD SPECIMENOrdering Facility: [facility] Address: [address] [place], [place] [address] Performed By: #### 3 053-6, 3016-3, 90452-2, 3023-7 ####[facility]IA [id number] [place] [address] [place] Creatinine [Mass/Vol] 0.62 mg/dL Normal 0.58-0.96 [place] Comment on above: Order Comment: Speci men Type: BLOOD SPECIMENOrdering Facility: [facility] Address: [address] [place] [address] Performed By: #### 3 053-6, 3016-3, 32548-6, 3023-7 ####[facility] [id number] [address] [address] [place] Creatinine and Glomerular filtration rate.predicted panel (S/P/Bld) 122 mL/min/1.73m??? Normal >=60 [place] Comment on above: Order Comment: Speci men Type: BLOOD SPECIMENOrdering Facility: [facility] Address: [address] [place] [address] Result Comment: Emelyn mated Glomerular Filtration Rate [...] GFR. Performed By: #### 3 053-6, 3016-3, 30284-6, 3023-7 ####[facility] LABCLIA [id number] [place] [address] [place] Glucose [Mass/Vol] 67 mg/dL Low 74-[address] [facility] Comment on above: Order Comment: Speci men Type: BLOOD SPECIMENOrdering Facility: [facility] Address: [address] [place] [address] Result Comment: The [place] Diabetes Association (ADA) provides guidance for cutoff [...] Standards of Medical Care in Diabetes 2016, [place] Diabetes Association. Diabetes Care. 2016.39(Suppl 1). Performed By: #### 3 053-6, 3016-3, 60944-0, 7 ####[facility] LABCLIA [id number] [place] [address] [place] Potassium [Moles/Vol] 3.6 mmol/L Low 3.7-5.1 [place] Comment on above: Order Comment: Speci men Type: BLOOD SPECIMENOrdering Facility: [facility] Address: [address] [place] [address] Performed By: #### 3 053-6, 3016-3, 39356-7, 7 ####[facility] LABCLIA [id number] [place] [address] [place] Sodium [Moles/Vol] 139 mmol/L Normal 136-[address] [facility] Comment on above: Order Comment: Speci men Type: BLOOD SPECIMENOrdering Facility: [facility] Address: [address] [place] [address] Performed By: #### 3 053-6, 3016-3, 03789-2, 3024-7 ####[facility] LABCLIA [id number] [place] [address] [place] Urea nitrogen [Mass/Vol] 18 mg/dL Normal 7-21 [place] Comment on above: Order Comment: Speci men Type: BLOOD SPECIMENOrdering Facility: [facility] Address: [address] [place] [address] Performed By: #### 3 053-6, 3016-3, 63677-0, 3024-7 ####[facility] LABCLIA [id number] [place] [address] [place] CBC W Auto Differential pane l (Bld)on 12-10-2023 Basophils (Bld) [#/Vol] 0.00 10*3/uL Normal <0.11 [place] Comment on above: Order Comment: Speci men Type: BLOOD SPECIMENOrdering Facility: [facility] Address: [address] [place] [address] Performed By: #### 5 7021-8 ####[facility] LABCLIA [id number] [place] [address] [place] Basophils/100 WBC (Bld) 0.0 % Normal [place] Comment on above: Order Comment: Speci men Type: BLOOD SPECIMENOrdering Facility: [facility] Address: [address] [place] [address] Performed By: #### 5 7021-8 ####[facility]CLIA [id number] [place] [address] [place] Differential cell count method Nom (Bld) Manual Normal [place] Comment on above: Order Comment: Speci men Type: BLOOD SPECIMENOrdering Facility: [facility] Address: [address] [place] [address] Performed By: #### 5 7021-8 ####[facility] LABCLIA [id number] [place] [address] [place] Eosinophils (Bld) [#/Vol] 1.08 10*3/uL High <0.46 [place] Comment on above: Order Comment: Speci men Type: BLOOD SPECIMENOrdering Facility: [facility] Address: [address] [place] [address] Performed By: #### 5 7021-8 ####[facility] LABCLIA [id number] [place] [address] [place] Eosinophils/100 WBC (Bld) 6.0 % Normal [place] Comment on above: Order Comment: Speci men Type: BLOOD SPECIMENOrdering Facility: [facility] Address: [address] [place] [address] Performed By: #### 5 7021-8 ####[facility] LABCLIA [id number] [place] [address] [place] Erythrocyte distribution width (RBC) [Ratio] 13.0 % Normal 11.5-15.0 [place] Comment on above: Order Comment: Speci men Type: BLOOD SPECIMENOrdering Facility: [facility] Address: [address] [place] [address] Performed By: #### 5 7021-8 ####[facility] LABCLIA [id number] [place] [address] [place] Hematocrit (Bld) [Volume fraction] 53.4 % High 36.0-46.0 [place] Comment on above: Order Comment: Speci men Type: BLOOD SPECIMENOrdering Facility: [facility] Address: [address] [place] [address] Performed By: #### 5 7021-8 ####[facility] LABCLIA [id number] [place] [address] [place] Hemoglobin (Bld) [Mass/Vol] 18.4 g/dL High 11.5-15.5 [place] Comment on above: Order Comment: Speci men Type: BLOOD SPECIMENOrdering Facility: [facility] Address: [address] [place] [address] Performed By: #### 5 7021-8 ####[facility] LABCLIA [id number] [place] [address] [place] Lymphocytes (Bld) [#/Vol] 9.14 10*3/uL High 1.00-4.00 [place] Comment on above: Order Comment: Speci men Type: BLOOD SPECIMENOrdering Facility: [facility] Address: [address] [place] [address] Performed By: #### 5 7021-8 ####[facility] LABCLIA [id number] [place] [address] [place] Lymphocytes/100 WBC (Bld) 51.0 % Normal [place] Comment on above: Order Comment: Speci men Type: BLOOD SPECIMENOrdering Facility: [facility] Address: [address] [place] [address] Performed By: #### 5 7021-8 ####[facility] LABCLIA [id number] [place] [address] [place] MCH (RBC) [Entitic mass] 30.1 pg Normal 26.0-34.0 [place] Comment on above: Order Comment: Speci men Type: BLOOD SPECIMENOrdering Facility: [facility] Address: [address] [place] [address] Performed By: #### 5 7021-8 ####[facility]CLIA [id number] [place] [address] [place] MCHC (RBC) [Mass/Vol] 34.5 g/dL Normal 30.5-36.0 [place] Comment on above: Order Comment: Speci men Type: BLOOD SPECIMENOrdering Facility: [facility] Address: [address] [place] [address] Performed By: #### 5 7021-8 ####[facility] LABCLIA [id number] [place] [address] [place] MCV (RBC) [Entitic vol] 87.4 fL Normal 80.0-100.0 [place] Comment on above: Order Comment: Speci men Type: BLOOD SPECIMENOrdering Facility: [facility] Address: [address] [place] [address] Performed By: #### 5 7021-8 ####[facility] LABCLIA [id number] [place] [address] [place] Monocytes (Bld) [#/Vol] 1.61 10*3/uL High <0.87 [place] Comment on above: Order Comment: Speci men Type: BLOOD SPECIMENOrdering Facility: [facility] Address: [address] [place] [address] Performed By: #### 5 7021-8 ####[facility] LABIA [id number] [place] [address] [place] Monocytes/100 WBC (Bld) 9.0 % Normal [place] Comment on above: Order Comment: Speci men Type: BLOOD SPECIMENOrdering Facility: [facility] Address: [address] [place] [address] Performed By: #### 5 7021-8 ####[facility] LABCLIA [id number] [place] [address] [place] Neutrophils (Bld) [#/Vol] 6.09 10*3/uL Normal 1.45-7.50 [place] Comment on above: Order Comment: Speci men Type: BLOOD SPECIMENOrdering Facility: [facility] Address: [address] [place] [address] Performed By: #### 5 7021-8 ####[facility] LABCLIA [id number] [place] [address] [place] Neutrophils/100 WBC (Bld) 34.0 % Normal [place] Comment on above: Order Comment: Speci men Type: BLOOD SPECIMENOrdering Facility: [facility] Address: [address] [place] [address] Performed By: #### 5 7021-8 ####[facility] LABCLIA [id number] [place] [address] [place] Nucleated RBC (Bld) [#/Vol] 10*3/uL Normal <0.01 [place] Comment on above: Order Comment: Speci men Type: BLOOD SPECIMENOrdering Facility: [facility] Address: [address] [place] [address] Performed By: #### 5 7021-8 ####[facility] LABCLIA [id number] [place] [address] [place] Nucleated RBC/100 WBC (Bld) [Ratio] 0.0 /100 WBC Normal [place] Comment on above: Order Comment: Speci men Type: BLOOD SPECIMENOrdering Facility: [facility] Address: [address] [place] [address] Performed By: #### 5 7021-8 ####[facility] LABCLIA [id number] [place] [address] [place] Platelet mean volume (Bld) [Entitic vol] 11.3 fL Normal 9.0-12.7 [place] Comment on above: Order Comment: Speci men Type: BLOOD SPECIMENOrdering Facility: [facility] Address: [address] [place] [address] Performed By: #### 5 7021-8 ####[facility] LABCLIA [id number] [place] [address] [place] Platelets (Bld) [#/Vol] 289 10*3/uL Normal 150-400 [place] Comment on above: Order Comment: Speci men Type: BLOOD SPECIMENOrdering Facility: [facility] Address: [address] [place] [address] Performed By: #### 5 7021-8 ####[facility] LABCLIA [id number] [place] [address] [place] Platelets Estimate (Bld) [#/Vol] Adequate Normal [place] Comment on above: Order Comment: Speci men Type: BLOOD SPECIMENOrdering Facility: [facility] Address: [address] [place] [address] Performed By: #### 5 7021-8 ####[facility] LABCLIA [id number] [place] [address] [place] RBC (Bld) [#/Vol] 6.11 10*6/uL High 3.90-5.20 [facility] Comment on above: Order Comment: Speci men Type: BLOOD SPECIMENOrdering Facility: [facility] Address: [address] [place] [address] Performed By: #### 5 7021-8 ####[facility] LABIA [id number] [place] [address] [place] RED CELL MORPH Reviewed: unremarkable Normal [place] Comment on above: Order Comment: Speci men Type: BLOOD SPECIMENOrdering Facility: [facility] Address: [address] [place] [address] Performed By: #### 5 7021-8 ####[facility] LABCLIA [id number] [place] [address] [place] WBC (Bld) [#/Vol] 17.92 10*3/uL High 3.70-11.00 [facility] Comment on above: Order Comment: Speci men Type: BLOOD SPECIMENOrdering Facility: [facility] Address: [address] [place] [address] Performed By: #### 5 7021-8 ####[facility] LABCLIA [id number] [address] [place] [address] [place] CNOVon 12-10-2023 CNOV Office Visit (FAMPWS ) STARR KHAN ([id number]) 1990 F Date Time Provider Department 12/10/23 8:20 AM KAREN JARVIS During your visit today, we recorded the following information about you: Pulse Respiration Blood pressure Weight 93/minute 20/minute 104/76 125.8 kg Karen Jarvis APRN.CNP 12/10/2023 8:53 AM Signed 12/10/2023 Patient presents with: Hospital F/U: [facility] ER SOB 12/08/2023 SUBJECTIVE: This is a 33 year old that is here today for Above Complaints. HOSPITAL/ER FOLLOW UP: Reason for visit: respiratory distress and hypoxemia Which facility: [facility] Date of visit: 12/05/2023-12/08/2023 Diagnosis: respiratory failure, hypoxemia, asthma, reactive airway disease Testing done: CTA chest, blood work, ECHO- 65% EF Treatment given: lasix IV, O2, IV antibiotics, and steroids Since discharge has been doing well. Admits still with some SOB with exertion but much improved. Has follow-up appointment with Dr. White, integration software engineer on 01/14/2024. [place] some dizzy yesterday but this has improved. [...] COMPLETE BLOOD COUNT AND DIFFERENTIAL Karen Jarvis, NOEMY.CALL CENTER NURSE Prescription instructions reviewed with patient as applicable. Patient advised if symptoms do not improve or if symptoms worsen sooner, to contact their primary care physician. Potential red flag symptoms discussed with the patient. Reviewed (more content not included)... Normal [place] T3 SerPl-Jarvis 12-10-2023 T3 [Mass/Vol] 114 ng/dL Normal 79-165 [place] Comment on above: Order Comment: Speci men Type: BLOOD SPECIMENOrdering Facility: [facility] Address: [address] [place] [address] Performed By: #### 3 053-6, 3016-3, 53907-6, 3024-7 ####[facility] LABCLIA [id number] [facility] [id number] [address] [place] T4 Free SerPl-Jarvis 024 Free T4 [Mass/Vol] 1.5 ng/dL Normal 0.9-1.[address] [facility] Comment on above: Order Comment: Radha goodwin Type: BLOOD SPECIMENOrdering Facility: [facility] Address: [address] [place] [address] Performed By: #### 3 053-6, 3016-3, 97032-2, 3024-7 ####[facility] LABIA [id number] [place] [address] [place] TSH SerPl-[place] 12-10-2023 TSH Qn 2.000 m[IU]/L Normal 0.270-4.200 [place] Comment on above: Order Comment: Speci men Type: BLOOD SPECIMENOrdering Facility: [facility] Address: [address] [place] [address] Result Comment: If t he patient is , TSH reference range varies by gestational period: First Trimester (weeks 9-12): 0.180-2.990 mIU/L Second Trimester: 0.110-3.980 mIU/L Third Trimester: 0.480-4.710 mIU/L Uriel Dobbs et al. A Practical Approach for the Verifications and Determination of Site- and Trimester-Specific Reference Intervals for Thyroid Function tests in . Thyroid, 2019:29:3:412-420. Marcio Cao, et al. 2017 Guidelines of the [place] Thyroid Association for the Diagnosis and Management of Thyroid Disease during and the . Thyroid, 2017:27:3:315-389. Performed By: #### 3 053-6, 3016-3, 87956-6, 3024-7 ####[facility]IA [id number] [place] [id number] [place] CNOVon 12-04-2023 CNOV Office Visit (FAMPWS ) STARR KHAN ([id number]) 1990 F Date Time Provider Department 12/04/23 [...] History of COVID-05/2021 History of methamphetamine abuse ([facility]) Mental disorder PMH - PAST MEDICAL HISTORY [...] EMS. will drive from here directly to [facility] ER. Report sent via ER Passport. Records sent with patient. Will f/u on discharge. - ALBUTEROL SULFATE 2.5 MG/3 ML (0.083 %) SOLUTION FOR NEBULIZATION 2. Hypoxia - ICD9: 799.02, ICD10: R09.02 See above. - ALBUTEROL SULFATE 2.5 MG/3 ML (0.083 %) SOLUTION FOR NEBULIZATION Laurie Holliday MD Referring Provider: LAURIE HOLLIDAY [[id number]] Allergies As of Date: 12/04/2023 Noted Allergy Reactio (more content not included)... Normal [place] CNOVon 10-15-2023 CNOV Office Visit (UCTR ) STARR KHAN ([id number]) 1990 F Date Time Provider Department 10/15/23 8:45 AM SARAH BETH DIAZ [facility] During your visit today, we recorded the following information about you: Temperature Pulse Respiration Blood pressure 98.3 degrees 102/minute 18/minute 108/64 Weight 127.4 kg Sarah Beth Diaz APRN.CALL CENTER NURSE 10/15/2023 9:26 AM Signed CC: Patient presents [...] mcg/actuation inh (more content not included)... Normal [place] CNOVon 09-10-2023 CNOV Office Visit (FAMPWS ) STARR KHAN ([id number]) 1990 F Date Time Provider Department 09/10/23 2:40 PM KAREN JARVIS During your visit today, we recorded the following information about you: Pulse Respiration Blood pressure Weight 85/minute 18/minute 112/78 127.7 kg Karen Jarvis APRN.CNP 09/10/2023 3:13 PM Signed 09/10/2023 Patient presents with: Hospital F/U SUBJECTIVE: This is a 33 year old, accompanied by mother, that is here today for Above Complaints. HOSPITAL/ER FOLLOW UP: Reason for visit: SOB Which facility: [facility] Date of visit: 09/04/2023-09/06/2023 Diagnosis: rhinovirus infection, [...] if symptoms fail to improve Karen Podloganthony, EARLY CHILDHOOD EDUCATION COORDINATOR.CALL CENTER NURSE Prescription instructions reviewed with patient as applicable. [...] prognosis R (more content not included)... Normal [place] CNOVon 09-04-2023 CNOV Office Visit (UCWSTR ) STARR KHAN ([id number]) 1990 F Date Time Provider Department 09/04/23 9:00 AM SALMA HOWARD WSTR During your visit today, we recorded the following information about you: Temperature Pulse Respiration Blood pressure 99.1 degrees 116/minute 24/minute 122/83 Weight Last Period 127.9 kg 08/02/23 Salma Howard APRN.CALL CENTER NURSE 09/04/2023 10:28 AM Signed Subjective HPI HPI [...] 786.05, ICD10: R06.02 Sending to LIOR Howard APRN.CALL CENTER NURSE Allergies As of Date: 09/04/2023 Noted Allergy [...] AND RSV NAAT, ROUTINE [SQCVFLRS] Order #: [id number]. #:[id number] Prescriptions as of 09/04/2023 - sertraline (ZOLOFT) [...] disorder) [F43.10] (more content not included)... Normal [place] COVID AND INFLUENZA A/B AND RSV NAAT, ROUTINEon 09-04-2023 SARS-CoV-2 (COVID-19) RNA ALMA DELIA+probe Ql (Unsp spec) COVID 19 RESULT: Not detected The method used is RT-PCR or an equivalent NAAT method. Reference Range (the expected result in uninfected individuals): Not detected INFLUENZA A PCR: Not detected INFLUENZA B PCR: Not detected RSV PCR: Not detected Normal [place] Comment on above: Performed By: #### C VFS ####[facility] LABCL[facility] [id number] [address] [place] CNPMontserrat 01-06-2023 CNPN Telephone (FAMPWS) STARR KHAN ([id number]) 1990 F Date Time Provider Department 01/06/23 KAREN JARVIS During your visit today, we recorded the following information about you: Lázaor Messina LPN 01/06/2023 8:29 AM Signed ----- Message from Karen Jarvis APRN.CALL CENTER NURSE sent at 01/06/2023 7:44 AM EDT ----- [...] Status:Closed by SOHEILA CATHERINE on 01/06/23 Normal [place] Comprehensive metabolic 2000 panelon 01-04-2023 Albumin [Mass/Vol] 4.3 g/dL Normal 3.9-4.[address] [facility] Comment on above: Order Comment: Speci men Type: BLOOD SPECIMENOrdering Facility: [facility] Address: [address] [place] [address] Performed By: #### 2 4323-8, 10354-4, 6-3 ####[facility] [facility] [id number] [place] [address] [place] ALP [Catalytic activity/Vol] 107 U/L Normal 34-123 [place] Comment on above: Order Comment: Speci men Type: BLOOD SPECIMENOrdering Facility: [facility] Address: [address] [place] [address] Performed By: #### 2 4323-8, 55989-4, 6-3 ####[facility] LABCLIA [id number] [place] [address] [place] ALT [Catalytic activity/Vol] 19 U/L Normal 7-38 [place] Comment on above: Order Comment: Speci men Type: BLOOD SPECIMENOrdering Facility: [facility] Address: [address] [place], [place] [address] Performed By: #### 2 4323-8, 66574-6, 6-3 ####[facility] LABCLIA [id number] [place] [address] [place] Anion gap [Moles/Vol] 15 mmol/L Normal 9-18 [place] Comment on above: Order Comment: Speci men Type: BLOOD SPECIMENOrdering Facility: [facility] Address: [address] [place] [address] Performed By: #### 2 4323-8, 30172-2, 3016-3 ####[facility] LABCLIA [id number] [place] [address] [place] AST [Catalytic activity/Vol] 23 U/L Normal 13-35 [place] Comment on above: Order Comment: Speci men Type: BLOOD SPECIMENOrdering Facility: [facility] Address: [address] [place] [address] Performed By: #### 2 4323-8, 75879-1, 3015-3 ####[facility] LABCLIA [id number] [place] [address] [place] Bilirubin [Mass/Vol] 0.5 mg/dL Normal 0.2-1.3 [place] Comment on above: Order Comment: Speci men Type: BLOOD SPECIMENOrdering Facility: [facility] Address: [address] [place] [address] Performed By: #### 2 4323-8, 33248-1, 3015-3 ####[facility] LABIA [id number] [place] [address] [place] Calcium [Mass/Vol] 9.7 mg/dL Normal 8.5-10.[address] [facility] Comment on above: Order Comment: Speci men Type: BLOOD SPECIMENOrdering Facility: [facility] Address: [address] [place], [place] [address] Performed By: #### 2 4323-8, 47769-0, 3 ####[facility] LABIA [id number] [place] [address] [place] Chloride [Moles/Vol] 103 mmol/L Normal 97-105 [place] Comment on above: Order Comment: Speci men Type: BLOOD SPECIMENOrdering Facility: [facility] Address: [address] Performed By: #### 2 4323-8, 74233-0, 3015-3 ####[facility] LABCLIA [id number] [place] [address] [place] CO2 [Moles/Vol] 20 mmol/L Low 22-30 [place] Comment on above: Order Comment: Speci men Type: BLOOD SPECIMENOrdering Facility: [facility] Address: [address] [place] [address] Performed By: #### 2 4323-8, 95770-2, 3015-3 ####[facility]CLIA [id number] [address] [place] Creatinine [Mass/Vol] 0.47 mg/dL Low 0.58-0.96 [place] Comment on above: Order Comment: Speci men Type: BLOOD SPECIMENOrdering Facility: [facility] Address: [address] [place] [address] Performed By: #### 2 4323-8, 72239-7, 3015-3 ####[facility] [id number] [address] STATES OF [facility] ESTIMATED GLOMERULAR FILTRATION RATE 132 mL/min/1.73m??? Normal >=60 [place] Comment on above: Order Comment: Speci men Type: BLOOD SPECIMENOrdering Facility: [facility] Address: [address] [place] [address] Result Comment: Emelyn mated Glomerular Filtration Rate [...] actual GFR. Performed By: #### 2 4323-8, 78691-1, 3015-3 ####[facility] LABIA [id number] [place] [address] [place] Glucose [Mass/Vol] 77 mg/dL Normal 74-[address] [facility] Comment on above: Order Comment: Speci men Type: BLOOD SPECIMENOrdering Facility: [facility] Address: [place] [address] Result Comment: The [place] Diabetes Association (ADA) provides guidance for cutoff [...] Standards of Medical Care in Diabetes 2016, [place] Diabetes Association. Diabetes Care. 2016.39(Suppl 1). Performed By: #### 2 4323-8, 84209-3, 3016-3 ####[facility] LABCLIA [id number] [place] [address] [place] Potassium [Moles/Vol] 3.6 mmol/L Low 3.7-5.1 [place] Comment on above: Order Comment: Radha goodwin Type: BLOOD SPECIMENOrdering Facility: [facility] Address: [place] [address] Performed By: #### 2 4323-8, 61743-8, 6-3 ####[facility] LABCLIA [id number] [place] [address] [place] Protein [Mass/Vol] 7.4 g/dL Normal 6.3-8.[address] [facility] Comment on above: Order Comment: Radha goodwin Type: BLOOD SPECIMENOrdering Facility: [facility] Address: [place] [address] Performed By: #### 2 4323-8, 61483-6, 3016-3 ####[facility] LABCLIA [id number] [place] [id number] [place] Sodium [Moles/Vol] 138 mmol/L Normal 136-[address] [facility] Comment on above: Order Comment: Radha men Type: BLOOD SPECIMENOrdering Facility: [facility] Address: [address] [place] [address] Performed By: #### 2 4323-8, 01320-8, 3016-3 ####[facility] LABCLIA [id number] [place] [address] [place] Urea nitrogen [Mass/Vol] 6 mg/dL Low 7-21 [place] Comment on above: Order Comment: Yudelkai men Type: BLOOD SPECIMENOrdering Facility: [facility] Address: [address] [place] [address] Performed By: #### 2 4323-8, 53476-5, 3016-3 ####[facility] LABCLIA [id number] [place] [address] [place] HbA1c (Bld)on 01-04-2023 Average glucose Estimated from glycated hemoglobin (Bld) [Mass/Vol] 85 mg/dL Normal [place] Comment on above: Order Comment: Radha goodwin Type: BLOOD SPECIMENOrdering Facility: [facility] Address: [address] [place] [address] Result Comment: eAG: (Estimated average glucose) is a calculated value from HgbA1c and is traffic representative of the average blood glucose level in the last 2-3 month period. Performed By: #### 5 5454-3 ####[facility] LABIA [id number] [place] [address] [place] HbA1c (Bld) [Mass fraction] 4.6 % Normal 4.3-5.6 [place] Comment on above: Order Comment: Radha christa Type: BLOOD SPECIMENOrdering Facility: [facility] Address: [address] [place] [address] Result Comment: Amer [place] Diabetes Association guidelines indicate that patients with HgbA1c in the range 5.7-6.4% are at increased risk for development of diabetes, and intervention by lifestyle modification may be beneficial. HgbA1c greater or equal to 6.5% is considered diagnostic of diabetes. Performed By: #### 5 5454-3 ####[facility] LABCLIA [id number] [address] OF [facility] Lipid 1996 panelon 3 Cholesterol [Mass/Vol] 170 mg/dL Normal <200 [place] Comment on above: Order Comment: Speci men Type: BLOOD SPECIMENOrdering Facility: [facility] Address: [address] [place] [address] Result Comment: <200 mg/dL, Desirable 200-239 mg/dL, Borderline high >239 mg/dL, High Performed By: #### 2 4323-8, 92449-5, 3016-3 ####[facility] LABCLIA [id number] [address] [place] Cholesterol in HDL [Mass/Vol] 42 mg/dL Normal >39 [place] Comment on above: Order Comment: Yudelkai [facility] Type: BLOOD SPECIMENOrdering Facility: [facility] Address: [address] [place] [address] Result Comment: 40-5 9 mg/dL, Acceptable >59 mg/dL, High: Negative risk factor for coronary heart disease <40 mg/dL, Low: Positive risk factor for coronary heart disease Performed By: #### 2 4323-8, 48035-0, 3016-3 ####[facility] LABCLIA [id number] [address] STATES OF [facility] Cholesterol in LDL [Mass/Vol] 111 mg/dL High <100 [place] Comment on above: Order Comment: Speci [facility] Type: BLOOD SPECIMENOrdering Facility: [facility] Address: [address] [place] [address] Result Comment: <100 mg/dL, Optimal 100-129 mg/dL, Near optimal/above optimal 130-159 mg/dL, Borderline high 160-189 mg/dL, High >189 mg/dL, Very high Secondary prevention optimal LDL Cholesterol levels are recommended to be < 70 mg/dL Performed By: #### 2 4323-8, 59015-4, 3016-3 ####[facility] LABCLIA [id number] [address] OF [place] Cholesterol in LDL/Cholesterol in HDL [Mass ratio] 2.64 {ratio} High <2.54 [place] Comment on above: Order Comment: Speci men Type: BLOOD SPECIMENOrdering Facility: [facility] Address: [address] [place] [address] Result Comment: Refe rence: 1. National Cholesterol Education Program ATP III Guideline At-A-Glance Quick Desk Reference: National Heart, Lung, and Blood Burns. National Institutes of Health. 2001: NIH Publication No. 01-3305. 2. An International Atherosclerosis Society position paper: global recommendations for the management of dyslipidemia: executive summary, Atherosclerosis. 2014: 232(2):410-413. Performed By: #### 2 4323-8, 42009-1, 6-3 ####[facility] LABCLIA [id number] [place] [address] [place] Cholesterol in VLDL [Mass/Vol] 17 mg/dL Normal <30 [place] Comment on above: Order Comment: Radha goodwin Type: BLOOD SPECIMENOrdering Facility: [facility] Address: [address] [place] [address] Performed By: #### 2 4323-8, 17403-3, 6-3 ####[facility] LABCLIA [id number] [address] OF [place] Cholesterol non HDL [Mass/Vol] 128 mg/dL Normal <130 [place] Comment on above: Order Comment: Yudelkai men Type: BLOOD SPECIMENOrdering Facility: [facility] Address: [address] [place] [address] Result Comment: <130 mg/dL, Optimal 130-159 mg/dL, Near optimal/above optimal 160-189 mg/dL, Borderline high 190-219 mg/dL, High >219 mg/dL, Very high Secondary prevention optimal non HDL Cholesterol levels are recommended to be <100 mg/dL Performed By: #### 2 4323-8, 66614-2, 3016-3 ####[facility] LABCLIA [id number] [address] Cholesterol.total/C holesterol in HDL [Mass ratio] 4.05 {ratio} Normal <5.10 [place] Comment on above: Order Comment: Speci men Type: BLOOD SPECIMENOrdering Facility: [facility] Address: [address] [place] [address] Performed By: #### 2 4323-8, 19037-3, 6-3 ####[facility] LABIA [id number] [address] FASTING TIME 10 hrs Normal [place] Comment on above: Order Comment: Speci men Type: BLOOD SPECIMENOrdering Facility: [facility] Address: [address] [place] [address] Performed By: #### 2 4323-8, 36504-7, 6-3 ####[facility] LABIA [id number] [address] Triglyceride [Mass/Vol] 83 mg/dL Normal <150 [place] Comment on above: Order Comment: Speci men Type: BLOOD SPECIMENOrdering Facility: [facility] Address: [address] [place] [address] Result Comment: <150 mg/dL, Normal 150-199 mg/dL, Borderline high 200-499 mg/dL, High >499 mg/dL, Very high Performed By: #### 2 4323-8, 33180-6, 6-3 ####[facility] LABIA [id number] [address] [place] TSH SerPl-aCncon 01-04-2023 TSH Qn 0.911 m[IU]/L Normal 0.270-4.200 [place] Comment on above: Order Comment: Speci men Type: BLOOD SPECIMENOrdering Facility: [facility] Address: [address] [place] [address] Result Comment: If t he patient is , TSH reference range varies by gestational period: First Trimester (weeks 9-12): 0.180-2.990 mIU/L Second Trimester: 0.110-3.980 mIU/L Third Trimester: 0.480-4.710 mIU/L Uriel Dobbs et al. A Practical Approach for the Verifications and Determination of Site- and Trimester-Specific Reference Intervals for Thyroid Function tests in . Thyroid, 2019:29:3:412-420. Marcio E, et al. 2017 Guidelines of the [place] Thyroid Association for the Diagnosis and Management of Thyroid Disease during and the . Thyroid, 2017:27:3:315-389. Performed By: #### 2 4323-8, 82152-0, 3016-3 ####[facility] LABCLIA [id number] [facility] [id number] [address] [place] XR CHEST 2V FRONTAL/LATon [facility] XR Chest PA and Lateralon IMPRESSION: No evidence of active disease. Ship Worker: PSCB Transcribe Date/Time: Mar 29 2022 8:22A Dictated by : KAY HUGGINS MD This examination was interpreted and the report reviewed and electronically signed by: KAY HUGGINS MD on Mar 29 2022 8:23AM [facility] DIVISION OF RADIOLOGY * * *Final Report* [...] DIVISION OF RADIOLOGY Provider, Amanda Joe g Burns - 03/29/2022 * * *Final Report* * [...] IMPRESSION IMPRESSION: No evidence of active disease. Ship Worker: [email or web address] Transcribe Date/Time: Mar 29 2022 8:22A Dictated by : KAY HUGGINS MD This examination was interpreted and the report reviewed and electronically signed by: KAY HUGGINS MD on Mar 29 2022 8:23AM EST [facility] Radiology Study observation (narrative) [facility] XR Chest PA and LateralOrder ed By: Ccf Provider on 03-29-2022 [facility] CT HEAD OR BRAIN W/O CONTRAS Ton [...] PM Sign Date: 08/18/2018 3:37:46 PM Normal [facility] ([place]) Vital Signs Date Time Vital Sign Value Performing Clinician Facility 12-12-2023 09:28-0400 Body height 165.9 cm Pulm Wstr Work Phone: [facility] 12-12-2023 09:28-0400 Body mass index (BMI) [Ratio] 46.31 kg/m2 Pulm Wstr Work Phone: [facility] 12-12-2023 09:28-040 Body weight 127.46 kg Pulm Wstr Work Phone: [facility] 12-10-2023 08:18-0400 Body mass index (BMI) [Ratio] 46.88 kg/m2 Karen Podlogar EARLY CHILDHOOD EDUCATION COORDINATOR.CALL CENTER NURSE Work Phone: [facility] 12-10-2023 08:18-0400 Body weight 125.83 kg Karen Podlogar EARLY CHILDHOOD EDUCATION COORDINATOR.CALL CENTER NURSE Work Phone: [facility] 12-10-2023 08:18-0400 Diastolic blood pressure 76 mm[Hg] Karen Podlogar EARLY CHILDHOOD EDUCATION COORDINATOR.CALL CENTER NURSE Work Phone: [facility] 12-10-2023 08:18-0400 Heart rate 93 /min Karen Podlogar EARLY CHILDHOOD EDUCATION COORDINATOR.CALL CENTER NURSE Work Phone: [facility] 12-10-2023 08:18-0400 Respiratory rate 20 /min Karen Podlogar EARLY CHILDHOOD EDUCATION COORDINATOR.CALL CENTER NURSE Work Phone: [facility] 12-10-2023 08:18-0400 SaO2% (BldA) [Mass fraction] 96 % Karen Podlogar EARLY CHILDHOOD EDUCATION COORDINATOR.CALL CENTER NURSE Work Phone: [facility] 12-10-2023 08:18-0400 Systolic blood pressure 104 mm[Hg] Karen Podlogar EARLY CHILDHOOD EDUCATION COORDINATOR.CALL CENTER NURSE Work Phone: [facility] 12-04-2023 08:25-0400 Heart rate 98 /min Laurie Holliday MD Work Phone: [facility] Comment on above: recheck following neb tx 12-04-2023 08:25-0400 SaO2% (BldA) [Mass fraction] 93 % Laurie Holliday MD Work Phone: [facility] Comment on above: recheck following neb tx 12-04-2023 08:22-0400 Body mass index (BMI) [Ratio] 46.24 kg/m2 Laurie Holliday MD Work Phone: [facility] 12-04-2023 08:22-0400 Body temperature 98.01 [degF] Laurie Holliday MD Work Phone: [facility] 12-04-2023 08:22-0400 Body weight 124.1 kg Laurie Holliday MD Work Phone: [facility] 12-04-2023 08:22-0400 Diastolic blood pressure 82 mm[Hg] Laurie Holliday MD Work Phone: [facility] 12-04-2023 08:22-0400 Respiratory rate 36 /min Laurie Holliday MD Work Phone: [facility] 12-04-2023 08:22-0400 Systolic blood pressure 130 mm[Hg] Laurie Holliday MD Work Phone: [facility] 10-15-2023 08:41-0400 Body temperature 98.29 [degF] Sarah Beth Diaz APRN.CALL CENTER NURSE Work Phone: [facility] 10-15-2023 08:41-0400 Body weight 127.4 kg Sarah Beth Diaz APRN.CALL CENTER NURSE Work Phone: [facility] 10-15-2023 08:41-0400 Diastolic blood pressure 64 mm[Hg] Sarah Beth Diaz APRN.CALL CENTER NURSE Work Phone: [facility] 10-15-2023 08:41-0400 Heart rate 102 /min Sarah Beth Adam EARLY CHILDHOOD EDUCATION COORDINATOR.CALL CENTER NURSE Work Phone: [facility] 10-15-2023 08:41-0400 Respiratory rate 18 /min Sarah Beth Diaz EARLY CHILDHOOD EDUCATION COORDINATOR.CALL CENTER NURSE Work Phone: [facility] 10-15-2023 08:41-0400 SaO2% (BldA) [Mass fraction] 96 % Sarah Beth Diaz EARLY CHILDHOOD EDUCATION COORDINATOR.CALL CENTER NURSE Work Phone: [facility] 10-15-2023 08:41-0400 Systolic blood pressure 108 mm[Hg] Sarah Beth Diaz EARLY CHILDHOOD EDUCATION COORDINATOR.CALL CENTER NURSE Work Phone: [facility] 09-10-2023 14:29-0500 Body weight 127.75 kg Karen Podlogar EARLY CHILDHOOD EDUCATION COORDINATOR.CALL CENTER NURSE Work Phone: [facility] 09-10-2023 14:29-0500 Diastolic blood pressure 78 mm[Hg] Karen Podlogar EARLY CHILDHOOD EDUCATION COORDINATOR.CALL CENTER NURSE Work Phone: [facility] 09-10-2023 14:29-0500 Heart rate 85 /min Karen Podlogar EARLY CHILDHOOD EDUCATION COORDINATOR.CALL CENTER NURSE Work Phone: [facility] 09-10-2023 14:29-0500 Respiratory rate 18 /min Karen Podlogar EARLY CHILDHOOD EDUCATION COORDINATOR.CALL CENTER NURSE Work Phone: [facility] 09-10-2023 14:29-0500 SaO2% (BldA) [Mass fraction] 96 % Karen Podlogar EARLY CHILDHOOD EDUCATION COORDINATOR.CALL CENTER NURSE Work Phone: [facility] 09-10-2023 14:29-0500 Systolic blood pressure 112 mm[Hg] Karen Podlogar EARLY CHILDHOOD EDUCATION COORDINATOR.CALL CENTER NURSE Work Phone: [facility] 09-04-2023 09:05-0500 Body temperature 99.1 [degF] Salma Howard EARLY CHILDHOOD EDUCATION COORDINATOR.CALL CENTER NURSE Work Phone: [facility] 09-04-2023 09:05-0500 Body weight 127.91 kg Salma Howard EARLY CHILDHOOD EDUCATION COORDINATOR.CALL CENTER NURSE Work Phone: [facility] 09-04-2023 09:05-0500 Diastolic blood pressure 83 mm[Hg] Salma Lee EARLY CHILDHOOD EDUCATION COORDINATOR.CALL CENTER NURSE Work Phone: [facility] 09-04-2023 09:05-0500 Heart rate 116 /min Salma Lee EARLY CHILDHOOD EDUCATION COORDINATOR.CALL CENTER NURSE Work Phone: [facility] 09-04-2023 09:05-0500 Respiratory rate 24 /min Salma Howard EARLY CHILDHOOD EDUCATION COORDINATOR.CALL CENTER NURSE Work Phone: [facility] 09-04-2023 09:05-0500 SaO2% (BldA) [Mass fraction] 92 % Salma Howard EARLY CHILDHOOD EDUCATION COORDINATOR.CALL CENTER NURSE Work Phone: [facility] 09-04-2023 09:05-0500 Systolic blood pressure 122 mm[Hg] Salma King EARLY CHILDHOOD EDUCATION COORDINATOR.CALL CENTER NURSE Work Phone: [facility] 12-19-2022 07:38-0400 Body weight 124.19 kg Karen Podlogar EARLY CHILDHOOD EDUCATION COORDINATOR.CALL CENTER NURSE Work Phone: [facility] 12-19-2022 07:38-0400 Diastolic blood pressure 82 mm[Hg] Karen Podlogar EARLY CHILDHOOD EDUCATION COORDINATOR.CALL CENTER NURSE Work Phone: [facility] 12-19-2022 07:38-0400 Heart rate 66 /min Karen Podlogar EARLY CHILDHOOD EDUCATION COORDINATOR.CALL CENTER NURSE Work Phone: [facility] 12-19-2022 07:38-0400 Respiratory rate 16 /min Karen Podlogar EARLY CHILDHOOD EDUCATION COORDINATOR.CALL CENTER NURSE Work Phone: [facility] 12-19-2022 07:38-0400 SaO2% (BldA) [Mass fraction] 100 % Karen Podlogar EARLY CHILDHOOD EDUCATION COORDINATOR.CALL CENTER NURSE Work Phone: [facility] 12-19-2022 07:38-0400 Systolic blood pressure 126 mm[Hg] Karen Podlogar EARLY CHILDHOOD EDUCATION COORDINATOR.CALL CENTER NURSE Work Phone: [facility] 03-29-2022 07:38-0400 Body temperature 98.4 [degF] Matthew Urbina PA-C Work Phone: [facility] 03-29-2022 07:38-0400 Body weight 118.93 kg Matthew Athy PA-C Work Phone: [facility] 03-29-2022 07:38-0400 Diastolic blood pressure 72 mm[Hg] Matthew Athy PA-C Work Phone: [facility] 03-29-2022 07:38-0400 Heart rate 115 /min Matthew Athy PA-C Work Phone: [facility] 03-29-2022 07:38-0400 Respiratory rate 16 /min Matthew Athy PA-C Work Phone: [facility] 03-29-2022 07:38-0400 SaO2% (BldA) [Mass fraction] 98 % Matthew Athy PA-C Work Phone: [facility] 03-29-2022 07:38-0400 Systolic blood pressure 118 mm[Hg] Matthew Athy PA-C Work Phone: [facility] Encounters Encounter Date Encounter Type Care Provider Facility Start: 04-02-2024 End: 04-02-2024 Refill Karen Podlogar EARLY CHILDHOOD EDUCATION COORDINATOR.CALL CENTER NURSE Work Phone: [facility] Comment on above: Refill Request Start: 03-07-2024 End: 03-08-2024 Refill Karen Podlogar EARLY CHILDHOOD EDUCATION COORDINATOR.CALL CENTER NURSE Work Phone: [facility] Comment on above: Refill Request Start: 01-09-2024 Refill Karen Podlogar EARLY CHILDHOOD EDUCATION COORDINATOR.CALL CENTER NURSE Work Phone: [facility] Start: 12-16-2023 Telephone encounter Karen Umañal ogar EARLY CHILDHOOD EDUCATION COORDINATOR.CALL CENTER NURSE Work Phone: [facility] Comment on above: Results Start: 12-12-2023 End: 12-12-2023 ambulatory Pulm Lab [facility] Work Phone: [facility] Comment on above: Spirometry Start: 12-12-2023 End: 12-12-2023 Patient encounter procedure Pulm Lab [facility] Work Phone: [facility] Start: 12-10-2023 End: 12-10-2023 ambulatory KAREN UMAÑALOGANTHONY Facility:[facility] Start: 12-10-2023 End: 12-10-2023 Patient encounter procedure Karen Jarvis APRN.CALL CENTER NURSE Work Phone: [facility] Comment on above: Hospital discharge f ollow-up (Primary Dx); SOB (shortness of breath); Hypoxemia; Daytime somnolence; Snoring; Decreased thyroid stimulating hormone (TSH) level; Elevated hemoglobin (HCC) Start: 12-04-2023 End: 12-04-2023 ambulatory LAURIE HOLLIDAY Facility:[facility] Start: 12-04-2023 End: 12-04-2023 Patient encounter procedure Laurie Holliday MD Work Phone: [facility] Comment on above: Reactive airway dise ase with acute exacerbation, unspecified asthma severity, unspecified whether persistent (Primary Dx); Hypoxia Start: 10-15-2023 End: 10-15-2023 ambulatory LAURIE HOLLIDAY Facility:[facility] Start: 10-15-2023 End: 10-15-2023 Patient encounter procedure Sarah Beth Diaz APRN.CALL CENTER NURSE Work Phone: [facility] Comment on above: Acute cough (Primary Dx) Start: 09-10-2023 End: 09-10-2023 Patient encounter procedure Karen Jarvis APRN.CALL CENTER NURSE Work Phone: [facility] Kar[facility] Comment on above: Hospital discharge f ollow-up (Primary Dx); Secondary polycythemia; Rhinovirus infection Start: 09-10-2023 End: 09-10-2023 ambulatory LAURIE HOLLIDAY Facility:[facility] Start: 09-04-2023 End: 09-04-2023 ambulatory LAURIE HOLLIDAY Facility:[facility] Start: 09-04-2023 End: 09-04-2023 Patient encounter procedure Salma Howard APRN.CALL CENTER NURSE Work Phone: [facility] Comment on above: URI, acute (Primary Dx); SOB (shortness of breath) Start: 05-29-2023 Refill Karen Jarvis APRN.CALL CENTER NURSE Work Phone: [facility] Comment on above: Refill Request Start: 01-06-2023 Telephone encounter Karen russell APRN.CALL CENTER NURSE Work Phone: [facility] [place] Comment on above: Results Start: 01-04-2023 End: 01-04-2023 ambulatory LAURIE HOLLIDAY Facility:[facility] Start: 12-19-2022 End: 12-19-2022 Patient encounter procedure Karen Jarvis EARLY CHILDHOOD EDUCATION COORDINATOR.CALL CENTER NURSE Work Phone: [facility] Comment on above: Anxiety and depressi on (Primary Dx); Screening for hyperlipidemia; Class 3 severe obesity without serious comorbidity with body mass index (BMI) of 45.0 to 49.9 in adult, unspecified obesity type (HCC) Start: 03-30-2022 Telephone encounter Sarah Beth Diaz APRN.CALL CENTER NURSE Work Phone: [facility] Comment on above: Results Start: 03-29-2022 End: 03-29-2022 Subsequent hospital visit by physician Xr [facility] [place] Work Phone: Radiology Comment on above: Wheeze [R06.2] Start: 03-29-2022 End: 03-29-2022 Patient encounter procedure Matthew Urbina PA-C Work Phone: [facility] Comment on above: Suspected COVID-19 v irus infection (Primary Dx) Start: 03-20-2017 End: 05-30-2017 Patient requested procedure Laurie Holliday MD Work Phone: [facility] Procedures Date Procedure Procedure Detail Performing Clinician Start: 12-12-2023 Spmtry w/vc expirato ry mervin w/wo mxml vol vntj Karen Umañaloganthony SALGUERO.CALL CENTER NURSE Work Phone: Start: 03-29-2022 Radiologic exam ches t 2 views Matthew Urbina PA-C Work Phone: Start: 10-13-2018 Adult depression screening assessment Matthew Urbina PA-C Work Phone: Plan of Treatment Date Care Activity Detail Author Start: 10-04-2027 Urine microalbumin profile [facility] Start: 03-21-2024 Covid-19 Vaccine ( season) Covid-19 Vaccine () [facility] Start: 03-21-2024 Covid-19 Vaccine ( season) Covid-19 Vaccine () [facility] Start: 03-21-2024 Influenza vaccination Influenza Vacc ine (#1) 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 Expected: 01/09/2024, Expires: 04/09/2024 [facility] Work Phone: Comment on above: Expected: 01/09/2024 , Expires: 04/09/2024 Start: 12-30-2023 End: 03-30-2024 CBC W Ordered Manual Differential panel - Blood PATHOLOGIST INTERPRETATION WITH CBC AND DIFF Lab Routine Erythrocytosis Expected: 12/30/2023, Expires: 03/30/2024 [facility] Work Phone: Comment on above: Expected: 12/30/2023 , Expires: 03/30/2024 Start: 12-16-2023 End: 03-16-2024 Basic metabolic 2000 panel - Serum or Plasma BASIC METABOLIC PANEL Lab Routine Hospital discharge follow-up Expected: 12/16/2023, Expires: 03/16/2024 [facility] Work Phone: Comment on above: Expected: 12/16/2023 , Expires: 03/16/2024 Start: 12-12-2023 End: 12-12-2023 ambulatory 12/12/2023 9:45 AM EDT Procedure PULM LAB [facility] [address] [place] [address] Wstr, Pulm Lab [facility] [address] [place] [address] SOB (shortness of breath) [R06.02] [facility] Comment on above: SOB (shortness of br eath) [R06.02] Start: 12-10-2023 End: 03-10-2024 Thyrotropin [Units/volume] in Serum or Plasma [facility] Comment on above: Expected: 12/10/2023 , Expires: 03/10/2024 Start: 12-10-2023 End: 03-10-2024 Thyroxine (T4) free [Mass/volume] in Serum or Plasma [facility] Comment on above: Expected: 12/10/2023 , Expires: 03/10/2024 Start: 12-10-2023 End: 03-10-2024 Triiodothyronine (T3) [Mass/volume] in Serum or Plasma [facility] Comment on above: Expected: 12/10/2023 , Expires: 03/10/2024 Start: 10-22-2023 End: 01-21-2024 CBC W Auto Differential panel - Blood CBC + DIFF Lab Routine Secondary polycythemia Expected: 10/22/2023, Expires: 01/21/2024 [facility] Work Phone: Comment on above: Expected: 10/22/2023 , Expires: 01/21/2024 Start: 07-21-2023 Behavioral Health Screening Behavioral Health Screening [facility] Start: 07-21-2023 Depression Assessment Depression Ass essment [facility] Start: 03-21-2023 Covid-19 Vaccine ( season) Covid-19 Vaccine () [facility] Start: 03-21-2023 Influenza vaccination C [facility] Start: 12-19-2022 End: 2023 Comprehensive metabolic 2000 panel - Serum or Plasma COMP METABOLIC PANEL Lab Routine Class 3 severe obesity without serious comorbidity with body mass index (BMI) of 45.0 to 49.9 in adult, unspecified obesity type (HCC) Expected: 12/19/2022, Expires: 2023 [facility] Work Phone: Comment on above: Expected: 12/19/2022 , Expires: 2023 Start: 12-19-2022 End: 2023 Hemoglobin A1c in Blood HGB A1C Lab Routine Class 3 severe obesity without serious comorbidity with body mass index (BMI) of 45.0 to 49.9 in adult, unspecified obesity type (HCC) Expected: 12/19/2022, Expires: 2023 [facility] Work Phone: Comment on above: Expected: 12/19/2022 , Expires: 2023 Start: 12-19-2022 End: 2023 Lipid 1996 panel - Serum or Plasma LIPID PANEL BASIC Lab Routine Screening for hyperlipidemia Class 3 severe obesity without serious comorbidity with body mass index (BMI) of 45.0 to 49.9 in adult, unspecified obesity type (HCC) Expected: 12/19/2022, Expires: 2023 [facility] Work Phone: Comment on above: Expected: 12/19/2022 , Expires: 2023 Start: 12-19-2022 End: 2023 Thyrotropin [Units/volume] in Serum or Plasma TSH BLD Lab Routine Class 3 severe obesity without serious comorbidity with body mass index (BMI) of 45.0 to 49.9 in adult, unspecified obesity type (HCC) Expected: 12/19/2022, Expires: 2023 [facility] Work Phone: Comment on above: Expected: 12/19/2022 , Expires: 2023 Start: 04-01-2022 PAP TESTING PAP TESTING [facility] Start: 04-01-2022 Screening for malign ant neoplasm of cervix Pap Testing [facility] Start: 03-29-2022 End: 04-12-2022 Influenza virus A and B RNA and SARS-CoV-2 (COVID-19) N gene panel - Respiratory specimen by ALMA DELIA with probe detection COVID WITH FLUA+B, ROUTINE Microbiology Routine Suspected COVID-19 virus infection Expected: 03/29/2022, Expires: 04/12/2022 [facility] Work Phone: Comment on above: Expected: 03/29/2022 , Expires: 04/12/2022 Start: 03-21-2022 Influenza vaccination INFLUENZA (#1) [facility] Start: 02-17-2022 HPV TESTING HPV TESTING [facility] Start: 02-17-2022 Screening for malign ant neoplasm of cervix HPV Testing [facility] Start: 04-01-2020 Screening for malign ant neoplasm of cervix Cervical Cancer Screening [facility] Start: 10-14-2019 Adult depression scr eening assessment DEPRESSION SCREENING [facility] Start: 02-17-2010 Depression Screening Depression Scre ening [facility] Start: 02-17-2010 HEPATITIS C SCREENING HEPATITIS C [facility] Start: 02-17-2010 Hepatitis C screening Hepatitis C [facility] Start: 02-17-1998 PNEUMOCOCCAL (1 - PCV) PNEUMOCOCCAL (1 - PCV) [facility] Start: 02-17-1998 Pneumococcal vaccination [facility] Start: 1992 COVID-19 VACCINE (#1) COVID-19 VACCI NE (#1) [facility] Basic metabolic 2000 panel - Serum or Plasma BASIC METABOLIC PANEL Lab Routine Hospital discharge follow-up 12/10/2023 9:07 AM EDT [facility] CBC W Auto Different ial panel - Blood COMPLETE BLOOD COUNT AND DIFFERENTIAL Lab Routine Elevated hemoglobin (HCC) 12/10/2023 9:07 AM EDT [facility] COVID & INFLUENZA A/ B & RSV NAAT, ROUTINE COVID & INFLUENZA A/B & RSV NAAT, ROUTINE Microbiology Routine URI, acute 09/04/2023 9:42 AM EST [facility] Work Phone: End: 12-09-2024 HOME SLEEP APNEA TEST (HSAT) HOME SLEEP APNEA TEST (HSAT) Procedures Routine Daytime somnolence Snoring 1 Occurrences starting 12/10/2023 until 12/09/2024 [facility] Comment on above: 1 Occurrences starti ng 12/10/2023 until 12/09/2024 End: 01-08-2025 SPIROMETRY BASELINE ONLY SPIROMETRY BASELINE ONLY PFT Routine SOB (shortness of breath) Hypoxemia 1 Occurrences starting 12/10/2023 until 01/08/2025 [facility] Comment on above: 1 Occurrences starti ng 12/10/2023 until 01/08/2025 SPIROMETRY BASELINE ONLY SPIROME TRY BASELINE ONLY PFT Routine SOB (shortness of breath) Hypoxemia 12/12/2023 9:30 AM EDT [facility] Work Phone: [facility] Immunizations Immunization Date Immunization Notes Care Provider Fa kaylynn 09-05-2023 influenza virus vaccine, unspecified formulation Karen Jarvis EARLY CHILDHOOD EDUCATION COORDINATOR.CALL CENTER NURSE Work Phone: [facility] 04-20-2021 influenza, injectabl e, quadrivalent, contains preservative Matthew Athy PA-C Work Phone: [facility] 04-20-2021 influenza virus vaccine, unspecified formulation Karen Jarvis EARLY CHILDHOOD EDUCATION COORDINATOR.CALL CENTER NURSE Work Phone: [facility] 10-13-2018 influenza, injectabl e, quadrivalent, contains preservative Matthew Athy PA-C Work Phone: [facility] 10-03-2017 tetanus toxoid, redu [place]ana diphtheria toxoid, and acellular pertussis vaccine, adsorbed Matthew Athy PA-C Work Phone: [facility] Work Phone: 02-05-2010 Meningococcal, MCV4, unspecified conjugate formulation(groups A, C, Y and W-135) Matthew Athy PA-C Work Phone: [facility] 02-05-2010 tetanus toxoid, redu [place]ana diphtheria toxoid, and acellular pertussis vaccine, adsorbed Matthew Athy PA-C Work Phone: [facility] 07-31-2005 hepatitis B vaccine, pediatric or pediatric/adolescent dosage Matthew Athy PA-C Work Phone: [facility] Work Phone: 02-27-2005 hepatitis B vaccine, pediatric or pediatric/adolescent dosage Matthew Athy PA-C Work Phone: [facility] Work Phone: 01-25-2005 hepatitis B vaccine, pediatric or pediatric/adolescent dosage Matthew Urbina PA-C Work Phone: [facility] Work Phone: 07-31-1994 diphtheria, tetanus toxoids and pertussis vaccine Matthew Mcleany PA-C Work Phone: [facility] Work Phone: 07-31-1994 poliovirus vaccine, inactivated Matthew Vinayy PA-C Work Phone: [facility] Work Phone: 05-24-1993 haemophilus influenz ae type b vaccine, HbOC conjugate Matthew Mcleany PA-C Work Phone: [facility] Work Phone: 05-24-1993 measles, mumps and rubella virus vaccine Matthew Mcleany PA-C Work Phone: [facility] Work Phone: 1992 diphtheria, tetanus toxoids and pertussis vaccine Matthew Athy PA-C Work Phone: [facility] Work Phone: 1992 haemophilus influenz ae type b vaccine, HbOC conjugate Matthew Athy PA-C Work Phone: [facility] Work Phone: 1992 diphtheria, tetanus toxoids and pertussis vaccine Matthew Athy PA-C Work Phone: [facility] Work Phone: 1992 haemophilus influenz ae type b vaccine, HbOC conjugate Matthew Athy PA-C Work Phone: [facility] Work Phone: 1992 poliovirus vaccine, inactivated Matthew Athy PA-C Work Phone: [facility] Work Phone: 1992 diphtheria, tetanus toxoids and pertussis vaccine Matthew Athy PA-C Work Phone: [facility] Work Phone: 1992 haemophilus influenz ae type b vaccine, HbOC conjugate Matthew Urbina CHUNGMaria Del Carmen Work Phone: [facility] Work Phone: 1992 poliovirus vaccine, inactivated Matthew Urbina CHUNGMaria Del [place]en Work Phone: [facility] Work Phone: Payers Date Payer Category Payer Unknown [id number] 2021 Unknown [id number] Social History Date Type Detail Facility Start: [facility]29[facility]2022 [facility] Start: 03-29-2022 End: 12-10-2023 Tobacco use and exposure Smokeless tobacco non-user [facility] Start: 03-29-2022 End: 12-12-2023 Alcohol intake Current non-drinker of alcohol (finding) [facility] Start: 11-26-2019 End: 12-06-2019 History SDOH Alcohol Frequency 1 [facility] Start: 12-06-2019 History SDOH Alcohol Std Drinks 98 [facility] Start: 11-26-2019 End: 12-06-2019 History SDOH Social Connections Phone 3 [facility] Start: 11-26-2019 End: 12-06-2019 History SDOH Social Connections Get Together 2 [facility] Start: 12-06-2019 History SDOH Physica l Activity DPW 4 [facility] Start: 11-26-2019 Education 14 [facility] Start: 1992 Sex Assigned At Not on file C [facility] Start: 03-19-2022 End: 03-29-2022 Exposure to SARS-CoV-2 (event) Not sure [facility] Work Phone: Start: 07-21-2018 Tobacco smoking stat us UTIS Smokes tobacco daily [facility] Start: 07-21-2018 End: 09-03-2023 History of tobacco use Cigarette Smoker [facility] Start: 06-26-2020 End: 12-19-2022 Cigarettes smoked current (pack per day) - Reported 0.3 [facility] Start: 12-06-2019 End: 06-26-2020 Social connection and isolation panel [facility] Do you belong to any clubs or organizations such as mu-ism groups, unions, fraternal or athletic groups, or school groups? No [facility] Are you now , , , , never or living with a partner? [facility] How often to you hav e a drink containing alcohol? Never [facility] How many standard dr inks containing alcohol do you have on a typical day? Patient refused [facility] How hard is it for y ou to pay for the very basics like food, housing, medical care, and heating Not very hard [facility] Work Phone: Do you feel stress - tense, restless, nervous, or anxious, or unable to sleep at night because your mind is troubled all the time - these days [OSQ] Only a little [facility] (I/We) worried [facility] (my/our) food would run out before (I/we) got money to buy more. Never true [facility] Work Phone: Start: 12-10-2023 Tobacco smoking stat us UTIS Ex-smoker [facility] Start: 07-21-2018 End: 09-03-2023 History of tobacco use Current smoker [facility] Clinical Notes 04-01-2017 to 04-02-2024 Telephone Encounter [...] Corona MA April 02, 2024 8:22 AM [facility] 04-02-2024 Miscellaneous Notes Prescription Refill Information The [...] 2024 8:22 AM documented in this encounter [facility] 03-08-2024 Telephone encounter Note Prescription Refill Information [...] Blankenship LPN March 08, 2024 12:00 PM [facility] 03-08-2024 Miscellaneous Notes Prescription Refill Information The [...] 2024 12:00 PM documented in this encounter [facility] 12-25-2023 Telephone encounter Note From faxed to [employer] as instructed below. Copy also made and sent to scanning for our records. JERRY Starks [facility] 12-25-2023 Miscellaneous Notes From faxed to [employer] as instructed below. Copy also made and sent to scanning for our records. JERRY Starks Forms completed and in my out box. Please fax. Karen Jarvis APRN.CNP Type of form: Restrictions Form Form received via fax When form is completed, Fax form to [employer] at [phone] Form has been forwarded to Nurse Practitioner: Karen Jarvis inbox Lázaro Messina LPN Office note from 12/09 faxed to [facility] for disability filing. Lázaro Messina LPN Short term disability office calls to report they need the OV notes from 12/09. What was faxed from 12/15 was from August per traffic representative. Nadia Murillo LPN Called and left [...] When form is completed, Fax form to [phone] Attn: Ihsan Morley Form has been forwarded to Nurse Practitioner: Karen Messina LPN documented in this encounter [facility] 12-24-2023 Telephone encounter Note Forms completed and in my out box. Please fax. Karen Jarvis APRN.MARK [facility] 12-24-2023 Telephone encounter Note Type of form: Restrictions Form Form received via fax When form is completed, Fax form to [employer] [facility] at [phone] Form has been forwarded to Nurse Practitioner: Karen Jarvis inbox Lázaro Messina LPN [facility] 12-22-2023 Telephone encounter Note Office note from 12/09 faxed to [employer] [facility] for disability filing. Lázaro Messina LPN [facility] 12-22-2023 Telephone encounter Note Short term disability office calls to report they need the OV notes from 12/09. What was faxed from 12/15 was from August per traffic representative. Nadia Murillo LPN [facility] 12-17-2023 Telephone encounter Note Patient telephoned to notify of paperwork completion. Requested all paperwork be faxed to number on paper. All paperwork faxed to . Lázaro Messina LPN [facility] 12-17-2023 Miscellaneous Notes Patient telephoned to notify [...] JERRY Starks ----- Message from Karen Jarvis APRN.CALL CENTER NURSE sent at 12/16/2023 7:11 AM EDT ----- [...] be leafy greens and fruits Karen Jarvis APRN.CALL CENTER NURSE documented in this encounter [facility] 12-17-2023 Telephone encounter Note Called and left a voicemail for the Patient to call back and ask for a nurse to receive the providers message. Soheila Catherine, RN [facility] 12-17-2023 Telephone encounter Note If she isn't drinking enough then possibly it could. She ca discuss taking lasix with pulmonology and see what they say. Karen Jarvis APRN.CNP [facility] 12-16-2023 Telephone encounter Note Patient notified of providers update. Voices understanding. Concerned with being on the lasix, patient asking if this could increase the test results too? Please advise. Lázaro Messina LPN [facility] 12-16-2023 Telephone encounter Note I spoke with Dr. Holliday regarding her elevated hemoglobin and he recommends we recheck this in 2-3 weeks as her low oxygen level may be the culprit. Prior to rechecking needs to hydrate good as being under hydrated can falsely elevate level. Karen Jarvis APRN.CNP [facility] 12-16-2023 Telephone encounter Note I have completed patient's disability paperwork. Please take to medical records along with attached hospital discharge summary and recent pulmonary function testing. Karen Jarvis APRN.CNP [facility] 12-16-2023 Telephone encounter Note Pt reports she returned to work yesterday. Rosenda Bravo MA [facility] 12-16-2023 Telephone encounter Note Has patient returned to work? Karen Jarvis APRN.MARK [facility] 12-16-2023 Telephone encounter Note Type of form: Short-term Disability Form received via fax When form is completed, Fax form to [phone] Attn: Ihsan Morley Form has been forwarded to Nurse Practitioner: Karen Messina LPN [facility] 12-16-2023 Telephone encounter Note TC to patient who verbalized understanding of providers message below. Patient states she quit smoking in August of this year. Please advise, thank you. JERRY Starks [facility] 12-16-2023 Telephone encounter Note ----- Message from Karen Jarvis APRN.CALL CENTER NURSE sent at 12/16/2023 7:11 AM EDT ----- [...] leafy greens and fruits Karen Jarvis APRN.CNP [facility] 12-12-2023 Note HNO ID: [id number] Author: MICHAEL LYONS RPFT Service: ? Author Type: Respiratory Therapist Type: Progress Notes Filed: 12/12/2023 09:50 Note Text: PULM FUNCTION SMARTBLOCK: Provider: Karen Jarvis APRN.CALL CENTER NURSE Assisting Tech: Michael Lyons RPFT Spirometry: 1 [place] 12-12-2023 History of Presen t illness Narrative PULM FUNCTION SMARTBLOCK: Provider: Karen Jarvis APRN.CALL CENTER NURSE Assisting Tech: Michael Lyons RPFT Spirometry: 1 documented in this encounter [facility] 12-10-2023 History of Presen t illness Narrative 12/10/2023 Patient presents with: Hospital F/U: [facility] ER SOB 12/08/2023 SUBJECTIVE: This is a 33 year old that is here today for Above Complaints. HOSPITAL/ER FOLLOW UP: Reason for visit: respiratory distress and hypoxemia Which facility: [facility] Date of visit: 12/05/2023-12/08/2023 Diagnosis: respiratory failure, hypoxemia, asthma, reactive airway disease Testing done: CTA chest, blood work, ECHO- 65% EF Treatment given: lasix IV, O2, IV antibiotics, and steroids Since discharge has been doing well. Admits still with some SOB with exertion but much improved. Has follow-up appointment with Dr. White, integration software engineer on 01/14/2024. [place] some dizzy yesterday but this has improved. [...] COMPLETE BLOOD COUNT AND DIFFERENTIAL Karen Jarvis APRN.CALL CENTER NURSE Prescription instructions reviewed with patient as applicable. [...] which included preparing to see the patient, [id number] patient care, completing clinical documentation, obtaining and/or reviewing separately obtained history, performing a medically appropriate examination, counseling and educating the patient/family/caregiver, and ordering medications, tests, or procedures. documented in this encounter [facility] 12-10-2023 Note HNO ID: [id number] Author: KAREN JARVIS APRN.CNP Service: ? Author Type: Nurse Practitioner Type: Progress Notes Filed: 12/10/2023 08:53 Note Text: 12/10/2023 Patient presents with: Hospital F/U: [facility] ER SOB 12/08/2023 SUBJECTIVE: This is a 33 year old that is here today for Above Complaints. HOSPITAL/ER FOLLOW UP: Reason for visit: respiratory distress and hypoxemia Which facility: [facility] Date of visit: 12/05/2023-12/08/2023 Diagnosis: respiratory failure, hypoxemia, asthma, reactive airway disease Testing done: CTA chest, blood work, ECHO- 65% EF Treatment given: lasix IV, O2, IV antibiotics, and steroids Since discharge has been doing well. Admits still with some SOB with exertion but much improved. Has follow-up appointment with Dr. White, integration software engineer on 01/14/2024. [place] some dizzy yesterday but this has improved. [...] COMPLETE BLOOD COUNT AND DIFFERENTIAL Karen Jarvis, EARLY CHILDHOOD EDUCATION COORDINATOR.CALL CENTER NURSE Prescription instructions reviewed with patient as applicable. [...] which included preparing to see the patient, [id number] patient care, completing clinical document (more content not included)... [place] 12-04-2023 History of Presen t illness Narrative [...] EMS. will drive from here directly to [facility] ER. Report sent via ER Passport. Records sent with patient. Will f/u on discharge. - ALBUTEROL SULFATE 2.5 MG/3 ML (0.083 %) SOLUTION FOR NEBULIZATION 2. Hypoxia - ICD9: 799.02, ICD10: R09.02 See above. - ALBUTEROL SULFATE 2.5 MG/3 ML (0.083 %) SOLUTION FOR NEBULIZATION Laurie Holliday MD documented in this encounter [facility] 12-04-2023 Note HNO ID: [id number] Author: LAURIE HOLLIDAY MD Service: ? Author [...] EMS. will drive from here directly to [facility] ER. Report sent via ER Passport. Records sent with patient. Will f/u on discharge. - ALBUTEROL SULFATE 2.5 MG/3 ML (0.083 %) SOLUTION FOR NEBULIZATION 2. Hypoxia - ICD9: 799.02, ICD10: R09.02 See above. - ALBUTEROL SULFATE 2.5 MG/3 ML (0.083 %) SOLUTION FOR NEBULIZATION Laurie Holliday MD [place] 10-15-2023 Note HNO ID: [id number] Author: MAXWELL TRACEY RT(R) Service: Radiology Author [...] 15, 2023 TIME: 9:22 AM PAGER/CONTACT #: [place] 10-15-2023 Note HNO ID: [id number] Author: SARAH BETH DIAZ APRN.CALL CENTER NURSE Service: ? Author Type: Nurse Practitioner Type: [...] of COVID-19 05/2021 History of methamphetamine abuse ([facility]) Mental disorder PMH - PAST MEDICAL HISTORY [...] was not finished here. Sarah Beth Diaz APRN.[facility] 10-15-2023 History of Presen t illness [...] was not finished here. Sarah Beth Diaz APRN.CALL CENTER NURSE documented in this encounter [facility] 09-10-2023 Instructions Karen Jarvis APRN.CNP - 09/10/2023 2:53 PM EST Complete prednisone Continue albuterol Come back at or around 10/22/2023 to recheck CBC with diff documented in this encounter [facility] 09-10-2023 Note HNO ID: [id number] Author: KAREN JARVIS APRN.CNP Service: ? Author Type: Nurse Practitioner Type: Progress Notes Filed: 09/10/2023 15:13 Note Text: 09/10/2023 Patient presents with: Hospital F/U SUBJECTIVE: This is a 33 year old, accompanied by mother, that is here today for Above Complaints. HOSPITAL/ER FOLLOW UP: Reason for visit: SOB Which facility: [facility] Date of visit: 09/04/2023-09/06/2023 Diagnosis: rhinovirus infection, [...] if symptoms fail to improve Karen Jarvis, EARLY CHILDHOOD EDUCATION COORDINATOR.CALL CENTER NURSE Prescription instructions reviewed with patient as applicable. [...] Medical Decision Making Level: 4 - Moderate [place] 09-10-2023 History of Presen t illness Narrative 09/10/2023 Patient presents with: Hospital F/U SUBJECTIVE: This is a 33 year old, accompanied by mother, that is here today for Above Complaints. HOSPITAL/ER FOLLOW UP: Reason for visit: SOB Which facility: [facility] Date of visit: 09/04/2023-09/06/2023 Diagnosis: rhinovirus infection, [...] if symptoms fail to improve Karen Jarvis APRN.CALL CENTER NURSE Prescription instructions reviewed with patient as applicable. [...] 4 - Moderate documented in this encounter [facility] 09-04-2023 Note HNO ID: [id number] Author: SALMA HOWARD APRN.MARK Service: ? Author [...] ICD10: R06.02 Sending to ER Salma Howard APRN.CALL CENTER NURSE [place] 09-04-2023 History of Presen t illness Narrative [...] ICD10: R06.02 Sending to ER Salma Howard APRN.CALL CENTER NURSE documented in this encounter [facility] 05-29-2023 Miscellaneous Notes Patient has been identified [...] Magaly Malin LPN documented in this encounter [facility] 05-29-2023 Miscellaneous Notes Patient has been identified [...] Magaly Malin LPN documented in this encounter [facility] 01-06-2023 Miscellaneous Notes Pt called and is notified of providers results and instructions. Pt voices understanding. Soheila Catherine RN Message left for patient to call office back for update. Lázaro Messina LPN ----- Message from Karen Jarvis APRN.CALL CENTER NURSE sent at 01/06/2023 7:44 AM EDT ----- LDL ( bad cholesterol) just above normal range. Eat low saturate fat diet and exercise at least 150 minutes per week if not already doing so. The rest of labs are in acceptable ranges. Karen Jarvis APRN.CALL CENTER NURSE documented in this encounter [facility] 12-19-2022 History of Presen t illness Narrative [...] which included preparing to see the patient, [id number] patient care, completing clinical documentation, obtaining and/or reviewing separately obtained history, performing a medically appropriate examination, counseling and educating the patient/family/caregiver, and ordering medications, tests, or procedures. documented in this encounter [facility] 03-31-2022 Miscellaneous Notes Called patient and patient spouse, no answer and unable to leave VM. Called patients mother and instructed to have patient call for results. Patient has viewed results on [facility], encounter will be closed. Frida Neves MA Negative for covid and flu please notify thank you documented in this encounter [facility] 03-29-2022 Miscellaneous Notes Addended by: MATTHEW URBINA on: 03/29/2022 01:12 PM Modules accepted: Orders documented in this encounter [facility] 03-29-2022 History of Presen t illness Narrative This note was created using Draftriter. Subjective Starr Khan is a 32 year [...] Reported on 03/29/2022) 60 tablet 3 vit [id number]-[id number]-dha (PRENATE MINI, FERR ASP GLYCIN,) 18-1-350 mg [...] 98%, pulse 115. Albuterol treatment administered lot [id number], Exp 10/2022 after treatment oxygen level 98%, pulse 115, patient reported improved ability to inhale. Yoon Rubio LPN documented in this encounter [facility] 03-29-2022 History of Presen t illness Narrative [...] 2022 8:02 AM documented in this encounter [facility] 04-01-2017 History of Past i llness Narrative [...] of this encounter (statuses as of 03/29/2022) [facility] History of Past illness Narrative* Problem Noted [...] of this encounter (statuses as of 03/31/2022) [facility] of Past illness Narrative* Problem Noted [...] of this encounter (statuses as of 12/19/2022) [facility] of Past illness Narrative* Problem Noted [...] of this encounter (statuses as of 01/06/2023) [facility] of Past illness Narrative* Problem Noted [...] of this encounter (statuses as of 05/29/2023) [facility] of Past illness Narrative* Problem Noted [...] of this encounter (statuses as of 05/29/2023) [facility] of Past illness Narrative* Problem Noted [...] of this encounter (statuses as of 09/04/2023) [facility] of Past illness Narrative* Problem Noted [...] of this encounter (statuses as of 09/10/2023) [facility] of Past illness Narrative* Problem Noted [...] of this encounter (statuses as of 10/15/2023) [facility] Diagnosis Suspected COVID-19 virus infection- Primary [facility] Diagnosis Anxiety and depression- Primary Dysthymic disorder Screening for hyperlipidemia Screening for lipoid disorders Class 3 severe obesity without serious comorbidity with body mass index (BMI) of 45.0 to 49.9 in adult, unspecified obesity type (HCC) [facility] Diagnosis Anxiety and depression Dysthymic disorder [facility] Diagnosis Anxiety and depression Dysthymic disorder [facility] Diagnosis URI, acute- Primary Acute upper respiratory infections of unspecified site SOB (shortness of breath) Shortness of breath [facility] Diagnosis Hospital discharge follow-up- Primary Other follow-up examination Secondary polycythemia Polycythemia, secondary Rhinovirus infection Rhinovirus infection in conditions classified elsewhere and of unspecified site [facility] Diagnosis Acute cough- Primary [facility] Diagnosis Reactive airway disease with acute exacerbation, unspecified asthma severity, unspecified whether persistent- Primary Hypoxia Hypoxemia [facility] Diagnosis Hospital discharge follow-up- Primary Other follow-up examination SOB (shortness of breath) Shortness of breath Hypoxemia Daytime somnolence Hypersomnia, unspecified Snoring Other dyspnea and respiratory abnormality Decreased thyroid stimulating hormone (TSH) level Elevated hemoglobin (HCC) Other hemoglobinopathies [facility]* Diagnosis SOB (shortness of breath) Shortness of breath Hypoxemia [facility] Diagnosis Erythrocytosis- Primary Polycythemia, secondary [facility]* Diagnosis senior living current use of diuretic- Primary Anxiety and depression Dysthymic disorder documented in this encounter [facility] note* Diagnosis SOB (shortness of breath) Shortness of breath [facility]* Diagnosis Wheeze Wheezing documented in this encounter [facility] for referral (narrative)* Outpatient Procedure (Routine) - Authorized Specialty Diagnoses / Procedures Referred By Jenn paige Referred To Contact [facility] Diagnoses SOB (shortness of breath) Hypoxemia Procedures SPIROMETRY BASELINE ONLY SPMTRY W/VC EXPIRATORY MERVIN W/WO MXML VOL VNTJ Karen Jarvis APRN.CNP [address] [place] [address] Respiratory [place] [address] [place] [id number] Referral ID Status Reason Start Date Expiration Date Visits Requested Visits Authorized [id number] Authorized Auto-Generat ed Referral 12/10/2023 07/20/2024 1 1 * Diagnostic Procedure Only (Routine) - Pending Review Specialty Diagnoses / Procedures Referred By Jenn paige Referred To Contact [facility] Diagnoses Daytime somnolence Snoring Procedures HOME SLEEP APNEA TEST (HSAT) SLEEP STD AIRFLOW HRT RATE&O2 SAT EFFORT UNATT Karen Jarvis APRN.CALL CENTER NURSE [address] [place] [address] Neurological [place] [id number] Referral ID Status Reason Start Date Expiration Date Visits Requested Visits Authorized [id number] Pending Review Auto-Generat ed Referral 12/10/2023 12/09/2024 1 1 [facility] Summary Purpose Family History No Family History [...] section and content) DATE CREATED AUTHOR 05/18/2019 [facility] ([place]) DATE CREATED AUTHOR AUTHOR'S ORGANIZ ATION 12/26/2023 [place] [facility] Comments (unrecognize d section and content) In the event this informatio n is protected by the Federal Confidentiality of Alcohol and Drug Abuse Patient Records regulations: The Federal rules restrict any use of the information to criminally investigate or prosecute any alcohol or drug abuse patient.[facility] the event this information is protected by the Federal Confidentiality of Alcohol and Drug Abuse Patient Records regulations: The Federal rules restrict any use of the information to criminally investigate or prosecute any alcohol or drug abuse patient.[facility] Center[facility] the event this information is protected by the Federal Confidentiality of Alcohol and Drug Abuse Patient Records regulations: The Federal rules restrict any use of the information to criminally investigate or prosecute any alcohol or drug abuse patient.[facility] Center[facility] the event this information is protected by the Federal Confidentiality of Alcohol and Drug Abuse Patient Records regulations: The Federal rules restrict any use of the information to criminally investigate or prosecute any alcohol or drug abuse patient.[facility] Center[facility] the event this information is protected by the Federal Confidentiality of Alcohol and Drug Abuse Patient Records regulations: The Federal rules restrict any use of the information to criminally investigate or prosecute any alcohol or drug abuse patient.[facility] the event this information is protected by the Federal Confidentiality of Alcohol and Drug Abuse Patient Records regulations: The Federal rules restrict any use of the information to criminally investigate or prosecute any alcohol or drug abuse patient.[facility] Center[facility] the event this information is protected by the Federal Confidentiality of Alcohol and Drug Abuse Patient Records regulations: The Federal rules restrict any use of the information to criminally investigate or prosecute any alcohol or drug abuse patient.[facility] Center[facility] the event this information is protected by the Federal Confidentiality of Alcohol and Drug Abuse Patient Records regulations: The Federal rules restrict any use of the information to criminally investigate or prosecute any alcohol or drug abuse patient.[facility] Center[facility] the event this information is protected by the Federal Confidentiality of Alcohol and Drug Abuse Patient Records regulations: The Federal rules restrict any use of the information to criminally investigate or prosecute any alcohol or drug abuse patient.[facility] Center[facility] the event this information is protected by the Federal Confidentiality of Alcohol and Drug Abuse Patient Records regulations: The Federal rules restrict any use of the information to criminally investigate or prosecute any alcohol or drug abuse patient.[facility] Center[facility] the event this information is protected by the Federal Confidentiality of Alcohol and Drug Abuse Patient Records regulations: The Federal rules restrict any use of the information to criminally investigate or prosecute any alcohol or drug abuse patient.[facility] Center[facility] the event this information is protected by the Federal Confidentiality of Alcohol and Drug Abuse Patient Records regulations: The Federal rules restrict any use of the information to criminally investigate or prosecute any alcohol or drug abuse patient.[facility] CenterIn the event this information is protected by the Federal Confidentiality of Alcohol and Drug Abuse Patient Records regulations: The Federal rules restrict any use of the information to criminally investigate or prosecute any alcohol or drug abuse patient.[facility] CenterIn the event this information is protected by the Federal Confidentiality of Alcohol and Drug Abuse Patient Records regulations: The Federal rules restrict any use of the information to criminally investigate or prosecute any alcohol or drug abuse patient.[facility] Center[facility] the event this information is protected by the Federal Confidentiality of Alcohol and Drug Abuse Patient Records regulations: The Federal rules restrict any use of the information to criminally investigate or prosecute any alcohol or drug abuse patient.[facility] CenterIn the event this information is protected by the Federal Confidentiality of Alcohol and Drug Abuse Patient Records regulations: The Federal rules restrict any use of the information to criminally investigate or prosecute any alcohol or drug abuse patient.[facility] CenterIn the event this information is protected by the Federal Confidentiality of Alcohol and Drug Abuse Patient Records regulations: The Federal rules restrict any use of the information to criminally investigate or prosecute any alcohol or drug abuse patient.[facility] CenterIn the event this information is protected by the Federal Confidentiality of Alcohol and Drug Abuse Patient Records regulations: The Federal rules restrict any use of the information to criminally investigate or prosecute any alcohol or drug abuse patient.[facility] Reason for Visit (unrecogniz ed section and content) Reason Comments Cough Intermittent SOB, ch est congestion x3 days. Reason Comments Results Reason Comments Follow Up Anxiety and depressi on Specialty Diagnoses / Procedures Referred By Jenn t Referred To Contact Family Medicine / FAMILY MEDICINE Diagnoses Follow up Procedures MYC OFFICE VISIT Self Karen Jarvis, EARLY CHILDHOOD EDUCATION COORDINATOR.CALL CENTER NURSE [address] [place] [address] Referral ID Status Reason Start Date Expiration Date Visits Requested Visits Authorized [id number] Authorized Patient Cleared - Qualified 100% FAS [...] 4C SAME DAY Laurie Holliday MD [address] [place] [address] Laurie Holliday MD [address] [place] [address] Referral ID Status Reason Start Date Expiration Date Visits Requested Visits Authorized [id number] Authorized Patient Cleared - Qualified 100% FAS 12/04/2023 03/03/2024 99 99 Reason Comments Hospital F/U [facility] ER SOB 12/08/2023 Reason Comments Spirometry Specialty Diagnoses / Procedures Referred By Jenn t Referred To Contact [facility] Diagnoses SOB (shortness of breath) Hypoxemia Procedures SPIROMETRY BASELINE ONLY SPMTRY W/VC EXPIRATORY MERVIN W/WO MXML VOL VNTJ PodlogKaren martínez, EARLY CHILDHOOD EDUCATION COORDINATOR.CALL CENTER NURSE [address] [place] [address] Res[facility] [address] [place] [address] Referral ID Status Reason Start Date Expiration Date V isits Requested Visits Authorized [id number] Closed Auto-Generate d Referral 12/10/2023 07/20/2024 1 1 Reason Onset Date Comments Refill Request 03/07/2024 Reason Onset Date Comments Refill Request 04/02/2024 Care Teams (unrecognized sec tion and content) Synthetic Filament Extruder Relationship Specialty Start Date End Date Laurie Holliday MD [address] [place] [address] PCP - General Family Practice 04/20/21 Synthetic Filament Extruder Relationship Specialty Start Date End Date Laurie Holliday MD [address] [place] [address] PCP - General Family Practice 04/20/21 Synthetic Filament Extruder Relationship Specialty Start Date End Date Laurie Holliday MD [address] [place] [address] PCP - General Family Medicine 04/20/21 Synthetic Filament Extruder Relationship Specialty Start Date End Date Laurie Holliday MD [address] [place], [place] [id number] [phone] PCP - General Family Medicine 04/20/21 Synthetic Filament Extruder Relationship Specialty Start Date End Date Laurie Holliday MD [address] [place] [address] PCP - General Family Medicine 04/20/21 Synthetic Filament Extruder Relationship Specialty Start Date End Date Laurie Holliday MD [address] [place] [address] PCP - General Family Medicine 04/20/21 Synthetic Filament Extruder Relationship Specialty Start Date End Date Laurie Holliday MD [address] [place] [address] PCP - General Family Medicine 04/20/21 Synthetic Filament Extruder Relationship Specialty Start Date End Date Laurie Holliday MD [address] [place] [address] PCP - General Family Medicine 04/20/21 Synthetic Filament Extruder Relationship Specialty Start Date End Date Laurie Holliday MD [address] [place] [address] PCP - General Family Medicine 04/20/21 Synthetic Filament Extruder Relationship Specialty Start Date End Date Laurie Holliday MD [address] [place] [address] PCP - General Family Medicine 04/20/21 Synthetic Filament Extruder Relationship Specialty Start Date End Date Laurie Holliday MD [address] [place] [address] PCP - General Family Medicine 04/20/21 Synthetic Filament Extruder Relationship Specialty Start Date End Date Laurie Holliday MD [address] [place] [address] PCP - General Family Medicine 04/20/21 Synthetic Filament Extruder Relationship Specialty Start Date End Date Laurie Holliday MD [address] [place] [address] PCP - General Family Medicine 04/20/21 Synthetic Filament Extruder Relationship Specialty Start Date End Date Laurie Holliday MD [address] [place] [address] PCP - General Family Medicine 04/20/21 Synthetic Filament Extruder Relationship Specialty Start Date End Date Laurie Holliday MD [address] [place] [address] PCP - General Family Medicine 04/20/21 FOR [...] BE BASED ON THE PRIMARY CLINICAL RECORDS. [employer] provides no warranty or guarantee of the accuracy or completeness of information in this document.
[2024-05-11] MEDS: 0.9% Normal Saline (1000mL) 1,000 ML 50 ML IV (21:09)
[2024-05-11] MEDS: Albuterol 2.5 MG/3 ML VIAL.NEB. INHALATION (21:14)
[2024-05-11] MEDS: Lactobacillis Acidophilus 1 CAP PO (21:22)
[2024-05-11] MEDS: Enoxaparin 40 MG/0.4 ML Syringe SC (21:22)
[2024-05-11] MEDS: Doxycycline 100 MG in Dextrose 5%-Water (250mL Bag) 250 ML 250 MG IV (21:22)
[2024-05-11] MEDS: MethylPREDNISolone 125 MG/2 ML Vial 60 MG IV (21:24)
[2024-05-12] VITALS (9 sets, daily range): BP systolic 113–123; BP diastolic 67–84; PULSE 80–100; RESP 16–22; TEMP 36.2–36.7; O2SAT 93–98; BMI 46.2
[2024-05-12 05:37] LABS: Absolute Lymphocyte Count 1.05 X10^3/uL (0.83-4.51); Absolute Neutrophil Count 12.2 X10^3/uL (2.0-7.7); Basophil# 0.01 X10^3/uL; Basophil% 0.1 % (0-1); Eosinophil# 0.01 X10^3/uL; Eosinophils% 0.1 % (0-5); Hematocrit 49.3 % (37-47); Hemoglobin 17.1 g/dL (12.0-15.0); Lymphocyte # 1.05 X10^3/ul (0.83-4.51); Lymphocyte % 7.8 % (19-41); Mean Corp Hgb Conc 34.7 g/dL (32-36); Mean Corpuscular Hgb 29.7 pg (27.0-32.0); Mean Corpuscular Volume 85.7 fL (81-99); Mean Platelet Vol. 11.2 fl (6.2-12.0); Monocyte# 0.13 X10^3/uL; NRBC Flagged by Analyzer 0 % (0-5); Neutrophil # 12.17 X10^3/uL (2.7-7.7); Neutrophil % 90.5 % (47-70); Platelet Count 257 K/mm3 (150-450); RBC Distribution Width CV 13.2 % (11.6-14.6); RBC Distribution Width SD 40.7 fl (35.1-43.9); Red Blood Count 5.75 M/mm3 (4.2-5.4); White Blood Count 13.4 K/mm3 (4.4-11.0)
[2024-05-12 06:17] LABS: ALB/GLOB Ratio 0.8 RATIO (0.9-2.4); AST(SGOT) 13 U/L (15-37); Alanine Aminotransfer ALT/SGPT 29 U/L (13-56); Albumin, Serum 3.5 g/dL (3.2-5.0); Alkaline Phosphatase 110 U/L (45-117); Anion Gap 7 (5-15); BUN 9 mg/dL (7-18); BUN/Creat Ratio 19.2 RATIO (10-20); Calcium,Total 9.4 mg/dL (8.5-10.1); Chloride 108 mmol/L (98-107); Creatinine, Serum 0.47 mg/dL (0.55-1.02); EST Glomerular Filtration Rate 164 mL/min (>60); Est Glom Filt Rate - Afr Amer 198 mL/min (>60); Globulin 4.2 g/dL (2.2-4.2); Glucose 156 mg/dL (74-106); Magnesium 2.3 mg/dL (1.6-2.6); Phosphorus 2.8 mg/dL (2.5-4.9); Potassium 4.1 mmol/L (3.5-5.1); Protein, Total 7.7 g/dL (6.4-8.2); Sodium Level 135 mmol/L (136-145); Thyroid Stim Hormone (TSH) 0.292 uIU/mL (0.358-3.740)
--- NOTE | 2024-05-12 08:26 | PCM.PN.HOSP ---
Reason for Visit Reason for Visit: Diagnoses Morbid (severe) obesity due to excess calories (05/11/24) Severe persistent asthma with (acute) exacerbation (05/11/24) Other abnormalities of breathing (05/11/24) Body mass index [BMI] 45.0-49.9, adult (05/11/24) Tobacco use (05/11/24) Subjective Subjective Patient is a 34-year-old female with a history of possible asthma who presented to the emergency department [facility] on 05/11/2020 for with shortness of breath and wheezing. Patient reported her symptoms had been going on for about 24 hours and she was having dyspnea on exertion that progressed to the point of shortness of breath at rest. She also reported severe wheezing that has been refractory to her home aerosols which typically work for her. She reported she was recently started on a new inhaler that does not seem to be working very well for her as of late. She denied any significant cough with sputum production, fever, chills or chest pain. Vital signs on presentation showed a temperature of 97.8, heart rate 99, respiratory 18, blood pressure was 155/110 and pulse ox was 87% on room air. She did have a mild leukocytosis on presentation at 16.0 and a erythrocytosis at 16.9 both of which appear to fluctuate and are chronic. No left shift was present but she did have an eosinophilia on presentation. She did see Dr. White is after previous admission it was recommended she see pulmonary medicine and also get a sleep study. She has not yet got her sleep study as she is having difficulty time coordinating this as she is third shift. She did have PFTs done over at [facility] she feels but none have been scanned into our records at this time. She is still smoking but states she quit 5 days ago and does not intend to restart. She stated she had quit for 6 months but then restarted. BMP on presentation was overtly unremarkable. Chest x-ray showed no acute cardiopulmonary disease. She was mated to the medical floor and placed on treatment consistent with acute exacerbation of asthma/COPD. She said she is feeling a little bit better. Still states she feels like she is wheezing considerably. Denies any chest pain. Still not having any significant cough but does feel like she has bronchospasm intermittently with taking deep breaths. Objective Data Objective Data Vital Signs: Vital Signs Temp Pulse Resp BP Pulse Ox O2 Del Method O2 Flow Rate 97.8 F 89 20 H 115/67 97 Nasal Cannula 4 05/12/24 02:37 05/12/24 02:37 05/12/24 02:37 05/12/24 02:37 05/12/24 02:37 05/12/24 02:38 05/12/24 02:38 Oxygen Flow Rate (L/min) 4 Oxygen Delivery Method Nasal Cannula Weight: 126 kg Body Mass Index (BMI) 46.2 Intake & Output: Intake and Output for Last 24 Hours 05/10/24 05/11/24 05/12/24 23:59 23:59 23:59 Intake Total 580 / 580 120 / 120 Balance 580 / 580 120 / 120 Lab / Micro Data 05/12/24 04:15 05/12/24 04:15 Labs: Laboratory Results - last 24 hr 05/11/24 17:20: WBC 16.0 H, RBC 5.75 H, Hgb 16.9 H, Hct 48.9 H, MCV 85.0, MCH 29.4, MCHC 34.6, RDW Std Deviation 40.7, RDW Coeff of [place] 13.2, Plt Count 299, MPV 10.1, Immature Gran % (Auto) 0.400, Neut % (Auto) 62.5, Lymph % (Auto) 21.6, [place] % (Auto) 6.9, Eos % (Auto) 8.0 H, Baso % (Auto) 0.6, Absolute Neuts (auto) 10.0 H, Absolute Lymphs (auto) 3.45, Nucleated RBC % 0, D-Dimer Quant (PE/DVT) 0.28, Sodium 135 L, Potassium 3.6, Chloride 106, Carbon Dioxide 24.0, Anion Gap 6, BUN 11, Creatinine 0.58, Estim Creat Clear Calc 185.74, Est GFR (MDRD) Af Amer 154, Est GFR (MDRD) Non-Af 127, BUN/Creatinine Ratio 18.8, Glucose 111 H, Calcium 9.2, Troponin I High Sens < 3 L 05/12/24 04:15: WBC 13.4 H, RBC 5.75 H, Hgb 17.1 H, Hct 49.3 H, MCV 85.7, MCH 29.7, MCHC 34.7, RDW Std Deviation 40.7, RDW Coeff of [place] 13.2, Plt Count 257, MPV 11.2, Immature Gran % (Auto) 0.500, Neut % (Auto) 90.5 H, Lymph % (Auto) 7.8 L, [place] % (Auto) 1.0, Eos % (Auto) 0.1, Baso % (Auto) 0.1, Absolute Neuts (auto) 12.2 H, Absolute Lymphs (auto) 1.05, Nucleated RBC % 0, Sodium 135 L, Potassium 4.1, Chloride 108 H, Carbon Dioxide 21.0, Anion Gap 7, BUN 9, Creatinine 0.47 L, Estim Creat Clear Calc 229.50, Est GFR (MDRD) Af Amer 198, Est GFR (MDRD) Non-Af 164, BUN/Creatinine Ratio 19.2, Glucose 156 H, Calcium 9.4, Phosphorus 2.8, Magnesium 2.3, Total Bilirubin 0.50, AST 13 L, ALT 29, Alkaline Phosphatase 110, Total Protein 7.7, Albumin 3.5, Globulin 4.2, Albumin/Globulin Ratio 0.8 L, TSH 0.292 L Micro: Microbiology 05/12/24 01:37 Mucosa - Nasopharyngeal Respiratory Panel (PCR) - Final Radiography Diagnostic Testing: Radiology Impression Chest X-Ray 05/11/24 17:51 IMPRESSION: No radiographic evidence of acute cardiopulmonary disease. Electronically Signed: Damian Lo DO at 18:20 EDT Reading Location ID and State: [address] [place] [address] Tel [phone], Service support , Physical Exam Const alert, oriented x3, no apparent distress and well nourished; Negative for average body habitus or healthy appearing Constitutional Narrative: Young middle-aged, morbidly obese, white female, lying in bed, appears comfortable, no signs of respiratory distress, nontoxic HEENT head/scalp atraumatic and moist oral mucous membranes HEENT Narrative: Mallampati 3-4, no thrush, dentition is fair for age Head and Scalp: normocephalic Resp normal respiratory effort, no retractions and no use of accessory muscles Resp Narrative: No dyspnea with conversation and respiratory effort is unremarkable at this time, currently on 3 and half liters nasal cannula, patient with diffusely scattered and expiratory wheezes but no rhonchi or rales, no dyspnea with conversation Cardio regular rate, regular rhythm, S1 normal heart sound, S2 normal heart sound, no murmurs, no rub, no gallops and no clicks GI normal to inspection, nondistended, normoactive bowel sounds, soft to palpation and non-tender GI Narrative: Protuberant abdomen Extremity no clubbing, cyanosis or edema Extremity Narrative: Pedal pulses are 2+ Neuro oriented x3, moves all extremities and no focal motor deficits Speech: speech normal Psych affect normal Psych Narrative: Pleasant, interacts appropriately Assessment & Plan Assessment/Plan (1) Asthma exacerbation: QUALIFIERS: Asthma persistence: persistent Asthma severity: severe Qualified Code(s): J45.51 - Severe persistent asthma with (acute) exacerbation (2) Acute hypoxic respiratory failure: PLAN: Plan Acute hypoxic respiratory failure secondary to exacerbation of asthma -On presentation patient was afebrile but tachycardic and blood pressure was elevated with respiratory rate between 26 and 30 -Oxygen saturations on room air were 87% -Currently requiring 4 L nasal cannula and sats at 97% -Wean oxygen as able -Respiratory viral panel is negative -Check COVID-19 -No infiltrate on chest x-ray and no cough with production or fever so we will discontinue doxycycline -Add DuoNebs scheduled every 4 hours while awake- -continue as needed albuterol -Continue Robitussin -Continue home diuretics -Had PFTs as an outpatient at [facility] however not scanned into our system-->will try to find in [facility] Suspected SHADIA -Was seen by pulmonary medicine on 01/14/2024 and polysomnography ordered -Appears that this may still be pending -Highly suspicious the patient does have SHADIA at baseline Chronic erythrocytosis -Recommend outpatient follow-up with PCP Seasonal allergies -Continue home loratadine as needed Depression -Continue home sertraline Morbid obesity -BMI 46.2 -Recommend weight loss -Complicates treatment, prognosis, outcomes Tobacco abuse -Nicotine patch can be made available if needed -Highly recommend cessation DVT prophylaxis -Continue subcu Lovenox CODE STATUS -Full code Charges/Coding Visit Charges Inpatient E&M: 91757 Subs Hosp L2
[2024-05-12] MEDS: Enoxaparin 40 MG/0.4 ML Syringe SC ×2 (09:19→21:31)
[2024-05-12] MEDS: Furosemide 40 MG Tablet PO (09:19)
[2024-05-12] MEDS: Sertraline 100 MG Tablet PO (09:19)
--- NOTE | 2024-05-12 11:15 | CASEMGMT ---
CLAUDIA PATEL Assessment: Face to Face with pt for initial transition planning/care coordination assessment. CLAUDIA PATEL introduced self and role at [facility], pt voices understanding and consents to assessment. Pt is A&O x4 and answers all questions appropriately at this time. Pt lying in bed in no distress. Care providers, pharmacy, and demographics verified/updated. Strata: 2 Admitting Dx: AE Asthma with ongoing tobaco use PCP: Mg Specialists: [facility] Preferred Pharmacy: [facility] Insurance: [employer] Prescription Benefit: yes LNOK: , Subhash Living Arrangements: Pt lives with and daughter in a 1 story home with 2 steps to enter. ADLs: I at baseline Transportation: Pt drives self and denies concerns with transportation. DME: Pt denies DME at home. CLAUDIA PATEL discussed going home with O2. RN JORGE provided verbal list of local oxygen providers, pt chose [facility] if requires O2 or nebulizer at time of DC. CLAUDIA PATEL discussed purchasing a pulse ox to check oxygen at home. Pt verbalized understanding. HHC/SNF: Denies Hx of. Pt states no concerns with going home at time of dc. Pt states no further concerns/needs. CM to follow. Advised pt to ask CM if any further question/concerns/needs arise, voices understanding. Pt Goal: Home Plan: Home, follow for O2 needs. Carolynn TAYLOR CM
[2024-05-12] MEDS: Albuterol 2.5 MG/3 ML VIAL.NEB. INHALATION (11:35)
[2024-05-12] MEDS: 0.9% Saline Lock 10 ML Syringe IV (13:58)
[2024-05-12] MEDS: Ipratropium/Albuterol Sulfate 3 ML AMPUL.NEB INHALATION (18:54)
[2024-05-13] VITALS (8 sets, daily range): BP systolic 95–123; BP diastolic 58–85; PULSE 81–103; RESP 16–20; TEMP 36.4–36.6; O2SAT 94–98
[2024-05-13 07:08] LABS: Absolute Lymphocyte Count 1.67 X10^3/uL (0.83-4.51); Absolute Neutrophil Count 16.3 X10^3/uL (2.0-7.7); Basophil# 0.02 X10^3/uL; Basophil% 0.1 % (0-1); Hematocrit 51.3 % (37-47); Hemoglobin 17.3 g/dL (12.0-15.0); Lymphocyte # 1.67 X10^3/ul (0.83-4.51); Lymphocyte % 8.9 % (19-41); Mean Corp Hgb Conc 33.7 g/dL (32-36); Mean Corpuscular Hgb 29.2 pg (27.0-32.0); Mean Corpuscular Volume 86.5 fL (81-99); Mean Platelet Vol. 10.6 fl (6.2-12.0); Monocyte# 0.62 X10^3/uL; Monocyte% 3.3 % (0-10); NRBC Flagged by Analyzer 0 % (0-5); Neutrophil % 87.1 % (47-70); Platelet Count 287 K/mm3 (150-450); RBC Distribution Width CV 13.4 % (11.6-14.6); Red Blood Count 5.93 M/mm3 (4.2-5.4); White Blood Count 18.7 K/mm3 (4.4-11.0)
[2024-05-13] MEDS: Ipratropium/Albuterol Sulfate 3 ML AMPUL.NEB INHALATION ×2 (07:15→10:27)
[2024-05-13] MEDS: Enoxaparin 40 MG/0.4 ML Syringe SC (07:54)
[2024-05-13] MEDS: Sertraline 100 MG Tablet PO (07:54)
[2024-05-13] MEDS: Furosemide 40 MG Tablet PO (07:54)
[2024-05-13 08:15] LABS: Anion Gap 6 (5-15); BUN 8 mg/dL (7-18); BUN/Creat Ratio 16.9 RATIO (10-20); Chloride 111 mmol/L (98-107); Creatinine, Serum 0.47 mg/dL (0.55-1.02); EST Glomerular Filtration Rate 162 mL/min (>60); Est Glom Filt Rate - Afr Amer 196 mL/min (>60); Glucose 142 mg/dL (74-106); Magnesium 2.6 mg/dL (1.6-2.6); Phosphorus 3.3 mg/dL (2.5-4.9); Potassium 4.1 mmol/L (3.5-5.1); Sodium Level 139 mmol/L (136-145)
--- NOTE | 2024-05-13 12:10 | DS.PCM_ITS ---
Providers Date of Admission: 05/11/24 Date of Discharge: 05/13/24 Primary Care Physician: Dr. Ankit Holliday MD Reason For Visit: AE ASTHMA WITH ONGOING TOBACCO ABUSE Diagnosis Discharge Diagnosis (1) Asthma exacerbation: Status: Acute Code(s): J45.901 - Unspecified asthma with (acute) exacerbation Qualifiers: Asthma severity: severe Asthma persistence: persistent Qualified Code(s): J45.51 - Severe persistent asthma with (acute) exacerbation (2) Acute hypoxic respiratory failure: Status: Acute Code(s): J96.01 - Acute respiratory failure with hypoxia Medications at Discharge Home Medications loratadine 10 mg tablet (Allerclear) 10 mg PO DAILY PRN allergy symptoms 12/04/23 furosemide 40 mg tablet (Lasix) 40 mg PO DAILY #30 tabs 12/08/23 albuterol sulfate 90 mcg/actuation aerosol inhaler (Ventolin HFA) 1 - 2 puff inhalation Q4H PRN PRN Wheezing ##1 02/01/24 sertraline 100 mg tablet 100 mg PO QHS 05/11/24 albuterol sulfate 2.5 mg/3 mL (0.083 %) solution for nebulization 2.5 mg (3 mL) inhalation Q4H PRN PRN Wheezing #90 mL 05/13/24 prednisone 10 mg tablet 10 mg PO DAILY #30 tabs 05/13/24 Hospital Course Procedures EKG and - (Chest x-ray) Summary of Care Provided Minutes Spent on Discharge: 38 Hospital Course: Ms Khan is a 34-year-old female with a history of possible asthma who presented to the emergency department [facility] on 05/11/2020 for with shortness of breath and wheezing. Patient reported her symptoms had been going on for about 24 hours and she was having dyspnea on exertion that progressed to the point of shortness of breath at rest. She also reported severe wheezing that has been refractory to her home aerosols which typically work for her. She reported she was recently started on a new inhaler that does not seem to be working very well for her as of late. She denied any significant cough with sputum production, fever, chills or chest pain. Vital signs on presentation showed a temperature of 97.8, heart rate 99, respiratory 18, blood pressure was 155/110 and pulse ox was 87% on room air. She did have a mild leukocytosis on presentation at 16.0 and a erythrocytosis at 16.9 both of which appear to fluctuate and are chronic. No left shift was present but she did have an eosinophilia on presentation. She did see Dr. White is after previous admission it was recommended she see pulmonary medicine and also get a sleep study. She has not yet got her sleep study as she is having difficulty time coordinating this as she is third shift. She did have PFTs done [facility] at [facility] she feels but none have been scanned into our records at this time. She is still smoking but states she quit 5 days ago and does not intend to restart. She stated she had quit for 6 months but then restarted. BMP on presentation was overtly unremarkable. Chest x-ray showed no acute cardiopulmonary disease. She was admitted to the medical floor and placed on treatment consistent with acute exacerbation of asthma/COPD. She was placed on scheduled aerosols, as needed aerosols, aggressive pulmonary toilet with incentive spirometry and Acapella, IV steroids and nicotine replacement that was offered because she was offered because she is still smoking. We did discuss the importance of tobacco cessation and the importance and her ongoing pulmonary health. She did admit that she has not yet had her sleep study done and I have advised her to do this prior to her having her pulmonary appointment. I did also impress upon her the importance of having pulmonary follow-up with her current respiratory situation as she was quite wheezy on admission. She did however, turned around quite quickly. Within 24 to 36 hours of admission she was able to be weaned to room air and her wheezing had dramatically improved. We did ambulatory pulse ox and she was able to ambulate without requiring oxygen having oxygen saturations at 94%. She reported feeling much better and was anxious to go home. We did give her albuterol nebulizer for at home and prescription for this and steroids were sent to her local pharmacy at the time of discharge. I again have impressed upon her the importance of following up with pulmonary medicine, getting her sleep study, and tobacco cessation. She was discharged home in stable condition on 05/13/2024. She is to follow-up with her PCP as needed Discharge diagnoses: Acute hypoxic respiratory failure secondary to exacerbation of asthma/COPD Suspected SHADIA Chronic erythrocytosis Seasonal allergies Depression Morbid obesity Tobacco abuse Cannabis use Physical Exam Const alert, oriented x3, no apparent distress and well nourished; Negative for average body habitus or healthy appearing Constitutional Narrative: Young middle-aged, morbidly obese, white female, sitting up in bed, appears comfortable, no signs of respiratory distress, nontoxic, on room air General Appearance: cooperative, comfortable, well kempt and well developed Exam Limitations: no limitations Nutritional Appearance: morbidly obese HEENT normocephalic, head/scalp atraumatic, hearing grossly normal bilaterally and moist oral mucous membranes HEENT Narrative: Mallampati 3, no thrush Eyes PERRL, EOMs intact bilaterally and conjunctivae normal Eyes Narrative: No scleral icterus Neck no lymphadenopathy and supple Neck Narrative: Trachea midline, neck is short and thick Resp normal respiratory effort, no retractions and no use of accessory muscles Resp Narrative: Patient now on room air, no dyspnea at rest or with conversation, still some very minimal scattered wheezing but overall much improved Auscultation: wheezes; Negative for rales or rhonchi Cardio regular rate, regular rhythm, S1 normal heart sound, S2 normal heart sound, no murmurs, no rub, no gallops and no clicks GI normal to inspection, nondistended, normoactive bowel sounds, soft to palpation and non-tender GI Narrative: Protuberant abdomen Extremity no clubbing, cyanosis or edema Extremity Narrative: Pedal pulses are 2+ Skin skin turgor normal and no jaundice Neuro oriented x3, moves all extremities and no focal motor deficits Speech: speech normal Psych affect normal Psych Narrative: Pleasant, interacts appropriately Weight / BMI Weight Weight: 126 kg Body Mass Index (BMI) 46.2 ABG / Lab / Microbiology Data 05/13/24 06:09 05/13/24 06:09 Laboratory: Laboratory Results - last 24 hr 05/13/24 06:09: WBC 18.7 H, RBC 5.93 H, Hgb 17.3 H, Hct 51.3 H, MCV 86.5, MCH 29.2, MCHC 33.7, RDW Std Deviation 42.0, RDW Coeff of Mary Grace 13.4, Plt Count 287, MPV 10.6, Immature Gran % (Auto) 0.600, Neut % (Auto) 87.1 H, Lymph % (Auto) 8.9 L, [place] % (Auto) 3.3, Eos % (Auto) 0.0, Baso % (Auto) 0.1, Absolute Neuts (auto) 16.3 H, Absolute Lymphs (auto) 1.67, Nucleated RBC % 0, Sodium 139, Potassium 4.1, Chloride 111 H, Carbon Dioxide 22.0, Anion Gap 6, BUN 8, Creatinine 0.47 L, Estim Creat Clear Calc 229.50, Est GFR (MDRD) Af Amer 196, Est GFR (MDRD) Non-Af 162, BUN/Creatinine Ratio 16.9, Glucose 142 H, Calcium 9.0, Phosphorus 3.3, Magnesium 2.6 Microbiology: Microbiology 05/12/24 09:20 Nasal Secretion SARS-CoV-2 Antigen (Rapid) - Final 05/12/24 01:37 Mucosa - Nasopharyngeal Respiratory Panel (PCR) - Final D/C Instructions Discharge Diet: Low fat / Low cholesterol Discharge Activity: Return to Normal Activity Return to work on: 05/17/24 Meaningful Use Info Meaningful Use Meaningful Use Diagnoses (Choose all that apply): None applicable Ischemic Stroke Statin Dosing Therapy Reference: STATIN DOSE THERAPY REFERENCE: * Patients > 75 years receive moderate or high dose statin therapy. * Patients 75 years or YOUNGER should receive HIGH intensity statin dose unless contraindicated. You will be required to document reason for non-treatment if statin daily dose does not meet guidelines. HIGH DOSE STATIN THERAPY DAILY Atorvastatin > than or = to 40 mg Rosuvastatin > than or = to 20 mg Amlodipine + Atorvastatin > than or = to 2.5/40 mg Ezetimibe + Simvastatin 10/80 mg Simvastatin 80mg Discharge Plan Admission Admit Date/Time: 05/11/24 19:59 Primary Reason for Your Visit: Shortness of breath Attending Provider: Sandra Siomn Primary Care Provider: Ankit Holliday Consulting Providers: Chito Peacock Instructions Forms: Work Excuse Additional Instructions / Restrictions: 1. Please get your outpatient sleep study set up and then schedule an outpatient pulmonary appointment to be seen after sleep study is performed 2. Highly recommend no more smoking Discharge Orders/Prescriptions Prescriptions: New albuterol sulfate 2.5 mg /3 mL (0.083 %) Solution For Nebulization 2.5 mg inhalation Q4H PRN PRN (Reason: Wheezing) Qty: 90 0RF prednisone 10 mg tablet 10 mg PO DAILY Qty: 30 0RF Rx Instructions: 4 tablets x 3 days, 3 tablets x 3 days, 2 tablets x 3 days, 1 tablet x 3 days Continued albuterol sulfate [Ventolin HFA] 90 mcg/actuation HFA aerosol inhaler 1 - 2 puff inhalation Q4H PRN PRN (Reason: Wheezing) Qty: 1 0RF loratadine [Allerclear] 10 mg tablet 10 mg PO DAILY PRN (Reason: allergy symptoms) furosemide [Lasix] 40 mg tablet 40 mg PO DAILY Qty: 30 0RF sertraline 100 mg tablet 100 mg PO QHS Referrals / Follow Up: Ankit Holliday MD [Primary Care Provider] - See Referral Note (As needed) Eb White DO [Med Staff - Active Staff] - See Referral Note (Please schedule outpatient appointment soon for after you get your sleep study scheduled and performed) Disposition Disposition (needs filled in before D/C Order can be placed): Home, Self Care Charges/Coding Visit Charges Inpatient E&M: 69405 Disch Hosp >30min
--- NOTE | 2024-05-13 12:47 | CASEMGMT ---
CLAUDIA PATEL sent order to [facility] [employer] for nebulizer, [facility] rep. stated will deliver to pt room at 1:30. Notified pt nurse and patient. Pt denies any questions or concerns at this time.
== END 2024-05-13 13:16 | disposition home or self-care (01) | DRG 202 ==
LOC: ED 19:49 → MS3 20:04
PROVIDERS: Admitting Provider Internal Medicine; Emergency Provider Emergency Medicine; PCP Family Medicine; Visit Provider Internal Medicine
DX: J45.51 Severe persistent asthma with (acute) exacerbation (principal); J96.01 Acute respiratory failure with hypoxia; Z68.42 Body mass index [BMI] 45.0-49.9, adult; D72.10 Eosinophilia, unspecified; F32.A Depression, unspecified; J44.9 Chronic obstructive pulmonary disease, unspecified; E66.01 Morbid (severe) obesity due to excess calories; G47.33 Obstructive sleep apnea (adult) (pediatric); J30.2 Other seasonal allergic rhinitis; F17.210 Nicotine dependence, cigarettes, uncomplicated; J20.8 Acute bronchitis due to other specified organisms; D75.1 Secondary polycythemia; Z11.52 Encounter for screening for COVID-19; Z79.01 Long term (current) use of anticoagulants; Z79.899 Other long term (current) drug therapy
CPT/HCPCS: 36415; 71045; 80048; 80053; 83735; 84100; 84443; 84484; 85025; 85379; 87426; 87633; 93005; 94640; 94668; 99252; 99285; J7030; A4216; G0463

== ENCOUNTER 2024-08-08 13:21 | Inpatient (IN) | payer BC, SELFPAY ==
[2024-08-08] VITALS (11 sets, daily range): BP systolic 102–123; BP diastolic 66–93; PULSE 83–107; RESP 18–28; TEMP 36.3–36.9; O2SAT 87–93; BMI 48.3; BMI 47.1
--- NOTE | 2024-08-08 13:32 | RAD_ITS ---
STUDY: X-RAY CHEST REASON FOR EXAM: Female, 34 years old. Hypoxia, wheezing TECHNIQUE: PA and lateral views of the chest. COMPARISON: May 11, 2024 FINDINGS: No visualized consolidation. Redemonstration of mild bilateral interstitial fibrotic changes of the lungs. There is no demonstrated pleural abnormality. Normal size heart. Normal mediastinum and sarabjit. Normal visualized pulmonary arteries. Normal visualized aortic arch and descending thoracic aorta. There are diffuse degenerative changes of the visualized thoracic spine. Normal visualized ribs, clavicles, and shoulders. There is no demonstrated abnormality of the visualized soft tissue structures of the upper abdomen. RAD/Chest PA and Lateral IMPRESSION: Redemonstration of mild bilateral interstitial fibrotic changes of the lungs. Electronically Signed: Gui Buckley MD at 14:39 EST ,
[2024-08-08] MEDS: Albuterol 2.5 MG/3 ML VIAL.NEB. INHALATION ×3 (13:39)
[2024-08-08 13:51] LABS: Absolute Lymphocyte Count 3.82 X10^3/uL (0.83-4.51); Absolute Neutrophil Count 10.1 X10^3/uL (2.0-7.7); Basophil% 0.6 % (0-1); Eosinophil# 1.35 X10^3/uL; Eosinophils% 8.2 % (0-5); Hematocrit 48.3 % (37-47); Hemoglobin 17.1 g/dL (12.0-15.0); Lymphocyte # 3.82 X10^3/ul (0.83-4.51); Lymphocyte % 23.2 % (19-41); Mean Corp Hgb Conc 35.4 g/dL (32-36); Mean Corpuscular Hgb 29.8 pg (27.0-32.0); Mean Corpuscular Volume 84.3 fL (81-99); Mean Platelet Vol. 10.2 fl (6.2-12.0); Monocyte# 1.07 X10^3/uL; Monocyte% 6.5 % (0-10); NRBC Flagged by Analyzer 0 % (0-5); Neutrophil # 10.07 X10^3/uL (2.7-7.7); Neutrophil % 61.1 % (47-70); Platelet Count 283 K/mm3 (150-450); RBC Distribution Width CV 12.7 % (11.6-14.6); RBC Distribution Width SD 38.5 fl (35.1-43.9); Red Blood Count 5.73 M/mm3 (4.2-5.4); White Blood Count 16.5 K/mm3 (4.4-11.0)
[2024-08-08] MEDS: MethylPREDNISolone 125 MG/2 ML Vial IV (14:02)
[2024-08-08 14:09] LABS: ALB/GLOB Ratio 0.9 RATIO (0.9-2.4); AST(SGOT) 14 U/L (15-37); Alanine Aminotransfer ALT/SGPT 26 U/L (13-56); Albumin, Serum 3.6 g/dL (3.2-5.0); Alkaline Phosphatase 101 U/L (45-117); Anion Gap 7 (5-15); BUN 7 mg/dL (7-18); BUN/Creat Ratio 9.1 RATIO (10-20); Calcium,Total 9.6 mg/dL (8.5-10.1); Chloride 106 mmol/L (98-107); Creatinine, Serum 0.77 mg/dL (0.55-1.02); EST Glomerular Filtration Rate 92 mL/min (>60); Est Glom Filt Rate - Afr Amer 111 mL/min (>60); Estimated Creatinine Clearance 143.87 ml/min; Globulin 3.9 g/dL (2.2-4.2); Glucose 100 mg/dL (74-106); Potassium 3.3 mmol/L (3.5-5.1); Protein, Total 7.5 g/dL (6.4-8.2); Sodium Level 138 mmol/L (136-145)
--- NOTE | 2024-08-08 14:21 | ED.VIS.DYS ---
HPI History of Present Illness Chief Complaint: Shortness of Breath Detail of Chief Complaint: Shortness of breath and wheezing that started on August 06. Informant: patient Onset/Context/Timing Onset: Days (August 06) Context: sudden and rest Timing: Continuous Quality: Positive for Dyspnea on exertion and Wheezing; Negative for Orthopnea or PND Current Severity: Moderate Maximum Severity: Severe Worsened by: Exertion and Coughing Relieved by: Nothing Associated Symptoms cough and sore throat; Negative for rhinorrhea, post nasal drip, ear pain, fever, subjective, chills, sweats, clear sputum, white sputum, yellow sputum or green sputum Chest Pain: Positive for None Narrative Narrative: Patient is a 34-year-old woman. She has history of asthma. She has been on prednisone in the last 3 to 6 months. Her last admission was April. She denies rhinorrhea, congestion postnasal drainage. She has slight sore throat. She does have a cough which is nonproductive. She states she used half of her metered-dose inhaler since yesterday. Her shortness of breath increased after cleaning the house. Patient denies headache, visual, ocular auditory symptoms. Patient denies ear pain or discharge. Patient denies chest pain or discomfort of any type. She denies leg pain, swelling discoloration. She has no history of VTE. She has no risk factors for VTE. She denies abdominal pain, nausea vomiting or diarrhea. She denies dysuria, frequency, urgency or hematuria. She denies rash. PE Risk Factors: Negative for Cancer, OCP + Smoking + > 35, Prior DVT or PE, Recent immobilization, Recent surgery or Recent travel Prior similar symptoms: Yes Recent Illness/Hospitalization: Yes [facility] Medical History Morbid obesity with BMI of 45.0-49.9, adult Depression Tobacco abuse Morbid obesity Erythrocytosis Upper respiratory infection with cough and congestion Acute bronchospasm due to viral infection delivery delivered Home Medications ?Medication ?Instructions ?Recorded ?Last Taken ?Type loratadine 10 mg tablet 10 mg PO DAILY PRN allergy symptoms 12/04/23 12/03/23 History (Allerclear) furosemide 40 mg tablet (Lasix) 40 mg PO DAILY #30 tabs 12/08/23 Unknown Rx albuterol sulfate 90 mcg/actuation 1 - 2 puff inhalation Q4H PRN PRN 02/01/24 Unknown Rx aerosol inhaler (Ventolin HFA) Wheezing ##1 sertraline 100 mg tablet 100 mg PO QHS 05/11/24 Unknown History albuterol sulfate 2.5 mg/3 mL 2.5 mg (3 mL) inhalation Q4H PRN 05/13/24 Unknown Rx (0.083 %) solution for nebulization PRN Wheezing #90 mL prednisone 10 mg tablet 10 mg PO DAILY #30 tabs 05/13/24 Unknown Rx Allergy/AdvReac Type Severity Reaction Status Date / Time lidocaine (From Salonpas Allergy Other Verified 08/08/24 13:21 (lidocaine)) Surgical History Previous section Social History household members: spouse housing: house Smoking Status: Current every day smoker tobacco type: cigarettes how long ago did patient quit smoking: Currently smoking about 1 pack of cigarettes weekly alcohol intake: current alcohol intake frequency: holidays/special occasions only substance use type: does not use ROS ROS ED Constitutional Constitutional ED: Denies chills, fever(s), sweats or weight loss Eyes Eyes: Denies blurry vision or change in vision ENT ENT ED: Reports sore throat; Denies ear pain or rhinorrhea Cardiovascular Cardiovascular: Reports palpitations and racing heartbeat; Denies chest pain, orthopnea or paroxysmal nocturnal dyspnea Respiratory/Chest Respiratory/Chest: Reports cough and dyspnea on exertion; Denies orthopnea, paroxysmal nocturnal dyspnea or sputum Gastrointestinal Gastrointestinal: Denies abdominal pain, diarrhea, melena or vomiting Genitourinary Genitourinary ED: Denies dysuria, hematuria or urinary frequency Musculoskeletal Musculoskeletal: Denies arthralgias or myalgias Integumentary Denies rash Neurologic Neurologic: Denies headache(s) or paresthesias Psychiatric Psychiatric: Reports anxiety; Denies depression Endocrine Endocrinology: Denies cold intolerance or heat intolerance Hematologic/Lymphatic Hematologic/Lymphatic: Denies easy bleeding or easy bruising EXAM Physical Exam Const Vital Signs: 08/08/24 13:22 08/08/24 13:31 08/08/24 13:31 Temperature 97.4 F L Temperature Source Temporal Pulse Rate 107 H Respiratory Rate 28 H Respiratory Effort Respiratory Pattern Blood Pressure 123/91 H Blood Pressure Mean 101 Pulse Ox 90 87 92 Oxygen Delivery Method Room Air Room Air Nasal Cannula Oxygen Flow Rate (L/min) 2 08/08/24 13:35 08/08/24 13:43 08/08/24 13:43 Temperature Temperature Source Pulse Rate 105 H Respiratory Rate 22 H Respiratory Effort Short of Breath Respiratory Pattern Tachypnea Blood Pressure Blood Pressure Mean Pulse Ox 89 Oxygen Delivery Method Nasal Cannula Nasal Cannula Oxygen Flow Rate (L/min) 2 2 08/08/24 13:50 Temperature Temperature Source Pulse Rate Respiratory Rate Respiratory Effort Respiratory Pattern Blood Pressure Blood Pressure Mean Pulse Ox 92 Oxygen Delivery Method Nasal Cannula Oxygen Flow Rate (L/min) 3 Vital signs noted. Initially pulse ox was 87% on room air. There was a good waveform. Monitor reveals a narrow complex tachycardia rate of 110. Positive well nourished and well developed Constitutional Narrative: BMI is 48.3. General Appearance ED: well developed; Negative for NAD or pallor HEENT Reports moist mucous membranes atraumatic Eyes PERRL and EOMs intact bilaterally General Eye ED: Negative for pale conjunctiva or scleral icterus Neck no lymphadenopathy, supple, no meningeal signs and no JVD Neck Narrative: Trachea is midline. There is no inspiratory expiratory stridor. Resp normal respiratory effort and No clear to auscultation bilaterally Resp Narrative: There is decreased air movement with increased x-ray phase. There is wheezing noted throughout. There is inspiratory scattered rales noted as well. Cardio regular rhythm, S1 normal heart sound, S2 normal heart sound and no murmurs Rate: tachycardic GI non-tender, non-distended and no masses Auscultation: normoactive bowel sounds Palpation: soft Back/Spine no CVA tenderness Extremity normal to inspection Extremity Narrative: There is no asymmetry, swelling, discoloration, leg vein distention, palpable cords or tenderness along the distribution of the deep venous system. General Extremety ED: Negative for edema or tenderness General Extremity: Negative for edema Neuro oriented x3, CN's II-XII intact bilaterally and no sensory deficits noted Sisi Coma Scale: document GCS findings Spontaneous Obeys Commands Oriented 15 Sensorium / Orientation: alert Speech: speech normal Psych mental status grossly normal Skin no wounds and skin turgor normal General Skin Exam: Negative for jaundice or pallor Lesions: no lesions Rashes: no rashes MDM MDM MDM Narrative Medical decision making narrative: Differential diagnosis would include exacerbation of asthma. Symptoms started prior to chemical exposure from cleaning the house on Friday. She states symptoms started Friday. She has minimal upper respiratory tract symptoms. Doubt pulmonary embolus. She has no history of VTE and has no clinical findings of DVT. She is not PERC negative since she is tachycardic. However her history and physical does not go along with a clot. Wells score is less than 3. Patient was placed on oxygen because her pulse ox on room air was 87%. I was informed by respiratory therapist at her pulse ox had dropped and is presently on 3 L by nasal cannula. This may represent paradoxical hypoxia symptoms occurred after her aerosol treatments. History & Record Review Discussion w/independent historian: Patient Additional record(s) reviewed:: Prior inpatient record (Patient's last admission was April for acute hypoxic respiratory failure. She was also admitted November 2023 for hypoxia and bronchospasm and in August which was due to a viral infection at that time.), Prior ED visit and Prior labs Lab Data Attestation: I reviewed the patient's lab results. Lab results narrative: CBC was with elevated white count of 16.5 thousand. Patient's had elevated white count dating back to December 2020. Comprehensive metabolic panel is normal. Patient's elevated white count is associated with eosinophilia.Patient had evidence of increased eosinophils May 11, 2024. Also February 01, 2024. Labs: Laboratory Results - last 24 hr 08/08/24 13:44 WBC 16.5 H RBC 5.73 H Hgb 17.1 H Hct 48.3 H MCV 84.3 MCH 29.8 MCHC 35.4 RDW Std Deviation 38.5 RDW Coeff of Mary Grace 12.7 Plt Count 283 MPV 10.2 Immature Gran % (Auto) 0.400 Neut % (Auto) 61.1 Lymph % (Auto) 23.2 [place] % (Auto) 6.5 Eos % (Auto) 8.2 H Baso % (Auto) 0.6 Absolute Neuts (auto) 10.1 H Absolute Lymphs (auto) 3.82 Nucleated RBC % 0 Sodium 138 Potassium 3.3 L Chloride 106 Carbon Dioxide 26.0 Anion Gap 7 BUN 7 Creatinine 0.77 Estim Creat Clear Calc 143.87 Est GFR (MDRD) Af Amer 111 Est GFR (MDRD) Non-Af 92 BUN/Creatinine Ratio 9.1 L Glucose 100 Lactic Acid 0.9 Calcium 9.6 Total Bilirubin 0.60 AST 14 L ALT 26 Alkaline Phosphatase 101 Total Protein 7.5 Albumin 3.6 Globulin 3.9 Albumin/Globulin Ratio 0.9 Radiography Chest X-Ray - ED: 2 View, Read by ED Physician, Unchanged (From April 2024.), Normal, Heart, Lungs, Bony Structures and No Acute Disease Rhythm Strip Rhythm Strip: Sinus Tach Rate: 110 Ectopy: None Differential Diagnosis Chest pain/SOB: pulmonary embolism Reason(s) PE less likely: Positive for Well's <3, ACS ACS: Positive for EKG without ischemia and history not suggestive of ischemia pain, pneumothorax Reason(s) pneumothorax less likely: Positive for 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, pneumonia Reason(s) pneumonia less likely: Positive for no infiltrate on CXR and no noted fever, aortic dissection Reason(s) Aortic dissection less likely:: Positive for normal vascular exam, no history of HTN, normal neurological exam, no significant risk factors for dissection, no widened mediastinum on CXR, pain not sudden onset, no ripping/tearing pain, no pain to back and blood pressure appropriate in ED and CHF Reason(s) CHF less likely: Positive for no significant peripheral edema, no orthopnea and no evidence of fluid overload on CXR Management Discussion w/another healthcare provider: Hospitalist (Spoke with hospitalist Dr. Simon. Patient be admitted MedSurg. She will obtain a respiratory panel. She was informed why I did not.) Treatment and Re-Evaluation :: Patient still has wheezing tachycardia tachypnea after DuoNeb and albuterol treatments. She also received Solu-Medrol. Patient has a chronic white count. At this time since there is no evidence of infiltrate on the x-ray she was not started on antibiotics. She has had a persistent elevated white count dating back to 2020. She has eosinophilia noted as well. Discharge Plan Triage Chief Complaint: Shortness of Breath ED Provider: Murali Sears Dx/Rx/DC Orders Clinical Impression: Acute asthma exacerbation, Acute bronchospasm, Acute hypoxemic respiratory failure, Eosinophilia, Sinus tachycardia seen on playground monitor, BMI greater than 40 Prescriptions: No Action albuterol sulfate [Ventolin HFA] 90 mcg/actuation HFA aerosol inhaler 1 - 2 puff inhalation Q4H PRN PRN (Reason: Wheezing) Qty: 1 0RF loratadine [Allerclear] 10 mg tablet 10 mg PO DAILY PRN (Reason: allergy symptoms) furosemide [Lasix] 40 mg tablet 40 mg PO DAILY Qty: 30 0RF sertraline 100 mg tablet 100 mg PO QHS albuterol sulfate 2.5 mg /3 mL (0.083 %) Solution For Nebulization 2.5 mg inhalation Q4H PRN PRN (Reason: Wheezing) Qty: 90 0RF prednisone 10 mg tablet 10 mg PO DAILY Qty: 30 0RF Rx Instructions: 4 tablets x 3 days, 3 tablets x 3 days, 2 tablets x 3 days, 1 tablet x 3 days Primary Care Provider: Ankit Holliday Referrals: Ankit Holliday MD [Primary Care Provider] - Print Language: Turkmen Disposition Disposition: Acute Care Hospital [facility]
[2024-08-08 14:33] LABS: Lactic Acid 0.9 mmol/L (0.4-1.9)
--- NOTE | 2024-08-08 14:41 | PCM.HP.STD ---
HPI - General General Date of Admission: 08/08/24 Date of Service: 08/08/24 Chief Complaint: Shortness of breath HPI Narrative STARR SHIRLEY, is a 34 F who presented to the emergency department [facility] on 08/07/2024 with a chief complaint of shortness of breath. Patient states she started having a dry cough and shortness of breath starting on Friday. She says since then its gotten worse and she has had subsequent wheezing. She has had no sick contacts of which she is aware. She denies fever or chills. She has had no productive cough. She has chronic white count elevation due to her steroid use. She has not yet followed up with pulmonary medicine and not yet done nocturnal polysomnography. Vital signs on presentation showed temperature 97.4, heart rate 107, respiratory 28, blood pressure was 123/91 and pulse ox was 90% on room air. She did drop to 87% on room air and was subsequently placed on 2 L nasal cannula which improved her oxygenation to 92%. CBC shows a leukocytosis white count of 16.5 which appears to be chronic for her as well as erythrocytosis which again is chronic for her. Differential is unremarkable. CBC shows mild hypokalemia potassium of 3.3 but was otherwise unremarkable. Liver functions normal. Chest x-ray was unremarkable. COVID-19 PCR is negative. Respiratory viral panel is pending. She was treated with aerosols and steroids emergency department and given she is requiring oxygen request for admission was made. [facility] Medical History Morbid obesity with BMI of 45.0-49.9, adult Depression Tobacco abuse Morbid obesity Erythrocytosis Upper respiratory infection with cough and congestion Acute bronchospasm due to viral infection delivery delivered Home Medications ?Medication ?Instructions ?Recorded ?Last Taken ?Type furosemide 40 mg tablet (Lasix) 40 mg PO DAILY #30 tabs 12/08/23 Unknown Rx albuterol sulfate 90 mcg/actuation 1 - 2 puff inhalation Q4H PRN PRN 02/01/24 Unknown Rx aerosol inhaler (Ventolin HFA) Wheezing ##1 sertraline 100 mg tablet 100 mg PO QHS 05/11/24 Unknown History albuterol sulfate 2.5 mg/3 mL 2.5 mg (3 mL) inhalation Q4H PRN 05/13/24 Unknown Rx (0.083 %) solution for nebulization PRN Wheezing #90 mL Allergy/AdvReac Type Severity Reaction Status Date / Time lidocaine (From Salonpas Allergy Other Verified 08/08/24 13:21 (lidocaine)) no significant family history Surgical History Previous section Social History household members: spouse housing: house Smoking Status: Former smoker how long ago did patient quit smoking: Currently smoking about 1 pack of cigarettes weekly alcohol intake: current alcohol intake frequency: holidays/special occasions only substance use type: does not use ROS Constitutional Constitutional: Denies anorexia, change in weight, chills, fatigue, fever(s), malaise, night sweats, weakness or other Eyes Eyes: Denies blurry vision, change in eye color, change in vision, discharge from eye(s), double vision, erythema, eye pain, loss of vision or other ENT HEENT: Denies abnormal hearing, dysphagia, ear pain, epistaxis, headache(s), hearing loss, nasal congestion, nasal discharge, post nasal drip, sinus pressure, sore throat or other Cardiovascular Cardiovascular: Reports dyspnea on exertion; Denies chest pain, claudication, edema, lightheadedness, orthopnea, palpitations, paroxysmal nocturnal dyspnea, rapid heart rate, syncope or other Respiratory/Chest Respiratory/Chest: Reports cough, shortness of breath at rest, shortness of breath with exertion and wheezing; Denies dyspnea, excessive phlegm production, hemoptysis, productive cough or other Gastrointestinal Gastrointestinal: Denies abdominal pain, coffee ground emesis, constipation, diarrhea, dyspepsia, hematemesis, hematochezia, loose stools, melena, nausea, vomiting or other Genitourinary Genitourinary: Denies burning urination, difficulty urinating, dysuria, hematuria, nocturia, urinary frequency, urinary hesitancy, urinary incontinence, urinary urgency or other Musculoskeletal Musculoskeletal: Denies arthralgias, back pain, joint pain, joint stiffness, joint swelling, myalgias, neck pain or other Neurologic Neurologic: Denies abnormal gait, abnormal speech, confusion, disequilibrium, dizziness, focal weakness, headache(s), numbness, paresthesias, seizure-like activity, seizures, syncope, tingling, tremor(s) or other Psychiatric Psychiatric: Denies anxiety, depression, homicidal ideation, suicidal ideation or other Endocrine Endocrinology: Denies change in body appearance, cold intolerance, excessive sweating, heat intolerance, polydipsia, polyuria or other Hematologic/Lymphatic Hematologic/Lymphatic: Denies anemia, easy bleeding, easy bruising, lymphadenopathy or other Allergic/Immunologic Allergic/Immunologic: Denies rhinitis, hives, eczemia, asthma or other Vital Signs Vital Signs Vital Signs: 08/08/24 13:22 08/08/24 13:31 08/08/24 13:31 Temperature 97.4 F L Temperature Source Temporal Pulse Rate 107 H Respiratory Rate 28 H Respiratory Effort Respiratory Pattern Blood Pressure 123/91 H Blood Pressure Mean 101 Pulse Ox 90 87 92 Oxygen Delivery Method Room Air Room Air Nasal Cannula Oxygen Flow Rate (L/min) 2 08/08/24 13:35 08/08/24 13:43 08/08/24 13:43 Temperature Temperature Source Pulse Rate 105 H Respiratory Rate 22 H Respiratory Effort Short of Breath Respiratory Pattern Tachypnea Blood Pressure Blood Pressure Mean Pulse Ox 89 Oxygen Delivery Method Nasal Cannula Nasal Cannula Oxygen Flow Rate (L/min) 2 2 08/08/24 13:50 08/08/24 14:39 Temperature 98.4 F Temperature Source Temporal Pulse Rate 104 H Respiratory Rate 18 Respiratory Effort Respiratory Pattern Blood Pressure 109/93 H Blood Pressure Mean 98 Pulse Ox 92 92 Oxygen Delivery Method Nasal Cannula Nasal Cannula Oxygen Flow Rate (L/min) 3 3 Weight Weight: 131.723 kg Body Mass Index (BMI) 48.3 Physical Exam Const alert, oriented x3, no apparent distress and well nourished; Negative for average body habitus or healthy appearing Constitutional Narrative: Middle-aged, morbidly obese, white female, sitting up in bed, appears comfortable, does not appear toxic, noted tachypnea General Appearance: cooperative HEENT normocephalic, head/scalp atraumatic, hearing grossly normal bilaterally and moist oral mucous membranes HEENT Narrative: Mallampati 3-4, no thrush Resp No normal respiratory effort, no retractions, no use of accessory muscles and No clear to auscultation bilaterally Resp Narrative: Diffuse scattered inspiratory and expiratory wheezes, tachypneic Auscultation: wheezes; Negative for rales or rhonchi Cardio regular rate, regular rhythm, S1 normal heart sound, S2 normal heart sound, no murmurs, no gallops and no clicks GI normal to inspection, nondistended, normoactive bowel sounds, soft to palpation and non-tender GI Narrative: Large protuberant abdomen Extremity no clubbing, cyanosis or edema Extremity Narrative: 2+ radial and pedal pulses Neuro oriented x3, moves all extremities and no focal motor deficits Speech: speech normal Psych affect normal Psych Narrative: Eye contact is good and patient interacts appropriately Results Lab / Micro Data 08/08/24 13:44 08/08/24 13:44 Labs: Laboratory Results - last 24 hr 08/08/24 13:44: WBC 16.5 H, RBC 5.73 H, Hgb 17.1 H, Hct 48.3 H, MCV 84.3, MCH 29.8, MCHC 35.4, RDW Std Deviation 38.5, RDW Coeff of Mary Grace 12.7, Plt Count 283, MPV 10.2, Immature Gran % (Auto) 0.400, Neut % (Auto) 61.1, Lymph % (Auto) 23.2, [place] % (Auto) 6.5, Eos % (Auto) 8.2 H, Baso % (Auto) 0.6, Absolute Neuts (auto) 10.1 H, Absolute Lymphs (auto) 3.82, Nucleated RBC % 0, Sodium 138, Potassium 3.3 L, Chloride 106, Carbon Dioxide 26.0, Anion Gap 7, BUN 7, Creatinine 0.77, Estim Creat Clear Calc 143.87, Est GFR (MDRD) Af Amer 111, Est GFR (MDRD) Non-Af 92, BUN/Creatinine Ratio 9.1 L, Glucose 100, Lactic Acid 0.9, Calcium 9.6, Total Bilirubin 0.60, AST 14 L, ALT 26, Alkaline Phosphatase 101, Total Protein 7.5, Albumin 3.6, Globulin 3.9, Albumin/Globulin Ratio 0.9 Rhythm Strip Rhythm Strip: Sinus Tach Rate: 110 Ectopy: None Imaging Radiology Impression Chest X-Ray 08/08/24 13:32 IMPRESSION: Redemonstration of mild bilateral interstitial fibrotic changes of the lungs. Electronically Signed: Gui Buckley MD at 14:39 EST , Assessment & Plan Assessment/Plan (1) Sinus tachycardia seen on monitoring engineer: (2) Eosinophilia: (3) Hypoxia: (4) Acute bronchospasm: (5) Acute asthma exacerbation: PLAN: Plan Acute hypoxia secondary to exacerbation of asthma with bronchospasm -Oxygen saturations on room air were 87% -Initially placed on 2 L nasal cannula with sats 89% so increased to 3 L and now 92% -Wean oxygen as able -Chest x-ray is unremarkable -Check COVID/respiratory viral panel -DuoNebs every 4 hours while awake -As needed albuterol -Mucinex 1200 twice daily -As needed antitussives -Continue home diuretics -Patient very much needs to follow-up with pulmonary medicine as an outpatient Hypokalemia -P.o. potassium 40 mill colons -Recheck in a.m. -Check a.m. magnesium level Chronic eosinophilia -Likely related to the above -start Singulair -Patient would strongly benefit from follow-up with pulmonary medicine as an outpatient Chronic leukocytosis -Patient does not seem to be infected with bacteria -Has been on steroids on and off chronically -Likely demargination -Outpatient follow-up Suspected SHADIA -Was seen by pulmonary medicine on 01/14/2024 and polysomnography ordered -Still has not followed up with this -Highly suspicious the patient does have SHADIA at baseline Chronic erythrocytosis -Recommend outpatient follow-up with PCP Seasonal allergies -Continue home loratadine as needed Depression -Continue home sertraline Morbid obesity -BMI 48.3 -Recommend weight loss -Complicates treatment, prognosis, outcomes Tobacco abuse -Nicotine patch can be made available if needed -Highly recommend cessation DVT prophylaxis -Continue subcu Lovenox 40 mg SQ twice daily CODE STATUS -Full code Charges/Coding Visit Charges Inpatient E&M: 99818 Init Hosp L2
[2024-08-08] MEDS: Montelukast 10 MG Tablet PO (17:52)
[2024-08-08] MEDS: Potassium Chloride Oral Tablet 20 MEQ 40 MEQ PO (17:52)
[2024-08-08] MEDS: Ipratropium/Albuterol Sulfate 3 ML AMPUL.NEB INHALATION ×2 (19:25→23:07)
[2024-08-08] MEDS: Sertraline 100 MG Tablet PO (23:20)
[2024-08-08] MEDS: Enoxaparin 40 MG/0.4 ML Syringe SC (23:21)
[2024-08-08] MEDS: guaiFENesin 1,200 MG Tablet 1200 MG PO (23:21)
[2024-08-09] VITALS (11 sets, daily range): BP systolic 108–128; BP diastolic 76–84; PULSE 64–94; RESP 16–20; TEMP 36.4–36.8; O2SAT 92–97; BMI 47.1
[2024-08-09 06:48] LABS: Absolute Neutrophil Count 11.2 X10^3/uL (2.0-7.7); Basophil# 0.01 X10^3/uL; Basophil% 0.1 % (0-1); Hemoglobin 16.9 g/dL (12.0-15.0); Lymphocyte % 9.5 % (19-41); Mean Corp Hgb Conc 33.1 g/dL (32-36); Mean Corpuscular Hgb 28.7 pg (27.0-32.0); Mean Corpuscular Volume 86.6 fL (81-99); Mean Platelet Vol. 11.2 fl (6.2-12.0); Monocyte# 0.18 X10^3/uL; Monocyte% 1.4 % (0-10); NRBC Flagged by Analyzer 0 % (0-5); Neutrophil # 11.17 X10^3/uL (2.7-7.7); Neutrophil % 88.5 % (47-70); Platelet Count 256 K/mm3 (150-450); RBC Distribution Width CV 12.5 % (11.6-14.6); RBC Distribution Width SD 39.3 fl (35.1-43.9); Red Blood Count 5.89 M/mm3 (4.2-5.4); White Blood Count 12.6 K/mm3 (4.4-11.0)
[2024-08-09] MEDS: Ipratropium/Albuterol Sulfate 3 ML AMPUL.NEB INHALATION ×5 (07:05→23:40)
[2024-08-09 07:06] LABS: ALB/GLOB Ratio 0.8 RATIO (0.9-2.4); AST(SGOT) 13 U/L (15-37); Alanine Aminotransfer ALT/SGPT 24 U/L (13-56); Albumin, Serum 3.5 g/dL (3.2-5.0); Alkaline Phosphatase 100 U/L (45-117); Anion Gap 8 (5-15); BUN 8 mg/dL (7-18); BUN/Creat Ratio 14.4 RATIO (10-20); Calcium,Total 9.9 mg/dL (8.5-10.1); Chloride 107 mmol/L (98-107); Creatinine, Serum 0.56 mg/dL (0.55-1.02); EST Glomerular Filtration Rate 134 mL/min (>60); Est Glom Filt Rate - Afr Amer 163 mL/min (>60); Estimated Creatinine Clearance 194.89 ml/min; Globulin 4.3 g/dL (2.2-4.2); Glucose 164 mg/dL (74-106); Protein, Total 7.8 g/dL (6.4-8.2); Sodium Level 135 mmol/L (136-145)
--- NOTE | 2024-08-09 07:27 | PN.HOSP_ITS ---
Reason for Visit Reason for Visit: Diagnoses Eosinophilia, unspecified (08/08/24) Unspecified asthma with (acute) exacerbation (08/08/24) Acute bronchospasm (08/08/24) Tachycardia, unspecified (08/08/24) Hypoxemia (08/08/24) Objective Data Objective Data Vital Signs: Vital Signs Temp Pulse Resp BP Pulse Ox O2 Del Method O2 Flow Rate 98.2 F 88 20 H 113/84 H 92 Nasal Cannula 5 08/09/24 02:00 08/09/24 07:05 08/09/24 07:05 08/09/24 02:00 08/09/24 07:05 08/09/24 07:05 08/09/24 07:05 Oxygen Flow Rate (L/min) 5 Oxygen Delivery Method Nasal Cannula Weight: 283 lb 4.704 oz Body Mass Index (BMI) 47.1 Intake & Output: Intake and Output for Last 24 Hours 08/07/24 08/08/24 08/09/24 23:59 23:59 23:59 Intake Total 150 / 150 Balance 150 / 150 Lab / Micro Data 08/09/24 06:13 08/09/24 06:13 Labs: Laboratory Results - last 24 hr 08/08/24 13:44: WBC 16.5 H, RBC 5.73 H, Hgb 17.1 H, Hct 48.3 H, MCV 84.3, MCH 29.8, MCHC 35.4, RDW Std Deviation 38.5, RDW Coeff of Mary Grace 12.7, Plt Count 283, MPV 10.2, Immature Gran % (Auto) 0.400, Neut % (Auto) 61.1, Lymph % (Auto) 23.2, [place] % (Auto) 6.5, Eos % (Auto) 8.2 H, Baso % (Auto) 0.6, Absolute Neuts (auto) 10.1 H, Absolute Lymphs (auto) 3.82, Nucleated RBC % 0, Sodium 138, Potassium 3.3 L, Chloride 106, Carbon Dioxide 26.0, Anion Gap 7, BUN 7, Creatinine 0.77, Estim Creat Clear Calc 143.87, Est GFR (MDRD) Af Amer 111, Est GFR (MDRD) Non-Af 92, BUN/Creatinine Ratio 9.1 L, Glucose 100, Lactic Acid 0.9, Calcium 9.6, Total Bilirubin 0.60, AST 14 L, ALT 26, Alkaline Phosphatase 101, Total Protein 7.5, Albumin 3.6, Globulin 3.9, Albumin/Globulin Ratio 0.9 08/09/24 06:13: WBC 12.6 H, RBC 5.89 H, Hgb 16.9 H, Hct 51.0 H, MCV 86.6, MCH 28.7, MCHC 33.1 D, RDW Std Deviation 39.3, RDW Coeff of Mary Grace 12.5, Plt Count 256, MPV 11.2, Immature Gran % (Auto) 0.500, Neut % (Auto) 88.5 H, Lymph % (Auto) 9.5 L, [place] % (Auto) 1.4, Eos % (Auto) 0.0, Baso % (Auto) 0.1, Absolute Neuts (auto) 11.2 H, Absolute Lymphs (auto) 1.20, Nucleated RBC % 0, Sodium 135 L, Potassium 4.0, Chloride 107, Carbon Dioxide 21.0, Anion Gap 8, BUN 8, Creatinine 0.56, Estim Creat Clear Calc 194.89, Est GFR (MDRD) Af Amer 163, Est GFR (MDRD) Non-Af 134, BUN/Creatinine Ratio 14.4, Glucose 164 H, Calcium 9.9, Phosphorus 3.0, Magnesium 2.0, Total Bilirubin 0.60, AST 13 L, ALT 24, Alkaline Phosphatase 100, Total Protein 7.8, Albumin 3.5, Globulin 4.3 H, A lbumin/Globulin Ratio 0.8 L Micro: Microbiology 08/08/24 14:50 Mucosa - Nasopharyngeal Respiratory Panel (PCR) - Final 08/08/24 14:40 Mucosa - Nose Coronavirus COVID-19 PCR - Final Radiography Diagnostic Testing: Radiology Impression Chest X-Ray 08/08/24 13:32 IMPRESSION: Redemonstration of mild bilateral interstitial fibrotic changes of the lungs. Electronically Signed: Gui Buckley MD at 14:39 EST Reading Location ID and State: [facility] / [place] , Service support , Rhythm Strip Rhythm Strip: Sinus Tach Rate: 110 Ectopy: None Physical Exam Narrative Seen and examined. Patient history of chronic asthma. She stated she has been getting admitted every 3-month in the last 1 year. Last admission was in April 2024. Shortness of breath is better. No fever Physical exam General: Alert, Oriented x3, Cooperative. BMI 47.1 kg/m?. Morbid obesity HEENT: Atraumatic, PERRLA, EOMI, Normocephalic Oral: Deep oropharyngeal structures could not be visualized Neck: Supple, No JVD, Negative Carotid Bruits Chest wall/Lungs: Air entry diminished in all lung mason bilaterally. Bilateral expiratory wheezing. Cardiovascular: Regular rate, Regular Rhythm, Normal S1, Normal S2, No M/G/R Abdomen: Bowel Sounds Present, Soft, Non Tender, Non-Distended : No dysuria. No renal angle tenderness. No suprapubic tenderness. Extremities: No edema, Capillary Refill Less than 3 Seconds Skin: No rashes, No breakdown Musculoskeletal: No Tenderness to Palpation of Joints or Extremities Neurological: Cranial nerves II-XII grossly intact, DTR 2+/4. No acute focal neurological deficit. Psych/Mental Status: Normal Affect, Appropriate. Assessment & Plan Assessment/Plan (1) Sinus tachycardia seen on potline monitor: (2) Eosinophilia: (3) Hypoxia: (4) Acute bronchospasm: (5) Acute asthma exacerbation: PLAN: Plan 34-year-old female with history of chronic asthma was admitted for shortness of breath and wheezing started on August 06, 2 days prior to admission. History of recurrent admission. 1. Acute asthma exacerbation with bronchospasm completed with mild hypoxia: Patient pulse ox was 87% on room air. Admitted on MedSurg on 2 L of oxygen. Chest x-ray unremarkable. COVID-19 PCR negative. Respiratory panel negative. On DuoNeb scheduled every 4 hourly, Mucinex, antitussive medication. Home diuretic and continued. Patient follows Dr. White in pulmonary clinic. 2. Mild hypokalemia: Potassium was replaced. Repeat potassium normal. Serum phosphorus and magnesium levels are normal. 3. Chronic eosinophilia, seasonal allergies: Predominant neutrophil 88%, chronic eosinophilia 8.2%. Patient has been on the steroids on and off chronically. Patient on Singulair. -Likely related to the above -start Singulair -Patient would strongly benefit from follow-up with pulmonary medicine as an outpatient 4. Other comorbidities due to morbid obesity which includes suspected obstructive sleep apnea, mild depression: BMI is 48.3 kg/m?. Recommended weight loss. 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 Chronic tobacco use/cigarette smoking: Patient smokes about 1 pack weekly. Advised quitting smoking. Nicotine patch offered 6 DVT prophylaxis -Continue subcu Lovenox 40 mg SQ twice daily CODE STATUS -Full code Charges/Coding Visit Charges Inpatient E&M: 68465 Subs Hosp L2
[2024-08-09] MEDS: Furosemide 40 MG Tablet PO (07:58)
[2024-08-09] MEDS: guaiFENesin 1,200 MG Tablet 1200 MG PO ×2 (07:59→22:22)
[2024-08-09] MEDS: Enoxaparin 40 MG/0.4 ML Syringe SC ×2 (07:59→22:23)
--- NOTE | 2024-08-09 12:56 | CASEMGMT ---
CLAUDIA PATEL Assessment Face to Face with patient for initial transition planning/care coordination assessment. CLAUDIA PATEL introduced self and role at [facility], pt voices understanding. Pt is A&Ox4 and is resting comfortably in bed and is calm. Care providers, pharmacy, and demographics verified. Admitting dx: AE of Asthma LACE Strata: 2 PCP: Jovany Holliday Specialists: [facility]. Pt states that she requires a follow up sleep study and would like assistance with scheduling this. Pt denies a time of day preference. TC to the [facility] Sleep Disorder Department and pt is now scheduled for Friday, Aug 16 at 0800. Pt is to arrive to the ER at this time and state that she is there for a sleep study. Pt educated and thanks this CLAUDIA PATEL and denies further questions regarding this. DC info updated. Preferred Pharmacy: [facility] Insurance: SHERRY Prescription Benefit: Yes LNOK: Subhash (H), Emili Duggan (Mother) Living Arrangements: Pt lives with her and 6 y/o daughter in a single story home with 2 steps to enter ADLs/IADLs: Ind Transportation: Self, DME: Nebulizer through [facility]. Inhaler. Pt states that she cannot afford a pulse ox and this CLAUDIA PATEL gave the pt a pulse ox from stock. Pt is currently requiring additional oxygen and may qualify for home oxygen use. A verbal list of local in-network DME companies were provided to the pt at this time. Pt prefers [facility]. HHC/SNF: Denies history or needs Pt?s goal: Return home Plan: Home with family, f/u sleep study, and potential oxygen. 6-Click score is 23. Pt denies the need for OP Tx or CCN. Pt states that she feels safe returning home with her family once she is medically ready and denies further concerns at this time. Report given to ALEXANDER TAYLOR CM. Aldo Green RN, CM
[2024-08-09] MEDS: Montelukast 10 MG Tablet PO (17:33)
[2024-08-09] MEDS: Sertraline 100 MG Tablet PO (22:22)
[2024-08-10] VITALS (12 sets, daily range): BP systolic 107–125; BP diastolic 75–92; PULSE 68–91; RESP 17–20; TEMP 36.3–36.6; O2SAT 92–98; BMI 47.5
[2024-08-10] MEDS: Albuterol 2.5 MG/3 ML VIAL.NEB. INHALATION (04:46)
[2024-08-10] MEDS: 0.9% Saline Lock 10 ML Syringe IV ×3 (05:42→21:19)
[2024-08-10] MEDS: Ipratropium/Albuterol Sulfate 3 ML AMPUL.NEB INHALATION ×5 (07:13→23:14)
[2024-08-10] MEDS: guaiFENesin 1,200 MG Tablet 1200 MG PO ×2 (09:21→21:15)
[2024-08-10] MEDS: Furosemide 40 MG Tablet PO (09:21)
[2024-08-10] MEDS: Enoxaparin 40 MG/0.4 ML Syringe SC ×2 (09:21→21:16)
[2024-08-10] MEDS: Montelukast 10 MG Tablet PO (16:48)
--- NOTE | 2024-08-10 16:58 | PCM.PN.HOSP ---
Reason for Visit Reason for Visit: Diagnoses Eosinophilia, unspecified (08/08/24) Unspecified asthma with (acute) exacerbation (08/08/24) Acute bronchospasm (08/08/24) Tachycardia, unspecified (08/08/24) Hypoxemia (08/08/24) Objective Data Objective Data Vital Signs: Vital Signs Temp Pulse Resp BP Pulse Ox O2 Del Method O2 Flow Rate 97.4 F L 68 18 114/86 H 98 Nasal Cannula 2 08/10/24 14:54 08/10/24 14:54 08/10/24 14:54 08/10/24 14:54 08/10/24 14:54 08/10/24 14:54 08/10/24 14:54 Oxygen Flow Rate (L/min) 2 Oxygen Delivery Method Nasal Cannula Weight: 285 lb 15.033 oz Body Mass Index (BMI) 47.5 Intake & Output: Intake and Output for Last 24 Hours 08/08/24 08/09/24 08/10/24 23:59 23:59 23:59 Intake Total 150 / 150 900 / 900 700 / 700 Balance 150 / 150 900 / 900 700 / 700 Lab / Micro Data 08/09/24 06:13 08/09/24 06:13 Micro: Microbiology 08/09/24 08:05 Sputum, Expectorated/Coughed Gram Stain - Final 08/08/24 14:50 Mucosa - Nasopharyngeal Respiratory Panel (PCR) - Final 08/08/24 14:40 Mucosa - Nose Coronavirus COVID-19 PCR - Final Rhythm Strip Rhythm Strip: Sinus Tach Rate: 110 Ectopy: None Physical Exam Narrative Seen and examined. Patient is feeling better but still has some chest tightness. Wheezing is much better. No respiratory distress Patient history of chronic asthma. She stated she has been getting admitted every 3-month in the last 1 year. Last admission was in April 2024. Shortness of breath is better. No fever Physical exam General: Alert, Oriented x3, Cooperative. BMI 47.1 kg/m?. Morbid obesity HEENT: Atraumatic, PERRLA, EOMI, Normocephalic Oral: Deep oropharyngeal structures could not be visualized Neck: Supple, No JVD, Negative Carotid Bruits Chest wall/Lungs: Air entry diminished in all lung mason bilaterally. Bilateral expiratory wheezing. Cardiovascular: Regular rate, Regular Rhythm, Normal S1, Normal S2, No M/G/R Abdomen: Bowel Sounds Present, Soft, Non Tender, Non-Distended : No dysuria. No renal angle tenderness. No suprapubic tenderness. Extremities: No edema, Capillary Refill Less than 3 Seconds Skin: No rashes, No breakdown Musculoskeletal: No Tenderness to Palpation of Joints or Extremities Neurological: Cranial nerves II-XII grossly intact, DTR 2+/4. No acute focal neurological deficit. Psych/Mental Status: Normal Affect, Appropriate. Assessment & Plan Assessment/Plan (1) Sinus tachycardia seen on radiographer cardiac catheterization: (2) Eosinophilia: (3) Hypoxia: (4) Acute bronchospasm: (5) Acute asthma exacerbation: PLAN: Plan 34-year-old female with history of chronic asthma was admitted for shortness of breath and wheezing started on August 06, 2 days prior to admission. History of recurrent admission. 1. Acute asthma exacerbation with bronchospasm completed with mild hypoxia: Patient pulse ox was 87% on room air. Admitted on MedSurg on 2 L of oxygen. Chest x-ray unremarkable. COVID-19 PCR negative. Respiratory panel negative. On DuoNeb scheduled every 4 hourly, Mucinex, antitussive medication. Home diuretic and continued. Patient follows Dr. White in pulmonary clinic. 08/10: Continue DuoNeb and steroid IV Solu-Medrol. Patient is feeling better but is still has chest tightness. Anticipate discharge tomorrow. 2. Mild hypokalemia: Potassium was replaced. Repeat potassium normal. Serum phosphorus and magnesium levels are normal. 3. Chronic eosinophilia, seasonal allergies: Predominant neutrophil 88%, chronic eosinophilia 8.2%. Patient has been on the steroids on and off chronically. Patient on Singulair. -Likely related to the above -start Singulair -Patient would strongly benefit from follow-up with pulmonary medicine as an outpatient 4. Other comorbidities due to morbid obesity which includes suspected obstructive sleep apnea, mild depression: BMI is 48.3 kg/m?. Recommended weight loss. 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 Chronic tobacco use/cigarette smoking: Patient smokes about 1 pack weekly. Advised quitting smoking. Nicotine patch offered 6 DVT prophylaxis -Continue subcu Lovenox 40 mg SQ twice daily CODE STATUS -Full code Charges/Coding Visit Charges Inpatient E&M: 21997 Subs Hosp L2
[2024-08-10] MEDS: Sertraline 100 MG Tablet PO (21:15)
[2024-08-11] VITALS (8 sets, daily range): BP systolic 109–135; BP diastolic 81–87; PULSE 71–105; RESP 16–18; TEMP 36.4–36.6; O2SAT 92–96; BMI 47.7
[2024-08-11] MEDS: Ipratropium/Albuterol Sulfate 3 ML AMPUL.NEB INHALATION ×3 (02:50→10:08)
[2024-08-11] MEDS: 0.9% Saline Lock 10 ML Syringe IV (05:52)
[2024-08-11] MEDS: guaiFENesin 1,200 MG Tablet 1200 MG PO (09:45)
[2024-08-11] MEDS: Furosemide 40 MG Tablet PO (09:45)
--- NOTE | 2024-08-11 11:10 | PCM.DC ---
Discharge Instructions Diet Discharge Diet: Low fat / Low cholesterol DC O2, CPAP, BIPAP needs RN Home O2 Qualification: Home O2 Qualification: Is the patient on home oxygen No 08/11/24 10:50 Home O2 Qualification: AT REST 1- Pulse Ox at rest 95 08/11/24 10:50 Home O2 Qualification: WITH AMBULATION 1- Pulse Ox with ambulation 94 08/11/24 10:50 1- Oxygen Flow Rate with 0 08/11/24 10:50 ambulation Home O2 Discharge instructions: No Dressing / Incision Discharge Activity: Return to Normal Activity Weight Bearing Status: Weight bearing as tolerated Dressing / Incision Call your doctor if you observe: Fever of 101 or Higher, Coldness, Increased Pain, Numbness or Tingling, Change in Color, Inability to urinate, Inability to have a bowel movement, Shortness of breath, Dizziness, Fainting spells, Swelling in the ankles, Chest pain, Prolonged hiccupping, Increased palpitations (irregular heartbeat) and Calf discomfort Follow Up Care When: IN 2 WEEKS Test Results: Test results from this visit will be discussed in further detail at your follow-up appointment, if applicable. Discharge Plan Admission Admit Date/Time: 08/08/24 14:34 Primary Reason for Your Visit: Asthma exacerbation Attending Provider: Mahin Martinez Primary Care Provider: Ankit Holliday Consulting Providers: Sandra Simon Discharge Orders/Prescriptions Prescriptions: New guaifenesin [Mucus Relief ER] 1,200 mg Tablet Extended Release 12hr 1,200 mg PO BID 7 Days Qty: 14 0RF prednisone 10 mg tablet 10 mg PO DAILY Qty: 30 0RF Rx Instructions: 40 mg for 3 days 30 mg for 3 days, 20 mg for 3 days,and 10 mg for 3 days Continued albuterol sulfate [Ventolin HFA] 90 mcg/actuation HFA aerosol inhaler 1 - 2 puff inhalation Q4H PRN PRN (Reason: Wheezing) Qty: 1 0RF furosemide [Lasix] 40 mg tablet 40 mg PO DAILY Qty: 30 0RF sertraline 100 mg tablet 100 mg PO QHS albuterol sulfate 2.5 mg /3 mL (0.083 %) Solution For Nebulization 2.5 mg inhalation Q4H PRN PRN (Reason: Wheezing) 30 Days Qty: 90 0RF Referrals / Follow Up: Ankit Holliday MD [Primary Care Provider] - Within 2 Weeks Eb White DO [Med Staff - Active Staff] - Within 1 Month (Has sleep study scheduled on 08/16/2024) Disposition Disposition (needs filled in before D/C Order can be placed): Home, Self Care
--- NOTE | 2024-08-11 11:52 | PCM.DC.SUM ---
Providers Date of Admission: 08/08/24 Date of Discharge: 08/11/24 Primary Care Physician: Dr. Aknit Holliday MD Reason For Visit: ACUTE EXACERBATION OF ASTHMA Diagnosis Discharge Diagnosis (1) Sinus tachycardia seen on marine drafter: Status: Acute Code(s): R00.0 - Tachycardia, unspecified (2) Eosinophilia: Status: Acute Code(s): D72.10 - Eosinophilia, unspecified (3) Hypoxia: Status: Acute Code(s): R09.02 - Hypoxemia (4) Acute bronchospasm: Status: Acute Code(s): J98.01 - Acute bronchospasm (5) Acute asthma exacerbation: Status: Acute Code(s): J45.901 - Unspecified asthma with (acute) exacerbation Plan 34-year-old female with history of chronic asthma was admitted for shortness of breath and wheezing started on August 06, 2 days prior to admission. History of recurrent admission. 1. Acute asthma exacerbation with bronchospasm completed with mild hypoxia: Patient pulse ox was 87% on room air. Admitted on MedSurg on 2 L of oxygen. Chest x-ray unremarkable. COVID-19 PCR negative. Respiratory panel negative. On DuoNeb scheduled every 4 hourly, Mucinex, antitussive medication. Home diuretic and continued. Patient follows Dr. White in pulmonary clinic. 08/10: Continue DuoNeb and steroid IV Solu-Medrol. Patient is feeling better but is still has chest tightness. Anticipate discharge tomorrow. 08/11: Patient is feeling good with no shortness of breath and normal breathing. Prescription given for albuterol nebulization, long taper dose of prednisone and Mucinex. She has sleep study scheduled on 08/16/2024. Follow-up in pulmonary clinic with Dr. White in 1 month. Home oxygen qualification test ordered 2. Mild hypokalemia: Potassium was replaced. Repeat potassium normal. Serum phosphorus and magnesium levels are normal. 3. Chronic eosinophilia, seasonal allergies: Predominant neutrophil 88%, chronic eosinophilia 8.2%. Patient has been on the steroids on and off chronically. Patient on Singulair. -Likely related to the above -start Singulair -Patient would strongly benefit from follow-up with pulmonary medicine as an outpatient 4. Other comorbidities due to morbid obesity which includes suspected obstructive sleep apnea, mild depression: BMI is 48.3 kg/m?. Recommended weight loss. 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 Chronic tobacco use/cigarette smoking: Patient smokes about 1 pack weekly. Advised quitting smoking. Nicotine patch offered 6 DVT prophylaxis -Continue subcu Lovenox 40 mg SQ twice daily CODE STATUS -Full code Discharge medication reconciliation done. Discharge follow-up instructions completed. Discharge process discussed with the patient and all questions were answered to patient's satisfaction. Follow with PCP in 1 to 2 weeks Total time spent, exact 35 minutes on discharge meds reconciliation, examination, coordination of care with nurses and ancillary staff, review of imaging and blood test and discussion with the patient on follow-up instructions. Medications at Discharge Home Medications furosemide 40 mg tablet (Lasix) 40 mg PO DAILY #30 tabs 12/08/23 albuterol sulfate 90 mcg/actuation aerosol inhaler (Ventolin HFA) 1 - 2 puff inhalation Q4H PRN PRN Wheezing ##1 02/01/24 sertraline 100 mg tablet 100 mg PO QHS 05/11/24 albuterol sulfate 2.5 mg/3 mL (0.083 %) solution for nebulization 2.5 mg (3 mL) inhalation Q4H PRN PRN Wheezing 1 month #90 mL 08/11/24 guaifenesin 1,200 mg tablet, extended release 12 hr (Mucus Relief ER) 1,200 mg PO BID 7 days #14 tabs 08/11/24 prednisone 10 mg tablet 10 mg PO DAILY #30 tabs 08/11/24 Physical Exam Narrative Seen and examined. Shortness of breath and chest tightness is resolved. Patient is not wheezing. Patient history of chronic asthma. She stated she has been getting admitted every 3-month in the last 1 year. Last admission was in April 2024. Shortness of breath is better. No fever Physical exam General: Alert, Oriented x3, Cooperative. BMI 47.1 kg/m?. Morbid obesity HEENT: Atraumatic, PERRLA, EOMI, Normocephalic Oral: Deep oropharyngeal structures could not be visualized Neck: Supple, No JVD, Negative Carotid Bruits Chest wall/Lungs: Air entry equal and vesicular in both lungs. No wheezing or rhonchi. No hypoxia or tachypnea. Cardiovascular: Regular rate, Regular Rhythm, Normal S1, Normal S2, No M/G/R Abdomen: Bowel Sounds Present, Soft, Non Tender, Non-Distended : No dysuria. No renal angle tenderness. No suprapubic tenderness. Extremities: No edema, Capillary Refill Less than 3 Seconds Skin: No rashes, No breakdown Musculoskeletal: No Tenderness to Palpation of Joints or Extremities Neurological: Cranial nerves II-XII grossly intact, DTR 2+/4. No acute focal neurological deficit. Psych/Mental Status: Normal Affect, Appropriate. Weight / BMI Weight Weight: 287 lb 0.67 oz Body Mass Index (BMI) 47.7 ABG / Lab / Microbiology Data 08/09/24 06:13 08/09/24 06:13 Microbiology: Microbiology 08/09/24 08:05 Sputum, Expectorated/Coughed Gram Stain - Final 08/09/24 08:05 Sputum, Expectorated/Coughed Respiratory Culture - Preliminary Appears to be normal respiratory ihsan. Further studies to follow. 08/08/24 14:50 Mucosa - Nasopharyngeal Respiratory Panel (PCR) - Final 08/08/24 14:40 Mucosa - Nose Coronavirus COVID-19 PCR - Final D/C Instructions Discharge Diet: Low fat / Low cholesterol Weight Bearing Status: Weight bearing as tolerated Call your doctor if you observe: Fever of 101 or Higher, Coldness, Increased Pain, Numbness or Tingling, Change in Color, Inability to urinate, Inability to have a bowel movement, Shortness of breath, Dizziness, Fainting spells, Swelling in the ankles, Chest pain, Prolonged hiccupping, Increased palpitations (irregular heartbeat) and Calf discomfort DC O2, CPAP, BIPAP Needs RN Home O2 Qualification: Home O2 Qualification: Is the patient on home oxygen No 08/11/24 10:50 Home O2 Qualification: AT REST 1- Pulse Ox at rest 95 08/11/24 10:50 Home O2 Qualification: WITH AMBULATION 1- Pulse Ox with ambulation 94 08/11/24 10:50 1- Oxygen Flow Rate with 0 08/11/24 10:50 ambulation Home O2 Discharge instructions: No When: IN 2 WEEKS Meaningful Use Info Meaningful Use Meaningful Use Diagnoses (Choose all that apply): None applicable Ischemic Stroke Statin Dosing Therapy Reference: STATIN DOSE THERAPY REFERENCE: * Patients > 75 years receive moderate or high dose statin therapy. * Patients 75 years or YOUNGER should receive HIGH intensity statin dose unless contraindicated. You will be required to document reason for non-treatment if statin daily dose does not meet guidelines. HIGH DOSE STATIN THERAPY DAILY Atorvastatin > than or = to 40 mg Rosuvastatin > than or = to 20 mg Amlodipine + Atorvastatin > than or = to 2.5/40 mg Ezetimibe + Simvastatin 10/80 mg Simvastatin 80mg Discharge Plan Admission Admit Date/Time: 08/08/24 14:34 Primary Reason for Your Visit: Asthma exacerbation Attending Provider: Mahin Martinez Primary Care Provider: Ankit Holliday Consulting Providers: Sandra Simon Discharge Orders/Prescriptions Prescriptions: New guaifenesin [Mucus Relief ER] 1,200 mg Tablet Extended Release 12hr 1,200 mg PO BID 7 Days Qty: 14 0RF prednisone 10 mg tablet 10 mg PO DAILY Qty: 30 0RF Rx Instructions: 40 mg for 3 days 30 mg for 3 days, 20 mg for 3 days,and 10 mg for 3 days Continued albuterol sulfate [Ventolin HFA] 90 mcg/actuation HFA aerosol inhaler 1 - 2 puff inhalation Q4H PRN PRN (Reason: Wheezing) Qty: 1 0RF furosemide [Lasix] 40 mg tablet 40 mg PO DAILY Qty: 30 0RF sertraline 100 mg tablet 100 mg PO QHS albuterol sulfate 2.5 mg /3 mL (0.083 %) Solution For Nebulization 2.5 mg inhalation Q4H PRN PRN (Reason: Wheezing) 30 Days Qty: 90 0RF Referrals / Follow Up: Ankit Holliday MD [Primary Care Provider] - Within 2 Weeks Eb White DO [Med Staff - Active Staff] - Within 1 Month (Has sleep study scheduled on 08/16/2024) Disposition Disposition (needs filled in before D/C Order can be placed): Home, Self Care Charges/Coding Visit Charges Inpatient E&M: 36389 Disch Hosp >30min
--- NOTE | 2024-08-11 12:44 | CASEMGMT ---
Pt has an order for DC placed. Per the pipe testing technician, pt does not qualify for home oxygen use. RN CM to pt room at this time. Pt still states that she feels safe returning home today with the original DC plan placed. Pt denies further needs. Pt is aware of the sleep study appt date and time. Pt denies further questions or concerns at this time.
== END 2024-08-11 13:23 | disposition home or self-care (01) | DRG 202 ==
LOC: ED 14:39 → MS3 14:46
PROVIDERS: Admitting Provider Internal Medicine; Emergency Provider Emergency Medicine; PCP Family Medicine; Visit Provider Internal Medicine
DX: J45.901 Unspecified asthma with (acute) exacerbation (principal); J82.83 Eosinophilic asthma; Z68.42 Body mass index [BMI] 45.0-49.9, adult; F32.A Depression, unspecified; E66.01 Morbid (severe) obesity due to excess calories; G47.33 Obstructive sleep apnea (adult) (pediatric); E87.6 Hypokalemia; J30.2 Other seasonal allergic rhinitis; F17.210 Nicotine dependence, cigarettes, uncomplicated; Z11.52 Encounter for screening for COVID-19; Z79.899 Other long term (current) drug therapy; R09.02 Hypoxemia
CPT/HCPCS: 36415; 71046; 80053; 83605; 83735; 84100; 85025; 87070; 87205; 87633; 87635; 94640; 94668; 99285; A4216

== ENCOUNTER → 2024-08-16 | Outpatient (CLI) | payer BC, SELFPAY | END | disposition home or self-care (01) | LOC: SL 22:42 | PROVIDERS: PCP Family Medicine; Referring Provider Internal Medicine Critical Care Medicine; Visit Provider Internal Medicine Critical Care Medicine | DX: G47.33 Obstructive sleep apnea (adult) (pediatric) (principal) | CPT/HCPCS: 95810 ==

== ENCOUNTER 2024-10-01 10:23 | Inpatient (IN) | payer BC, SELFPAY ==
[2024-10-01] VITALS (16 sets, daily range): BP systolic 122–162; BP diastolic 78–94; PULSE 87–111; RESP 18–27; TEMP 36.2–36.8; O2SAT 88–94; BMI 49.4; BMI 48.7
[2024-10-01] MEDS: Albuterol 2.5 MG/3 ML VIAL.NEB. 5 MG INHALATION (10:58)
[2024-10-01] MEDS: Ipratropium/Albuterol Sulfate 3 ML AMPUL.NEB INHALATION ×3 (10:59→22:57)
--- NOTE | 2024-10-01 10:59 | EDS_ITS ---
HPI History of Present Illness Chief Complaint: Shortness of Breath Narrative Narrative: Chief complaint and HPI: 34-year-old female with past medical history of asthma, tobacco abuse presents for evaluation of shortness of breath and wheezing. Patient states yesterday she developed wheezing and shortness of breath. Endorses a mild cough. Denies any fever, chills, chest pain, abdominal pain, nausea, vomiting. States that she was scheduled to see pulmonology but they canceled her appointment. She has nebulizers and albuterol inhaler at home. She does not use a maintenance inhaler. Review of systems: See HPI Medications: As listed on the chart Allergies: As listed on the chart PFSH: Per chart Vital signs: As listed on the chart. Reviewed. Physical exam: Gen: A&O x3, NAD Head: Normocephalic, atraumatic Eyes: No sclera icterus, conjunctiva clear ENT: Moist mucous membranes Neck: Trachea midline, No JVD CV: RRR, no murmurs, no peripheral edema Resp: Diffuse expiratory wheezing GI: Abd soft, non-distended, non-tender, no r/r/g Musc: Full ROM, no deformity Skin: Warm, dry Neuro: Alert, oriented, grossly intact, sensation intact Psych: Cooperative, appropriate mood and affect [facility] Medical History Morbid obesity with BMI of 45.0-49.9, adult Depression Tobacco abuse Morbid obesity Erythrocytosis Upper respiratory infection with cough and congestion Acute bronchospasm due to viral infection delivery delivered Home Medications ?Medication ?Instructions ?Recorded ?Last Taken ?Type furosemide 40 mg tablet (Lasix) 40 mg PO DAILY water r etenion #30 12/08/23 09/29/24 Rx tabs albuterol sulfate 90 mcg/actuation 1 - 2 puff inhalati on Q4H PRN PRN 02/01/24 09/30/24 Rx aerosol inhaler (Ventolin HFA) Wheezing ##1 sertraline 100 mg tablet 100 mg PO QHS depression 09/29/24 History albuterol sulfate 2.5 mg/3 mL 2.5 mg (3 mL) inhalation Q4H PRN 08/11/24 10/01/24 Rx (0.083 %) solution for nebulization PRN Wheezing 1 mon #90 mL Allergy/AdvReac Type Severity Reaction Status Date / Time lidocaine (From Salonpas Allergy Other Verified 10/01/24 10:25 (lidocaine)) Family History (Updated 10/01/24 @ 16:09 by Sylvie Duggan) Grandfather Lung cancer Surgical History Previous section Social History (Updated 10/01/24 @ 16:08 by Sylvie Duggan) household members: spouse housing: house Smoking Status: Former smoker smoking status stop date: 04/20/24 how long ago did patient quit smoking: Currently smoking about 1 pack of cigarettes weekly quit status: quit date established alcohol intake: never substance use type: does not use and marijuana EXAM Physical Exam Const Vital Signs: 10/01/24 10:23 10/01/24 10:25 10/01/24 10:57 Temperature 97.2 F L 97.7 F L Temperature Source Oral Oral Pulse Rate 97 94 94 Respiratory Rate 24 H 24 H 25 H Respiratory Effort Respiratory Pattern Tachypnea Blood Pressure 158/83 H 158/83 H Blood Pressure Mean 108 108 Pulse Ox 91 91 Oxygen Delivery Method Room Air Room Air Oxygen Flow Rate (L/min) 10/01/24 11:11 10/01/24 11:16 10/01/24 12:00 Temperature 97.2 F L 98.3 F Temperature Source Oral Oral Pulse Rate 100 94 Respiratory Rate 22 H 22 H Respiratory Effort Short of Breath Respiratory Pattern Blood Pressure 122/82 H 162/85 H Blood Pressure Mean 95 110 Pulse Ox 92 94 Oxygen Delivery Method Room Air Nasal Cannula Oxygen Flow Rate (L/min) 2 10/01/24 12:00 10/01/24 12:05 10/01/24 13:00 Temperature 98 F Temperature Source Oral Pulse Rate 92 Respiratory Rate 23 H Respiratory Effort Respiratory Pattern Blood Pressure 143/87 H Blood Pressure Mean 105 Pulse Ox 88 90 90 Oxygen Delivery Method Room Air Nasal Cannula Nasal Cannula Oxygen Flow Rate (L/min) 2 2 10/01/24 13:23 10/01/24 13:23 Temperature Temperature Source Pulse Rate Respiratory Rate Respiratory Effort Respiratory Pattern Blood Pressure Blood Pressure Mean Pulse Ox 89 90 Oxygen Delivery Method Nasal Cannula Nasal Cannula Oxygen Flow Rate (L/min) 2 3 MDM MDM MDM Narrative Medical decision making narrative: 34-year-old female with past medical history of asthma, tobacco abuse presents for evaluation of shortness of breath and wheezing. Differential diagnosis includes but is not limited to asthma exacerbation, viral illness, COVID-19 infection, influenza, pneumonia. On presentation patient is nontoxic-appearing. She is mildly hypertensive. Not in any acute distress. Not hypoxic. Respiratory workup ordered. Breathing treatments, Solu-Medrol, NS bolus ordered for symptoms. Chest x-ray was personally reviewed and interpreted by az, ED physician. No pneumonia, effusion, cardiomegaly, pneumothorax. CBC with mild leukocytosis of 12.8. Patient is mildly hemoconcentrated at 15.5. On chart review, she has a history of hemoconcentration. BMP relatively unremarkable. COVID, flu, RSV negative. During patient's workup, she became hypoxic into the 80s with good waveform. Patient now on nasal cannula. Her COVID, flu, RSV is negative. At this point in time, no clear etiology for patient's hypoxia. On reevaluation patient is in no acute distress. Her wheezing has improved therefore magnesium not ordered. However given patient's acute hypoxia she will require admission. She was updated of all the results and confirmed understanding the plan. Due to unclear etiology of patient's hypoxia will get D -dimer to assess for PE. Patient is low risk for PE. Her symptoms do not correspond with a PE. D-dimer unremarkable. Patient admitted to the hospitalist service. Impression: 1. Acute hypoxia requiring nasal cannula oxygen 2. Asthma exacerbation Lab Data Labs: Laboratory Results - last 24 hr 10/01/24 12:20 WBC 12.8 H RBC 5.26 Hgb 15.5 H Hct 45.7 MCV 86.9 MCH 29.5 MCHC 33.9 RDW Std Deviation 41.1 RDW Coeff of Mary Grace 13.2 Plt Count 217 MPV 10.4 Immature Gran % (Auto) 0.500 Neut % (Auto) 70.4 H Lymph % (Auto) 16.2 L [place] % (Auto) 5.1 Eos % (Auto) 7.3 H Baso % (Auto) 0.5 Absolute Neuts (auto) 9.0 H Absolute Lymphs (auto) 2.08 Nucleated RBC % 0 Sodium 138 Potassium 3.7 Chloride 106 Carbon Dioxide 21.2 Anion Gap 11 BUN 6 Creatinine 0.50 L Estim Creat Clear Calc 224.48 Est GFR (MDRD) Non-Af 128 BUN/Creatinine Ratio 12.0 Glucose 128 H Calcium 8.6 Radiography Diagnostic Testing: Clinical Impression(s) from Imaging Studies Chest X-Ray 10/01/24 11:48 IMPRESSION: No acute cardiopulmonary process. Reading Location: [facility] Discharge Plan Disposition Disposition: Acute Care Hospital [facility] [place] Discharge Date/Time: 10/01/24 15:48
[2024-10-01] MEDS: 0.9% Normal Saline (1000mL) 1,000 ML 999 ML IV (11:14)
[2024-10-01] MEDS: MethylPREDNISolone 125 MG/2 ML Vial IV (11:14)
--- NOTE | 2024-10-01 11:48 | RAD_ITS ---
EXAM: XR Chest, 2 Views CLINICAL INDICATION: COUGH, SHORTNESS OF BREATH TECHNIQUE: Frontal and lateral views of the chest. COMPARISON: XR Chest dated 08/08/2024 FINDINGS: LUNGS AND PLEURAL SPACES: Unremarkable. No consolidation. No pneumothorax. HEART: Unremarkable. No cardiomegaly. MEDIASTINUM: Unremarkable. Normal mediastinal contour. BONES/JOINTS: Unremarkable. No acute fracture. RAD/Chest PA and Lateral IMPRESSION: No acute cardiopulmonary process. Reading Location: [facility]
[2024-10-01 12:27] LABS: Absolute Lymphocyte Count 2.08 X10^3/uL (0.83-4.51); Basophil# 0.07 X10^3/uL; Basophil% 0.5 % (0-1); Eosinophil# 0.93 X10^3/uL; Eosinophils% 7.3 % (0-5); Hematocrit 45.7 % (37-47); Hemoglobin 15.5 g/dL (12.0-15.0); Lymphocyte # 2.08 X10^3/ul (0.83-4.51); Lymphocyte % 16.2 % (19-41); Mean Corp Hgb Conc 33.9 g/dL (32-36); Mean Corpuscular Hgb 29.5 pg (27.0-32.0); Mean Corpuscular Volume 86.9 fL (81-99); Mean Platelet Vol. 10.4 fl (6.2-12.0); Monocyte# 0.65 X10^3/uL; Monocyte% 5.1 % (0-10); NRBC Flagged by Analyzer 0 % (0-5); Neutrophil # 9.01 X10^3/uL (2.7-7.7); Neutrophil % 70.4 % (47-70); Platelet Count 217 K/mm3 (150-450); RBC Distribution Width CV 13.2 % (11.6-14.6); RBC Distribution Width SD 41.1 fl (35.1-43.9); Red Blood Count 5.26 M/mm3 (4.2-5.4); White Blood Count 12.8 K/mm3 (4.4-11.0)
[2024-10-01 13:01] LABS: Anion Gap 11 (5-15); BUN 6 mg/dL (4-19); Calcium,Total 8.6 mg/dL (7.6-11.0); Carbon Dioxide 21.2 mmol/L (21.0-32.0); Chloride 106 mmol/L (98-108); EST Glomerular Filtration Rate 128 (>60); Estimated Creatinine Clearance 224.48 ml/min (50-250); Glucose 128 mg/dL (70-99); Potassium 3.7 mmol/L (3.3-5.1); Sodium Level 138 mmol/L (133-145)
--- NOTE | 2024-10-01 14:48 | HP.PCM.HOS_ITS ---
HPI - General General Date of Admission: 10/01/24 Date of Service: 10/01/24 Chief Complaint: Shortness of breath HPI Narrative STARR SHIRLEY, is a 34-year-old female history of SHADIA, asthma, depression, morbid obesity, tobacco use who presented [facility] ED 10/01/2024 with shortness of breath for 1 day. In the ED white count 12.8, afebrile, heart rate in the 90s with blood pressure 158/83, respiratory rate low to mid 20s and patient initially 91% on room air patient desaturated to 88% requiring 2 and subsequently 3 L of O2. COVID/flu/RSV negative. Chest x-ray with no acute process. Patient given fluids, nebulizer treatment, and Solu-Medrol and hospitalist contacted for admission for asthma exacerbation. Patient reports that for about a day and a half she has had increased shortness of breath and initially her pulse ox at home was 89 and then went back up to 93% however today she was between 87-89 and her breathing was worsening so she came back to the hospital. She denies any specific exacerbating factors, notes that these episodes of only been happening over the past couple of years. Denies any fevers or recent sick contacts. Notes that she feels her wheezing and breathing is a little bit better with the nebs and steroids but still feels an almost tight like feeling, does feel better overall but still remains around 91-93 on 3 L O2. Of note she is supposed to go to the sleep lab to get her CPAP fit but this has not yet been completed so she is not currently using a home CPAP [facility] Medical History Morbid obesity with BMI of 45.0-49.9, adult Depression Tobacco abuse Morbid obesity Erythrocytosis Upper respiratory infection with cough and congestion Acute bronchospasm due to viral infection delivery delivered Home Medications ?Medication ?Instructions ?Recorded ?Last Taken ?Type furosemide 40 mg tablet (Lasix) 40 mg PO DAILY #30 tab s 12/08/23 Unknown Rx albuterol sulfate 90 mcg/actuation 1 - 2 puff inhalati on Q4H PRN PRN 02/01/24 Unknown Rx aerosol inhaler (Ventolin HFA) Wheezing ##1 sertraline 100 mg tablet 100 mg PO QHS 05/11/24 Unkno wn History albuterol sulfate 2.5 mg/3 mL 2.5 mg (3 mL) inhalation Q4H PRN 08/11/24 Unknown Rx (0.083 %) solution for nebulization PRN Wheezing 1 mon th #90 mL guaifenesin 1,200 mg tablet, 1,200 mg PO BID 7 days #1 4 tabs 08/11/24 Unknown Rx extended release 12 hr (Mucus Relief ER) prednisone 10 mg tablet 10 mg PO DAILY #30 tabs 07/22 09/14 Unknown Rx Allergy/AdvReac Type Severity Reaction Status Date / Time lidocaine (From Salonpas Allergy Other Verified 10/01/24 10:25 (lidocaine)) Surgical History Previous section Social History household members: spouse housing: house Smoking Status: Former smoker how long ago did patient quit smoking: Currently smoking about 1 pack of cigarettes weekly alcohol intake: current alcohol intake frequency: holidays/special occasions only substance use type: does not use ROS ROS Narrative General: Denies fever/chills HENT: Denies headache, denies stuffy nose, denies sore throat EYES: Denies changes in vision Resp: Slight cough, increased shortness of breath Cardiac: Denies chest pain GI: Denies abdominal pain, denies changes in bowel, denies nausea/vomiting : Denies changes in urination Extremity: Denies swelling MSK: Denies weakness Neuro: Denies any numbness/tingling Heme: Denies any bleeding or bruising Skin: Denies rashes Psychiatric: No complaints voiced Vital Signs Vital Signs Vital Signs: 10/01/24 10:23 10/01/24 10:25 10/01/24 10:57 Temperature 97.2 F L 97.7 F L Temperature Source Oral Oral Pulse Rate 97 94 94 Respiratory Rate 24 H 24 H 25 H Respiratory Effort Respiratory Pattern Tachypnea Blood Pressure 158/83 H 158/83 H Blood Pressure Mean 108 108 Pulse Ox 91 91 Oxygen Delivery Method Room Air Room Air Oxygen Flow Rate (L/min) 10/01/24 11:11 10/01/24 11:16 10/01/24 12:00 Temperature 97.2 F L 98.3 F Temperature Source Oral Oral Pulse Rate 100 94 Respiratory Rate 22 H 22 H Respiratory Effort Short of Breath Respiratory Pattern Blood Pressure 122/82 H 162/85 H Blood Pressure Mean 95 110 Pulse Ox 92 94 Oxygen Delivery Method Room Air Nasal Cannula Oxygen Flow Rate (L/min) 2 10/01/24 12:00 10/01/24 12:05 10/01/24 13:00 Temperature 98 F Temperature Source Oral Pulse Rate 92 Respiratory Rate 23 H Respiratory Effort Respiratory Pattern Blood Pressure 143/87 H Blood Pressure Mean 105 Pulse Ox 88 90 90 Oxygen Delivery Method Room Air Nasal Cannula Nasal Cannula Oxygen Flow Rate (L/min) 2 2 10/01/24 13:23 10/01/24 13:23 Temperature Temperature Source Pulse Rate Respiratory Rate Respiratory Effort Respiratory Pattern Blood Pressure Blood Pressure Mean Pulse Ox 89 90 Oxygen Delivery Method Nasal Cannula Nasal Cannula Oxygen Flow Rate (L/min) 2 3 Weight Weight: 134.581 kg Body Mass Index (BMI) 49.4 Physical Exam Narrative General: Alert, oriented, no apparent distress HEENT: Atraumatic, normocephalic Eyes: Anicteric, normal conjunctiva, extraocular movements grossly intact Neck: Supple Respiratory: Diffuse wheezing especially expiratory Cardiovascular: Regular rate and rhythm GI: Soft, nontender, nondistended Extremities: No edema Musculoskeletal: Moving all extremities Neuro: No overt focal neurological deficits Skin: No rashes appreciated Psych: Cooperative Results Lab / Micro Data 10/01/24 12:20 10/01/24 12:20 Labs: Laboratory Results - last 24 hr 10/01/24 12:20: WBC 12.8 H, RBC 5.26, Hgb 15.5 H, Hct 45.7, MCV 86.9, MCH 29.5, MCHC 33.9, RDW Std Deviation 41.1, RDW Coeff of Mary Grace 13.2, Plt Count 217, MPV 10.4, Immature Gran % (Auto) 0.500, Neut % (Auto) 70.4 H, Lymph % (Auto) 16.2 L, [place] % (Auto) 5.1, Eos % (Auto) 7.3 H, Baso % (Auto) 0.5, Absolute Neuts (auto) 9.0 H, Absolute Lymphs (auto) 2.08, Nucleated RBC % 0, Sodium 138, Potassium 3.7, Chloride 106, Carbon Dioxide 21.2, Anion Gap 11, BUN 6, Creatinine 0.50 L, Estim Creat Clear Calc 224.48, Est GFR (MDRD) Non-Af 128, BUN/Creatinine Ratio 12.0, Glucose 128 H, Calcium 8.6 Micro: Microbiology 10/01/24 11:45 Mucosa - Nose SARS-CoV-2, Influenza & RSV (PCR) - Final Imaging Radiology Impression Chest X-Ray 10/01/24 11:48 IMPRESSION: No acute cardiopulmonary process. Reading Location: [facility] Assessment & Plan Assessment/Plan (1) Acute asthma exacerbation: PLAN: Plan #Acute exacerbation of asthma -Admit to floor, continuous O2 monitoring -Chest x-ray: Negative for acute process - COVID negative, obtain respiratory panel -O2 in place, wean as tolerated -IV methylprednisone -Scheduled DuoNebs -Albuterol prn -Incentive spirometer -Mucinex -Given patient still 90% on 3 L and has the most tight feeling in her chest and symptoms came on fairly quickly over the past 1 to 2 days will check D-dimer, if elevated will obtain CTA though lower suspicion's do not feel CTA needs to be done without first checking a D-dimer #SHADIA -Not yet using home CPAP but she still is to go to sleep lab to get this fitted #Depression/anxiety -Continue home medications if applicable, awaiting home med rec update # Former smoker -Advised continued cessation #Morbid obesity -BMI documented as 49.4 kg/m? at time of admission -Complicates treatment, prognosis, outcomes -Recommend weight loss and lifestyle changes #DVT ppx: Lovenox twice daily Deborah Galindo MD Time spent in the patient's overall evaluation, decision-making process, review of diagnostic data, adjustment of management, discussion with other providers, nursing and ancillary staff involved in patient's care documentation, 56 Minutes Charges/Coding Visit Charges Inpatient E&M: 70304 Init Hosp L2
[2024-10-01 15:39] LABS: D-Dimer Quantitative (DVT/PE) < 0.27 FEU/ug/m (0.27-0.49)
[2024-10-01] MEDS: Furosemide 40 MG Tablet PO (19:12)
[2024-10-01] MEDS: Magnesium Sulfate 2 GM in Dextrose 5%-Water (100mL Bag) 100 ML IV (19:12)
[2024-10-01] MEDS: Enoxaparin 40 MG/0.4 ML Syringe SC (20:50)
[2024-10-01] MEDS: Methylprednisolone Sod Succ 40 MG/ML VIAL IV (20:53)
[2024-10-02] VITALS (12 sets, daily range): BP systolic 116–138; BP diastolic 55–82; PULSE 74–93; RESP 16–20; TEMP 36.5–36.8; O2SAT 90–97
[2024-10-02] MEDS: Methylprednisolone Sod Succ 40 MG/ML VIAL IV ×3 (05:38→21:21)
[2024-10-02] MEDS: 0.9% Saline Lock 10 ML Syringe IV (05:38)
[2024-10-02 07:24] LABS: Anion Gap 12 (5-15); BUN 6 mg/dL (4-19); BUN/Creat Ratio 12.7 RATIO (10-20); Carbon Dioxide 20.7 mmol/L (21.0-32.0); Chloride 105 mmol/L (98-108); Creatinine, Serum 0.45 mg/dL (0.70-1.20); EST Glomerular Filtration Rate 131 (>60); Estimated Creatinine Clearance 247.63 ml/min (50-250); Glucose 131 mg/dL (70-99); Magnesium 2.5 mg/dL (1.5-2.2); Potassium 4.1 mmol/L (3.3-5.1); Sodium Level 137 mmol/L (133-145)
[2024-10-02] MEDS: Ipratropium/Albuterol Sulfate 3 ML AMPUL.NEB INHALATION ×5 (07:24→23:40)
[2024-10-02 08:33] LABS: Absolute Lymphocyte Count 1.29 X10^3/uL (0.83-4.51); Absolute Neutrophil Count 12.8 X10^3/uL (2.0-7.7); Basophil# 0.02 X10^3/uL; Basophil% 0.1 % (0-1); Hematocrit 48.6 % (37-47); Hemoglobin 16.6 g/dL (12.0-15.0); Lymphocyte # 1.29 X10^3/ul (0.83-4.51); Lymphocyte % 8.8 % (19-41); Mean Corp Hgb Conc 34.2 g/dL (32-36); Mean Corpuscular Hgb 29.4 pg (27.0-32.0); Mean Platelet Vol. 11.2 fl (6.2-12.0); Monocyte# 0.51 X10^3/uL; Monocyte% 3.5 % (0-10); NRBC Flagged by Analyzer 0 % (0-5); Neutrophil # 12.81 X10^3/uL (2.7-7.7); Neutrophil % 87.2 % (47-70); Platelet Count 268 K/mm3 (150-450); RBC Distribution Width CV 13.2 % (11.6-14.6); RBC Distribution Width SD 41.1 fl (35.1-43.9); Red Blood Count 5.65 M/mm3 (4.2-5.4); White Blood Count 14.7 K/mm3 (4.4-11.0)
[2024-10-02] MEDS: Sertraline 100 MG Tablet PO (09:23)
[2024-10-02] MEDS: Enoxaparin 40 MG/0.4 ML Syringe SC ×2 (09:23→21:20)
[2024-10-02] MEDS: Furosemide 40 MG/4 ML Vial IV (09:38)
--- NOTE | 2024-10-02 10:43 | CASEMGMT ---
CLAUDIA PATEL Assessment: Face to Face with pt for initial transition planning/care coordination assessment. CLAUDIA PATEL introduced self and role at [facility], pt voices understanding and consents to assessment. Pt is A&O x4 and answers all questions appropriately at this time. Pt lying in bed in no distress. Care providers, pharmacy, and demographics verified/updated. Strata: 2 Admitting Dx: Acute Hypoxia and Asthma Exacerbation PCP: Mg Specialists: [facility] Preferred Pharmacy: [facility] Insurance: [employer] Prescription Benefit: yes LNOK: , Subhash Living Arrangements: Pt lives with and daughter in a 1 story home with 2 steps to enter. ADLs: I at baseline Transportation: Pt drives self and denies concerns with transportation. DME: Pt denies DME at home. CLAUDIA PATEL discussed going home with O2. RN JORGE provided verbal list of local oxygen providers, pt chose [facility] if requires O2 or nebulizer at time of DC. CLAUDIA PATEL discussed purchasing a pulse ox to check oxygen at home. Pt verbalized understanding. HHC/SNF: Denies Hx of. Pt states no concerns with going home at time of dc. Pt states no further concerns/needs. CM to follow. Advised pt to ask CM if any further question/concerns/needs arise, voices understanding. Pt Goal: Home Plan: Home, follow for O2 needs. Carolynn TAYLOR CM
--- NOTE | 2024-10-02 13:53 | PCM.PN.HOSP ---
Reason for Visit Reason for Visit: Diagnoses Unspecified asthma with (acute) exacerbation (10/01/24) Subjective Subjective Wheezing improving, still hypoxic requiring O2 Objective Data Objective Data Vital Signs: Vital Signs Temp Pulse Resp BP Pulse Ox O2 Del Method O2 Flow Rate 98 F 83 17 120/82 H 94 Nasal Cannula 4 10/02/24 09:17 10/02/24 10:48 10/02/24 10:48 10/02/24 09:17 10/02/24 09:17 10/02/24 09:17 10/02/24 09:17 Oxygen Flow Rate (L/min) 4 Oxygen Delivery Method Nasal Cannula Weight: 133 kg Body Mass Index (BMI) 48.7 Intake & Output: Intake and Output for Last 24 Hours 09/30/24 10/01/24 10/02/24 23:59 23:59 23:59 Intake Total 1344 / 1544 200 / 200 Balance 1344 / 1544 200 / 200 Lab / Micro Data 10/02/24 06:21 10/02/24 06:21 Labs: Laboratory Results - last 24 hr 10/01/24 15:10: D-Dimer Quant (PE/DVT) < 0.27 L 10/02/24 06:21: WBC 14.7 H, RBC 5.65 H, Hgb 16.6 H, Hct 48.6 H, MCV 86.0, MCH 29.4, MCHC 34.2, RDW Std Deviation 41.1, RDW Coeff of Mary Grace 13.2, Plt Count 268, MPV 11.2, Immature Gran % (Auto) 0.400, Neut % (Auto) 87.2 H, Lymph % (Auto) 8.8 L, [place] % (Auto) 3.5, Eos % (Auto) 0.0, Baso % (Auto) 0.1, Absolute Neuts (auto) 12.8 H, Absolute Lymphs (auto) 1.29, Nucleated RBC % 0, Sodium 137, Potassium 4.1, Chloride 105, Carbon Dioxide 20.7 L, Anion Gap 12, BUN 6, Creatinine 0.45 L, Estim Creat Clear Calc 247.63, Est GFR (MDRD) Non-Af 131, BUN/Creatinine Ratio 12.7, Glucose 131 H, Calcium 9.0, Magnesium 2.5 H Micro: Microbiology 10/01/24 16:20 Mucosa - Nasopharyngeal Respiratory Panel (PCR) - Final 10/01/24 11:45 Mucosa - Nose SARS-CoV-2, Influenza & RSV (PCR) - Final Physical Exam Narrative General: Alert, oriented, no apparent distress HEENT: Atraumatic, normocephalic Eyes: Anicteric, normal conjunctiva, extraocular movements grossly intact Neck: Supple Respiratory: Wheezing significantly improved Cardiovascular: Regular rate and rhythm GI: Soft, nontender, nondistended Extremities: No edema Musculoskeletal: Moving all extremities Neuro: No overt focal neurological deficits Skin: No rashes appreciated Psych: Cooperative Assessment & Plan Assessment/Plan (1) Acute asthma exacerbation: PLAN: Plan #Acute exacerbation of asthma -Admit to floor, continuous O2 monitoring -Chest x-ray: Negative for acute process - COVID negative, obtain respiratory panel -O2 in place, wean as tolerated -IV methylprednisone -Scheduled DuoNebs -Albuterol prn -Incentive spirometer -Mucinex -Given patient still 90% on 3 L and has the most tight feeling in her chest and symptoms came on fairly quickly over the past 1 to 2 days will check D-dimer, if elevated will obtain CTA though lower suspicion's do not feel CTA needs to be done without first checking a D-dimer -10/02: D-dimer negative, suspect that additional hypoxia on top of the asthma exacerbation is due to the IV fluids patient received as she usually takes oral Lasix and reports she has had this problem before and required IV Lasix when she has been hypoxic, wheezing resolved, will give dose of IV Lasix. Anticipate home in 1 to 2 days when oxygenation improving and able to ambulate without requiring high O2 Chronic medical problems: #SHADIA -Not yet using home CPAP but she still is to go to sleep lab to get this fitted #Depression/anxiety -Continue home medications if applicable, awaiting home med rec update # Former smoker -Advised continued cessation #Morbid obesity -BMI documented as 49.4 kg/m? at time of admission -Complicates treatment, prognosis, outcomes -Recommend weight loss and lifestyle changes #DVT ppx: Lovenox twice daily Deborah Galindo MD Time spent in the patient's overall evaluation, decision-making process, review of diagnostic data, adjustment of management, discussion with other providers, nursing and ancillary staff involved in patient's care documentation, 56 Minutes Charges/Coding Visit Charges Inpatient E&M: 87450 [facility] Hosp L1
[2024-10-03] VITALS (7 sets, daily range): BP systolic 107–122; BP diastolic 65–86; PULSE 65–88; RESP 18–20; TEMP 36.4–36.6; O2SAT 89–97
[2024-10-03] MEDS: 0.9% Saline Lock 10 ML Syringe IV (04:57)
[2024-10-03] MEDS: Methylprednisolone Sod Succ 40 MG/ML VIAL IV (04:57)
[2024-10-03 05:55] LABS: Absolute Lymphocyte Count 1.79 X10^3/uL (0.83-4.51); Absolute Neutrophil Count 17.2 X10^3/uL (2.0-7.7); Basophil# 0.03 X10^3/uL; Basophil% 0.1 % (0-1); Hematocrit 47.7 % (37-47); Hemoglobin 16.5 g/dL (12.0-15.0); Lymphocyte # 1.79 X10^3/ul (0.83-4.51); Lymphocyte % 8.9 % (19-41); Mean Corp Hgb Conc 34.6 g/dL (32-36); Mean Corpuscular Hgb 29.5 pg (27.0-32.0); Mean Corpuscular Volume 85.2 fL (81-99); Mean Platelet Vol. 10.7 fl (6.2-12.0); Monocyte# 0.92 X10^3/uL; Monocyte% 4.6 % (0-10); NRBC Flagged by Analyzer 0 % (0-5); Neutrophil # 17.16 X10^3/uL (2.7-7.7); Neutrophil % 85.8 % (47-70); Platelet Count 297 K/mm3 (150-450); RBC Distribution Width CV 13.2 % (11.6-14.6); RBC Distribution Width SD 40.6 fl (35.1-43.9)
[2024-10-03] MEDS: Ipratropium/Albuterol Sulfate 3 ML AMPUL.NEB INHALATION ×2 (06:45→10:53)
[2024-10-03 06:47] LABS: Anion Gap 15 (5-15); BUN 9 mg/dL (4-19); BUN/Creat Ratio 15.4 RATIO (10-20); Calcium,Total 9.1 mg/dL (7.6-11.0); Carbon Dioxide 19.3 mmol/L (21.0-32.0); Chloride 105 mmol/L (98-108); Creatinine, Serum 0.58 mg/dL (0.70-1.20); EST Glomerular Filtration Rate 123 (>60); Estimated Creatinine Clearance 192.13 ml/min (50-250); Glucose 162 mg/dL (70-99); Potassium 3.7 mmol/L (3.3-5.1); Sodium Level 139 mmol/L (133-145)
[2024-10-03] MEDS: Sertraline 100 MG Tablet PO (10:15)
[2024-10-03] MEDS: Furosemide 40 MG Tablet PO (10:15)
[2024-10-03] MEDS: Enoxaparin 40 MG/0.4 ML Syringe SC (10:15)
--- NOTE | 2024-10-03 13:08 | DCINST_ITS ---
Discharge Instructions Diet Discharge Diet: - (1700 cc fluid restriction) DC O2, CPAP, BIPAP needs Home O2 Discharge instructions: No Dressing / Incision Discharge Activity: - (Increase activity as tolerated) Return to work on:: 10/06/24 Follow Up Care Test Results: Test results from this visit will be discussed in further detail at your follow- up appointment, if applicable. Discharge Plan Admission Admit Date/Time: 10/01/24 14:49 Primary Reason for Your Visit: Shortness of breath Attending Provider: Deborah Galindo Primary Care Provider: Ankit Holliday Instructions Patient Instructions: About Your Asthma Action Plan, Acute Severe Asthma Additional Instructions / Restrictions: DISCHARGE INSTRUCTIONS PLEASE READ *Please take this with you to your next doctors appointment* -You will be discharged on a prednisone taper: -60 mg daily x3 days -50mg daily x3 days -40mg daily x3 days -30mg daily x3 days -20mg daily x3 days -10mg daily x3 days -This prescription was sent to [facility] pharmacy, the preferred pharmacy on file as it will be open at the time you are discharged -Please use your nebulizers 4 times daily and keep your follow-up appointment with your lung doctor on Friday -Please call your primary care provider's office upon discharge to schedule a hospital follow up within 1 week. -For any concerning signs or symptoms please call 911 or proceed to the nearest emergency department Discharge Orders/Prescriptions Prescriptions: New prednisone 20 mg Tablet See Taper PO BREAKFAST Qty: 32 0RF Taper: Prednisone Taper 60 mg WITH BREAKFAST for 3 Days and 0 Hour 50 mg WITH BREAKFAST for 3 Days and 0 Hour 40 mg WITH BREAKFAST for 3 Days and 0 Hour 30 mg WITH BREAKFAST for 3 Days and 0 Hour 20 mg WITH BREAKFAST for 3 Days and 0 Hour 10 mg WITH BREAKFAST for 3 Days and 0 Hour Continued albuterol sulfate [Ventolin HFA] 90 mcg/actuation HFA aerosol inhaler 1 - 2 puff inhalation Q4H PRN PRN (Reason: Wheezing) Qty: 1 0RF furosemide [Lasix] 40 mg tablet 40 mg PO DAILY Qty: 30 0RF sertraline 100 mg tablet 100 mg PO QHS albuterol sulfate 2.5 mg /3 mL (0.083 %) Solution For Nebulization 2.5 mg inhalation Q4H PRN PRN (Reason: Wheezing) 30 Days Qty: 90 0RF Referrals / Follow Up: Ankit Holliday MD [Primary Care Provider] - Within 1 Week Disposition Disposition (needs filled in before D/C Order can be placed): Home, Self Care
--- NOTE | 2024-10-03 13:15 | DS.PCM_ITS ---
Providers Date of Admission: 10/01/24 Date of Discharge: 10/03/24 Primary Care Physician: Dr. Ankit Holliday MD Reason For Visit: ACUTE HYPOXIA AND ASTHMA EXACERBATION Diagnosis Discharge Diagnosis (1) Acute asthma exacerbation: Status: Resolved Code(s): J45.901 - Unspecified asthma with (acute) exacerbation Plan #Acute exacerbation of asthma #SHADIA #Depression/anxiety # Former smoker #Morbid obesity Medications at Discharge Home Medications furosemide 40 mg tablet (Lasix) 40 mg PO DAILY water retenion #30 tabs 12/08/23 albuterol sulfate 90 mcg/actuation aerosol inhaler (Ventolin HFA) 1 - 2 puff inhalation Q4H PRN PRN Wheezing ##1 02/01/24 sertraline 100 mg tablet 100 mg PO QHS depression 05/11/24 albuterol sulfate 2.5 mg/3 mL (0.083 %) solution for nebulization 2.5 mg (3 mL) inhalation Q4H PRN PRN Wheezing 1 month #90 mL 08/11/24 prednisone 20 mg tablet See Taper PO BREAKFAST #32 tabs 10/03/24 Hospital Course Summary of Care Provided Minutes Spent on Discharge: 28 Hospital Course: STARR SHIRLEY, is a 34-year-old female history of SHADIA, asthma, depression, morbid obesity, tobacco use who presented [facility] ED 10/01/2024 with shortness of breath for 1 day. In the ED white count 12.8, afebrile, heart rate in the 90s with blood pressure 158/83, respiratory rate low to mid 20s and patient initially 91% on room air patient desaturated to 88% requiring 2 and subsequently 3 L of O2. COVID/flu/RSV negative. Chest x-ray with no acute process. Patient given fluids, nebulizer treatment, and Solu-Medrol and hospitalist contacted for admission for asthma exacerbation. Patient's wheezing and respiratory status did not improve with nebs and steroids however patient remained hypoxic with O2 requirement, was revealed that patient takes 40 of Lasix daily at home and received a liter of IV fluids in the ED, sats improved after IV Lasix. Patient was ambulated on day of discharge without need for home O2. She reports that last time she had a asthma exacerbation she felt a tightness in her chest that slowly went away over time with improvement, this time she has the same thing. Given her age and that this has occurred in the context of asthma exacerbations for before do not think this needs further acute workup, discussed risks and benefits with patient and she was agreeable. Patient had D-dimer on arrival that was negative's do not think she needs scan for PE especially given improvement. Patient vitally stable and reports overall improvement. Patient has upcoming appointment with pulmonology on Friday and she is comfortable discharge home and outpatient follow-up. No new or acute complaints on day of discharge, discharge instructions as follows: -You will be discharged on a prednisone taper: -60 mg daily x3 days -50mg daily x3 days -40mg daily x3 days -30mg daily x3 days -20mg daily x3 days -10mg daily x3 days -This prescription was sent to [facility] pharmacy, the preferred pharmacy on file as it will be open at the time you are discharged -Please use your nebulizers 4 times daily and keep your follow-up appointment with your lung doctor on Friday -Please call your primary care provider's office upon discharge to schedule a hospital follow up within 1 week. -For any concerning signs or symptoms please call 911 or proceed to the nearest emergency department Physical Exam Narrative General: Alert, oriented, no apparent distress HEENT: Atraumatic, normocephalic Eyes: Anicteric, normal conjunctiva, extraocular movements grossly intact Neck: Supple Respiratory: Wheezing significantly improved, no overt crackles or rhonchi, work of breathing improved Cardiovascular: Regular rate and rhythm GI: Soft, nontender, nondistended Extremities: No edema Musculoskeletal: Moving all extremities Neuro: No overt focal neurological deficits Skin: No rashes appreciated Psych: Cooperative Weight / BMI Weight Weight: 133 kg Body Mass Index (BMI) 48.7 ABG / Lab / Microbiology Data 10/03/24 05:11 10/03/24 05:11 Laboratory: Laboratory Results - last 24 hr 10/03/24 05:11: WBC 20.0 H, RBC 5.60 H, Hgb 16.5 H, Hct 47.7 H, MCV 85.2, MCH 29.5, MCHC 34.6, RDW Std Deviation 40.6, RDW Coeff of Mary Grace 13.2, Plt Count 297, MPV 10.7, Immature Gran % (Auto) 0.600, Neut % (Auto) 85.8 H, Lymph % (Auto) 8.9 L, Jackson % (Auto) 4.6, Eos % (Auto) 0.0, Baso % (Auto) 0.1, Absolute Neuts (auto) 17.2 H, Absolute Lymphs (auto) 1.79, Nucleated RBC % 0, Sodium 139, Potassium 3.7, Chloride 105, Carbon Dioxide 19.3 L, Anion Gap 15, BUN 9, Creatinine 0.58 L , Estim Creat Clear Calc 192.13, Est GFR (MDRD) Non-Af 123, BUN/Creatinine Ratio 15.4, Glucose 162 H, Calcium 9.1 Microbiology: Microbiology 10/01/24 16:20 Mucosa - Nasopharyngeal Respiratory Panel (PCR) - Final 10/01/24 11:45 Mucosa - Nose SARS-CoV-2, Influenza & RSV (PCR) - Final D/C Instructions Discharge Diet: - (1700 cc fluid restriction) Return to work on: 10/06/24 DC O2, CPAP, BIPAP Needs Home O2 Discharge instructions: No Meaningful Use Info Meaningful Use Meaningful Use Diagnoses (Choose all that apply): None applicable Ischemic Stroke Statin Dosing Therapy Reference: STATIN DOSE THERAPY REFERENCE: * Patients > 75 years receive moderate or high dose statin therapy. * Patients 75 years or YOUNGER should receive HIGH intensity statin dose unless contraindicated. You will be required to document reason for non-treatment if statin daily dose does not meet guidelines. HIGH DOSE STATIN THERAPY DAILY Atorvastatin > than or = to 40 mg Rosuvastatin > than or = to 20 mg Amlodipine + Atorvastatin > than or = to 2.5/40 mg Ezetimibe + Simvastatin 10/80 mg Simvastatin 80mg Discharge Plan Admission Admit Date/Time: 10/01/24 14:49 Primary Reason for Your Visit: Shortness of breath Attending Provider: Deborah Galindo Primary Care Provider: Ankit Holliday Instructions Patient Instructions: About Your Asthma Action Plan, Acute Severe Asthma Additional Instructions / Restrictions: DISCHARGE INSTRUCTIONS PLEASE READ *Please take this with you to your next doctors appointment* -You will be discharged on a prednisone taper: -60 mg daily x3 days -50mg daily x3 days -40mg daily x3 days -30mg daily x3 days -20mg daily x3 days -10mg daily x3 days -This prescription was sent to [facility], the preferred pharmacy on file as it will be open at the time you are discharged -Please use your nebulizers 4 times daily and keep your follow-up appointment with your lung doctor on Friday -Please call your primary care provider's office upon discharge to schedule a hospital follow up within 1 week. -For any concerning signs or symptoms please call 911 or proceed to the nearest emergency department Discharge Orders/Prescriptions Prescriptions: New prednisone 20 mg Tablet See Taper PO BREAKFAST Qty: 32 0RF Taper: Prednisone Taper 60 mg WITH BREAKFAST for 3 Days and 0 Hour 50 mg WITH BREAKFAST for 3 Days and 0 Hour 40 mg WITH BREAKFAST for 3 Days and 0 Hour 30 mg WITH BREAKFAST for 3 Days and 0 Hour 20 mg WITH BREAKFAST for 3 Days and 0 Hour 10 mg WITH BREAKFAST for 3 Days and 0 Hour Continued albuterol sulfate [Ventolin HFA] 90 mcg/actuation HFA aerosol inhaler 1 - 2 puff inhalation Q4H PRN PRN (Reason: Wheezing) Qty: 1 0RF furosemide [Lasix] 40 mg tablet 40 mg PO DAILY Qty: 30 0RF sertraline 100 mg tablet 100 mg PO QHS albuterol sulfate 2.5 mg /3 mL (0.083 %) Solution For Nebulization 2.5 mg inhalation Q4H PRN PRN (Reason: Wheezing) 30 Days Qty: 90 0RF Referrals / Follow Up: Ankit Holliday MD [Primary Care Provider] - Within 1 Week Disposition Disposition (needs filled in before D/C Order can be placed): Home, Self Care Charges/Coding Visit Charges Inpatient E&M: 24251 Disch Hosp
== END 2024-10-03 13:41 | disposition home or self-care (01) | DRG 202 ==
LOC: ED 10:52 → PCU 14:54
PROVIDERS: Admitting Provider Internal Medicine; Emergency Provider Surgery; PCP Family Medicine; Referring Provider Internal Medicine; Visit Provider Internal Medicine
DX: J45.901 Unspecified asthma with (acute) exacerbation (principal); Z68.42 Body mass index [BMI] 45.0-49.9, adult; E66.01 Morbid (severe) obesity due to excess calories; F32.A Depression, unspecified; G47.33 Obstructive sleep apnea (adult) (pediatric); F41.9 Anxiety disorder, unspecified; Z11.52 Encounter for screening for COVID-19; R09.02 Hypoxemia; Z87.891 Personal history of nicotine dependence
CPT/HCPCS: 36415; 71046; 80048; 83735; 85025; 85379; 87631; 87633; 94640; 94668; 99285; A4216; J1940

== ENCOUNTER → 2024-10-11 | Outpatient (CLI) | payer BC, SELFPAY | END | disposition home or self-care (01) | LOC: SL 07:06 | PROVIDERS: PCP Family Medicine; Visit Provider Nurse Practitioner Family | DX: Z46.89 Encounter for fitting and adjustment of other specified devices (principal) ==

== ENCOUNTER 2024-11-15 08:32 | Emergency (ER) | payer BC, SELFPAY ==
[2024-11-15 08:33] VITALS: BP 143/103; PULSE 61; RESP 16; TEMP 36.4; O2SAT 99
[2024-11-15 08:36] VITALS: BMI 51.4
--- NOTE | 2024-11-15 08:44 | RAD_ITS ---
PROCEDURE: ANKLE MIN 3 VIEWS 11/15/2024 REASON FOR EXAM: INJURY TECHNIQUE: 3 views of the RIGHT ankle COMPARISON: None FINDINGS: Fracture/dislocation: None visible. Joint space(s): Preserved. Soft tissues: Lateral malleolar soft tissue swelling. Foreign bodies: None visible. Bone mineralization: Unremarkable. Other: None. RAD/Ankle min 3 Views IMPRESSION: Lateral malleolar soft tissue swelling without visible acute displaced fracture . Reading Location: [id number]
--- NOTE | 2024-11-15 08:46 | ED.VIS.LOWEX ---
HPI History of Present Illness Chief Complaint: Lower Extremity Injury Informant: patient and spouse/S.O. Narrative Narrative: Bilateral ankle injury this morning coming down the front porch. Getting her kids on the bus. Inversion injury both ankles however right greater than left. Limping in. Have ankle sprains when she was younger. History of asthma allergies to lidocaine. No history gastric ulcers or kidney injury. No head injuries. No medications taken prior to arrival. [facility] Medical History Morbid obesity with BMI of 45.0-49.9, adult Depression Tobacco abuse Morbid obesity Erythrocytosis Upper respiratory infection with cough and congestion Acute bronchospasm due to viral infection delivery delivered Home Medications ?Medication ?Instructions ?Recorded ?Last Taken ?Type furosemide 40 mg tablet (Lasix) 40 mg PO DAILY water retenion #30 12/08/23 11/14/24 Rx tabs albuterol sulfate 90 mcg/actuation 1 - 2 puff inhalation Q4H PRN PRN 02/01/24 09/30/24 Rx aerosol inhaler (Ventolin HFA) Wheezing ##1 sertraline 100 mg tablet 100 mg PO QHS depression 05/11/24 11/14/24 History albuterol sulfate 2.5 mg/3 mL 2.5 mg (3 mL) inhalation Q4H PRN 08/11/24 10/01/24 Rx (0.083 %) solution for nebulization PRN Wheezing 1 month #90 mL fluticasone furoate 200 1 inh inhalation Q24H #60 ea 10/05/24 Unknown Rx mcg-vilanterol 25 mcg/dose inhalation powder (Breo Ellipta) hydrocodone-acetaminophen 5-325mg 1 tab PO Q6H PRN PRN Pain 3 days 11/15/24 Unknown Rx 5mg-325mg #10 TABLETS ibuprofen 600 mg tablet 600 mg PO Q6H PRN PRN pain #20 11/15/24 Unknown Rx TABLETS Allergy/AdvReac Type Severity Reaction Status Date / Time lidocaine (From [facility] Allergy Other Verified 11/15/24 09:08 (lidocaine)) Family History Grandfather Lung cancer Surgical History Previous section Social History household members: spouse housing: house Smoking Status: Former smoker how long ago did patient quit smoking: Currently smoking about 1 pack of cigarettes weekly quit status: quit date established alcohol intake: never substance use type: does not use and marijuana ROS ROS ED Constitutional Constitutional ED: Denies fever(s) Cardiovascular Cardiovascular: Denies chest pain Gastrointestinal Gastrointestinal: Denies diarrhea, nausea or vomiting Musculoskeletal Musculoskeletal: Reports extremity pain; Denies back pain or neck pain Integumentary Denies wounds Neurologic Neurologic: Denies headache(s) EXAM Physical Exam Const Vital Signs: 11/15/24 08:33 11/15/24 10:51 Temperature 97.5 F L 97.4 F L Temperature Source Oral Pulse Rate 61 89 Respiratory Rate 16 17 Blood Pressure 143/103 H 138/89 H Blood Pressure Mean 116 105 Pulse Ox 99 96 Oxygen Delivery Method Room Air Positive well nourished and well developed General Appearance ED: well developed and NAD HEENT Reports moist mucous membranes normocephalic and atraumatic Eyes General Eye ED: Yes normal appearance of both eyes Neck full ROM Chest Wall Chest: Negative for tenderness Resp normal respiratory effort and normal air movement Effort and Inspection: symmetric chest movement; Negative for respiratory distress Cardio regular rate, regular rhythm and no murmurs Peripheral Pulses: pulses 2+ throughout GI normal to inspection, nondistended, normoactive bowel sounds and non-tender Palpation: Negative for guarding or rebound tenderness present Extremity Extremity Narrative: Right lower extremity: Negative logroll. No knee pain. There was just a swelling lateral malleolus with tenderness lateral malleolus. There is mild medial malleolar tenderness. No deformities. No midfoot or proximal fifth base tenderness. Skin intact. Pulses intact distally. Left lower extremity: Negative logroll. No knee tenderness. No medial mall tenderness minimal tenderness ATFL with no tenderness lateral malleolus. No midfoot or proximal fifth base tenderness. Skin intact. Neuro vas intact. General Extremety ED: Yes edema and tenderness General Extremity: edema Neuro oriented x3 and no sensory deficits noted Sensorium / Orientation: awake and alert Skin Skin Narrative: See above MDM MDM MDM Narrative Medical decision making narrative: Interventions / MDM: Differential diagnosis: Sprain Diagnosis considered but do not suspect: fracture x-ray negative. My EKG interpretation: N/A Imaging independently reviewed and interpreted by myself: Right ankle 3 view x-ray: No fracture or dislocation. Soft tissue swelling noted. Left ankle 3 view x-ray: No fracture or dislocation. External documents reviewed: N/A Test considered but not ordered:N/A ED course: Patient with pain in bilateral ankles right greater than left. Motrin and [place] ordered ice was placed. Bilateral x-ray films ordered for further evaluation. X-rays negative. Juan Carlos wrap Aircast to right ankle. She declines any support for the left ankle. Crutches provided. Short course for Motrin and [place] for symptom control. Outpatient follow-up with her doctor. Re-evaluation: stable Disposition discussed with patient/family/significant other: Patient and significant other Case discussed with consulting clinician: N/A This note was generated with [employer] software. It may contain incorrect words, spelling, and punctuation that were not noted in checking the note before signing. Radiography Diagnostic Testing: Clinical Impression(s) from Imaging Studies Ankle X-Ray 11/15/24 08:44 IMPRESSION: Lateral malleolar soft tissue swelling without visible acute displaced fracture. Reading Location: [facility] Ankle X-Ray 11/15/24 08:55 IMPRESSION: No visible acute displaced fracture Reading Location: [facility] Discharge Plan Triage Chief Complaint: Lower Extremity Injury ED Provider: Sree Barillas Dx/Rx/DC Orders Clinical Impression: Moderate right ankle sprain, Mild sprain of left ankle Instructions: ED Ankle Sprain (Adult) Prescriptions: New hydrocodone-acetaminophen 5-325 mg tablet 1 tab PO Q6H PRN PRN (Reason: Pain) 3 Days Qty: 10 0RF ibuprofen 600 mg tablet 600 mg PO Q6H PRN PRN (Reason: pain) Qty: 20 0RF No Action fluticasone furoate-vilanterol [Breo Ellipta] 200-25 mcg/dose blister with device 1 inh inhalation Q24H Qty: 60 2RF albuterol sulfate [Ventolin HFA] 90 mcg/actuation HFA aerosol inhaler 1 - 2 puff inhalation Q4H PRN PRN (Reason: Wheezing) Qty: 1 0RF furosemide [Lasix] 40 mg tablet 40 mg PO DAILY Qty: 30 0RF sertraline 100 mg tablet 100 mg PO QHS albuterol sulfate 2.5 mg /3 mL (0.083 %) Solution For Nebulization 2.5 mg inhalation Q4H PRN PRN (Reason: Wheezing) 30 Days Qty: 90 0RF Stand Alone Forms: ED Work / School Excuse Primary Care Provider: Ankit Holliday Referrals: Ankit Holliday MD [Primary Care Provider] - 1-2 Weeks Activity Restrictions/Additional Instructions: Both ankle x-rays negative. Continue Juan Carlos wrap splint to your right ankle as needed for support. Weight-bear as tolerated. Use crutches. Take medicines as prescribed. Follow-up with your doctor. Print Language: Australian Disposition Disposition: Home, Self Care Discharge Date/Time: 11/15/24 10:53
--- NOTE | 2024-11-15 08:55 | RAD_ITS ---
PROCEDURE: ANKLE MIN 3 VIEWS 11/15/2024 REASON FOR EXAM: INJURIES TECHNIQUE: 3 views of the LEFT ankle COMPARISON: None. FINDINGS: Fracture/dislocation: None visible. Joint space(s): Preserved. Soft tissues: Unremarkable. Foreign bodies: None visible. Bone mineralization: Unremarkable. Other: None. RAD/Ankle min 3 Views IMPRESSION: No visible acute displaced fracture Reading Location: [id number]
[2024-11-15] MEDS: Ibuprofen 600 MG Tablet PO (09:04)
[2024-11-15] MEDS: HYDROcodone Bitartrate/Apap 5/325 Tablet PO (09:04)
[2024-11-15 10:51] VITALS: BP 138/89; PULSE 89; RESP 17; TEMP 36.3; O2SAT 96
== END 2024-11-15 10:53 | disposition home or self-care (01) ==
PROVIDERS: Emergency Provider Emergency Medicine; PCP Family Medicine; Visit Provider Emergency Medicine
DX: S93.401A Sprain of unspecified ligament of right ankle, initial encounter (principal); S93.402A Sprain of unspecified ligament of left ankle, initial encounter; X58.XXXA Exposure to other specified factors, initial encounter; F32.A Depression, unspecified; Z79.899 Other long term (current) drug therapy; Z87.891 Personal history of nicotine dependence
CPT/HCPCS: 73610; 99283

== ENCOUNTER → 2024-12-16 | Outpatient (CLI) | payer BC, SELFPAY | END | disposition home or self-care (01) | LOC: PSN 06:42 | PROVIDERS: PCP Family Medicine; Referring Provider Nurse Practitioner Family; Visit Provider Nurse Practitioner Family | DX: R06.02 Shortness of breath (principal) | CPT/HCPCS: 94060; 94726; 94729 ==